=== PATIENT | male | born 1940 | race Asian ===

== ENCOUNTER → 2017-03-23 | Outpatient (CLI) | payer MEDICARE, OTHER ==
[~2017-03-23] MED LIST: FLUT100I; PANC3600; ZOLP10TA6
== END | disposition home or self-care (01) ==
LOC: LAB 08:54
DX: R63.4 Abnormal weight loss (principal)
CPT/HCPCS: 36415; 82565; 84520

== ENCOUNTER 2017-10-28 18:22 | Emergency (ER) | payer MEDICARE, BC ==
[~2017-10-28] VITALS: Ht 162.6 cm; Wt 45.4 kg
[~2017-10-28 18:22] MED LIST changes: -FLUT100I; +LEVO750T2 PO; -PANC3600; +SACC250C PO; +TEMA30CA5 PO; -ZOLP10TA6
[2017-10-28] MEDS ORDERED: PHENAZOPYRIDINE HCL 100 MG TAB PO ONE (21:00)
[2017-10-28 21:46] LABS: Urine Bacteria NONE SEEN /hpf (None Seen); Urine Blood 3+ /uL (Negative); Urine WBC 21 /hpf (0 - 3)
[2017-10-28 21:52] LABS: Urine Specific Gravity 1.023 (1.001-1.035)
[2017-10-28 22:05] LABS: Basophils # (auto) 0 uL; Basophils % (auto) 0.2 % (0.0-2.0); Eosinophils # (auto) 0.3 uL; Eosinophils % (auto) 4.2 % (0.0-7.0); Hematocrit 39.9 % (41.0-53.0); Hemoglobin 13.8 g/dL (13.5-17.5); Lymphocytes # (auto) 1.3 uL; Lymphocytes % (auto) 19.5 % (10.0-50.0); Mean Corpuscular Hemoglobin 33.5 pg (28.0-32.0); Mean Corpuscular Hgb Conc. 34.5 g/dL (32.0-36.0); Monocytes # (auto) 0.6 uL; Monocytes % (auto) 8.8 % (0.0-12.0); Neutrophils # (auto) 4.4 uL; Neutrophils % (auto) 67.3 % (37.0-80.0); Nucleated Red Blood Cells % 0.1 %; Platelet Count (auto) 292 10^3/uL (140-450); Red Blood Cells 4.11 10^6/uL (4.5-5.90); Red Cell Distribution Width 12.4 % (11.8-14.3); White Blood Cell 6.5 10^3/uL (4.4-10.8)
[2017-10-28 22:28] LABS: Albumin 3.3 g/dL (3.4-5.0); BUN/Creatinine Ratio 19.7; Bilirubin, Total 0.4 mg/dL (0.2-1.0); Calcium 8.5 mg/dL (8.5-10.1); Potassium 4.3 mmol/L (3.5-5.1); Total Protein 6.8 g/dL (6.4-8.2)
[2017-10-28 22:56] LABS: INR 0.99 (0.9-1.15); Partial Thromboplastin Time 26.4 sec (22.64-33.71); Prothrombin Time 10.8 sec (9.37-12.3)
[2017-10-29 00:02] VITALS: BP 144/76
== END 2017-10-29 00:27 | disposition home or self-care (01) ==
LOC: ER 18:22
DX: N30.10 Interstitial cystitis (chronic) without hematuria (principal); J44.9 Chronic obstructive pulmonary disease, unspecified; F17.210 Nicotine dependence, cigarettes, uncomplicated; Z86.73 Personal history of transient ischemic attack (TIA), and cerebral infarction without residual deficits; Z90.49 Acquired absence of other specified parts of digestive tract; Z98.61 Coronary angioplasty status
CPT/HCPCS: 36415; 80053; 81001; 85025; 85610; 85730

== ENCOUNTER → 2017-11-10 | Day surgery (SDC) | payer MEDICARE, OTHER ==
[2017-11-09 15:52] LABS: Basophils # (auto) 0.1 uL; Basophils % (auto) 0.9 % (0.0-2.0); Eosinophils # (auto) 0.1 uL; Hematocrit 42.2 % (41.0-53.0); Hemoglobin 14.2 g/dL (13.5-17.5); Lymphocytes # (auto) 1.7 uL; Lymphocytes % (auto) 27.8 % (10.0-50.0); Mean Corpuscular Hemoglobin 33.6 pg (28.0-32.0); Mean Corpuscular Hgb Conc. 33.7 g/dL (32.0-36.0); Mean Corpuscular Volume 99.7 fL (80.0-100.0); Monocytes # (auto) 0.4 uL; Neutrophils # (auto) 3.8 uL; Neutrophils % (auto) 62.3 % (37.0-80.0); Nucleated Red Blood Cells % 0.1 %; Platelet Count (auto) 304 10^3/uL (140-450); Red Blood Cells 4.24 10^6/uL (4.5-5.90); Red Cell Distribution Width 13.6 % (11.8-14.3); White Blood Cell 6.2 10^3/uL (4.4-10.8)
[2017-11-09 15:58] LABS: Urine Bacteria FEW /hpf (None Seen); Urine Blood 2+ /uL (Negative); Urine Specific Gravity 1.016 (1.001-1.035); Urine WBC 18 /hpf (0 - 3)
[2017-11-09 16:05] LABS: INR 0.93 (0.9-1.15); Partial Thromboplastin Time 25.7 sec (22.64-33.71); Prothrombin Time 10.1 sec (9.37-12.3)
[2017-11-09 16:19] LABS: Albumin 3.3 g/dL (3.4-5.0); BUN/Creatinine Ratio 19.7; Calcium 8.7 mg/dL (8.5-10.1); Potassium 4.3 mmol/L (3.5-5.1)
[2017-11-09 16:22] LABS: Bilirubin, Total 0.3 mg/dL (0.2-1.0); Total Protein 6.8 g/dL (6.4-8.2)
[~2017-11-10] VITALS: Ht 162.6 cm; Wt 45.4 kg
[~2017-11-10] MED LIST changes: +BELLADONNA ALKAL/OPIUM (16.2/30MG) RECT SUPP PR ONE; +CIPROFLOXACIN 400MG/200ML 200 ML IV ONE; +GLYCOPYRROLATE 0.2 MG/ML 1ML VIAL ONE; -LEVO750T2 PO; +METOCLOPRAMIDE HCL 5MG/ml INJ 2ml VIAL IV ONE; +MIDAZOLAM HCL 1MG/1ML-2 ML VIAL ONE; +MORPHINE SULFATE 8mg/ml INJ SDV IV PRN; +NEOSTIGMINE 1 MG/ML INJ (10mg/10ML VIAL) ONE; +ONDANSETRON HCL 4 MG/2 ML VIAL IV ONE; +PROPOFOL 10 MG/ML 20 ML IV ONE; +ROCURONIUM 10MG/ML 10ML VIAL IV ONE; -SACC250C PO; +SUCCINYLCHOLINE CHLORIDE 20 MG/ML 10ML VIAL IV ONE; -TEMA30CA5 PO; +fentaNYL CITRATE 100 MCG/2 ML VL ONE
[2017-11-10 17:30] VITALS: BP 115/74
== END | disposition home or self-care (01) ==
LOC: SUR 14:00
PROVIDERS: ATTEND Urology
DX: N40.1 Benign prostatic hyperplasia with lower urinary tract symptoms (principal); I10 Essential (primary) hypertension; J44.9 Chronic obstructive pulmonary disease, unspecified; E11.9 Type 2 diabetes mellitus without complications; F41.9 Anxiety disorder, unspecified; Z90.49 Acquired absence of other specified parts of digestive tract
CPT/HCPCS: 36415; 52601; 80053; 81001; 85025; 85610; 85730; 87086; 88305; J0330; J0744; J2250; J2270; J2405; J2704; J3010

== ENCOUNTER → 2018-07-27 | Outpatient (CLI) | payer MEDICARE, OTHER ==
[2018-07-27 10:49] LABS: Cholesterol 163 mg/dL (< 200); Triglycerides 133 mg/dL (< 150)
[2018-07-27 10:50] LABS: HDL Cholesterol 45 mg/dL (40-59); LDL Cholesterol 115 mg/dL (< 100)
== END | disposition home or self-care (01) ==
LOC: LAB 09:10
PROVIDERS: ATTEND Internal Medicine
DX: E11.9 Type 2 diabetes mellitus without complications (principal)
CPT/HCPCS: 36415; 80061; 83036

== ENCOUNTER → 2018-10-24 | Outpatient (CLI) | payer MEDICARE, OTHER, BC ==
[2018-10-24 08:41] LABS: Basophils # (auto) 0 uL; Basophils % (auto) 0.3 % (0.0-2.0); Eosinophils # (auto) 0 uL; Hematocrit 50.6 % (41.0-53.0); Hemoglobin 17.1 g/dL (13.5-17.5); Lymphocytes # (auto) 1.4 uL; Lymphocytes % (auto) 19.8 % (10.0-50.0); Mean Corpuscular Hemoglobin 33.7 pg (28.0-32.0); Mean Corpuscular Hgb Conc. 33.8 g/dL (32.0-36.0); Mean Corpuscular Volume 99.8 fL (80.0-100.0); Monocytes # (auto) 0.5 uL; Monocytes % (auto) 7.1 % (0.0-12.0); Neutrophils % (auto) 72.8 % (37.0-80.0); Platelet Count (auto) 243 10^3/uL (140-450); Red Blood Cells 5.07 10^6/uL (4.5-5.90); Red Cell Distribution Width 13.2 % (11.8-14.3); White Blood Cell 6.9 10^3/uL (4.4-10.8)
[2018-10-24 09:31] LABS: Albumin 4.1 g/dL (3.4-5.0); BUN/Creatinine Ratio 19.2; Calcium 9.2 mg/dL (8.5-10.1); Potassium 5.2 mmol/L (3.5-5.1)
[2018-10-24 09:34] LABS: Bilirubin, Total 0.5 mg/dL (0.2-1.0); Total Protein 7.7 g/dL (6.4-8.2)
== END | disposition home or self-care (01) ==
LOC: LAB 08:23
PROVIDERS: ATTEND Internal Medicine
DX: E11.9 Type 2 diabetes mellitus without complications (principal); J44.9 Chronic obstructive pulmonary disease, unspecified; K57.90 Diverticulosis of intestine, part unspecified, without perforation or abscess without bleeding
CPT/HCPCS: 36415; 80053; 85025; 85379

== ENCOUNTER → 2018-11-22 | Outpatient (CLI) | payer MEDICARE, OTHER, BC ==
[2018-11-22 10:16] LABS: Potassium 4.6 mmol/L (3.5-5.1)
[2018-11-22 10:26] LABS: BUN/Creatinine Ratio 13.9; Calcium 8.9 mg/dL (8.5-10.1)
== END | disposition home or self-care (01) ==
LOC: LAB 08:27
PROVIDERS: ATTEND Internal Medicine
DX: E11.9 Type 2 diabetes mellitus without complications (principal); E78.5 Hyperlipidemia, unspecified; E04.1 Nontoxic single thyroid nodule
CPT/HCPCS: 36415; 80048; 82043; 83036; 84443

== ENCOUNTER → 2019-01-03 | Outpatient (CLI) | payer MEDICARE, OTHER, BC | END | disposition home or self-care (01) | LOC: XY 08:05 | PROVIDERS: ATTEND Surgery | DX: E04.1 Nontoxic single thyroid nodule (principal); Z68.1 Body mass index [BMI] 19.9 or less, adult | CPT/HCPCS: 78014; A9516 ==

== ENCOUNTER → 2019-04-06 | Outpatient (CLI) | payer MEDICARE, OTHER | END | disposition home or self-care (01) | LOC: LAB 15:23 | PROVIDERS: ATTEND Urology | DX: N40.0 Benign prostatic hyperplasia without lower urinary tract symptoms (principal) | CPT/HCPCS: 87086 ==

== ENCOUNTER 2019-08-31 07:33 | Emergency (ER) | payer MEDICARE, OTHER ==
[~2019-08-31] VITALS: Ht 157.5 cm; Wt 48.1 kg
[2019-08-31] MEDS ORDERED: KETOROLAC TROMETH 15 mg/ml 1ML VL IV ONE (09:00)
[2019-08-31 09:06] LABS: Basophils # (auto) 0 uL; Eosinophils # (auto) 0 uL; Monocytes # (auto) 0.7 uL; Monocytes % (auto) 5.3 % (0.0-12.0)
[2019-08-31 09:11] LABS: Basophils % (auto) 0.1 % (0.0-2.0); Hematocrit 46.9 % (41.0-53.0); Hemoglobin 16.4 g/dL (13.5-17.5); Lymphocytes # (auto) 0.8 uL; Lymphocytes % (auto) 6.2 % (10.0-50.0); Mean Corpuscular Hemoglobin 35.1 pg (28.0-32.0); Mean Corpuscular Volume 100.3 fL (80.0-100.0); Neutrophils # (auto) 10.9 uL; Neutrophils % (auto) 88.4 % (37.0-80.0); Nucleated Red Blood Cells % 0.1 %; Platelet Count (auto) 202 10^3/uL (140-450); Red Blood Cells 4.68 10^6/uL (4.5-5.90); White Blood Cell 12.3 10^3/uL (4.4-10.8)
[2019-08-31 09:14] LABS: Urine Bacteria NONE SEEN /hpf (None Seen); Urine Blood Negative /uL (Negative); Urine WBC 1 /hpf (0 - 3)
[2019-08-31 09:19] LABS: Alanine Aminotransferase 28 U/L (16-61); Albumin 3.6 g/dL (3.4-5.0); Anion Gap 7 (5-15); Blood Urea Nitrogen 11 mg/dL (7-18); Calcium 8.9 mg/dL (8.5-10.1); Carbon Dioxide 27 mmol/L (21-32); Chloride 96 mmol/L (98-107); Glucose 132 mg/dL (74-106); Potassium 4.3 mmol/L (3.5-5.1); Sodium 130 mmol/L (136-145)
[2019-08-31 09:24] LABS: Alkaline Phosphatase 87 U/L (45-117); Aspartate Aminotransferase 25 U/L (15-37); BUN/Creatinine Ratio 12.8; GFR African American 110 mL/min; GFR Non-African American 91 mL/min; Total Protein 7.9 g/dL (6.4-8.2)
[2019-08-31] MEDS ORDERED: HYDROcodone-ACET 5/325MG TAB PO ONE (09:45)
[2019-08-31 12:49] VITALS: BP 124/68
== END 2019-08-31 13:34 | disposition home or self-care (01) ==
LOC: ER 07:33
DX: R33.9 Retention of urine, unspecified (principal); J06.9 Acute upper respiratory infection, unspecified; D72.829 Elevated white blood cell count, unspecified; R51 Headache; F17.210 Nicotine dependence, cigarettes, uncomplicated; J44.9 Chronic obstructive pulmonary disease, unspecified; Z90.49 Acquired absence of other specified parts of digestive tract; Z98.61 Coronary angioplasty status
CPT/HCPCS: 36415; 51702; 71045; 80053; 81001; 84484; 85025; 87804; 96374

== ENCOUNTER 2020-01-21 07:01 | Emergency (ER) | payer MEDICARE, OTHER ==
[2020-01-21 08:21] VITALS: BP 154/85
== END 2020-01-21 09:34 | disposition home or self-care (01) ==
LOC: ER 07:01
DX: J32.9 Chronic sinusitis, unspecified (principal); Z20.828 Contact with and (suspected) exposure to other viral communicable diseases; I25.10 Atherosclerotic heart disease of native coronary artery without angina pectoris; J44.9 Chronic obstructive pulmonary disease, unspecified; F17.210 Nicotine dependence, cigarettes, uncomplicated
CPT/HCPCS: 70450; 87635

== ENCOUNTER → 2020-02-01 | Outpatient (CLI) | payer MEDICARE, BC | END | disposition home or self-care (01) | LOC: XYW 07:30 | PROVIDERS: ATTEND Internal Medicine | DX: I08.3 Combined rheumatic disorders of mitral, aortic and tricuspid valves (principal); I10 Essential (primary) hypertension | CPT/HCPCS: 93306 ==

== ENCOUNTER → 2020-03-21 | Outpatient (CLI) | payer MEDICARE, BC ==
[~2020-03-21] VITALS: Ht 152.4 cm; Wt 44.9 kg
[~2020-03-21] MED LIST changes: +ADENOSINE 38 MG in GIVE UN-DILUTED 0 ML IV ONE; -BELLADONNA ALKAL/OPIUM (16.2/30MG) RECT SUPP PR ONE; -CIPROFLOXACIN 400MG/200ML 200 ML IV ONE; -GLYCOPYRROLATE 0.2 MG/ML 1ML VIAL ONE; -METOCLOPRAMIDE HCL 5MG/ml INJ 2ml VIAL IV ONE; -MIDAZOLAM HCL 1MG/1ML-2 ML VIAL ONE; -MORPHINE SULFATE 8mg/ml INJ SDV IV PRN; -NEOSTIGMINE 1 MG/ML INJ (10mg/10ML VIAL) ONE; -ONDANSETRON HCL 4 MG/2 ML VIAL IV ONE; -PROPOFOL 10 MG/ML 20 ML IV ONE; -ROCURONIUM 10MG/ML 10ML VIAL IV ONE; -SUCCINYLCHOLINE CHLORIDE 20 MG/ML 10ML VIAL IV ONE; -fentaNYL CITRATE 100 MCG/2 ML VL ONE
== END | disposition home or self-care (01) ==
LOC: XY 06:49
PROVIDERS: ATTEND Internal Medicine
DX: Z01.810 Encounter for preprocedural cardiovascular examination (principal)
CPT/HCPCS: 78452; 93017; A9500; J0153

== ENCOUNTER → 2020-04-25 | Day surgery (SDC) | payer MEDICARE, BC ==
[2020-04-22 12:41] LABS: Basophils # (auto) 0 10 ^3/uL (0-0.2); Basophils % (auto) 0.3 % (0.0-2.0); Eosinophils # (auto) 0.1 10 ^3/uL (0-0.8); Eosinophils % (auto) 0.8 % (0.0-7.0); Hematocrit 47.1 % (41.0-53.0); Hemoglobin 15.5 g/dL (13.5-17.5); Lymphocytes # (auto) 1.2 10 ^3/uL (0.4-5.4); Lymphocytes % (auto) 14.9 % (10.0-50.0); Mean Corpuscular Hemoglobin 32.7 pg (28.0-32.0); Mean Corpuscular Hgb Conc. 32.9 g/dL (32.0-36.0); Mean Corpuscular Volume 99.4 fL (80.0-100.0); Monocytes # (auto) 0.3 10 ^3/uL (0-1.3); Neutrophils # (auto) 6.7 10 ^3/uL (1.6-8.6); Nucleated Red Blood Cells % 0.3 %; Platelet Count (auto) 268 10^3/uL (140-450); Red Blood Cells 4.73 10^6/uL (4.5-5.90); Red Cell Distribution Width 13.5 % (11.8-14.3); White Blood Cell 8.3 10^3/uL (4.4-10.8)
[2020-04-22 12:42] LABS: Urine Bacteria NONE SEEN /hpf (None Seen); Urine Blood Negative /uL (Negative); Urine Specific Gravity 1.008 (1.001-1.035); Urine WBC <1 /hpf (0 - 3)
[2020-04-22 12:58] LABS: INR 0.97 (0.9-1.15); Partial Thromboplastin Time 25.4 sec (23.0-31.2)
[2020-04-22 13:34] LABS: Albumin 3.9 g/dL (3.4-5.0); Calcium 9.5 mg/dL (8.5-10.1); Potassium 4.7 mmol/L (3.5-5.1)
[2020-04-22 13:39] LABS: BUN/Creatinine Ratio 23.1; Bilirubin, Total 0.7 mg/dL (0.2-1.0); Total Protein 7.7 g/dL (6.4-8.2)
[~2020-04-25] VITALS: Ht 149.9 cm; Wt 49.9 kg
[~2020-04-25] MED LIST changes: +ACCU-CHEK COMFORT CURVE STRIP VI ONE; -ADENOSINE 38 MG in GIVE UN-DILUTED 0 ML IV ONE; +ALBUTEROL SULF 2.5 MG/0.5ML(0.5%) NEB SOLN NEB ONE; +CIPROFLOXACIN 400MG/200ML 200 ML IV ONE; +DexAMETHasone SOD PHOS 10MG/1ML VIAL INJ ONE; +ETOMIDATE (2MG/ML) 20ML VIAL IV ONE; +GLYCOPYRROLATE 0.2 MG/ML 1ML VIAL IV ONE; +LIDOCAINE 2% (LOCAL ANESTH.) PF 5ml SDV ONE; +MEPERIDINE HCL (25 MG/ML) 1ML VIAL ONE; +MIDAZOLAM HCL 1MG/1ML-2 ML VIAL ONE; +MORPHINE SULFATE 4 MG/ML SYR/VIAL IV PRN; +NALOXONE HCL 0.4 MG/ML VIAL ONE; +ONDANSETRON HCL 4 MG/2 ML VIAL IV PRN; +ONDANSETRON HCL 4 MG/2 ML VIAL ONE; +PHENYLEPHRINE HCL 10 MG/ML VL IV ONE; +PROPOFOL 10 MG/ML 20 ML IV ONE; +ePHEDrine SULFATE 50 MG/ML AMP ONE; +fentaNYL CITRATE 100 MCG/2 ML VL ONE
[2020-04-25 09:45] VITALS: BP 159/91
== END | disposition home or self-care (01) ==
LOC: SUR 05:56
PROVIDERS: ATTEND Urology
DX: N40.1 Benign prostatic hyperplasia with lower urinary tract symptoms (principal); J44.9 Chronic obstructive pulmonary disease, unspecified; I25.10 Atherosclerotic heart disease of native coronary artery without angina pectoris; F41.9 Anxiety disorder, unspecified; Z85.46 Personal history of malignant neoplasm of prostate; Z95.5 Presence of coronary angioplasty implant and graft; Z86.19 Personal history of other infectious and parasitic diseases; Z20.828 Contact with and (suspected) exposure to other viral communicable diseases; Z98.890 Other specified postprocedural states; Z79.899 Other long term (current) drug therapy
CPT/HCPCS: 36415; 52649; 80053; 81001; 82962; 85025; 85610; 85730; J0744; J1100; J2001; J2175; J2250; J2310; J2370; J2405; J2704; J3010; U0003

== ENCOUNTER → 2020-06-26 | Outpatient (CLI) | payer MEDICARE, OTHER ==
[2020-06-26 09:51] LABS: Cholesterol 151 mg/dL (< 200); HDL Cholesterol 52 mg/dL (40-59); LDL Cholesterol 89 mg/dL (< 100); Triglycerides 122 mg/dL (< 150)
== END | disposition home or self-care (01) ==
LOC: LAB 08:51
PROVIDERS: ATTEND Internal Medicine
DX: E78.5 Hyperlipidemia, unspecified (principal); R73.03 Prediabetes
CPT/HCPCS: 36415; 80061; 83036; 84443

== ENCOUNTER → 2021-02-25 | Outpatient (CLI) | payer MEDICARE ==
[2021-02-25 09:45] LABS: Urine Bacteria NONE SEEN /hpf (None Seen); Urine Blood Negative /uL (Negative); Urine Specific Gravity 1.024 (1.001-1.035); Urine WBC 4 /hpf (0 - 3)
[2021-02-25 09:57] LABS: Potassium 4.2 mmol/L (3.5-5.1)
[2021-02-25 10:05] LABS: Albumin 3.3 g/dL (3.4-5.0); BUN/Creatinine Ratio 26.5; Bilirubin, Total 0.6 mg/dL (0.2-1.0); Total Protein 7.4 g/dL (6.4-8.2)
== END | disposition home or self-care (01) ==
LOC: LAB 09:13
PROVIDERS: ATTEND Internal Medicine
DX: I10 Essential (primary) hypertension (principal); R73.03 Prediabetes
CPT/HCPCS: 36415; 80053; 81001; 82043; 83036

== ENCOUNTER → 2021-08-28 | Day surgery (SDC) | payer MEDICARE ==
[2021-08-25 10:53] LABS: Basophils # (auto) 0 10 ^3/uL (0-0.2); Basophils % (auto) 0.3 % (0.0-2.0); Eosinophils # (auto) 0 10 ^3/uL (0-0.8); Eosinophils % (auto) 0.6 % (0.0-7.0); Hematocrit 43.6 % (41.0-53.0); Hemoglobin 14.7 g/dL (13.5-17.5); Lymphocytes # (auto) 0.9 10 ^3/uL (0.4-5.4); Mean Corpuscular Hemoglobin 33.4 pg (28.0-32.0); Mean Corpuscular Hgb Conc. 33.6 g/dL (32.0-36.0); Mean Corpuscular Volume 99.3 fL (80.0-100.0); Monocytes # (auto) 0.3 10 ^3/uL (0-1.3); Neutrophils # (auto) 3.8 10 ^3/uL (1.6-8.6); Neutrophils % (auto) 75.1 % (37.0-80.0); Nucleated Red Blood Cells % 0.1 %; Red Blood Cells 4.39 10^6/uL (4.5-5.90); Red Cell Distribution Width 13.5 % (11.8-14.3)
[2021-08-25 11:25] LABS: Albumin 3.6 g/dL (3.4-5.0); Calcium 9.4 mg/dL (8.5-10.1); Potassium 4.8 mmol/L (3.5-5.1)
[2021-08-25 11:28] LABS: BUN/Creatinine Ratio 23.5; Bilirubin, Total 0.4 mg/dL (0.2-1.0); Total Protein 6.9 g/dL (6.4-8.2)
[~2021-08-28] VITALS: Ht 144.8 cm; Wt 47.6 kg
[~2021-08-28] MED LIST changes: -ACCU-CHEK COMFORT CURVE STRIP VI ONE; -ALBUTEROL SULF 2.5 MG/0.5ML(0.5%) NEB SOLN NEB ONE; -CIPROFLOXACIN 400MG/200ML 200 ML IV ONE; -DexAMETHasone SOD PHOS 10MG/1ML VIAL INJ ONE; -ETOMIDATE (2MG/ML) 20ML VIAL IV ONE; -GLYCOPYRROLATE 0.2 MG/ML 1ML VIAL IV ONE; -LIDOCAINE 2% (LOCAL ANESTH.) PF 5ml SDV ONE; +LIDOCAINE VISCOUS 2% 15ML UD ONE; -MEPERIDINE HCL (25 MG/ML) 1ML VIAL ONE; -MIDAZOLAM HCL 1MG/1ML-2 ML VIAL ONE; -MORPHINE SULFATE 4 MG/ML SYR/VIAL IV PRN; -NALOXONE HCL 0.4 MG/ML VIAL ONE; -ONDANSETRON HCL 4 MG/2 ML VIAL IV PRN; -ONDANSETRON HCL 4 MG/2 ML VIAL ONE; -PHENYLEPHRINE HCL 10 MG/ML VL IV ONE; -PROPOFOL 10 MG/ML 20 ML IV ONE; +diphenhdrAMINE HCL 50 MG/1 ML VL ONE; -ePHEDrine SULFATE 50 MG/ML AMP ONE; -fentaNYL CITRATE 100 MCG/2 ML VL ONE
[2021-08-28] MEDS: MIDAZOLAM HCL 5 MG/ML-1ML VIAL ONE ×2 (09:13→09:22)
[2021-08-28] MEDS: fentaNYL CITRATE 100 MCG/2 ML VL ONE ×2 (09:13→09:22)
[2021-08-28 10:15] VITALS: BP 140/86
== END | disposition home or self-care (01) ==
LOC: GI 08:35
PROVIDERS: ATTEND Internal Medicine Gastroenterology
DX: R12 Heartburn (principal); K63.5 Polyp of colon; K57.30 Diverticulosis of large intestine without perforation or abscess without bleeding; K29.50 Unspecified chronic gastritis without bleeding; K21.9 Gastro-esophageal reflux disease without esophagitis; K29.80 Duodenitis without bleeding; J44.9 Chronic obstructive pulmonary disease, unspecified; F41.9 Anxiety disorder, unspecified; Z87.891 Personal history of nicotine dependence; Z83.3 Family history of diabetes mellitus
CPT/HCPCS: 36415; 43239; 45380; 80053; 85025; 88305; 88342; J1200; J2250; J3010; J7030; U0003; G0500

== ENCOUNTER → 2021-09-13 | Outpatient (CLI) | payer MEDICARE | END | disposition home or self-care (01) | LOC: LAB 11:58 | PROVIDERS: ATTEND Internal Medicine | DX: I10 Essential (primary) hypertension (principal); R73.03 Prediabetes; Z12.11 Encounter for screening for malignant neoplasm of colon | CPT/HCPCS: 82270 ==

== ENCOUNTER → 2021-12-25 | Outpatient (CLI) | payer MEDICARE ==
[2021-12-25 08:41] LABS: Calcium 8.6 mg/dL (8.5-10.1); Potassium 4.6 mmol/L (3.5-5.1)
== END | disposition home or self-care (01) ==
LOC: LAB 07:09
PROVIDERS: ATTEND Internal Medicine
DX: M54.2 Cervicalgia (principal); R73.03 Prediabetes; J44.9 Chronic obstructive pulmonary disease, unspecified; E78.5 Hyperlipidemia, unspecified; I10 Essential (primary) hypertension
CPT/HCPCS: 36415; 80048; 80061; 85652

== ENCOUNTER 2022-04-18 13:02 | Inpatient (IN) | payer MEDICARE ==
[~2022-04-18] VITALS: Ht 149.9 cm; Wt 49.4 kg
[2022-04-18 13:59] LABS: Urine Bacteria NONE SEEN /hpf (None Seen); Urine Blood 1+ /uL (Negative); Urine Specific Gravity 1.014 (1.001-1.035); Urine WBC 13 /hpf (0 - 3)
[2022-04-18 14:17] LABS: Basophils # (auto) 0 10 ^3/uL (0-0.2); Basophils % (auto) 0.5 % (0.0-2.0); Eosinophils # (auto) 0.2 10 ^3/uL (0-0.8); Eosinophils % (auto) 2.9 % (0.0-7.0); Hematocrit 41.8 % (41.0-53.0); Hemoglobin 14.2 g/dL (13.5-17.5); Lymphocytes # (auto) 1.2 10 ^3/uL (0.4-5.4); Lymphocytes % (auto) 21.5 % (10.0-50.0); Mean Corpuscular Hemoglobin 33.8 pg (28.0-32.0); Mean Corpuscular Hgb Conc. 34.1 g/dL (32.0-36.0); Mean Corpuscular Volume 99.3 fL (80.0-100.0); Monocytes # (auto) 0.4 10 ^3/uL (0-1.3); Monocytes % (auto) 6.7 % (0.0-12.0); Neutrophils # (auto) 3.8 10 ^3/uL (1.6-8.6); Neutrophils % (auto) 68.4 % (37.0-80.0); Red Blood Cells 4.21 10^6/uL (4.5-5.90); Red Cell Distribution Width 12.8 % (11.8-14.3); White Blood Cell 5.6 10^3/uL (4.4-10.8)
[2022-04-18 14:33] LABS: Albumin 3.3 g/dL (3.4-5.0); BUN/Creatinine Ratio 25.8; Calcium 8.2 mg/dL (8.5-10.1); Potassium 4.3 mmol/L (3.5-5.1)
[2022-04-18 14:36] LABS: Bilirubin, Total 0.7 mg/dL (0.2-1.0); Total Protein 6.2 g/dL (6.4-8.2)
[2022-04-18] MEDS ORDERED: ACETAMINOPHEN 500 MG TAB PO ONE (16:45)
[2022-04-18] MEDS ORDERED: diazePAM 2 MG TAB PO ONE (16:45)
[2022-04-18] MEDS ORDERED: cefTRIAXone 1GM/50ML D5W 50 ML IV ONE (17:30)
[2022-04-18] MEDS ORDERED: fentaNYL CITRATE 100 MCG/2 ML VL IV ONE (21:15)
[2022-04-18] MEDS ORDERED: HYDROcodone-ACET 5/325MG TAB PO PRN (21:45)
[2022-04-18] MEDS ORDERED: DOCUSATE SOD 100 MG CAP PO PRN (21:45)
[2022-04-18] MEDS ORDERED: ONDANSETRON HCL 4 MG/2 ML VIAL IV PRN (21:45)
[2022-04-18] MEDS ORDERED: hydrALAZINE HCL 20 MG/ML VL IV PRN (21:45)
[2022-04-18] MEDS ORDERED: MORPHINE SULFATE INJ 2 MG/ml SYRG IV PRN (23:00)
[2022-04-18] MEDS ORDERED: NITROGLYCERIN 0.4 MG SL TAB SL PRN (23:00)
[2022-04-18] MEDS ORDERED: SODIUM CHLORIDE 0.9% 500 ML IV ONE (23:15)
[2022-04-19 00:27] VITALS: BP 177/94
[2022-04-19 00:30] VITALS: BP 177/94
[2022-04-19 02:11] LABS: Basophils # (auto) 0 10 ^3/uL (0-0.2); Basophils % (auto) 0.5 % (0.0-2.0); Hematocrit 40.7 % (41.0-53.0); Lymphocytes # (auto) 1.1 10 ^3/uL (0.4-5.4); Monocytes # (auto) 0.4 10 ^3/uL (0-1.3); Monocytes % (auto) 6.6 % (0.0-12.0); Neutrophils # (auto) 4.1 10 ^3/uL (1.6-8.6)
[2022-04-19 02:13] LABS: Eosinophils # (auto) 0.1 10 ^3/uL (0-0.8); Eosinophils % (auto) 2.5 % (0.0-7.0); Hemoglobin 14.3 g/dL (13.5-17.5); Lymphocytes % (auto) 18.6 % (10.0-50.0); Mean Corpuscular Hemoglobin 34.6 pg (28.0-32.0); Mean Corpuscular Hgb Conc. 35.1 g/dL (32.0-36.0); Mean Corpuscular Volume 98.5 fL (80.0-100.0); Neutrophils % (auto) 71.8 % (37.0-80.0); Nucleated Red Blood Cells % 0.1 %; Red Blood Cells 4.13 10^6/uL (4.5-5.90); Red Cell Distribution Width 12.9 % (11.8-14.3); White Blood Cell 5.7 10^3/uL (4.4-10.8)
[2022-04-19 02:29] LABS: Albumin 3.6 g/dL (3.4-5.0); BUN/Creatinine Ratio 24.6; Calcium 8.4 mg/dL (8.5-10.1); Potassium 4.4 mmol/L (3.5-5.1)
[2022-04-19 02:33] LABS: Bilirubin, Total 0.8 mg/dL (0.2-1.0); Total Protein 6.5 g/dL (6.4-8.2)
[2022-04-19] MEDS: ACETAMINOPHEN 325 MG TAB PO PRN ×2 (03:30→09:19)
[2022-04-19] MEDS ORDERED: FLUT1AER3 IN (03:33)
[2022-04-19] MEDS ORDERED: TAMS0.4C36 PO (03:33)
[2022-04-19] MEDS ORDERED: SENN1TAB14 PO (03:33)
[2022-04-19] MEDS ORDERED: VALS40TA2 PO (03:33)
[2022-04-19] MEDS ORDERED: FINA5TAB4 PO (03:33)
[2022-04-19 05:00] VITALS: BP 153/87
[2022-04-19 08:00] VITALS: BP 132/87
[2022-04-19 08:27] LABS: Basophils # (auto) 0 10 ^3/uL (0-0.2); Basophils % (auto) 0.5 % (0.0-2.0); Eosinophils # (auto) 0.1 10 ^3/uL (0-0.8); Lymphocytes # (auto) 1.5 10 ^3/uL (0.4-5.4); Monocytes # (auto) 0.4 10 ^3/uL (0-1.3)
[2022-04-19 08:28] LABS: Hematocrit 40.9 % (41.0-53.0); Hemoglobin 14.1 g/dL (13.5-17.5); Lymphocytes % (auto) 24.3 % (10.0-50.0); Mean Corpuscular Hgb Conc. 34.4 g/dL (32.0-36.0); Mean Corpuscular Volume 98.8 fL (80.0-100.0); Monocytes % (auto) 7.1 % (0.0-12.0); Neutrophils % (auto) 66.1 % (37.0-80.0); Red Blood Cells 4.14 10^6/uL (4.5-5.90); Red Cell Distribution Width 12.6 % (11.8-14.3); White Blood Cell 6.1 10^3/uL (4.4-10.8)
[2022-04-19] MEDS: cefTRIAXone 1GM/50ML D5W 50 ML IV SCH (09:19)
[2022-04-19] MEDS: FINASTERIDE 5 MG TAB PO SCH (09:19)
[2022-04-19] MEDS: FAMOTIDINE (10MG/ML) 2ML VL IV SCH (09:19)
[2022-04-19] MEDS: SODIUM CHLORIDE 0.9% 1,000 ML IV SCH ×2 (09:20→13:22)
[2022-04-19] MEDS ORDERED: MORPHINE SULFATE INJ 2 MG/ml SYRG IV PRN (11:30)
[2022-04-19 12:00] VITALS: BP 161/83
[2022-04-19 16:00] VITALS: BP 170/82
[2022-04-19] MEDS: TAMSULOSIN HYDROCHLORIDE 0.4 MG CAP PO SCH (17:56)
[2022-04-19] MEDS ORDERED: TEMAZEPAM 15 MG CAP PO ONE (20:45)
[2022-04-20 01:32] VITALS: BP 131/77
[2022-04-20 06:53] LABS: Basophils # (auto) 0 10 ^3/uL (0-0.2); Eosinophils # (auto) 0.1 10 ^3/uL (0-0.8); Hemoglobin 13.5 g/dL (13.5-17.5); Lymphocytes # (auto) 1.3 10 ^3/uL (0.4-5.4); Mean Corpuscular Hemoglobin 34.2 pg (28.0-32.0); Mean Corpuscular Hgb Conc. 34.6 g/dL (32.0-36.0); Monocytes # (auto) 0.4 10 ^3/uL (0-1.3); Neutrophils # (auto) 3.1 10 ^3/uL (1.6-8.6); Nucleated Red Blood Cells % 0.1 %
[2022-04-20 06:56] LABS: Basophils % (auto) 0.4 % (0.0-2.0); Eosinophils % (auto) 2.7 % (0.0-7.0); Hematocrit 39.2 % (41.0-53.0); Lymphocytes % (auto) 26.3 % (10.0-50.0); Mean Corpuscular Volume 98.9 fL (80.0-100.0); Monocytes % (auto) 7.6 % (0.0-12.0); Red Blood Cells 3.96 10^6/uL (4.5-5.90); Red Cell Distribution Width 12.7 % (11.8-14.3); White Blood Cell 4.9 10^3/uL (4.4-10.8)
[2022-04-20] MEDS: SODIUM CHLORIDE 0.9% 1,000 ML IV SCH ×2 (07:05→23:18)
[2022-04-20 07:09] LABS: Calcium 8.6 mg/dL (8.5-10.1); Potassium 4.5 mmol/L (3.5-5.1)
[2022-04-20 07:21] LABS: BUN/Creatinine Ratio 12.9
[2022-04-20 09:00] VITALS: BP 148/81
[2022-04-20] MEDS: cefTRIAXone 1GM/50ML D5W 50 ML IV SCH (09:00)
[2022-04-20] MEDS: FAMOTIDINE (10MG/ML) 2ML VL IV SCH (10:00)
[2022-04-20] MEDS: FINASTERIDE 5 MG TAB PO SCH (10:00)
[2022-04-20] MEDS ORDERED: fentaNYL CITRATE 100 MCG/2 ML VL ONE (10:27)
[2022-04-20] MEDS ORDERED: PROPOFOL 10 MG/ML 20 ML IV ONE (10:27)
[2022-04-20] MEDS ORDERED: MIDAZOLAM HCL 2MG/2ML 2ml VIAL (1mg/ml) ONE (10:27)
[2022-04-20] MEDS ORDERED: ONDANSETRON HCL 4 MG/2 ML VIAL ONE (10:27)
[2022-04-20] MEDS ORDERED: SODIUM CHLORIDE LOCK 10 ML ONE (10:27)
[2022-04-20] MEDS ORDERED: DexAMETHasone SOD PHOS 10MG/1ML VIAL INJ ONE (10:27)
[2022-04-20] MEDS ORDERED: CIPROFLOXACIN 400MG/200ML 200 ML IV ONE (11:03)
[2022-04-20 16:30] VITALS: BP 151/79
[2022-04-20] MEDS: TAMSULOSIN HYDROCHLORIDE 0.4 MG CAP PO SCH (18:27)
[2022-04-20 22:00] VITALS: BP 133/95
[2022-04-21 05:00] VITALS: BP 129/72
[2022-04-21 05:29] LABS: Basophils # (auto) 0 10 ^3/uL (0-0.2); Eosinophils # (auto) 0.1 10 ^3/uL (0-0.8)
[2022-04-21 05:32] LABS: Basophils % (auto) 0.4 % (0.0-2.0); Eosinophils % (auto) 2.6 % (0.0-7.0); Hematocrit 38.6 % (41.0-53.0); Hemoglobin 13.3 g/dL (13.5-17.5); Lymphocytes # (auto) 1.2 10 ^3/uL (0.4-5.4); Lymphocytes % (auto) 21.9 % (10.0-50.0); Mean Corpuscular Hemoglobin 34.5 pg (28.0-32.0); Mean Corpuscular Hgb Conc. 34.6 g/dL (32.0-36.0); Mean Corpuscular Volume 99.9 fL (80.0-100.0); Monocytes # (auto) 0.5 10 ^3/uL (0-1.3); Monocytes % (auto) 8.4 % (0.0-12.0); Neutrophils # (auto) 3.7 10 ^3/uL (1.6-8.6); Neutrophils % (auto) 66.7 % (37.0-80.0); Red Blood Cells 3.86 10^6/uL (4.5-5.90); White Blood Cell 5.5 10^3/uL (4.4-10.8)
[2022-04-21 05:46] LABS: Potassium 4.1 mmol/L (3.5-5.1)
[2022-04-21 05:49] LABS: BUN/Creatinine Ratio 12.7; Calcium 8.4 mg/dL (8.5-10.1)
[2022-04-21 08:00] VITALS: BP 122/67
[2022-04-21 09:00] VITALS: BP 122/67
[2022-04-21] MEDS: cefTRIAXone 1GM/50ML D5W 50 ML IV SCH (09:53)
[2022-04-21] MEDS: FINASTERIDE 5 MG TAB PO SCH (09:54)
[2022-04-21] MEDS ORDERED: LEVO750T64 PO (10:48)
[2022-04-21 13:00] VITALS: BP 133/88
[2022-04-21 13:36] VITALS: BP 133/88
== END 2022-04-21 15:19 | disposition home or self-care (01) | DRG 694 ==
LOC: ER 13:05 → OVERFLOW 22:47 → WEST WING 23:36
PROVIDERS: ADMIT Nurse Practitioner Family; ATTEND Internal Medicine Pulmonary Disease
PROC: 0TCB8ZZ Extirpation of Matter from Bladder, Via Natural or Artificial Opening Endoscopic (ICD-10-PCS; principal; 2022-04-20 11:18)
DX: N21.0 Calculus in bladder (principal); N39.0 Urinary tract infection, site not specified; I10 Essential (primary) hypertension; N40.1 Benign prostatic hyperplasia with lower urinary tract symptoms; N32.0 Bladder-neck obstruction; Z20.822 Contact with and (suspected) exposure to COVID-19; R33.8 Other retention of urine; F17.210 Nicotine dependence, cigarettes, uncomplicated; I25.10 Atherosclerotic heart disease of native coronary artery without angina pectoris; J45.909 Unspecified asthma, uncomplicated; Z83.3 Family history of diabetes mellitus; Z90.49 Acquired absence of other specified parts of digestive tract; Z90.79 Acquired absence of other genital organ(s)
CPT/HCPCS: 36415; 74176; 80048; 80053; 81001; 85025; 86850; 86900; 86901; 87086; 93306; 96365; 96375; G0378; J0696; J1100; J2250; J2405; J2704

== ENCOUNTER 2022-05-01 14:25 | Emergency (ER) | payer MEDICARE ==
[~2022-05-01] VITALS: Ht 147.3 cm; Wt 46.5 kg
[~2022-05-01 14:25] MED LIST changes: +FINA5TAB4 PO; +FLUT1AER3 IN; +LEVO750T64 PO; -LIDOCAINE VISCOUS 2% 15ML UD ONE; +SENN1TAB14 PO; +TAMS0.4C36 PO; +VALS40TA2 PO; -diphenhdrAMINE HCL 50 MG/1 ML VL ONE
[2022-05-01] MEDS ORDERED: SODIUM CHLORIDE 0.9% 1,000 ML IV ONE (14:30)
[2022-05-01 15:00] LABS: Basophils # (auto) 0 10 ^3/uL (0-0.2); Eosinophils # (auto) 0.1 10 ^3/uL (0-0.8); Eosinophils % (auto) 1.2 % (0.0-7.0); Lymphocytes # (auto) 0.6 10 ^3/uL (0.4-5.4); Mean Corpuscular Volume 100.1 fL (80.0-100.0); Monocytes # (auto) 0.6 10 ^3/uL (0-1.3); Neutrophils # (auto) 8.2 10 ^3/uL (1.6-8.6); White Blood Cell 9.5 10^3/uL (4.4-10.8)
[2022-05-01 15:02] LABS: Basophils % (auto) 0.3 % (0.0-2.0); Hematocrit 40.3 % (41.0-53.0); Hemoglobin 13.8 g/dL (13.5-17.5); Lymphocytes % (auto) 6.1 % (10.0-50.0); Mean Corpuscular Hemoglobin 34.2 pg (28.0-32.0); Mean Corpuscular Hgb Conc. 34.2 g/dL (32.0-36.0); Monocytes % (auto) 6.2 % (0.0-12.0); Neutrophils % (auto) 86.2 % (37.0-80.0); Red Blood Cells 4.03 10^6/uL (4.5-5.90); Red Cell Distribution Width 12.7 % (11.8-14.3)
[2022-05-01 15:16] LABS: INR 0.98 (0.9-1.15); Partial Thromboplastin Time 25.1 sec (24.6-33.4)
[2022-05-01 15:19] LABS: Albumin 3.5 g/dL (3.4-5.0); BUN/Creatinine Ratio 22.4; Calcium 8.2 mg/dL (8.5-10.1); Potassium 4.4 mmol/L (3.5-5.1)
[2022-05-01 15:22] LABS: Bilirubin, Total 0.8 mg/dL (0.2-1.0); Total Protein 6.4 g/dL (6.4-8.2)
[2022-05-01 15:23] LABS: Urine Bacteria NONE SEEN /hpf (None Seen); Urine Blood Negative /uL (Negative); Urine Specific Gravity 1.021 (1.001-1.035); Urine WBC 3 /hpf (0 - 3)
[2022-05-01] MEDS ORDERED: ACET-1156 PO (18:44)
[2022-05-01] MEDS ORDERED: OSEL75CA5 PO (18:44)
[2022-05-01 18:52] VITALS: BP 132/69
== END 2022-05-01 18:54 | disposition home or self-care (01) ==
LOC: ER 14:27
DX: J10.1 Influenza due to other identified influenza virus with other respiratory manifestations (principal); I10 Essential (primary) hypertension; I25.10 Atherosclerotic heart disease of native coronary artery without angina pectoris; J44.9 Chronic obstructive pulmonary disease, unspecified; F17.210 Nicotine dependence, cigarettes, uncomplicated; Z79.2 Long term (current) use of antibiotics; Z79.899 Other long term (current) drug therapy; Z20.822 Contact with and (suspected) exposure to COVID-19
CPT/HCPCS: 36415; 71045; 80053; 81001; 83605; 83880; 84484; 85025; 85610; 85730; 87040; 87426; 87804; 93005; 96360; 96361; 99285; J7030

== ENCOUNTER 2022-06-02 07:03 | Inpatient (IN) | payer MEDICARE ==
[~2022-06-02] VITALS: Ht 152.4 cm; Wt 58.1 kg
[~2022-06-02 07:03] MED LIST changes: +ACET-1156 PO; +OSEL75CA5 PO
[2022-06-02] MEDS ORDERED: IPRATROPIUM BROM 0.5 MG/2.5ML INH SOL NEB ONE (07:30)
[2022-06-02] MEDS ORDERED: methylPREDNISolone SOD SUCC 125 MG/2 ML VL IV ONE (07:30)
[2022-06-02] MEDS ORDERED: ALBUTEROL SULF 2.5 MG/0.5ML(0.5%) NEB SOLN NEB ONE (07:30)
[2022-06-02] MEDS ORDERED: LABETALOL HCL 5 MG/ML 4ML SYRINGE IV ONE (08:00)
[2022-06-02 08:10] LABS: Basophils # (auto) 0 10 ^3/uL (0-0.2); Eosinophils # (auto) 0.2 10 ^3/uL (0-0.8); Monocytes # (auto) 0.4 10 ^3/uL (0-1.3)
[2022-06-02 08:12] LABS: Basophils % (auto) 0.3 % (0.0-2.0); Eosinophils % (auto) 2.8 % (0.0-7.0); Hematocrit 47.9 % (41.0-53.0); Hemoglobin 16.3 g/dL (13.5-17.5); Lymphocytes % (auto) 11.9 % (10.0-50.0); Mean Corpuscular Hemoglobin 34.5 pg (28.0-32.0); Mean Corpuscular Volume 101.4 fL (80.0-100.0); Neutrophils # (auto) 6.5 10 ^3/uL (1.6-8.6); Red Blood Cells 4.72 10^6/uL (4.5-5.90); Red Cell Distribution Width 12.4 % (11.8-14.3); White Blood Cell 8.2 10^3/uL (4.4-10.8)
[2022-06-02 08:41] LABS: Albumin 3.5 g/dL (3.4-5.0); BUN/Creatinine Ratio 18.6; Bilirubin, Total 0.8 mg/dL (0.2-1.0); Calcium 9.3 mg/dL (8.5-10.1); Potassium 4.5 mmol/L (3.5-5.1); Total Protein 6.6 g/dL (6.4-8.2)
[2022-06-02] MEDS ORDERED: HYDROcodone-ACET 5/325MG TAB PO PRN (11:30)
[2022-06-02] MEDS ORDERED: ACETAMINOPHEN 325 MG TAB PO PRN (11:30)
[2022-06-02] MEDS ORDERED: NITROGLYCERIN 0.4 MG SL TAB SL PRN (11:30)
[2022-06-02] MEDS ORDERED: MORPHINE SULFATE INJ 2 MG/ml SYRG IV PRN ×2 (11:30)
[2022-06-02] MEDS ORDERED: ALBUTEROL SULF 2.5 MG/0.5ML(0.5%) NEB SOLN NEB PRN (11:45)
[2022-06-02] MEDS ORDERED: hydrALAZINE HCL 20 MG/ML VL IV PRN (11:45)
[2022-06-02] MEDS ORDERED: AZITHROMYCIN 500MG/ 250ML 250 ML IV ONE (11:45)
[2022-06-02] MEDS ORDERED: IPRATROPIUM BROM 0.5 MG/2.5ML INH SOL NEB PRN (11:45)
[2022-06-02 12:24] LABS: Cholesterol 155 mg/dL (< 200); HDL Cholesterol 40 mg/dL (40-59); LDL Cholesterol 113 mg/dL (< 100); Triglycerides 120 mg/dL (< 150)
[2022-06-02] MEDS: ALBUTEROL SULF 2.5 MG/0.5ML(0.5%) NEB SOLN NEB SCH ×2 (12:43→18:38)
[2022-06-02] MEDS: IPRATROPIUM BROM 0.5 MG/2.5ML INH SOL NEB SCH ×2 (12:43→18:38)
[2022-06-02 14:13] VITALS: BP 111/76
[2022-06-02] MEDS: TAMSULOSIN HYDROCHLORIDE 0.4 MG CAP PO SCH (17:28)
[2022-06-02] MEDS: ATORVASTATIN 20 MG TAB PO SCH (22:48)
[2022-06-02 22:49] VITALS: BP 166/77
[2022-06-03 05:35] LABS: Basophils # (auto) 0 10 ^3/uL (0-0.2); Basophils % (auto) 0.1 % (0.0-2.0); Eosinophils # (auto) 0 10 ^3/uL (0-0.8); Mean Corpuscular Volume 100.7 fL (80.0-100.0); Monocytes # (auto) 0.6 10 ^3/uL (0-1.3); Nucleated Red Blood Cells % 0.1 %
[2022-06-03 05:37] LABS: Hematocrit 43.5 % (41.0-53.0); Hemoglobin 15.2 g/dL (13.5-17.5); Lymphocytes # (auto) 1.4 10 ^3/uL (0.4-5.4); Lymphocytes % (auto) 12.3 % (10.0-50.0); Mean Corpuscular Hemoglobin 35.1 pg (28.0-32.0); Mean Corpuscular Hgb Conc. 34.8 g/dL (32.0-36.0); Monocytes % (auto) 5.8 % (0.0-12.0); Neutrophils % (auto) 81.8 % (37.0-80.0); Red Blood Cells 4.32 10^6/uL (4.5-5.90); Red Cell Distribution Width 12.6 % (11.8-14.3); White Blood Cell 11.1 10^3/uL (4.4-10.8)
[2022-06-03 05:43] LABS: Albumin 3.5 g/dL (3.4-5.0); BUN/Creatinine Ratio 28.3; Calcium 9.8 mg/dL (8.5-10.1); Potassium 4.5 mmol/L (3.5-5.1)
[2022-06-03 05:57] LABS: Bilirubin, Total 0.7 mg/dL (0.2-1.0); Total Protein 6.6 g/dL (6.4-8.2)
[2022-06-03 08:00] VITALS: BP 140/78
[2022-06-03 09:00] VITALS: BP 140/78
[2022-06-03] MEDS: ASPirin 81 mg TAB PO SCH (09:55)
[2022-06-03] MEDS: AZITHROMYCIN 500MG/ 250ML 250 ML IV SCH (09:55)
[2022-06-03] MEDS: VALSARTAN 80 MG TAB PO SCH (09:56)
[2022-06-03] MEDS: FINASTERIDE 5 MG TAB PO SCH (09:56)
[2022-06-03] MEDS ORDERED: ENOXAPARIN SOD 30 MG/0.3 ML SYRINGE SC SCH ×2 (10:00)
[2022-06-03] MEDS ORDERED: PATIENTS OWN MEDICATION (Valsartan (Diovan) 80 MG) PO SCH (10:00)
[2022-06-03 13:00] VITALS: BP 155/82
[2022-06-03] MEDS ORDERED: predniSONE 20 MG TAB PO ONE (14:15)
[2022-06-03] MEDS: ALBUTEROL SULF 2.5 MG/0.5ML(0.5%) NEB SOLN NEB SCH ×3 (15:35→18:26)
[2022-06-03] MEDS: IPRATROPIUM BROM 0.5 MG/2.5ML INH SOL NEB SCH ×3 (15:35→18:27)
[2022-06-03 15:56] LABS: Urine Bacteria NONE SEEN /hpf (None Seen); Urine Blood Negative /uL (Negative); Urine Specific Gravity 1.019 (1.001-1.035); Urine WBC 2 /hpf (0 - 3)
[2022-06-03] MEDS ORDERED: TEMAZEPAM 15 MG CAP PO PRN (16:00)
[2022-06-03 16:53] VITALS: BP 151/83
[2022-06-03] MEDS: TAMSULOSIN HYDROCHLORIDE 0.4 MG CAP PO SCH (18:20)
[2022-06-03 20:00] VITALS: BP 140/78
[2022-06-03 22:00] VITALS: BP 118/69
[2022-06-03] MEDS: ATORVASTATIN 20 MG TAB PO SCH (22:54)
[2022-06-04 05:00] VITALS: BP 117/78
[2022-06-04] MEDS: IPRATROPIUM BROM 0.5 MG/2.5ML INH SOL NEB SCH ×2 (07:02→12:00)
[2022-06-04] MEDS: ALBUTEROL SULF 2.5 MG/0.5ML(0.5%) NEB SOLN NEB SCH ×2 (07:02→12:00)
[2022-06-04 08:00] VITALS: BP 93/61
[2022-06-04] MEDS: AZITHROMYCIN 500MG/ 250ML 250 ML IV SCH (09:03)
[2022-06-04] MEDS: ASPirin 81 mg TAB PO SCH (09:04)
[2022-06-04] MEDS: FINASTERIDE 5 MG TAB PO SCH (09:04)
[2022-06-04] MEDS: VALSARTAN 80 MG TAB PO SCH (09:04)
[2022-06-04] MEDS ORDERED: predniSONE 20 MG TAB PO SCH (10:00)
[2022-06-04] MEDS ORDERED: PRED20TA2 PO (11:46)
[2022-06-04] MEDS ORDERED: AZIT500T PO (11:46)
[2022-06-04 12:00] VITALS: BP_SYST 143; BP_SYST 152; BP_DIAS 73; BP_DIAS 77
[2022-06-04 16:00] VITALS: BP 122/68
[2022-06-04 17:20] VITALS: BP 122/68
[2022-06-04] MEDS: TAMSULOSIN HYDROCHLORIDE 0.4 MG CAP PO SCH (18:00)
== END 2022-06-04 18:10 | disposition home health service (06) | DRG 189 ==
LOC: ER 07:03 → TELE 11:27 → TELE-WESTW 22:04 → WEST WING 06-03 17:38
PROVIDERS: ADMIT Registered Nurse; ATTEND Internal Medicine
DX: J96.00 Acute respiratory failure, unspecified whether with hypoxia or hypercapnia (principal); J44.1 Chronic obstructive pulmonary disease with (acute) exacerbation; I16.0 Hypertensive urgency; F17.210 Nicotine dependence, cigarettes, uncomplicated; I10 Essential (primary) hypertension; I25.10 Atherosclerotic heart disease of native coronary artery without angina pectoris; R91.1 Solitary pulmonary nodule; N40.0 Benign prostatic hyperplasia without lower urinary tract symptoms; Z83.3 Family history of diabetes mellitus; Z87.442 Personal history of urinary calculi; Z20.822 Contact with and (suspected) exposure to COVID-19
CPT/HCPCS: 36415; 36600; 71045; 71275; 80053; 80061; 81001; 82805; 83036; 83735; 84443; 84484; 85025; 87040; 87426; 87804; 93005; 94640; 96374; G0378; J3490

== ENCOUNTER → 2023-03-08 | Outpatient (CLI) | payer MEDICARE ==
[~2023-03-08] MED LIST changes: -ACET-1156 PO; +ACET-1881 PO; +AZIT500T PO; +LEVO750T40 PO; -LEVO750T64 PO; +PRED20TA2 PO
[2023-03-08 07:44] LABS: Albumin 3.4 g/dL (3.4-5.0)
[2023-03-08 07:49] LABS: Bilirubin, Direct 0.2 mg/dL (0-0.2); Bilirubin, Total 0.8 mg/dL (0.2-1.0); Total Protein 7.6 g/dL (6.4-8.2)
== END | disposition home or self-care (01) ==
LOC: LAB 06:07
PROVIDERS: ATTEND Internal Medicine
DX: E78.5 Hyperlipidemia, unspecified (principal)
CPT/HCPCS: 36415; 80076

== ENCOUNTER 2023-03-29 05:11 | Inpatient (IN) | payer MEDICARE ==
[~2023-03-29] VITALS: Ht 160 cm; Wt 51.5 kg
[2023-03-29 06:40] LABS: Basophils # (auto) 0 10 ^3/uL (0-0.2); Basophils % (auto) 0.1 % (0.0-2.0); Eosinophils # (auto) 0 10 ^3/uL (0-0.8); Hematocrit 46.4 % (41.0-53.0); Lymphocytes # (auto) 0.8 10 ^3/uL (0.4-5.4); Lymphocytes % (auto) 3.3 % (10.0-50.0); Mean Corpuscular Hgb Conc. 32.3 g/dL (32.0-36.0); Mean Corpuscular Volume 99.2 fL (80.0-100.0); Monocytes # (auto) 1.5 10 ^3/uL (0-1.3); Monocytes % (auto) 6.2 % (0.0-12.0); Neutrophils # (auto) 22.2 10 ^3/uL (1.6-8.6); Neutrophils % (auto) 90.4 % (37.0-80.0); Red Blood Cells 4.67 10^6/uL (4.5-5.90); Red Cell Distribution Width 14.1 % (11.8-14.3); White Blood Cell 24.6 10^3/uL (4.4-10.8)
[2023-03-29 06:42] LABS: Alanine Aminotransferase 44 U/L (7-40); Alkaline Phosphatase 66 U/L (46-116); Calcium 9.2 mg/dL (8.7-10.4); Chloride 102 mmol/L (98-107); Glucose 106 mg/dL (74-106); INR 1.01 (0.9-1.15); Lipase 39 U/L (12-53); Partial Thromboplastin Time 23.7 SEC (24.5-34.5); Potassium 3.7 mmol/L (3.5-5.1); Prothrombin Time 10.6 sec (9.3-11.8); Sodium 137 mmol/L (136-145)
[2023-03-29 06:43] LABS: Albumin 3.6 g/dL (3.2-4.8); Aspartate Aminotransferase 40 U/L (13-40); BUN/Creatinine Ratio 18.5 (10.0-20.0); Blood Urea Nitrogen 15 mg/dL (9-23); Total Protein 5.9 g/dL (5.7-8.2)
[2023-03-29 06:55] LABS: Magnesium 1.7 mg/dL (1.6-2.6)
[2023-03-29 07:27] LABS: Bilirubin, Total 1.4 mg/dL (0.2-1.0)
[2023-03-29] MEDS ORDERED: SODIUM CHLORIDE 0.9% 1,000 ML IV ONE ×2 (08:30)
[2023-03-29] MEDS ORDERED: metroNIDAZOLE 500MG/100ML 100 ML IV ONE ×2 (08:30→17:15)
[2023-03-29] MEDS ORDERED: cefTRIAXone 1GM/50ML D5W 50 ML IV ONE (08:30)
[2023-03-29 10:34] VITALS: PULSE 71; O2SAT 96
[2023-03-29 10:43] LABS: Lactic Acid w/Reflex 3.3 mmol/L (0.4-2.0)
[2023-03-29] MEDS ORDERED: NITROGLYCERIN 0.4 MG SL TAB SL PRN (12:15)
[2023-03-29] MEDS ORDERED: MORPHINE SULFATE INJ 2 MG/ml SYRG IV PRN (12:15)
[2023-03-29] MEDS ORDERED: POLYETHYLENE GLYCOL 17 GM PWDR PO ONE (12:15)
[2023-03-29] MEDS ORDERED: POLYETHYLENE GLYCOL 17 GM PWDR PO PRN (14:00)
[2023-03-29] MEDS: SODIUM CHLOR 0.9% PF (SALINE LOCK) 10ML VIAL/SYR IV SCH ×2 (14:28→21:20)
[2023-03-29 17:00] VITALS: BP 127/67; PULSE 84; RESP 16; TEMP 98.4; O2SAT 93
[2023-03-29] MEDS: D5W/SOD CHL 0.45% 1,000 ML IV SCH (18:06)
[2023-03-29 20:00] VITALS: PULSE 85
[2023-03-29 22:00] VITALS: BP 118/73; PULSE 78; RESP 17; TEMP 98.9; O2SAT 94
[2023-03-30] VITALS (8 sets, daily range): BP systolic 112–153; BP diastolic 62–78; PULSE 80–94; RESP 16–20; TEMP 97.6–98.9; O2SAT 92–95
[2023-03-30 00:06] LABS: Urine Bacteria NONE SEEN /hpf (None Seen); Urine Blood Negative /uL (Negative); Urine Clarity Clear (Clear); Urine Color Yellow (Yellow); Urine Protein, UAD TRACE (Negative); Urine Specific Gravity 1.019 (1.001-1.035); Urine Urobilinogen Normal (Negative); Urine WBC 2 /hpf (0 - 3); Urine pH 8.5 (5.0-8.0)
[2023-03-30] MEDS: metroNIDAZOLE 500MG/100ML 100 ML IV SCH ×3 (00:24→17:17)
[2023-03-30] MEDS: SODIUM CHLOR 0.9% PF (SALINE LOCK) 10ML VIAL/SYR IV SCH ×3 (05:35→21:15)
[2023-03-30 07:36] LABS: Basophils # (auto) 0 10 ^3/uL (0-0.2); Eosinophils # (auto) 0 10 ^3/uL (0-0.8); Mean Corpuscular Volume 99.1 fL (80.0-100.0); Monocytes # (auto) 0.7 10 ^3/uL (0-1.3); Monocytes % (auto) 5.2 % (0.0-12.0); Neutrophils # (auto) 10.7 10 ^3/uL (1.6-8.6); Red Cell Distribution Width 13.8 % (11.8-14.3)
[2023-03-30 07:42] LABS: Alanine Aminotransferase 43 U/L (7-40); Albumin 3.1 g/dL (3.2-4.8); Alkaline Phosphatase 53 U/L (46-116); Anion Gap 6.1 (5-15); Aspartate Aminotransferase 37 U/L (13-40); BUN/Creatinine Ratio 12.9 (10.0-20.0); Basophils % (auto) 0.2 % (0.0-2.0); Bilirubin, Total 1.7 mg/dL (0.2-1.0); Blood Urea Nitrogen 8 mg/dL (9-23); Calcium 8.3 mg/dL (8.5-10.1); Carbon Dioxide 21.9 mmol/L (20-30); Chloride 104 mmol/L (98-107); Eosinophils % (auto) 0.1 % (0.0-7.0); Glucose 101 mg/dL (74-106); Hematocrit 37.9 % (41.0-53.0); Hemoglobin 12.9 g/dL (13.5-17.5); Lymphocytes # (auto) 1.3 10 ^3/uL (0.4-5.4); Lymphocytes % (auto) 10.3 % (10.0-50.0); Mean Corpuscular Hemoglobin 33.8 pg (28.0-32.0); Mean Corpuscular Hgb Conc. 34.1 g/dL (32.0-36.0); Neutrophils % (auto) 84.2 % (37.0-80.0); Red Blood Cells 3.82 10^6/uL (4.5-5.90); Total Protein 5.3 g/dL (5.7-8.2); White Blood Cell 12.7 10^3/uL (4.4-10.8)
[2023-03-30 07:43] LABS: Sodium 132 mmol/L (136-145)
[2023-03-30] MEDS: D5W/SOD CHL 0.45% 1,000 ML IV SCH (17:17)
[2023-03-31] MEDS: metroNIDAZOLE 500MG/100ML 100 ML IV SCH ×2 (00:13→08:38)
[2023-03-31] MEDS ORDERED: ALBU108A5 INH (02:44)
[2023-03-31] MEDS: D5W/SOD CHL 0.45% 1,000 ML IV SCH (03:57)
[2023-03-31 05:00] VITALS: BP 130/57; PULSE 75; RESP 16; TEMP 98.1; O2SAT 96
[2023-03-31] MEDS: SODIUM CHLOR 0.9% PF (SALINE LOCK) 10ML VIAL/SYR IV SCH (05:48)
[2023-03-31 05:50] LABS: Basophils # (auto) 0 10 ^3/uL (0-0.2); Eosinophils # (auto) 0 10 ^3/uL (0-0.8); Lymphocytes # (auto) 1.3 10 ^3/uL (0.4-5.4); Neutrophils # (auto) 5.4 10 ^3/uL (1.6-8.6); Nucleated Red Blood Cells % 0.1 %; Red Cell Distribution Width 13.8 % (11.8-14.3)
[2023-03-31 05:53] LABS: Basophils % (auto) 0.2 % (0.0-2.0); Eosinophils % (auto) 0.2 % (0.0-7.0); Hematocrit 40.1 % (41.0-53.0); Hemoglobin 13.8 g/dL (13.5-17.5); Lymphocytes % (auto) 18.8 % (10.0-50.0); Mean Corpuscular Hemoglobin 33.9 pg (28.0-32.0); Mean Corpuscular Hgb Conc. 34.4 g/dL (32.0-36.0); Mean Corpuscular Volume 98.5 fL (80.0-100.0); Monocytes # (auto) 0.4 10 ^3/uL (0-1.3); Monocytes % (auto) 5.8 % (0.0-12.0); Red Blood Cells 4.08 10^6/uL (4.5-5.90); White Blood Cell 7.1 10^3/uL (4.4-10.8)
[2023-03-31 06:05] LABS: Anion Gap 4.6 (5-15); Carbon Dioxide 26.4 mmol/L (20-30); Chloride 101 mmol/L (98-107); Potassium 3.8 mmol/L (3.5-5.1); Sodium 132 mmol/L (136-145)
[2023-03-31 06:06] LABS: Calcium 8.9 mg/dL (8.7-10.4)
[2023-03-31 06:11] LABS: BUN/Creatinine Ratio 9.9 (10.0-20.0); Blood Urea Nitrogen 7 mg/dL (9-23); Glucose 98 mg/dL (74-106)
[2023-03-31 09:00] VITALS: BP 140/76; PULSE 88; RESP 18; TEMP 98.4; O2SAT 90
[2023-03-31] MEDS ORDERED: DOCU-94 PO (09:30)
== END 2023-03-31 11:35 | disposition home or self-care (01) | DRG 872 ==
LOC: ER 05:11 → TELE 12:08 → TELE-CENTR 14:56
PROVIDERS: ADMIT Internal Medicine Pulmonary Disease; ATTEND Internal Medicine Pulmonary Disease
DX: A41.9 Sepsis, unspecified organism (principal); I50.22 Chronic systolic (congestive) heart failure; I31.39 Other pericardial effusion (noninflammatory); F17.210 Nicotine dependence, cigarettes, uncomplicated; I25.10 Atherosclerotic heart disease of native coronary artery without angina pectoris; J44.9 Chronic obstructive pulmonary disease, unspecified; N40.0 Benign prostatic hyperplasia without lower urinary tract symptoms; K59.00 Constipation, unspecified; I11.0 Hypertensive heart disease with heart failure; K57.10 Diverticulosis of small intestine without perforation or abscess without bleeding; I70.0 Atherosclerosis of aorta; K52.9 Noninfective gastroenteritis and colitis, unspecified; Z87.442 Personal history of urinary calculi; Z90.49 Acquired absence of other specified parts of digestive tract
CPT/HCPCS: 36415; 74022; 74176; 76705; 80048; 80053; 81001; 83605; 83690; 83735; 84484; 85025; 85610; 85730; 87040; 87086; 93005; 96365; 96367; G0378; J0696; J3490

== ENCOUNTER → 2023-04-21 | Outpatient (CLI) | payer MEDICARE ==
[~2023-04-21] MED LIST changes: +ALBU108A5 INH; +DOCU-94 PO
[2023-04-21 07:11] LABS: Alanine Aminotransferase 24 U/L (7-40); Alkaline Phosphatase 75 U/L (46-116); Anion Gap 3 (5-15); Aspartate Aminotransferase 31 U/L (13-40); BUN/Creatinine Ratio 13.5 (10.0-20.0); Blood Urea Nitrogen 10 mg/dL (9-23); Calcium 9.4 mg/dL (8.5-10.1); Carbon Dioxide 29 mmol/L (20-30); Chloride 103 mmol/L (98-107); Glucose 112 mg/dL (74-106); LDL Cholesterol 77 mg/dL (< 100); Potassium 4.6 mmol/L (3.5-5.1); Sodium 135 mmol/L (136-145); Triglycerides 96 mg/dL (< 150)
[2023-04-21 07:12] LABS: Bilirubin, Direct 0.3 mg/dL (<0.3); Bilirubin, Total 1.1 mg/dL (0.2-1.0); Cholesterol 129 mg/dL (< 200); HDL Cholesterol 36 mg/dL (40-59); Total Protein 6.8 g/dL (5.7-8.2)
[2023-04-21 07:16] LABS: Creatinine, Urine 160.06 mg/dL (30.0-125.0)
== END | disposition home or self-care (01) ==
LOC: LAB 06:19
PROVIDERS: ATTEND Internal Medicine
DX: E78.5 Hyperlipidemia, unspecified (principal); R73.03 Prediabetes
CPT/HCPCS: 36415; 80048; 80061; 80076; 82043; 82570; 83036

== ENCOUNTER 2023-05-28 00:32 | Inpatient (IN) | payer MEDICARE ==
[2023-05-28] VITALS (7 sets, daily range): BP systolic 95–102; BP diastolic 56–57; PULSE 72–120; RESP 17–28; TEMP 97.5–98.8; O2SAT 95–96
[~2023-05-28] VITALS: Ht 160 cm; Wt 54.0 kg
[2023-05-28 01:11] LABS: Basophils # (auto) 0 10 ^3/uL (0-0.2); Basophils % (auto) 0.3 % (0.0-2.0); Eosinophils # (auto) 0.1 10 ^3/uL (0-0.8); Eosinophils % (auto) 1.5 % (0.0-7.0); Hematocrit 45.6 % (41.0-53.0); Hemoglobin 15.7 g/dL (13.5-17.5); Lymphocytes # (auto) 0.9 10 ^3/uL (0.4-5.4); Lymphocytes % (auto) 10.5 % (10.0-50.0); Mean Corpuscular Hemoglobin 34.3 pg (28.0-32.0); Mean Corpuscular Hgb Conc. 34.4 g/dL (32.0-36.0); Mean Corpuscular Volume 99.7 fL (80.0-100.0); Monocytes # (auto) 0.1 10 ^3/uL (0-1.3); Neutrophils # (auto) 7.3 10 ^3/uL (1.6-8.6); Neutrophils % (auto) 86.7 % (37.0-80.0); Red Blood Cells 4.57 10^6/uL (4.5-5.90); Red Cell Distribution Width 13.6 % (11.8-14.3); White Blood Cell 8.4 10^3/uL (4.4-10.8)
[2023-05-28] MEDS ORDERED: DexAMETHasone SOD PHOS 10MG/1ML VIAL INJ IV ONE (01:15)
[2023-05-28] MEDS ORDERED: ALBUTEROL MEDNEB 2.5 mg/3ml NEB NEB ONE ×2 (01:15→01:45)
[2023-05-28] MEDS ORDERED: IPRATROPIUM BROM 0.5 MG/2.5ML INH SOL NEB ONE ×2 (01:15→01:45)
[2023-05-28 01:35] LABS: Alanine Aminotransferase 28 U/L (7-40); Albumin 4.1 g/dL (3.2-4.8); Alkaline Phosphatase 91 U/L (46-116); Anion Gap 6 (5-15); Aspartate Aminotransferase 40 U/L (13-40); BUN/Creatinine Ratio 14.5 (10.0-20.0); Bilirubin, Total 0.9 mg/dL (0.2-1.0); Blood Urea Nitrogen 11 mg/dL (9-23); Calcium 9.4 mg/dL (8.7-10.4); Carbon Dioxide 27 mmol/L (20-30); Chloride 103 mmol/L (98-107); Glucose 125 mg/dL (74-106); Magnesium 1.8 mg/dL (1.6-2.6); Potassium 4.3 mmol/L (3.5-5.1); Sodium 136 mmol/L (136-145)
[2023-05-28 01:36] LABS: Total Protein 7.5 g/dL (5.7-8.2)
[2023-05-28] MEDS ORDERED: ENOXAPARIN SOD 60 MG/0.6 ML SYRINGE SC ONE (06:30)
[2023-05-28] MEDS ORDERED: HYDROcodone-ACET 5/325MG TAB PO PRN (06:45)
[2023-05-28] MEDS ORDERED: ACETAMINOPHEN 325 MG TAB PO PRN (06:45)
[2023-05-28] MEDS ORDERED: ONDANSETRON HCL 4 MG/2 ML VIAL IV PRN (06:45)
[2023-05-28] MEDS ORDERED: ALBUTEROL MEDNEB 2.5 mg/3ml NEB NEB PRN (06:45)
[2023-05-28] MEDS ORDERED: IPRATROPIUM BROM 0.5 MG/2.5ML INH SOL NEB PRN (06:45)
[2023-05-28] MEDS ORDERED: IOHEXOL 350 MG/ML 100ML IJ ONE (06:55)
[2023-05-28 07:21] LABS: Basophils # (auto) 0 10 ^3/uL (0-0.2); Basophils % (auto) 0.1 % (0.0-2.0); Eosinophils # (auto) 0 10 ^3/uL (0-0.8); Hematocrit 39.6 % (41.0-53.0); Hemoglobin 13.6 g/dL (13.5-17.5); Lymphocytes # (auto) 0.7 10 ^3/uL (0.4-5.4); Lymphocytes % (auto) 3.8 % (10.0-50.0); Mean Corpuscular Hemoglobin 33.5 pg (28.0-32.0); Mean Corpuscular Hgb Conc. 34.4 g/dL (32.0-36.0); Mean Corpuscular Volume 97.3 fL (80.0-100.0); Monocytes # (auto) 0.3 10 ^3/uL (0-1.3); Neutrophils # (auto) 16.3 10 ^3/uL (1.6-8.6); Neutrophils % (auto) 94.1 % (37.0-80.0); Red Blood Cells 4.07 10^6/uL (4.5-5.90); Red Cell Distribution Width 13.7 % (11.8-14.3); White Blood Cell 17.3 10^3/uL (4.4-10.8)
[2023-05-28] MEDS ORDERED: NITROGLYCERIN 0.4 MG SL TAB SL PRN (07:30)
[2023-05-28] MEDS ORDERED: MORPHINE SULFATE INJ 2 MG/ml SYRG IV PRN (07:30)
[2023-05-28 07:37] LABS: Alanine Aminotransferase 28 U/L (7-40); Albumin 3.4 g/dL (3.2-4.8); Alkaline Phosphatase 66 U/L (46-116); Anion Gap 7 (5-15); Aspartate Aminotransferase 39 U/L (13-40); BUN/Creatinine Ratio 17.1 (10.0-20.0); Blood Urea Nitrogen 14 mg/dL (9-23); Carbon Dioxide 23 mmol/L (20-30); Chloride 105 mmol/L (98-107); Glucose 163 mg/dL (74-106); Potassium 3.8 mmol/L (3.5-5.1); Sodium 135 mmol/L (136-145); Total Protein 6.3 g/dL (5.7-8.2)
[2023-05-28] MEDS ORDERED: DexAMETHasone SOD PHOS 10MG/1ML VIAL INJ IV SCH (10:00)
[2023-05-28] MEDS: FAMOTIDINE 20 MG TAB PO SCH (11:43)
[2023-05-28 12:40] LABS: Rapid Influenza A Negative (Negative); Rapid Influenza B Negative (Negative)
[2023-05-28 12:41] LABS: COVID19 ANTIGEN SOFIA FIA NEGATIVE (NEGATIVE)
[2023-05-28] MEDS ORDERED: AZITHROMYCIN 500MG/ 250ML 250 ML IV ONE (13:15)
[2023-05-28] MEDS ORDERED: cefTRIAXone 1GM/50ML D5W 50 ML IV ONE (13:15)
[2023-05-28] MEDS: SODIUM CHLOR 0.9% PF (SALINE LOCK) 10ML VIAL/SYR IV SCH ×2 (16:45→21:22)
[2023-05-28] MEDS: TAMSULOSIN HYDROCHLORIDE 0.4 MG CAP PO SCH (18:07)
[2023-05-28] MEDS: methylPREDNISolone SOD SUCC 40 MG/ML VL IV SCH (21:22)
[2023-05-28] MEDS: ATORVASTATIN 20 MG TAB PO SCH (21:23)
[2023-05-28] MEDS ORDERED: ENOXAPARIN SOD 60 MG/0.6 ML SYRINGE SC SCH (22:00)
[2023-05-28 23:06] LABS: Urine Bacteria NONE SEEN /hpf (None Seen); Urine Blood Negative /uL (Negative); Urine Clarity Clear (Clear); Urine Color Yellow (Yellow); Urine Mucus FEW (None Seen); Urine Protein, UAD TRACE (Negative); Urine Specific Gravity 1.035 (1.001-1.035); Urine Urobilinogen Normal (Negative); Urine WBC 1 /hpf (0 - 3); Urine pH 5.5 (5.0-8.0)
[2023-05-29] VITALS (10 sets, daily range): BP systolic 96–109; BP diastolic 46–63; PULSE 66–83; RESP 14–19; TEMP 97.7–98.5; O2SAT 93–98
[2023-05-29] MEDS: SODIUM CHLOR 0.9% PF (SALINE LOCK) 10ML VIAL/SYR IV SCH ×3 (06:05→22:23)
[2023-05-29 06:57] LABS: Basophils # (auto) 0 10 ^3/uL (0-0.2); Eosinophils # (auto) 0 10 ^3/uL (0-0.8); Hematocrit 41.2 % (41.0-53.0); Hemoglobin 13.8 g/dL (13.5-17.5); Lymphocytes # (auto) 1.1 10 ^3/uL (0.4-5.4); Lymphocytes % (auto) 6.8 % (10.0-50.0); Mean Corpuscular Hemoglobin 33.3 pg (28.0-32.0); Mean Corpuscular Hgb Conc. 33.6 g/dL (32.0-36.0); Mean Corpuscular Volume 99.4 fL (80.0-100.0); Monocytes # (auto) 0.3 10 ^3/uL (0-1.3); Monocytes % (auto) 2.1 % (0.0-12.0); Neutrophils # (auto) 14.5 10 ^3/uL (1.6-8.6); Neutrophils % (auto) 91.1 % (37.0-80.0); Nucleated Red Blood Cells % 0.1 %; Red Blood Cells 4.14 10^6/uL (4.5-5.90); Red Cell Distribution Width 14.1 % (11.8-14.3); White Blood Cell 15.9 10^3/uL (4.4-10.8)
[2023-05-29 07:21] LABS: Alanine Aminotransferase 25 U/L (7-40); Alkaline Phosphatase 67 U/L (46-116); Anion Gap 5 (5-15); Blood Urea Nitrogen 16 mg/dL (9-23); Calcium 9.2 mg/dL (8.7-10.4); Carbon Dioxide 25 mmol/L (20-30); Chloride 103 mmol/L (98-107); Glucose 150 mg/dL (74-106); Potassium 4.6 mmol/L (3.5-5.1); Sodium 133 mmol/L (136-145)
[2023-05-29 07:22] LABS: Albumin 3.7 g/dL (3.2-4.8); Aspartate Aminotransferase 33 U/L (13-40); Bilirubin, Total 0.6 mg/dL (0.2-1.0); Total Protein 6.6 g/dL (5.7-8.2)
[2023-05-29] MEDS: AZITHROMYCIN 500MG/ 250ML 250 ML IV SCH (09:57)
[2023-05-29] MEDS: PIPERACILLIN-TAZOB 3.375GM 100 ML IV SCH ×3 (09:57→23:36)
[2023-05-29] MEDS: methylPREDNISolone SOD SUCC 40 MG/ML VL IV SCH ×2 (09:58→22:23)
[2023-05-29] MEDS: FAMOTIDINE 20 MG TAB PO SCH (09:58)
[2023-05-29] MEDS: FINASTERIDE 5 MG TAB PO SCH (09:58)
[2023-05-29] MEDS: ENOXAPARIN SOD 60 MG/0.6 ML SYRINGE SC SCH (09:59)
[2023-05-29] MEDS: TAMSULOSIN HYDROCHLORIDE 0.4 MG CAP PO SCH (17:26)
[2023-05-29] MEDS: DOCUSATE SOD 100 MG CAP PO PRN (22:23)
[2023-05-29] MEDS: ATORVASTATIN 20 MG TAB PO SCH (22:23)
[2023-05-30] VITALS (10 sets, daily range): BP systolic 103–117; BP diastolic 56–67; PULSE 54–76; RESP 17–20; TEMP 97.3–97.7; O2SAT 90–98
[2023-05-30] MEDS: SODIUM CHLOR 0.9% PF (SALINE LOCK) 10ML VIAL/SYR IV SCH ×3 (03:49→21:48)
[2023-05-30] MEDS: PIPERACILLIN-TAZOB 3.375GM 100 ML IV SCH ×3 (08:05→23:19)
[2023-05-30] MEDS: AZITHROMYCIN 500MG/ 250ML 250 ML IV SCH (08:35)
[2023-05-30] MEDS: methylPREDNISolone SOD SUCC 40 MG/ML VL IV SCH ×2 (08:35→21:42)
[2023-05-30] MEDS: ENOXAPARIN SOD 60 MG/0.6 ML SYRINGE SC SCH (08:36)
[2023-05-30] MEDS: FAMOTIDINE 20 MG TAB PO SCH (08:36)
[2023-05-30] MEDS: FINASTERIDE 5 MG TAB PO SCH (08:36)
[2023-05-30] MEDS: TAMSULOSIN HYDROCHLORIDE 0.4 MG CAP PO SCH (17:25)
[2023-05-30] MEDS: ATORVASTATIN 20 MG TAB PO SCH (21:41)
[2023-05-31] VITALS (9 sets, daily range): BP systolic 116–153; BP diastolic 51–71; PULSE 50–89; RESP 17–20; TEMP 97.7–98.4; O2SAT 95–98
[2023-05-31] MEDS: SODIUM CHLOR 0.9% PF (SALINE LOCK) 10ML VIAL/SYR IV SCH ×3 (06:10→21:26)
[2023-05-31] MEDS: PIPERACILLIN-TAZOB 3.375GM 100 ML IV SCH ×3 (09:24→23:36)
[2023-05-31] MEDS: FINASTERIDE 5 MG TAB PO SCH (09:37)
[2023-05-31] MEDS: DOCUSATE SOD 100 MG CAP PO PRN (09:37)
[2023-05-31] MEDS: ENOXAPARIN SOD 40 MG/0.4 ML SYRINGE SC SCH (09:38)
[2023-05-31] MEDS: methylPREDNISolone SOD SUCC 40 MG/ML VL IV SCH ×2 (09:38→21:26)
[2023-05-31] MEDS: AZITHROMYCIN 500MG/ 250ML 250 ML IV SCH (10:00)
[2023-05-31] MEDS: TAMSULOSIN HYDROCHLORIDE 0.4 MG CAP PO SCH (18:21)
[2023-05-31] MEDS: ATORVASTATIN 20 MG TAB PO SCH (21:26)
[2023-06-01 05:00] VITALS: BP 137/81; PULSE 64; RESP 18; TEMP 98.4; O2SAT 97
[2023-06-01] MEDS: SODIUM CHLOR 0.9% PF (SALINE LOCK) 10ML VIAL/SYR IV SCH (06:05)
[2023-06-01 08:00] VITALS: O2SAT 95
[2023-06-01] MEDS ORDERED: cefTRIAXone 1GM/50ML D5W 50 ML IV SCH (09:00)
[2023-06-01] MEDS ORDERED: DOCU-94 PO (09:01)
[2023-06-01] MEDS ORDERED: PRED20TA2 PO (09:01)
[2023-06-01] MEDS ORDERED: AZIT500T66 PO ×2 (09:01)
[2023-06-01] MEDS: FINASTERIDE 5 MG TAB PO SCH (09:33)
[2023-06-01] MEDS: AZITHROMYCIN 500MG/ 250ML 250 ML IV SCH (09:33)
[2023-06-01] MEDS: ENOXAPARIN SOD 40 MG/0.4 ML SYRINGE SC SCH (09:33)
[2023-06-01] MEDS: methylPREDNISolone SOD SUCC 40 MG/ML VL IV SCH (09:33)
[2023-06-01 10:01] VITALS: O2SAT 94
[2023-06-01] MEDS ORDERED: LEVO500T91 PO ×3 (13:15→13:50)
== END 2023-06-01 16:30 | disposition home health service (06) | DRG 177 ==
LOC: ER 00:32 → EDBD 00:32 → TELE 07:25 → TELE-CENTR 17:59
PROVIDERS: ADMIT Nurse Practitioner Family; ATTEND Family Medicine
PROC: 05HB33Z Insertion of Infusion Device into Right Basilic Vein, Percutaneous Approach (ICD-10-PCS; principal; 2023-06-01)
PROC: B54MZZA Ultrasonography of Right Upper Extremity Veins, Guidance (ICD-10-PCS; 2023-06-01)
DX: J15.69 Pneumonia due to other Gram-negative bacteria (principal); J96.01 Acute respiratory failure with hypoxia; J44.1 Chronic obstructive pulmonary disease with (acute) exacerbation; J43.9 Emphysema, unspecified; K80.20 Calculus of gallbladder without cholecystitis without obstruction; J15.9 Unspecified bacterial pneumonia; I11.9 Hypertensive heart disease without heart failure; I25.10 Atherosclerotic heart disease of native coronary artery without angina pectoris; B96.20 Unspecified Escherichia coli [E. coli] as the cause of diseases classified elsewhere; N40.0 Benign prostatic hyperplasia without lower urinary tract symptoms; F17.210 Nicotine dependence, cigarettes, uncomplicated; Z20.822 Contact with and (suspected) exposure to COVID-19; Z99.81 Dependence on supplemental oxygen; Z87.442 Personal history of urinary calculi; Z83.3 Family history of diabetes mellitus; Z79.899 Other long term (current) drug therapy
CPT/HCPCS: 36415; 71045; 71275; 80053; 81001; 83735; 83880; 84484; 85025; 85379; 87040; 87077; 87086; 87186; 87426; 87804; 93005; 93970; 94640; G0378; J0696; J1100; J2543

== ENCOUNTER → 2023-06-30 | Outpatient (CLI) | payer MEDICARE ==
[~2023-06-30] MED LIST changes: -AZIT500T PO; +LEVO500T91 PO
[2023-06-30 09:23] LABS: Triglycerides 105 mg/dL (< 150)
[2023-06-30 09:24] LABS: LDL Cholesterol 69 mg/dL (< 100)
[2023-06-30 09:25] LABS: Cholesterol 121 mg/dL (< 200); HDL Cholesterol 39 mg/dL (40-59)
== END | disposition home or self-care (01) ==
LOC: LAB 08:33
PROVIDERS: ATTEND Internal Medicine
DX: R73.03 Prediabetes (principal); E78.5 Hyperlipidemia, unspecified
CPT/HCPCS: 36415; 80061

== ENCOUNTER → 2023-07-05 | Outpatient (CLI) | payer MEDICARE | END | disposition home or self-care (01) | LOC: LAB 09:14 | PROVIDERS: ATTEND Urology | DX: R97.20 Elevated prostate specific antigen [PSA] (principal) | CPT/HCPCS: 84153 ==

== ENCOUNTER → 2023-07-09 | Outpatient (CLI) | payer MEDICARE ==
[~2023-07-09] MED LIST changes: +HYDR25TA87 PO; +ROSU1TAB12 PO
[2023-07-09 15:21] LABS: Urine Bacteria NONE SEEN /hpf (None Seen); Urine Blood Negative /uL (Negative); Urine Clarity Clear (Clear); Urine Color Yellow (Yellow); Urine Mucus FEW (None Seen); Urine Protein, UAD Negative (Negative); Urine Specific Gravity 1.023 (1.001-1.035); Urine Urobilinogen Normal (Negative); Urine WBC 1 /hpf (0 - 3)
== END | disposition home or self-care (01) ==
LOC: LAB 08:48
PROVIDERS: ATTEND Urology
DX: R30.0 Dysuria (principal)
CPT/HCPCS: 81001; 87086

== ENCOUNTER 2023-07-10 07:21 | Inpatient (IN) | payer MEDICARE ==
[~2023-07-10] VITALS: Ht 157.5 cm; Wt 47.1 kg
[~2023-07-10 07:21] MED LIST changes: -HYDR25TA87 PO; -ROSU1TAB12 PO
[2023-07-10 08:27] VITALS: RESP 18; O2SAT 95
[2023-07-10 08:49] LABS: Basophils # (auto) 0 10 ^3/uL (0-0.2); Basophils % (auto) 0.4 % (0.0-2.0); Eosinophils # (auto) 0.1 10 ^3/uL (0-0.8); Eosinophils % (auto) 1.6 % (0.0-7.0); Hematocrit 39.5 % (41.0-53.0); Hemoglobin 13.5 g/dL (13.5-17.5); Lymphocytes # (auto) 0.9 10 ^3/uL (0.4-5.4); Lymphocytes % (auto) 12.7 % (10.0-50.0); Mean Corpuscular Hemoglobin 33.5 pg (28.0-32.0); Mean Corpuscular Hgb Conc. 34.2 g/dL (32.0-36.0); Mean Corpuscular Volume 97.8 fL (80.0-100.0); Monocytes # (auto) 0.7 10 ^3/uL (0-1.3); Monocytes % (auto) 9.8 % (0.0-12.0); Neutrophils # (auto) 5.2 10 ^3/uL (1.6-8.6); Neutrophils % (auto) 75.5 % (37.0-80.0); Red Blood Cells 4.04 10^6/uL (4.5-5.90); White Blood Cell 6.9 10^3/uL (4.4-10.8)
[2023-07-10 09:05] LABS: Alanine Aminotransferase 22 U/L (7-40); Albumin 3.7 g/dL (3.2-4.8); Alkaline Phosphatase 69 U/L (46-116); Anion Gap 8 (5-15); Aspartate Aminotransferase 26 U/L (13-40); BUN/Creatinine Ratio 15.8 (10.0-20.0); Blood Urea Nitrogen 9 mg/dL (9-23); Calcium 9.4 mg/dL (8.5-10.1); Carbon Dioxide 25 mmol/L (20-30); Chloride 100 mmol/L (98-107); Glucose 136 mg/dL (74-106); Potassium 3.9 mmol/L (3.5-5.1); Sodium 133 mmol/L (136-145)
[2023-07-10 09:06] LABS: Bilirubin, Total 0.8 mg/dL (0.2-1.0); Total Protein 6.3 g/dL (5.7-8.2)
[2023-07-10] MEDS ORDERED: SODIUM CHLORIDE 0.9% 1,000 ML IVB ONE (09:30)
[2023-07-10 11:21] LABS: Urine Bacteria FEW /hpf (None Seen); Urine Blood Negative /uL (Negative); Urine Clarity Clear (Clear); Urine Color Yellow (Yellow); Urine Mucus FEW (None Seen); Urine Protein, UAD TRACE (Negative); Urine Specific Gravity 1.025 (1.001-1.035); Urine Urobilinogen Normal (Negative); Urine WBC 1 /hpf (0 - 3); Urine pH 6.5 (5.0-8.0)
[2023-07-10] MEDS ORDERED: GASTROGRAFIN 120 ML SOL ONE (14:55)
[2023-07-10 20:39] VITALS: RESP 25; O2SAT 96
[2023-07-10] MEDS ORDERED: ONDANSETRON HCL 4 MG/2 ML VIAL IV PRN (22:00)
[2023-07-10] MEDS ORDERED: D5W/SOD CHL 0.45% 1,000 ML IV ONE (22:00)
[2023-07-10] MEDS ORDERED: MORPHINE SULFATE INJ 2 MG/ml SYRG IV PRN (22:00)
[2023-07-11 01:56] VITALS: PULSE 85; RESP 17; O2SAT 93
[2023-07-11] MEDS ORDERED: ROSU1TAB12 PO (02:03)
[2023-07-11] MEDS ORDERED: HYDR25TA87 PO (02:03)
[2023-07-11 05:41] VITALS: BP 141/70; PULSE 94; RESP 18; TEMP 97.6; O2SAT 93
[2023-07-11 06:42] LABS: Basophils # (auto) 0 10 ^3/uL (0-0.2); Basophils % (auto) 0.4 % (0.0-2.0); Eosinophils # (auto) 0.1 10 ^3/uL (0-0.8); Eosinophils % (auto) 1.4 % (0.0-7.0); Hematocrit 39.5 % (41.0-53.0); Hemoglobin 13.3 g/dL (13.5-17.5); Lymphocytes # (auto) 1.2 10 ^3/uL (0.4-5.4); Lymphocytes % (auto) 19.8 % (10.0-50.0); Mean Corpuscular Hemoglobin 33.6 pg (28.0-32.0); Mean Corpuscular Hgb Conc. 33.6 g/dL (32.0-36.0); Mean Corpuscular Volume 99.8 fL (80.0-100.0); Monocytes # (auto) 0.6 10 ^3/uL (0-1.3); Monocytes % (auto) 10.6 % (0.0-12.0); Neutrophils % (auto) 67.8 % (37.0-80.0); Red Blood Cells 3.96 10^6/uL (4.5-5.90); Red Cell Distribution Width 13.4 % (11.8-14.3); White Blood Cell 5.9 10^3/uL (4.4-10.8)
[2023-07-11 08:51] LABS: Alanine Aminotransferase 18 U/L (7-40); Alkaline Phosphatase 69 U/L (46-116); Anion Gap 8 (5-15); BUN/Creatinine Ratio 13.6 (10.0-20.0); Blood Urea Nitrogen 8 mg/dL (9-23); Calcium 8.7 mg/dL (8.7-10.4); Carbon Dioxide 23 mmol/L (20-30); Chloride 106 mmol/L (98-107); Glucose 88 mg/dL (74-106); Potassium 3.9 mmol/L (3.5-5.1); Sodium 137 mmol/L (136-145)
[2023-07-11 08:53] LABS: Albumin 3.5 g/dL (3.2-4.8); Aspartate Aminotransferase 25 U/L (13-40); Bilirubin, Total 1.4 mg/dL (0.2-1.0); Total Protein 6.1 g/dL (5.7-8.2)
[2023-07-11 09:22] VITALS: BP 128/74; PULSE 86; RESP 18; TEMP 98.1; O2SAT 97
[2023-07-11] MEDS ORDERED: ENOXAPARIN SOD 40 MG/0.4 ML SYRINGE SC SCH (10:00)
[2023-07-11 13:00] VITALS: BP 129/72; PULSE 77; RESP 18; TEMP 98.1; O2SAT 92
[2023-07-11 14:28] VITALS: TEMP 36.7
== END 2023-07-11 15:30 | disposition home or self-care (01) | DRG 390 ==
LOC: ER 07:21 → OVERFLOW 21:59 → WEST WING 23:51
PROVIDERS: ADMIT Internal Medicine; ATTEND Family Medicine
DX: K56.609 Unspecified intestinal obstruction, unspecified as to partial versus complete obstruction (principal); I10 Essential (primary) hypertension; I25.10 Atherosclerotic heart disease of native coronary artery without angina pectoris; F17.210 Nicotine dependence, cigarettes, uncomplicated; R91.1 Solitary pulmonary nodule; Z83.3 Family history of diabetes mellitus; Z87.442 Personal history of urinary calculi
CPT/HCPCS: 36415; 74176; 80053; 81001; 83605; 85025; 87040; 87086; G0378

== ENCOUNTER 2023-08-01 11:33 | Inpatient (IN) | payer MEDICARE ==
[~2023-08-01] VITALS: Ht 152.4 cm; Wt 54.0 kg
[2023-08-01] VITALS (7 sets, daily range): BP systolic 165–180; BP diastolic 101–106; PULSE 80–117; RESP 12–18; TEMP 98; O2SAT 99–100
[~2023-08-01 11:33] MED LIST changes: -FLUT1AER3 IN; +FLUT1AER3 INH; +HYDR25TA87 PO; +ROSU1TAB12 PO
[2023-08-01] MEDS ORDERED: PANTOPRAZOLE 40 MG/10 ML VIAL INJ IV ONE (12:00)
[2023-08-01] MEDS ORDERED: MAGNESIUM SULFATE 1GM/100ML 100 ML IV ONE (12:00)
[2023-08-01] MEDS ORDERED: TERBUTALINE SULFATE 1 MG/ML 1ML VIAL SC ONE (12:00)
[2023-08-01] MEDS ORDERED: ACETAMINOPHEN 325 MG TAB PO ONE (12:00)
[2023-08-01] MEDS ORDERED: cefTRIAXone 1GM/50ML D5W 50 ML IV ONE (12:00)
[2023-08-01 12:47] LABS: Base Excess -1.3 mmol/L (-2.0-2.0)
[2023-08-01 12:56] LABS: Basophils # (auto) 0 10 ^3/uL (0-0.2); Basophils % (auto) 0.6 % (0.0-2.0); Eosinophils # (auto) 0.3 10 ^3/uL (0-0.8); Eosinophils % (auto) 4.1 % (0.0-7.0); Hematocrit 42.6 % (41.0-53.0); Hemoglobin 14.3 g/dL (13.5-17.5); Lymphocytes # (auto) 1.2 10 ^3/uL (0.4-5.4); Lymphocytes % (auto) 18.4 % (10.0-50.0); Mean Corpuscular Hemoglobin 33.3 pg (28.0-32.0); Mean Corpuscular Hgb Conc. 33.6 g/dL (32.0-36.0); Mean Corpuscular Volume 99.1 fL (80.0-100.0); Monocytes # (auto) 0.5 10 ^3/uL (0-1.3); Monocytes % (auto) 7.3 % (0.0-12.0); Neutrophils # (auto) 4.5 10 ^3/uL (1.6-8.6); Neutrophils % (auto) 69.6 % (37.0-80.0); Nucleated Red Blood Cells % 0.1 %; Red Cell Distribution Width 12.8 % (11.8-14.3); White Blood Cell 6.5 10^3/uL (4.4-10.8)
[2023-08-01 13:21] LABS: INR 1.04 (0.9-1.15); Partial Thromboplastin Time 25.1 SEC (24.5-34.5); Prothrombin Time 10.9 sec (9.3-11.8)
[2023-08-01 13:23] LABS: Alanine Aminotransferase 16 U/L (7-40); Alkaline Phosphatase 79 U/L (46-116); Anion Gap 5 (5-15); BUN/Creatinine Ratio 18.6 (10.0-20.0); Blood Urea Nitrogen 11 mg/dL (9-23); Calcium 9.6 mg/dL (8.7-10.4); Carbon Dioxide 27 mmol/L (20-30); Chloride 99 mmol/L (98-107); Glucose 103 mg/dL (74-106); Sodium 131 mmol/L (136-145)
[2023-08-01 13:24] LABS: Aspartate Aminotransferase 26 U/L (13-40); Bilirubin, Total 0.6 mg/dL (0.2-1.0); Total Protein 7.2 g/dL (5.7-8.2)
[2023-08-01 14:01] LABS: Urine Bacteria NONE SEEN /hpf (None Seen); Urine Blood Negative /uL (Negative); Urine Clarity Clear (Clear); Urine Color Yellow (Yellow); Urine Protein, UAD 1+ (Negative); Urine Specific Gravity 1.017 (1.001-1.035); Urine Urobilinogen Normal (Negative); Urine WBC 1 /hpf (0 - 3); Urine pH 5.5 (5.0-8.0)
[2023-08-01] MEDS ORDERED: HEPARIN DRIP/D5W 100UNITS/ML 250 ML IV STA (14:25)
[2023-08-01] MEDS ORDERED: ATORVASTATIN 20 MG TAB PO ONE (14:30)
[2023-08-01] MEDS ORDERED: ACETAMINOPHEN 325 MG TAB PO PRN ×2 (14:30→15:00)
[2023-08-01] MEDS ORDERED: HEPARIN SODIUM (PORCINE) 5000 UNITS/ML 1ML VIAL IV ONE (14:30)
[2023-08-01] MEDS ORDERED: NITROGLYCERIN 0.4 MG SL TAB SL PRN ×2 (14:30→15:00)
[2023-08-01 14:38] LABS: COVID19 ANTIGEN SOFIA FIA NEGATIVE (NEGATIVE)
[2023-08-01] MEDS ORDERED: SENNA 8.6 MG TAB PO PRN (15:00)
[2023-08-01] MEDS ORDERED: MORPHINE SULFATE INJ 2 MG/ml SYRG IV PRN (15:00)
[2023-08-01] MEDS ORDERED: ALBUTEROL SULF 2.5 MG/0.5ML(0.5%) NEB SOLN NEB PRN ×3 (15:00→17:00)
[2023-08-01] MEDS ORDERED: ENOXAPARIN SOD 60 MG/0.6 ML SYRINGE SC ONE (15:15)
[2023-08-01] MEDS: SODIUM CHLORIDE 0.9% 1,000 ML IV SCH (16:13)
[2023-08-01] MEDS: ALBUTEROL SULF 2.5 MG/0.5ML(0.5%) NEB SOLN NEB SCH ×2 (16:57→22:40)
[2023-08-01] MEDS: IPRATROPIUM BROM 0.5 MG/2.5ML INH SOL NEB SCH ×2 (16:57→22:40)
[2023-08-01] MEDS ORDERED: ALBUTEROL SULF 2.5 MG/0.5ML(0.5%) NEB SOLN NEB ONE (17:15)
[2023-08-01] MEDS ORDERED: IOHEXOL 350 MG/ML 100ML IJ ONE (17:39)
[2023-08-01] MEDS: TAMSULOSIN HYDROCHLORIDE 0.4 MG CAP PO SCH (18:11)
[2023-08-01 19:14] LABS: Base Excess -1.8 mmol/L (-2.0-2.0)
[2023-08-01] MEDS ORDERED: SODIUM CHLORIDE 0.9% 500 ML IV ONE (19:15)
[2023-08-01] MEDS: hydrALAZINE HCL 25 MG TAB PO SCH (22:00)
[2023-08-01] MEDS: METOPROLOL TARTRATE 25 MG TAB PO SCH (22:00)
[2023-08-01] MEDS: methylPREDNISolone SOD SUCC 40 MG/ML VL IV SCH (22:28)
[2023-08-01] MEDS: ENOXAPARIN SOD 60 MG/0.6 ML SYRINGE SC SCH (22:28)
[2023-08-01] MEDS: ATORVASTATIN 20 MG TAB PO SCH (22:28)
[2023-08-01] MEDS: DOCUSATE SOD 100 MG CAP PO SCH (22:28)
[2023-08-01] MEDS: SODIUM CHLOR 0.9% PF (SALINE LOCK) 10ML VIAL/SYR IV SCH (22:29)
[2023-08-02] VITALS (15 sets, daily range): PULSE 68–87; RESP 14–27; O2SAT 95–100
[2023-08-02] MEDS: IPRATROPIUM BROM 0.5 MG/2.5ML INH SOL NEB SCH ×6 (02:12→22:21)
[2023-08-02] MEDS: ALBUTEROL SULF 2.5 MG/0.5ML(0.5%) NEB SOLN NEB SCH ×6 (02:12→22:21)
[2023-08-02 05:40] LABS: Basophils # (auto) 0 10 ^3/uL (0-0.2); Basophils % (auto) 0.4 % (0.0-2.0); Eosinophils # (auto) 0 10 ^3/uL (0-0.8); Eosinophils % (auto) 0.1 % (0.0-7.0); Hematocrit 41.3 % (41.0-53.0); Hemoglobin 13.8 g/dL (13.5-17.5); Lymphocytes # (auto) 0.8 10 ^3/uL (0.4-5.4); Lymphocytes % (auto) 13.2 % (10.0-50.0); Mean Corpuscular Hemoglobin 32.9 pg (28.0-32.0); Mean Corpuscular Hgb Conc. 33.3 g/dL (32.0-36.0); Mean Corpuscular Volume 98.6 fL (80.0-100.0); Monocytes # (auto) 0 10 ^3/uL (0-1.3); Monocytes % (auto) 0.7 % (0.0-12.0); Neutrophils # (auto) 5.3 10 ^3/uL (1.6-8.6); Neutrophils % (auto) 85.6 % (37.0-80.0); Red Blood Cells 4.19 10^6/uL (4.5-5.90); White Blood Cell 6.2 10^3/uL (4.4-10.8)
[2023-08-02 05:52] LABS: Alanine Aminotransferase 15 U/L (7-40); Albumin 3.2 g/dL (3.2-4.8); Alkaline Phosphatase 68 U/L (46-116); Anion Gap 9 (5-15); Aspartate Aminotransferase 26 U/L (13-40); BUN/Creatinine Ratio 19.7 (10.0-20.0); Bilirubin, Total 0.6 mg/dL (0.2-1.0); Blood Urea Nitrogen 12 mg/dL (9-23); Calcium 8.6 mg/dL (8.5-10.1); Carbon Dioxide 23 mmol/L (20-30); Chloride 103 mmol/L (98-107); Glucose 116 mg/dL (74-106); Potassium 4.6 mmol/L (3.5-5.1); Sodium 135 mmol/L (136-145); Total Protein 5.6 g/dL (5.7-8.2)
[2023-08-02] MEDS: SODIUM CHLOR 0.9% PF (SALINE LOCK) 10ML VIAL/SYR IV SCH ×3 (06:02→22:02)
[2023-08-02] MEDS: SODIUM CHLORIDE 0.9% 1,000 ML IV SCH (08:11)
[2023-08-02] MEDS: DOCUSATE SOD 100 MG CAP PO SCH ×2 (08:11→22:40)
[2023-08-02] MEDS: FINASTERIDE 5 MG TAB PO SCH (08:11)
[2023-08-02] MEDS: methylPREDNISolone SOD SUCC 40 MG/ML VL IV SCH ×2 (08:11→22:40)
[2023-08-02] MEDS: ASPirin 81 mg TAB PO SCH (08:11)
[2023-08-02] MEDS: LOSARTAN POTASSIUM 50 MG TAB PO SCH (08:12)
[2023-08-02] MEDS: hydrALAZINE HCL 25 MG TAB PO SCH ×2 (08:12→22:00)
[2023-08-02] MEDS: METOPROLOL TARTRATE 25 MG TAB PO SCH ×2 (08:12→22:00)
[2023-08-02] MEDS: ENOXAPARIN SOD 60 MG/0.6 ML SYRINGE SC SCH ×2 (08:13→22:00)
[2023-08-02] MEDS: TAMSULOSIN HYDROCHLORIDE 0.4 MG CAP PO SCH (17:16)
[2023-08-02] MEDS: ATORVASTATIN 20 MG TAB PO SCH (22:41)
[2023-08-03] VITALS (22 sets, daily range): BP systolic 115–127; BP diastolic 62–70; PULSE 69–82; RESP 16–20; TEMP 97.4–97.9; O2SAT 95–100
[2023-08-03] MEDS: SODIUM CHLORIDE 0.9% 1,000 ML IV SCH ×2 (00:31→17:11)
[2023-08-03] MEDS: IPRATROPIUM BROM 0.5 MG/2.5ML INH SOL NEB SCH ×6 (01:56→22:41)
[2023-08-03] MEDS: ALBUTEROL SULF 2.5 MG/0.5ML(0.5%) NEB SOLN NEB SCH ×6 (01:56→22:41)
[2023-08-03] MEDS: SODIUM CHLOR 0.9% PF (SALINE LOCK) 10ML VIAL/SYR IV SCH ×3 (05:53→21:45)
[2023-08-03] MEDS: ASPirin 81 mg TAB PO SCH (09:36)
[2023-08-03] MEDS: DOCUSATE SOD 100 MG CAP PO SCH ×2 (09:37→21:45)
[2023-08-03] MEDS: hydrALAZINE HCL 25 MG TAB PO SCH ×2 (09:37→21:45)
[2023-08-03] MEDS: LOSARTAN POTASSIUM 50 MG TAB PO SCH (09:37)
[2023-08-03] MEDS: FINASTERIDE 5 MG TAB PO SCH (09:38)
[2023-08-03] MEDS: methylPREDNISolone SOD SUCC 40 MG/ML VL IV SCH ×2 (09:38→21:46)
[2023-08-03] MEDS: ENOXAPARIN SOD 60 MG/0.6 ML SYRINGE SC SCH ×2 (09:38→21:46)
[2023-08-03] MEDS: METOPROLOL TARTRATE 25 MG TAB PO SCH ×2 (09:38→21:46)
[2023-08-03 11:21] LABS: Basophils # (auto) 0 10 ^3/uL (0-0.2); Eosinophils # (auto) 0 10 ^3/uL (0-0.8); Hematocrit 37.3 % (41.0-53.0); Hemoglobin 12.7 g/dL (13.5-17.5); Lymphocytes # (auto) 0.7 10 ^3/uL (0.4-5.4); Lymphocytes % (auto) 6.9 % (10.0-50.0); Mean Corpuscular Hemoglobin 33.8 pg (28.0-32.0); Mean Corpuscular Volume 99.5 fL (80.0-100.0); Monocytes # (auto) 0.5 10 ^3/uL (0-1.3); Monocytes % (auto) 4.8 % (0.0-12.0); Neutrophils # (auto) 9.3 10 ^3/uL (1.6-8.6); Neutrophils % (auto) 88.3 % (37.0-80.0); Red Blood Cells 3.75 10^6/uL (4.5-5.90); Red Cell Distribution Width 12.8 % (11.8-14.3); White Blood Cell 10.5 10^3/uL (4.4-10.8)
[2023-08-03 11:39] LABS: Chloride 103 mmol/L (98-107); Potassium 4.6 mmol/L (3.5-5.1); Sodium 134 mmol/L (136-145)
[2023-08-03 11:40] LABS: Anion Gap 6 (5-15); Calcium 8.8 mg/dL (8.5-10.1); Carbon Dioxide 25 mmol/L (20-30)
[2023-08-03 11:45] LABS: Blood Urea Nitrogen 9 mg/dL (9-23); Glucose 155 mg/dL (74-106)
[2023-08-03] MEDS ORDERED: VALS1TAB58 PO (14:22)
[2023-08-03] MEDS ORDERED: ZOLP10TA6 PO (14:23)
[2023-08-03] MEDS ORDERED: TIOTCAP INH (14:27)
[2023-08-03] MEDS: TAMSULOSIN HYDROCHLORIDE 0.4 MG CAP PO SCH (17:12)
[2023-08-03] MEDS: ATORVASTATIN 20 MG TAB PO SCH (21:45)
[2023-08-04] VITALS (15 sets, daily range): BP systolic 133–144; BP diastolic 69–79; PULSE 65–78; RESP 16–18; TEMP 97.5–98; O2SAT 94–100
[2023-08-04] MEDS: ALBUTEROL SULF 2.5 MG/0.5ML(0.5%) NEB SOLN NEB SCH ×6 (02:30→23:13)
[2023-08-04] MEDS: IPRATROPIUM BROM 0.5 MG/2.5ML INH SOL NEB SCH ×6 (02:30→23:13)
[2023-08-04] MEDS: SODIUM CHLOR 0.9% PF (SALINE LOCK) 10ML VIAL/SYR IV SCH ×3 (05:53→21:55)
[2023-08-04] MEDS: methylPREDNISolone SOD SUCC 40 MG/ML VL IV SCH (09:41)
[2023-08-04] MEDS: ENOXAPARIN SOD 60 MG/0.6 ML SYRINGE SC SCH ×2 (09:41→21:59)
[2023-08-04] MEDS: SODIUM CHLORIDE 0.9% 1,000 ML IV SCH (09:41)
[2023-08-04] MEDS: hydrALAZINE HCL 25 MG TAB PO SCH ×2 (09:42→21:57)
[2023-08-04] MEDS: DOCUSATE SOD 100 MG CAP PO SCH ×2 (09:42→21:57)
[2023-08-04] MEDS: FINASTERIDE 5 MG TAB PO SCH (09:42)
[2023-08-04] MEDS: METOPROLOL TARTRATE 25 MG TAB PO SCH ×2 (09:42→21:57)
[2023-08-04] MEDS: LOSARTAN POTASSIUM 50 MG TAB PO SCH (09:42)
[2023-08-04] MEDS: ASPirin 81 mg TAB PO SCH (09:42)
[2023-08-04] MEDS: TAMSULOSIN HYDROCHLORIDE 0.4 MG CAP PO SCH (17:27)
[2023-08-04] MEDS: ATORVASTATIN 20 MG TAB PO SCH (21:57)
[2023-08-05] VITALS (9 sets, daily range): BP systolic 119–138; BP diastolic 71–80; PULSE 59–76; RESP 16–19; TEMP 97.7–97.8; O2SAT 95–99
[2023-08-05] MEDS: IPRATROPIUM BROM 0.5 MG/2.5ML INH SOL NEB SCH ×3 (02:00→10:23)
[2023-08-05] MEDS: ALBUTEROL SULF 2.5 MG/0.5ML(0.5%) NEB SOLN NEB SCH ×3 (02:00→10:23)
[2023-08-05 05:59] LABS: Basophils # (auto) 0 10 ^3/uL (0-0.2); Basophils % (auto) 0.1 % (0.0-2.0); Eosinophils # (auto) 0 10 ^3/uL (0-0.8); Hematocrit 39.7 % (41.0-53.0); Hemoglobin 13.3 g/dL (13.5-17.5); Lymphocytes # (auto) 1.3 10 ^3/uL (0.4-5.4); Lymphocytes % (auto) 25.6 % (10.0-50.0); Mean Corpuscular Hemoglobin 33.1 pg (28.0-32.0); Mean Corpuscular Hgb Conc. 33.4 g/dL (32.0-36.0); Monocytes # (auto) 0.6 10 ^3/uL (0-1.3); Monocytes % (auto) 10.9 % (0.0-12.0); Neutrophils # (auto) 3.3 10 ^3/uL (1.6-8.6); Neutrophils % (auto) 63.4 % (37.0-80.0); Red Blood Cells 4.01 10^6/uL (4.5-5.90); Red Cell Distribution Width 13.1 % (11.8-14.3); White Blood Cell 5.2 10^3/uL (4.4-10.8)
[2023-08-05 06:07] LABS: Anion Gap 3 (5-15); Carbon Dioxide 30 mmol/L (20-30); Chloride 101 mmol/L (98-107); Potassium 3.8 mmol/L (3.5-5.1); Sodium 134 mmol/L (136-145)
[2023-08-05 06:08] LABS: Calcium 8.9 mg/dL (8.5-10.1)
[2023-08-05 06:13] LABS: BUN/Creatinine Ratio 17.2 (10.0-20.0); Blood Urea Nitrogen 10 mg/dL (9-23); Glucose 75 mg/dL (74-106)
[2023-08-05] MEDS ORDERED: predniSONE 20 MG TAB PO SCH (10:00)
[2023-08-05] MEDS ORDERED: AZITHROMYCIN 250 MG TAB PO SCH (10:00)
[2023-08-05] MEDS: ENOXAPARIN SOD 60 MG/0.6 ML SYRINGE SC SCH (10:10)
[2023-08-05] MEDS: DOCUSATE SOD 100 MG CAP PO SCH (10:11)
[2023-08-05] MEDS: hydrALAZINE HCL 25 MG TAB PO SCH (10:11)
[2023-08-05] MEDS ORDERED: AZIT-81 PO (10:11)
[2023-08-05] MEDS ORDERED: METH4PAK PO (10:11)
[2023-08-05] MEDS: ASPirin 81 mg TAB PO SCH (10:11)
[2023-08-05] MEDS: METOPROLOL TARTRATE 25 MG TAB PO SCH (10:12)
[2023-08-05] MEDS: LOSARTAN POTASSIUM 50 MG TAB PO SCH (10:12)
[2023-08-05] MEDS: FINASTERIDE 5 MG TAB PO SCH (10:12)
[2023-08-05] MEDS: SODIUM CHLOR 0.9% PF (SALINE LOCK) 10ML VIAL/SYR IV SCH (13:49)
== END 2023-08-05 14:09 | disposition home or self-care (01) | DRG 189 ==
LOC: EDSEX 11:33 → EDBD 11:33 → ER 11:33 → TELE 14:50 → TELE-EAST 08-02 22:40 → EAST 08-04 15:46
PROVIDERS: ADMIT Nurse Practitioner Family; ATTEND Internal Medicine
PROC: 5A09357 Assistance with Respiratory Ventilation, Less than 24 Consecutive Hours, Continuous Positive Airway Pressure (ICD-10-PCS; principal; 2023-08-01)
DX: J96.21 Acute and chronic respiratory failure with hypoxia (principal); I21.A1 Myocardial infarction type 2; J44.1 Chronic obstructive pulmonary disease with (acute) exacerbation; E87.1 Hypo-osmolality and hyponatremia; J90 Pleural effusion, not elsewhere classified; J98.11 Atelectasis; I10 Essential (primary) hypertension; I25.10 Atherosclerotic heart disease of native coronary artery without angina pectoris; E78.5 Hyperlipidemia, unspecified; N40.1 Benign prostatic hyperplasia with lower urinary tract symptoms; Z20.822 Contact with and (suspected) exposure to COVID-19; R33.8 Other retention of urine; Z60.3 Acculturation difficulty; Z83.3 Family history of diabetes mellitus; Z87.442 Personal history of urinary calculi; Z87.891 Personal history of nicotine dependence
CPT/HCPCS: 36415; 36600; 71045; 71275; 80048; 80053; 80061; 81001; 82805; 83605; 83735; 83880; 84443; 84484; 85025; 85379; 85610; 85652; 85730; 86141; 87040; 87081; 87086; 87426; 93005; 93306; 93970; 94640; 94644; 94660; 96365; 96375; 97163; 99291; C9113; G0378

== ENCOUNTER → 2023-08-12 | Outpatient (CLI) | payer MEDICARE ==
[~2023-08-12] MED LIST changes: -ACET-1881 PO; +AZIT-81 PO; -LEVO500T91 PO; -LEVO750T40 PO; +METH4PAK PO; -OSEL75CA5 PO; -PRED20TA2 PO; +TIOTCAP INH; +VALS1TAB58 PO; -VALS40TA2 PO; +ZOLP10TA6 PO
[2023-08-12 11:50] LABS: Erythrocyte Sedimentation Rate 14 mm/hr (0-20)
[2023-08-12 14:45] LABS: Folate (Folic Acid) > 24.00 ng/mL (>5.38)
[2023-08-13 07:06] LABS: RPR Non Reactive (Non Reactive)
== END | disposition home or self-care (01) ==
LOC: LAB 10:34
PROVIDERS: ATTEND Internal Medicine
DX: I10 Essential (primary) hypertension (principal); J44.9 Chronic obstructive pulmonary disease, unspecified; R41.3 Other amnesia
CPT/HCPCS: 36415; 82607; 82746; 84443; 85652; 86592

== ENCOUNTER 2023-08-24 15:19 | Inpatient (IN) | payer MEDICARE ==
[~2023-08-24] VITALS: Ht 154.9 cm; Wt 47.0 kg
[2023-08-24 16:09] LABS: Basophils # (auto) 0 10 ^3/uL (0-0.2); Basophils % (auto) 0.1 % (0.0-2.0); Eosinophils # (auto) 0 10 ^3/uL (0-0.8); Eosinophils % (auto) 0.4 % (0.0-7.0); Hematocrit 38.7 % (41.0-53.0); Hemoglobin 12.8 g/dL (13.5-17.5); Mean Corpuscular Hemoglobin 32.1 pg (28.0-32.0); Mean Corpuscular Hgb Conc. 33.2 g/dL (32.0-36.0); Mean Corpuscular Volume 96.6 fL (80.0-100.0); Monocytes # (auto) 0.6 10 ^3/uL (0-1.3); Monocytes % (auto) 8.1 % (0.0-12.0); Neutrophils # (auto) 5.5 10 ^3/uL (1.6-8.6); Neutrophils % (auto) 77.4 % (37.0-80.0); Nucleated Red Blood Cells % 0.1 %; Red Cell Distribution Width 13.8 % (11.8-14.3); White Blood Cell 7.2 10^3/uL (4.4-10.8)
[2023-08-24 16:23] LABS: Chloride 97 mmol/L (98-107); Potassium 4.3 mmol/L (3.5-5.1); Sodium 128 mmol/L (136-145)
[2023-08-24 16:24] LABS: Anion Gap 5 (5-15); Calcium 8.7 mg/dL (8.7-10.4); Carbon Dioxide 26 mmol/L (20-30)
[2023-08-24 16:29] LABS: BUN/Creatinine Ratio 17.2 (10.0-20.0); Blood Urea Nitrogen 11 mg/dL (9-23); Glucose 89 mg/dL (74-106)
[2023-08-24] MEDS: ALBUTEROL SULF 2.5 MG/0.5ML(0.5%) NEB SOLN NEB ONE (17:14)
[2023-08-24] MEDS: methylPREDNISolone SOD SUCC 125 MG/2 ML VL IV ONE (19:18)
[2023-08-24 19:25] VITALS: PULSE 82; RESP 20; O2SAT 97
[2023-08-24] MEDS ORDERED: NITROGLYCERIN 0.4 MG SL TAB SL PRN (21:30)
[2023-08-24] MEDS ORDERED: ONDANSETRON HCL 4 MG/2 ML VIAL IV PRN (21:30)
[2023-08-24] MEDS ORDERED: MORPHINE SULFATE INJ 2 MG/ml SYRG IV PRN (21:30)
[2023-08-24] MEDS ORDERED: ALBUTEROL SULF 2.5 MG/0.5ML(0.5%) NEB SOLN NEB PRN (21:30)
[2023-08-24] MEDS ORDERED: IPRATROPIUM BROM 0.5 MG/2.5ML INH SOL NEB PRN (21:30)
[2023-08-24] MEDS ORDERED: ACETAMINOPHEN 325 MG TAB PO PRN (21:30)
[2023-08-24] MEDS: hydrALAZINE HCL 25 MG TAB PO SCH (22:55)
[2023-08-24] MEDS: MONTELUKAST SODIUM 10 MG TAB PO SCH (22:55)
[2023-08-24] MEDS: RANOLAZINE ER 500 MG TAB PO SCH (22:55)
[2023-08-24 23:45] VITALS: BP 120/67; PULSE 82; RESP 20; TEMP 97.9; O2SAT 97
[2023-08-24 23:45] LABS: Urine Bacteria FEW /hpf (None Seen); Urine Blood Negative /uL (Negative); Urine Clarity Clear (Clear); Urine Color Yellow (Yellow); Urine Mucus FEW (None Seen); Urine Protein, UAD TRACE (Negative); Urine Specific Gravity 1.019 (1.001-1.035); Urine WBC 3 /hpf (0 - 3)
[2023-08-25] VITALS (12 sets, daily range): BP systolic 98–109; BP diastolic 51–64; PULSE 71–86; RESP 14–19; TEMP 97.5–98; O2SAT 95–100
[2023-08-25 05:05] LABS: Anion Gap 7 (5-15); Carbon Dioxide 23 mmol/L (20-30); Chloride 98 mmol/L (98-107); Potassium 4.2 mmol/L (3.5-5.1); Sodium 128 mmol/L (136-145)
[2023-08-25 05:06] LABS: Calcium 8.5 mg/dL (8.7-10.4)
[2023-08-25 05:11] LABS: BUN/Creatinine Ratio 22.6 (10.0-20.0); Blood Urea Nitrogen 14 mg/dL (9-23); Glucose 158 mg/dL (74-106)
[2023-08-25] MEDS: ENOXAPARIN SOD 40 MG/0.4 ML SYRINGE SC SCH (09:40)
[2023-08-25] MEDS: VALSARTAN 80 MG TAB PO SCH (09:47)
[2023-08-25] MEDS: TAMSULOSIN HYDROCHLORIDE 0.4 MG CAP PO SCH (18:00)
[2023-08-26] VITALS (7 sets, daily range): BP systolic 103–125; BP diastolic 62–65; PULSE 71–77; RESP 18–20; TEMP 97.7–98.8; O2SAT 95–100
[2023-08-26] MEDS ORDERED: LACT10SO3 PO (10:12)
[2023-08-26] MEDS ORDERED: METH4PAK PO (10:12)
[2023-08-26] MEDS ORDERED: POLY335015 PO (10:12)
[2023-08-26] MEDS ORDERED: AZIT-81 PO (10:12)
== END 2023-08-26 14:50 | disposition home or self-care (01) | DRG 189 ==
LOC: ER 15:19 → TELE 21:27 → TELE-CENTR 08-25 11:17
PROVIDERS: ADMIT Nurse Practitioner; ATTEND Internal Medicine
DX: J96.21 Acute and chronic respiratory failure with hypoxia (principal); J44.1 Chronic obstructive pulmonary disease with (acute) exacerbation; I10 Essential (primary) hypertension; I25.10 Atherosclerotic heart disease of native coronary artery without angina pectoris; F17.210 Nicotine dependence, cigarettes, uncomplicated; Z87.442 Personal history of urinary calculi; Z98.61 Coronary angioplasty status
CPT/HCPCS: 36415; 71045; 80048; 81001; 82962; 84484; 85025; 87081; 93005; 94640; 99291; G0378

== ENCOUNTER 2023-09-11 10:50 | Emergency (ER) | payer MEDICARE ==
[~2023-09-11] VITALS: Ht 144.8 cm; Wt 45.5 kg
[~2023-09-11 10:50] MED LIST changes: +LACT10SO3 PO; +POLY335015 PO; -SENN1TAB14 PO
[2023-09-11 11:02] VITALS: BP 149/78
[2023-09-11 11:08] VITALS: PULSE 86
[2023-09-11 11:09] VITALS: RESP 18; O2SAT 95
[2023-09-11 11:41] LABS: Base Excess -0.6 mmol/L (-2.0-2.0)
[2023-09-11 12:28] LABS: Basophils # (auto) 0 10 ^3/uL (0-0.2); Basophils % (auto) 0.1 % (0.0-2.0); Eosinophils # (auto) 0.2 10 ^3/uL (0-0.8); Eosinophils % (auto) 1.6 % (0.0-7.0); Hematocrit 40.7 % (41.0-53.0); Hemoglobin 13.6 g/dL (13.5-17.5); Lymphocytes % (auto) 10.2 % (10.0-50.0); Mean Corpuscular Hemoglobin 32.6 pg (28.0-32.0); Mean Corpuscular Hgb Conc. 33.4 g/dL (32.0-36.0); Mean Corpuscular Volume 97.5 fL (80.0-100.0); Monocytes # (auto) 0.6 10 ^3/uL (0-1.3); Neutrophils # (auto) 8.4 10 ^3/uL (1.6-8.6); Neutrophils % (auto) 82.1 % (37.0-80.0); Nucleated Red Blood Cells % 0.1 %; Red Blood Cells 4.18 10^6/uL (4.5-5.90); White Blood Cell 10.2 10^3/uL (4.4-10.8)
[2023-09-11 12:46] LABS: Alanine Aminotransferase 18 U/L (7-40); Albumin 3.7 g/dL (3.2-4.8); Alkaline Phosphatase 76 U/L (46-116); Anion Gap 4 (5-15); Aspartate Aminotransferase 26 U/L (13-40); BUN/Creatinine Ratio 11.3 (10.0-20.0); Blood Urea Nitrogen 7 mg/dL (9-23); Calcium 8.5 mg/dL (8.7-10.4); Carbon Dioxide 23 mmol/L (20-30); Chloride 100 mmol/L (98-107); Glucose 101 mg/dL (74-106); Potassium 4.5 mmol/L (3.5-5.1); Sodium 127 mmol/L (136-145)
[2023-09-11 12:47] LABS: Bilirubin, Total 0.6 mg/dL (0.2-1.0); Total Protein 6.3 g/dL (5.7-8.2)
[2023-09-11 16:23] LABS: Rapid Influenza A Negative (Negative); Rapid Influenza B Negative (Negative)
[2023-09-11 16:24] LABS: COVID19 ANTIGEN SOFIA FIA NEGATIVE (NEGATIVE)
[2023-09-11] MEDS ORDERED: PRED20TA2 PO (17:48)
== END 2023-09-11 18:50 | disposition home or self-care (01) ==
LOC: ER 10:50
DX: J44.1 Chronic obstructive pulmonary disease with (acute) exacerbation (principal); R07.89 Other chest pain; I25.10 Atherosclerotic heart disease of native coronary artery without angina pectoris; I10 Essential (primary) hypertension; F17.210 Nicotine dependence, cigarettes, uncomplicated; Z79.2 Long term (current) use of antibiotics; Z79.899 Other long term (current) drug therapy; Z20.822 Contact with and (suspected) exposure to COVID-19
CPT/HCPCS: 36415; 36600; 71045; 80053; 82805; 83605; 83735; 83880; 84484; 85025; 87040; 87426; 87804; 93005

== ENCOUNTER → 2023-09-28 | Outpatient (CLI) | payer MEDICARE ==
[~2023-09-28] MED LIST changes: +PRED20TA2 PO
[2023-09-28 08:16] LABS: Alanine Aminotransferase 19 U/L (7-40); Albumin 3.7 g/dL (3.2-4.8); Alkaline Phosphatase 65 U/L (46-116); Anion Gap 3 (5-15); Aspartate Aminotransferase 30 U/L (13-40); BUN/Creatinine Ratio 11.3 (10.0-20.0); Blood Urea Nitrogen 7 mg/dL (9-23); Calcium 8.9 mg/dL (8.5-10.1); Carbon Dioxide 30 mmol/L (20-30); Chloride 102 mmol/L (98-107); Glucose 100 mg/dL (74-106); Potassium 4.8 mmol/L (3.5-5.1); Sodium 135 mmol/L (136-145)
[2023-09-28 08:17] LABS: Bilirubin, Total 0.8 mg/dL (0.2-1.0); Total Protein 5.8 g/dL (5.7-8.2)
== END | disposition home or self-care (01) ==
LOC: LAB 07:03
PROVIDERS: ATTEND Internal Medicine
DX: I10 Essential (primary) hypertension (principal); J44.9 Chronic obstructive pulmonary disease, unspecified
CPT/HCPCS: 36415; 80053

== ENCOUNTER 2023-10-02 16:30 | Inpatient (IN) | payer MEDICARE ==
[~2023-10-02] VITALS: Ht 154.9 cm; Wt 44.5 kg
[2023-10-02] MEDS: ALBUTEROL SULF 2.5 MG/0.5ML(0.5%) NEB SOLN HHN ONE (17:50)
[2023-10-02] MEDS: IPRATROPIUM BROM 0.5 MG/2.5ML INH SOL HHN ONE (17:50)
[2023-10-02 17:56] LABS: Basophils # (auto) 0 10 ^3/uL (0-0.2); Basophils % (auto) 0.4 % (0.0-2.0); Eosinophils # (auto) 0 10 ^3/uL (0-0.8); Eosinophils % (auto) 0.4 % (0.0-7.0); Hematocrit 43.6 % (41.0-53.0); Hemoglobin 14.6 g/dL (13.5-17.5); Lymphocytes # (auto) 1.2 10 ^3/uL (0.4-5.4); Mean Corpuscular Hemoglobin 33.1 pg (28.0-32.0); Mean Corpuscular Hgb Conc. 33.4 g/dL (32.0-36.0); Monocytes # (auto) 0.6 10 ^3/uL (0-1.3); Monocytes % (auto) 6.8 % (0.0-12.0); Neutrophils # (auto) 7.2 10 ^3/uL (1.6-8.6); Neutrophils % (auto) 79.4 % (37.0-80.0); Nucleated Red Blood Cells % 0.1 %; Red Cell Distribution Width 15.7 % (11.8-14.3); White Blood Cell 9.1 10^3/uL (4.4-10.8)
[2023-10-02] MEDS: AZITHROMYCIN 500MG/ 250ML 250 ML IV ONE (18:07)
[2023-10-02] MEDS: cefTRIAXone 1GM/50ML D5W 50 ML IV ONE (18:07)
[2023-10-02] MEDS: MAGNESIUM SULFATE 1GM/100ML 100 ML IV ONE (18:07)
[2023-10-02] MEDS: methylPREDNISolone SOD SUCC 125 MG/2 ML VL IV ONE (18:08)
[2023-10-02] MEDS: SODIUM CHLORIDE 0.9% 1,000 ML IV ONE (18:08)
[2023-10-02] MEDS: ACETAMINOPHEN 325 MG TAB PO ONE (18:08)
[2023-10-02] MEDS: ONDANSETRON HCL 4 MG/2 ML VIAL IV ONE (18:08)
[2023-10-02] MEDS: TERBUTALINE SULFATE 1 MG/ML 1ML VIAL SC ONE (18:08)
[2023-10-02 19:21] LABS: COVID19 ANTIGEN SOFIA FIA NEGATIVE (NEGATIVE); Rapid Influenza A Negative (Negative); Rapid Influenza B Negative (Negative)
[2023-10-02 19:27] VITALS: PULSE 87; RESP 16; O2SAT 96
[2023-10-02 20:40] LABS: Alanine Aminotransferase 13 U/L (7-40); Alkaline Phosphatase 56 U/L (46-116); Anion Gap 4 (5-15); BUN/Creatinine Ratio 19.3 (10.0-20.0); Blood Urea Nitrogen 11 mg/dL (9-23); Calcium 8.5 mg/dL (8.7-10.4); Carbon Dioxide 26 mmol/L (20-30); Chloride 100 mmol/L (98-107); Magnesium 2.5 mg/dL (1.6-2.6); Potassium 4.3 mmol/L (3.5-5.1)
[2023-10-02 20:41] LABS: Albumin 3.3 g/dL (3.2-4.8); Aspartate Aminotransferase 27 U/L (13-40); Bilirubin, Total 0.5 mg/dL (0.2-1.0); Total Protein 5.5 g/dL (5.7-8.2)
[2023-10-02 20:47] LABS: Glucose 203 mg/dL (74-106); Sodium 130 mmol/L (136-145)
[2023-10-02] MEDS ORDERED: NITROGLYCERIN 0.4 MG SL TAB SL PRN (23:30)
[2023-10-02] MEDS ORDERED: MORPHINE SULFATE INJ 2 MG/ml SYRG IV PRN (23:30)
[2023-10-02] MEDS ORDERED: ACETAMINOPHEN 325 MG TAB PO PRN (23:30)
[2023-10-02] MEDS ORDERED: DOCUSATE SOD 100 MG CAP PO PRN (23:30)
[2023-10-02] MEDS ORDERED: ONDANSETRON HCL 4 MG/2 ML VIAL IV PRN (23:30)
[2023-10-02] MEDS ORDERED: HYDROcodone-ACET 5/325MG TAB PO PRN (23:30)
[2023-10-03] VITALS (14 sets, daily range): BP systolic 95–130; BP diastolic 57–73; PULSE 64–88; RESP 16–20; TEMP 97.3–98.3; O2SAT 97–100
[2023-10-03] MEDS: IPRATROPIUM BROM 0.5 MG/2.5ML INH SOL NEB PRN (00:17)
[2023-10-03] MEDS: ALBUTEROL SULF 2.5 MG/0.5ML(0.5%) NEB SOLN NEB PRN (00:17)
[2023-10-03 00:25] LABS: Urine Bacteria NONE SEEN /hpf (None Seen); Urine Blood Negative /uL (Negative); Urine Clarity Clear (Clear); Urine Color Colorless (Yellow); Urine Protein, UAD Negative (Negative); Urine Specific Gravity 1.008 (1.001-1.035); Urine Urobilinogen Normal (Negative); Urine WBC <1 /hpf (0 - 3)
[2023-10-03] MEDS: SODIUM CHLORIDE 0.9% 1,000 ML IV SCH (00:35)
[2023-10-03 07:09] LABS: Basophils # (auto) 0 10 ^3/uL (0-0.2); Basophils % (auto) 0.1 % (0.0-2.0); Eosinophils # (auto) 0 10 ^3/uL (0-0.8); Hematocrit 38.4 % (41.0-53.0); Lymphocytes # (auto) 0.8 10 ^3/uL (0.4-5.4); Lymphocytes % (auto) 15.3 % (10.0-50.0); Mean Corpuscular Hemoglobin 33.4 pg (28.0-32.0); Mean Corpuscular Hgb Conc. 33.9 g/dL (32.0-36.0); Mean Corpuscular Volume 98.6 fL (80.0-100.0); Monocytes # (auto) 0.1 10 ^3/uL (0-1.3); Monocytes % (auto) 1.5 % (0.0-12.0); Neutrophils # (auto) 4.2 10 ^3/uL (1.6-8.6); Neutrophils % (auto) 83.1 % (37.0-80.0); Nucleated Red Blood Cells % 0.1 %; Red Cell Distribution Width 15.7 % (11.8-14.3)
[2023-10-03 07:37] LABS: Alanine Aminotransferase 15 U/L (7-40); Albumin 3.4 g/dL (3.2-4.8); Alkaline Phosphatase 60 U/L (46-116); Anion Gap 5 (5-15); Aspartate Aminotransferase 24 U/L (13-40); BUN/Creatinine Ratio 14.5 (10.0-20.0); Blood Urea Nitrogen 8 mg/dL (9-23); Calcium 8.7 mg/dL (8.5-10.1); Carbon Dioxide 25 mmol/L (20-30); Chloride 105 mmol/L (98-107); Glucose 126 mg/dL (74-106); Potassium 4.4 mmol/L (3.5-5.1)
[2023-10-03 07:38] LABS: Bilirubin, Total 0.7 mg/dL (0.2-1.0); Total Protein 5.3 g/dL (5.7-8.2)
[2023-10-03 07:40] LABS: Sodium 135 mmol/L (136-145)
[2023-10-03] MEDS: FAMOTIDINE (10MG/ML) 2ML VL IV SCH (11:06)
[2023-10-03] MEDS: methylPREDNISolone SOD SUCC 40 MG/ML VL IV SCH ×2 (11:06→16:04)
[2023-10-03] MEDS: cefTRIAXone 1GM/50ML D5W 50 ML IV SCH (11:06)
[2023-10-03] MEDS ORDERED: ALBUTEROL SULF 2.5 MG/0.5ML(0.5%) NEB SOLN NEB PRN (14:15)
[2023-10-03] MEDS: ALBUTEROL SULF 2.5 MG/0.5ML(0.5%) NEB SOLN NEB SCH (18:57)
[2023-10-03] MEDS: IPRATROPIUM BROM 0.5 MG/2.5ML INH SOL NEB SCH (18:57)
[2023-10-04] VITALS (16 sets, daily range): BP systolic 105–120; BP diastolic 58–66; PULSE 52–86; RESP 15–19; TEMP 97.6–98.7; O2SAT 95–100
[2023-10-05] VITALS (15 sets, daily range): BP systolic 123–133; BP diastolic 67–76; PULSE 67–77; RESP 14–20; TEMP 97.7–98.9; O2SAT 94–100
[2023-10-05] MEDS ORDERED: DOXY1CAP57 PO (12:18)
[2023-10-05] MEDS ORDERED: PRED10TA PO (12:18)
== END 2023-10-05 14:50 | disposition home or self-care (01) | DRG 189 ==
LOC: ER 16:30 → TELE 23:35 → TELE-CENTR 10-03 02:34
PROVIDERS: ADMIT Nurse Practitioner Family; ATTEND Internal Medicine
DX: J96.21 Acute and chronic respiratory failure with hypoxia (principal); J44.1 Chronic obstructive pulmonary disease with (acute) exacerbation; E87.29 Other acidosis; R64 Cachexia; Z68.1 Body mass index [BMI] 19.9 or less, adult; J96.22 Acute and chronic respiratory failure with hypercapnia; I10 Essential (primary) hypertension; I16.0 Hypertensive urgency; J43.9 Emphysema, unspecified; J98.4 Other disorders of lung; F17.200 Nicotine dependence, unspecified, uncomplicated; R26.81 Unsteadiness on feet; R73.9 Hyperglycemia, unspecified; Z83.3 Family history of diabetes mellitus; Z99.81 Dependence on supplemental oxygen
CPT/HCPCS: 36415; 36600; 71045; 80053; 81001; 82805; 83605; 83735; 83880; 84484; 85025; 87040; 87081; 87426; 87804; 93005; 94640; 96365; 96375; G0378; J2405; J3490

== ENCOUNTER → 2023-11-29 | Outpatient (CLI) | payer MEDICARE ==
[~2023-11-29] MED LIST changes: +AZIT-185 PO; -AZIT-81 PO; +DOXY1CAP57 PO; +PRED10TA PO; -ROSU1TAB12 PO; +ROSU5TAB24 PO
== END | disposition home or self-care (01) ==
LOC: LAB 10:11
PROVIDERS: ATTEND Internal Medicine
DX: I11.0 Hypertensive heart disease with heart failure (principal); I50.23 Acute on chronic systolic (congestive) heart failure; E78.5 Hyperlipidemia, unspecified; J44.9 Chronic obstructive pulmonary disease, unspecified; R41.3 Other amnesia; Z79.899 Other long term (current) drug therapy
CPT/HCPCS: 82306; 82607

== ENCOUNTER 2024-01-17 16:37 | Emergency (ER) | payer MEDICARE ==
[~2024-01-17] VITALS: Ht 154.9 cm; Wt 44.1 kg
[2024-01-17 17:57] LABS: Basophils # (auto) 0 10 ^3/uL (0-0.2); Basophils % (auto) 0.7 % (0.0-2.0); Eosinophils # (auto) 0.3 10 ^3/uL (0-0.8); Eosinophils % (auto) 6.3 % (0.0-7.0); Hematocrit 43.7 % (41.0-53.0); Hemoglobin 14.6 g/dL (13.5-17.5); Lymphocytes # (auto) 1.5 10 ^3/uL (0.4-5.4); Lymphocytes % (auto) 29.7 % (10.0-50.0); Mean Corpuscular Hemoglobin 33.2 pg (28.0-32.0); Mean Corpuscular Hgb Conc. 33.3 g/dL (32.0-36.0); Mean Corpuscular Volume 99.7 fL (80.0-100.0); Monocytes # (auto) 0.4 10 ^3/uL (0-1.3); Monocytes % (auto) 7.9 % (0.0-12.0); Neutrophils # (auto) 2.8 10 ^3/uL (1.6-8.6); Neutrophils % (auto) 55.4 % (37.0-80.0); Nucleated Red Blood Cells % 0.1 %; Red Blood Cells 4.39 10^6/uL (4.5-5.90); Red Cell Distribution Width 13.2 % (11.8-14.3)
[2024-01-17 18:13] LABS: Alanine Aminotransferase 21 U/L (7-40); Albumin 3.8 g/dL (3.2-4.8); Alkaline Phosphatase 84 U/L (46-116); Anion Gap 2 (5-15); Aspartate Aminotransferase 23 U/L (13-40); BUN/Creatinine Ratio 22.6 (10.0-20.0); Blood Urea Nitrogen 14 mg/dL (9-23); Calcium 9.3 mg/dL (8.5-10.1); Carbon Dioxide 28 mmol/L (20-30); Chloride 103 mmol/L (98-107); Glucose 106 mg/dL (74-106); Potassium 4.4 mmol/L (3.5-5.1); Sodium 133 mmol/L (136-145)
[2024-01-17 18:14] LABS: Bilirubin, Total 0.8 mg/dL (0.2-1.0)
[2024-01-17 18:45] LABS: Base Excess 0.1 mmol/L (-2.0-2.0)
[2024-01-17] MEDS ORDERED: methylPREDNISolone SOD SUCC 125 MG/2 ML VL IV ONE (18:45)
[2024-01-17] MEDS: IPRATROPIUM BROM 0.5 MG/2.5ML INH SOL NEB ONE (19:11)
[2024-01-17] MEDS: ALBUTEROL SULF 2.5 MG/0.5ML(0.5%) NEB SOLN NEB ONE (19:11)
[2024-01-17] MEDS: IPRATROPIUM BROM 0.5 MG/2.5ML INH SOL ONE (19:33)
[2024-01-17] MEDS: ALBUTEROL SULF 2.5 MG/0.5ML(0.5%) NEB SOLN ONE (19:33)
[2024-01-17 21:54] VITALS: BP 124/63; PULSE 79; RESP 18; TEMP 97.3; O2SAT 97
== END 2024-01-17 23:06 | disposition left against medical advice (07) ==
LOC: ER 16:37
DX: I10 Essential (primary) hypertension (principal); R06.00 Dyspnea, unspecified; J44.9 Chronic obstructive pulmonary disease, unspecified; I25.10 Atherosclerotic heart disease of native coronary artery without angina pectoris; F17.210 Nicotine dependence, cigarettes, uncomplicated; Z87.442 Personal history of urinary calculi; Z98.890 Other specified postprocedural states
CPT/HCPCS: 36415; 36600; 71045; 80053; 82805; 83605; 83735; 83880; 84484; 85025; 85379; 93005; 94640; 99285; J7644

== ENCOUNTER → 2024-01-17 | Outpatient (CLI) | payer MEDICARE ==
[2024-01-17 07:22] LABS: Basophils # (auto) 0 10 ^3/uL (0-0.2); Basophils % (auto) 0.6 % (0.0-2.0); Eosinophils # (auto) 0.3 10 ^3/uL (0-0.8); Eosinophils % (auto) 6.1 % (0.0-7.0); Hematocrit 45.1 % (41.0-53.0); Hemoglobin 15.3 g/dL (13.5-17.5); Lymphocytes # (auto) 1.2 10 ^3/uL (0.4-5.4); Lymphocytes % (auto) 23.6 % (10.0-50.0); Mean Corpuscular Hemoglobin 33.9 pg (28.0-32.0); Mean Corpuscular Volume 99.7 fL (80.0-100.0); Monocytes # (auto) 0.4 10 ^3/uL (0-1.3); Monocytes % (auto) 7.1 % (0.0-12.0); Neutrophils # (auto) 3.2 10 ^3/uL (1.6-8.6); Neutrophils % (auto) 62.6 % (37.0-80.0); Nucleated Red Blood Cells % 0.1 %; Red Blood Cells 4.52 10^6/uL (4.5-5.90); Red Cell Distribution Width 13.3 % (11.8-14.3); White Blood Cell 5.1 10^3/uL (4.4-10.8)
[2024-01-17 08:27] LABS: Cholesterol 135 mg/dL (< 200); Triglycerides 138 mg/dL (< 150)
[2024-01-17 08:28] LABS: LDL Cholesterol 80 mg/dL (< 100)
[2024-01-17 08:29] LABS: HDL Cholesterol 43 mg/dL (40-59)
== END | disposition home or self-care (01) ==
LOC: LAB 06:49
PROVIDERS: ATTEND Internal Medicine
DX: J44.9 Chronic obstructive pulmonary disease, unspecified (principal); E78.5 Hyperlipidemia, unspecified
CPT/HCPCS: 36415; 80061; 84443; 85025

== ENCOUNTER 2024-03-27 08:31 | Inpatient (IN) | payer MEDICARE ==
[~2024-03-27] VITALS: Ht 165.1 cm; Wt 43.7 kg
[2024-03-27] VITALS (7 sets, daily range): BP systolic 140; BP diastolic 74; PULSE 71–78; RESP 18–20; TEMP 97.7; O2SAT 95–99
[~2024-03-27 08:31] MED LIST changes: -TAMS0.4C36 PO; +TAMS0.4C39 PO
[2024-03-27] MEDS ORDERED: methylPREDNISolone SOD SUCC 125 MG/2 ML VL IM ONE (09:00)
[2024-03-27] MEDS: ALBUTEROL SULF 2.5 MG/0.5ML(0.5%) NEB SOLN NEB ONE (09:06)
[2024-03-27 09:18] LABS: Basophils # (auto) 0 10 ^3/uL (0-0.2); Basophils % (auto) 0.5 % (0.0-2.0); Eosinophils # (auto) 0.1 10 ^3/uL (0-0.8); Eosinophils % (auto) 2.1 % (0.0-7.0); Hematocrit 44.7 % (41.0-53.0); Hemoglobin 15.5 g/dL (13.5-17.5); Lymphocytes # (auto) 1.2 10 ^3/uL (0.4-5.4); Lymphocytes % (auto) 18.4 % (10.0-50.0); Mean Corpuscular Hgb Conc. 34.6 g/dL (32.0-36.0); Mean Corpuscular Volume 98.4 fL (80.0-100.0); Monocytes # (auto) 0.4 10 ^3/uL (0-1.3); Monocytes % (auto) 6.6 % (0.0-12.0); Neutrophils # (auto) 4.7 10 ^3/uL (1.6-8.6); Neutrophils % (auto) 72.4 % (37.0-80.0); Platelet Count (auto) 227 10^3/uL (140-450); Red Blood Cells 4.54 10^6/uL (4.5-5.90); Red Cell Distribution Width 14.3 % (11.8-14.3); White Blood Cell 6.5 10^3/uL (4.4-10.8)
[2024-03-27 09:34] LABS: Alanine Aminotransferase 28 U/L (7-40); Albumin 4.1 g/dL (3.2-4.8); Alkaline Phosphatase 102 U/L (46-116); Anion Gap 2 (5-15); Aspartate Aminotransferase 28 U/L (13-40); BUN/Creatinine Ratio 22.1 (10.0-20.0); Bilirubin, Total 1.1 mg/dL (0.2-1.0); Blood Urea Nitrogen 15 mg/dL (9-23); Calcium 9.6 mg/dL (8.7-10.4); Carbon Dioxide 29 mmol/L (20-30); Chloride 101 mmol/L (98-107); Glucose 108 mg/dL (74-106); Potassium 4.7 mmol/L (3.5-5.1); Sodium 132 mmol/L (136-145)
[2024-03-27] MEDS: methylPREDNISolone SOD SUCC 125 MG/2 ML VL IV ONE (09:43)
[2024-03-27] MEDS ORDERED: ALBUTEROL SULF 2.5 MG/0.5ML(0.5%) NEB SOLN NEB SCH (10:30)
[2024-03-27] MEDS ORDERED: ONDANSETRON HCL 4 MG/2 ML VIAL IV PRN (10:30)
[2024-03-27] MEDS ORDERED: POLYETHYLENE GLYCOL 17 GM PWDR PO PRN (10:30)
[2024-03-27] MEDS ORDERED: HYDROcodone-ACET 5/325MG TAB PO PRN (10:30)
[2024-03-27] MEDS ORDERED: HYDROmorphone HCL 2 MG/ML VL/or syr IV PRN (10:30)
[2024-03-27] MEDS ORDERED: DOCUSATE SOD 100 MG CAP PO PRN (10:30)
[2024-03-27] MEDS ORDERED: IPRATROPIUM BROM 0.5 MG/2.5ML INH SOL NEB SCH (10:30)
[2024-03-27] MEDS ORDERED: hydrALAZINE HCL 20 MG/ML VL IV PRN (10:45)
[2024-03-27] MEDS: IPRATROPIUM BROM 0.5 MG/2.5ML INH SOL NEB SCH (12:00)
[2024-03-27] MEDS: ALBUTEROL SULF 2.5 MG/0.5ML(0.5%) NEB SOLN NEB SCH (12:00)
[2024-03-27] MEDS: ALBUTEROL SULF 2.5 MG/0.5ML(0.5%) NEB SOLN ONE (12:38)
[2024-03-27] MEDS: IPRATROPIUM BROM 0.5 MG/2.5ML INH SOL ONE (12:38)
[2024-03-27] MEDS: PANTOPRAZOLE 40 MG/10 ML VIAL INJ IV SCH (12:57)
[2024-03-27] MEDS: SODIUM CHLOR 0.9% PF (SALINE LOCK) 10ML VIAL/SYR IV SCH (13:31)
[2024-03-27] MEDS: TAMSULOSIN HYDROCHLORIDE 0.4 MG CAP PO SCH (18:23)
[2024-03-27] MEDS ORDERED: LACTULOSE 20Gm/30ML SOLN PO PRN (19:15)
[2024-03-27] MEDS: hydrALAZINE HCL 25 MG TAB PO SCH (22:00)
[2024-03-27] MEDS ORDERED: DOCUSATE SOD 100 MG CAP PO SCH (22:00)
[2024-03-28] VITALS (12 sets, daily range): BP systolic 95–117; BP diastolic 52–65; PULSE 61–99; RESP 14–18; TEMP 97.7–98; O2SAT 71–100
[2024-03-28 03:49] LABS: Basophils # (auto) 0 10 ^3/uL (0-0.2); Basophils % (auto) 0.3 % (0.0-2.0); Eosinophils # (auto) 0 10 ^3/uL (0-0.8); Hematocrit 39.8 % (41.0-53.0); Hemoglobin 13.8 g/dL (13.5-17.5); Lymphocytes # (auto) 1.1 10 ^3/uL (0.4-5.4); Lymphocytes % (auto) 14.8 % (10.0-50.0); Mean Corpuscular Hemoglobin 33.7 pg (28.0-32.0); Mean Corpuscular Hgb Conc. 34.8 g/dL (32.0-36.0); Mean Corpuscular Volume 96.8 fL (80.0-100.0); Monocytes # (auto) 0.3 10 ^3/uL (0-1.3); Monocytes % (auto) 4.8 % (0.0-12.0); Neutrophils # (auto) 5.7 10 ^3/uL (1.6-8.6); Neutrophils % (auto) 80.1 % (37.0-80.0); Platelet Count (auto) 201 10^3/uL (140-450); Red Blood Cells 4.11 10^6/uL (4.5-5.90); Red Cell Distribution Width 14.3 % (11.8-14.3); White Blood Cell 7.2 10^3/uL (4.4-10.8)
[2024-03-28 04:10] LABS: Alanine Aminotransferase 21 U/L (7-40); Albumin 3.6 g/dL (3.2-4.8); Alkaline Phosphatase 79 U/L (46-116); Anion Gap 7 (5-15); Aspartate Aminotransferase 19 U/L (13-40); BUN/Creatinine Ratio 27.1 (10.0-20.0); Blood Urea Nitrogen 19 mg/dL (9-23); Calcium 9.5 mg/dL (8.7-10.4); Carbon Dioxide 25 mmol/L (20-30); Chloride 101 mmol/L (98-107); Glucose 112 mg/dL (74-106); Potassium 4.5 mmol/L (3.5-5.1); Sodium 133 mmol/L (136-145)
[2024-03-28 04:11] LABS: Bilirubin, Total 0.8 mg/dL (0.2-1.0); Total Protein 5.9 g/dL (5.7-8.2)
[2024-03-28 08:18] LABS: Magnesium 1.9 mg/dL (1.6-2.6)
[2024-03-28 08:20] LABS: Phosphorus 3.8 mg/dL (2.4-5.1)
[2024-03-28 09:55] LABS: INR 1.1 (0.9-1.15); Partial Thromboplastin Time 24.8 SEC (24.5-34.5); Prothrombin Time 11.6 sec (9.3-11.8)
[2024-03-28] MEDS ORDERED: PATIENTS OWN MEDICATION (Tiotropium Bromide Monohydrate (Spiriva Handihaler) 1 PUFF) IN SCH (10:00)
[2024-03-28] MEDS: VALSARTAN 80 MG TAB PO SCH (10:00)
[2024-03-28] MEDS: FLUTICASONE UMECLIDINIUM VILAN IN SCH (10:00)
[2024-03-28 10:02] LABS: Lactic Acid w/Reflex 2.2 mmol/L (0.4-2.0)
[2024-03-28] MEDS: ATORVASTATIN 20 MG TAB PO SCH (10:20)
[2024-03-28] MEDS: FINASTERIDE 5 MG TAB PO SCH (10:20)
[2024-03-28] MEDS: ENOXAPARIN SOD 40 MG/0.4 ML SYRINGE SC SCH (10:21)
[2024-03-28] MEDS: methylPREDNISolone SOD SUCC 40 MG/ML VL IV SCH (10:22)
[2024-03-28] MEDS: AZITHROMYCIN 500MG/ 250ML 250 ML IV SCH (10:23)
[2024-03-28] MEDS: LACTATED RINGER'S 1,000 ML IV SCH (10:30)
[2024-03-28] MEDS: ASPirin 81 mg TAB PO ONE (18:02)
[2024-03-28] MEDS: LACTATED RINGER'S 500 ML IV ONE (18:30)
[2024-03-28 18:36] LABS: Magnesium 1.9 mg/dL (1.6-2.6)
[2024-03-28] MEDS: MONTELUKAST SODIUM 10 MG TAB PO SCH (21:28)
[2024-03-29] VITALS (12 sets, daily range): BP systolic 125–140; BP diastolic 66–69; PULSE 60–98; RESP 14–20; TEMP 97.6–98.5; O2SAT 94–100
[2024-03-29 04:47] LABS: Urine Bacteria None Seen /hpf (None Seen)
[2024-03-29 04:55] LABS: Urine Blood Negative /uL (Negative); Urine Clarity Clear (Clear); Urine Color Light-Yellow (Yellow); Urine Protein, UAD Negative (Negative); Urine Specific Gravity 1.012 (1.001-1.035); Urine Urobilinogen 2 mg/dL (Negative); Urine WBC <1 /hpf (0 - 3); Urine pH 6.5 (5.0-9.0)
[2024-03-29 05:06] LABS: Amphetamine Screen, Urine Neg (NEGATIVE); Barbiturate Scree,Urine Neg (NEGATIVE); Benzodiazephine Screen, Urine Neg (NEGATIVE); Cocaine Screen, Urine Neg (NEGATIVE); Opiate Scree,Urine Neg (NEGATIVE)
[2024-03-29 05:07] LABS: Cannabinoid Screen, Urine Neg (NEGATIVE); Phencyclidine Screen, Urine Neg (NEGATIVE)
[2024-03-29 05:42] LABS: COVID19 ANTIGEN SOFIA FIA NEGATIVE (NEGATIVE)
[2024-03-29 06:54] LABS: Basophils # (auto) 0 10 ^3/uL (0-0.2); Basophils % (auto) 0.5 % (0.0-2.0); Eosinophils # (auto) 0 10 ^3/uL (0-0.8); Eosinophils % (auto) 0.2 % (0.0-7.0); Hematocrit 39.1 % (41.0-53.0); Hemoglobin 13.6 g/dL (13.5-17.5); Lymphocytes # (auto) 1.5 10 ^3/uL (0.4-5.4); Lymphocytes % (auto) 25.2 % (10.0-50.0); Mean Corpuscular Hemoglobin 33.9 pg (28.0-32.0); Mean Corpuscular Hgb Conc. 34.8 g/dL (32.0-36.0); Mean Corpuscular Volume 97.4 fL (80.0-100.0); Monocytes # (auto) 0.4 10 ^3/uL (0-1.3); Monocytes % (auto) 7.4 % (0.0-12.0); Neutrophils # (auto) 3.8 10 ^3/uL (1.6-8.6); Neutrophils % (auto) 66.7 % (37.0-80.0); Nucleated Red Blood Cells % 0.1 %; Platelet Count (auto) 186 10^3/uL (140-450); Red Blood Cells 4.02 10^6/uL (4.5-5.90); Red Cell Distribution Width 13.9 % (11.8-14.3); White Blood Cell 5.7 10^3/uL (4.4-10.8)
[2024-03-29 07:11] LABS: Alanine Aminotransferase 23 U/L (7-40); Albumin 3.3 g/dL (3.2-4.8); Alkaline Phosphatase 74 U/L (46-116); Anion Gap 3 (5-15); Aspartate Aminotransferase 21 U/L (13-40); Blood Urea Nitrogen 12 mg/dL (9-23); Calcium 9.1 mg/dL (8.7-10.4); Carbon Dioxide 29 mmol/L (20-30); Chloride 102 mmol/L (98-107); Glucose 79 mg/dL (74-106); Sodium 134 mmol/L (136-145)
[2024-03-29 07:12] LABS: Bilirubin, Total 0.8 mg/dL (0.2-1.0); Total Protein 5.5 g/dL (5.7-8.2)
[2024-03-29] MEDS: ASPirin 81 mg TAB PO SCH (09:07)
[2024-03-29] MEDS ORDERED: TAMS-35 PO (09:19)
[2024-03-29] MEDS ORDERED: ASPI-325 PO (09:19)
[2024-03-29] MEDS ORDERED: PRED20TA2 PO (09:19)
[2024-03-29] MEDS ORDERED: AZIT-43 PO (09:19)
[2024-03-29] MEDS ORDERED: MONT10TA23 PO (09:19)
[2024-03-29] MEDS: ACETAMINOPHEN 325 MG TAB PO PRN (10:11)
[2024-03-29] MEDS ORDERED: TAMSULOSIN HYDROCHLORIDE 0.4 MG CAP PO SCH (18:00)
== END 2024-03-29 15:38 | disposition home or self-care (01) | DRG 189 ==
LOC: ER 08:31 → OVERFLOW 10:17 → WEST WING 03-28 08:29
PROVIDERS: ADMIT Internal Medicine; ATTEND Internal Medicine Pulmonary Disease
DX: J96.21 Acute and chronic respiratory failure with hypoxia (principal); J44.1 Chronic obstructive pulmonary disease with (acute) exacerbation; J45.901 Unspecified asthma with (acute) exacerbation; E87.1 Hypo-osmolality and hyponatremia; I31.39 Other pericardial effusion (noninflammatory); Z20.822 Contact with and (suspected) exposure to COVID-19; I10 Essential (primary) hypertension; I25.10 Atherosclerotic heart disease of native coronary artery without angina pectoris; F17.210 Nicotine dependence, cigarettes, uncomplicated; E78.5 Hyperlipidemia, unspecified; K80.20 Calculus of gallbladder without cholecystitis without obstruction; N40.0 Benign prostatic hyperplasia without lower urinary tract symptoms; Z87.442 Personal history of urinary calculi; Z83.3 Family history of diabetes mellitus; Z90.49 Acquired absence of other specified parts of digestive tract
CPT/HCPCS: 36415; 36600; 71045; 71250; 80053; 80307; 81001; 82306; 82607; 82805; 83036; 83605; 83735; 83880; 84100; 84443; 85025; 85610; 85730; 87426; 93005; 94640; G0378; J2470; J7042

== ENCOUNTER 2024-04-26 13:12 | Inpatient (IN) | payer MEDICARE ==
[~2024-04-26] VITALS: Ht 154.9 cm; Wt 41.3 kg
[~2024-04-26 13:12] MED LIST changes: +ASPI-325 PO; -AZIT-185 PO; +AZIT-43 PO; +BUDE1AER6 INH; -DOXY1CAP57 PO; +IPRA0.00 NEB; -METH4PAK PO; +MONT10TA23 PO; -POLY335015 PO; -PRED10TA PO; +TAMS-35 PO
[2024-04-26 14:49] LABS: Basophils # (auto) 0 10 ^3/uL (0-0.2); Basophils % (auto) 0.5 % (0.0-2.0); Eosinophils # (auto) 0.2 10 ^3/uL (0-0.8); Eosinophils % (auto) 5.5 % (0.0-7.0); Hematocrit 40.8 % (41.0-53.0); Hemoglobin 13.9 g/dL (13.5-17.5); Lymphocytes # (auto) 0.8 10 ^3/uL (0.4-5.4); Lymphocytes % (auto) 19.1 % (10.0-50.0); Mean Corpuscular Hemoglobin 33.7 pg (28.0-32.0); Mean Corpuscular Volume 98.8 fL (80.0-100.0); Monocytes # (auto) 0.3 10 ^3/uL (0-1.3); Monocytes % (auto) 7.7 % (0.0-12.0); Neutrophils % (auto) 67.2 % (37.0-80.0); Nucleated Red Blood Cells % 0.1 %; Platelet Count (auto) 220 10^3/uL (140-450); Red Blood Cells 4.13 10^6/uL (4.5-5.90); Red Cell Distribution Width 13.9 % (11.8-14.3); White Blood Cell 4.4 10^3/uL (4.4-10.8)
[2024-04-26 14:54] LABS: Urine Bacteria None Seen /hpf (None Seen)
[2024-04-26 15:04] LABS: Alanine Aminotransferase 27 U/L (7-40); Alkaline Phosphatase 89 U/L (46-116); Anion Gap 4 (5-15); Aspartate Aminotransferase 30 U/L (13-40); BUN/Creatinine Ratio 21.9 (10.0-20.0); Bilirubin, Total 0.8 mg/dL (0.2-1.0); Blood Urea Nitrogen 14 mg/dL (9-23); Calcium 9.8 mg/dL (8.7-10.4); Carbon Dioxide 29 mmol/L (20-31); Chloride 99 mmol/L (98-107); Glucose 111 mg/dL (74-106); Potassium 4.8 mmol/L (3.5-5.1); Sodium 132 mmol/L (136-145)
[2024-04-26 15:05] LABS: Total Protein 6.4 g/dL (5.7-8.2)
[2024-04-26 15:10] LABS: Lactic Acid w/Reflex 2.5 mmol/L (0.4-2.0)
[2024-04-26 15:22] LABS: Urine Blood Negative /uL (Negative); Urine Clarity Clear (Clear); Urine Color Yellow (Yellow); Urine Mucus FEW (None Seen); Urine Protein, UAD Negative (Negative); Urine Specific Gravity 1.023 (1.001-1.035); Urine Urobilinogen 2 mg/dL (Negative); Urine WBC 1 /hpf (0 - 3); Urine pH 5.5 (5.0-9.0)
[2024-04-26 17:00] VITALS: PULSE 91; RESP 15; O2SAT 99
[2024-04-26 19:20] VITALS: PULSE 87; RESP 16; O2SAT 98
[2024-04-26 23:25] VITALS: PULSE 93; RESP 20; O2SAT 98
[2024-04-26] MEDS: IPRATROPIUM BROM 0.5 MG/2.5ML INH SOL NEB PRN (23:25)
[2024-04-26] MEDS: ALBUTEROL SULF 2.5 MG/0.5ML(0.5%) NEB SOLN NEB PRN (23:25)
[2024-04-26 23:33] VITALS: PULSE 92; RESP 20; O2SAT 98
[2024-04-27] VITALS (13 sets, daily range): BP systolic 92–167; BP diastolic 42–86; PULSE 85–104; RESP 16–22; TEMP 97.8–98.4; O2SAT 93–100
[2024-04-27] MEDS ORDERED: hydrALAZINE HCL 20 MG/ML VL IV PRN (01:00)
[2024-04-27 04:13] LABS: COVID19 ANTIGEN SOFIA FIA NEGATIVE (NEGATIVE)
[2024-04-27 05:35] LABS: Rapid Influenza A Negative (Negative); Rapid Influenza B Negative (Negative)
[2024-04-27 09:27] LABS: INR 1.05 (0.9-1.15); Partial Thromboplastin Time 26.2 SEC (24.5-34.5); Prothrombin Time 11.1 sec (9.3-11.8)
[2024-04-27 09:32] LABS: Chloride 102 mmol/L (98-107); Potassium 4.1 mmol/L (3.5-5.1); Sodium 133 mmol/L (136-145)
[2024-04-27 09:33] LABS: Anion Gap 4 (5-15); Calcium 9.6 mg/dL (8.7-10.4); Carbon Dioxide 27 mmol/L (20-31)
[2024-04-27 09:38] LABS: BUN/Creatinine Ratio 20.4 (10.0-20.0); Blood Urea Nitrogen 11 mg/dL (9-23); Glucose 89 mg/dL (74-106)
[2024-04-27] MEDS: FINASTERIDE 5 MG TAB PO SCH (10:37)
[2024-04-27] MEDS: ASPirin 81 mg TAB PO SCH (10:37)
[2024-04-27] MEDS: VALSARTAN 80 MG TAB PO SCH (10:38)
[2024-04-27] MEDS: ENOXAPARIN SOD 40 MG/0.4 ML SYRINGE SC SCH (10:39)
[2024-04-27] MEDS ORDERED: ACETAMINOPHEN 325 MG TAB PO PRN (13:00)
[2024-04-27] MEDS: ACETAMINOPHEN 325 MG TAB PO PRN (13:43)
[2024-04-27] MEDS: TAMSULOSIN HYDROCHLORIDE 0.4 MG CAP PO SCH (18:08)
[2024-04-27] MEDS: AZITHROMYCIN 250 MG TAB PO ONE (18:26)
[2024-04-27] MEDS: ATORVASTATIN 20 MG TAB PO SCH (21:31)
[2024-04-28] VITALS (11 sets, daily range): BP systolic 101–118; BP diastolic 57–78; PULSE 69–98; RESP 15–23; TEMP 97.6–97.9; O2SAT 95–100
[2024-04-28 06:02] LABS: Calcium 8.7 mg/dL (8.7-10.4); Chloride 98 mmol/L (98-107); Potassium 4.4 mmol/L (3.5-5.1); Sodium 129 mmol/L (136-145)
[2024-04-28 06:03] LABS: Anion Gap 3 (5-15); Carbon Dioxide 28 mmol/L (20-31)
[2024-04-28 06:08] LABS: BUN/Creatinine Ratio 20.4 (10.0-20.0); Blood Urea Nitrogen 11 mg/dL (9-23); Glucose 88 mg/dL (74-106)
[2024-04-28] MEDS ORDERED: IPRATROPIUM BROM 0.5 MG/2.5ML INH SOL NEB SCH (08:00)
[2024-04-28] MEDS ORDERED: ALBUTEROL SULF 2.5 MG/0.5ML(0.5%) NEB SOLN NEB SCH (08:00)
[2024-04-28 08:06] LABS: PSA Free 0.06 ng/mL; Prostate Specific Antigen 0.1 ng/mL (0.0-4.0)
[2024-04-28] MEDS: AZITHROMYCIN 250 MG TAB PO SCH (11:01)
[2024-04-28] MEDS ORDERED: ATOR20TA50 PO ×2 (12:59→17:53)
[2024-04-28] MEDS ORDERED: DOCU-94 PO ×2 (12:59→17:53)
[2024-04-28] MEDS ORDERED: LACT10SO3 PO ×2 (12:59→17:53)
[2024-04-30] MEDS ORDERED: NITR0.4S29 SL (05:39)
[2024-05-02] MEDS ORDERED: PRED20TA2 PO (12:46)
== END 2024-04-28 18:10 | disposition home or self-care (01) | DRG 725 ==
LOC: ER 13:12 → OVERFLOW 23:07 → EAST 04-27 08:03
PROVIDERS: ADMIT Internal Medicine; ATTEND Internal Medicine
DX: N40.1 Benign prostatic hyperplasia with lower urinary tract symptoms (principal); J96.21 Acute and chronic respiratory failure with hypoxia; E87.20 Acidosis, unspecified; E87.1 Hypo-osmolality and hyponatremia; J44.1 Chronic obstructive pulmonary disease with (acute) exacerbation; R64 Cachexia; Z68.1 Body mass index [BMI] 19.9 or less, adult; N13.8 Other obstructive and reflux uropathy; I25.10 Atherosclerotic heart disease of native coronary artery without angina pectoris; I10 Essential (primary) hypertension; Z20.822 Contact with and (suspected) exposure to COVID-19; F17.211 Nicotine dependence, cigarettes, in remission; C61 Malignant neoplasm of prostate; R33.8 Other retention of urine; Z87.442 Personal history of urinary calculi; Z98.61 Coronary angioplasty status; Z83.3 Family history of diabetes mellitus; Z90.79 Acquired absence of other genital organ(s)
CPT/HCPCS: 36415; 71045; 74176; 76775; 80048; 80053; 81001; 82306; 82607; 83605; 83880; 84154; 84443; 84484; 85025; 85610; 85730; 87081; 87426; 87804; 93306; 94640; G0378

== ENCOUNTER 2024-05-07 22:32 | Emergency (ER) | payer MEDICARE ==
[~2024-05-07] VITALS: Ht 149.9 cm; Wt 45.1 kg
[~2024-05-07 22:32] MED LIST changes: +ATOR20TA50 PO; -AZIT-43 PO; +NITR0.4S29 SL
[2024-05-07 23:57] LABS: Basophils # (auto) 0 10 ^3/uL (0-0.2); Basophils % (auto) 0.2 % (0.0-2.0); Eosinophils # (auto) 0 10 ^3/uL (0-0.8); Hematocrit 37.5 % (41.0-53.0); Hemoglobin 12.9 g/dL (13.5-17.5); Lymphocytes # (auto) 1.2 10 ^3/uL (0.4-5.4); Lymphocytes % (auto) 17.5 % (10.0-50.0); Mean Corpuscular Hemoglobin 33.8 pg (28.0-32.0); Mean Corpuscular Hgb Conc. 34.4 g/dL (32.0-36.0); Mean Corpuscular Volume 98.3 fL (80.0-100.0); Monocytes # (auto) 0.7 10 ^3/uL (0-1.3); Neutrophils # (auto) 4.7 10 ^3/uL (1.6-8.6); Neutrophils % (auto) 71.3 % (37.0-80.0); Nucleated Red Blood Cells % 0.1 %; Platelet Count (auto) 225 10^3/uL (140-450); Red Blood Cells 3.81 10^6/uL (4.5-5.90); Red Cell Distribution Width 14.1 % (11.8-14.3); White Blood Cell 6.6 10^3/uL (4.4-10.8)
[2024-05-08 00:01] LABS: Chloride 102 mmol/L (98-107); Sodium 133 mmol/L (136-145)
[2024-05-08 00:02] LABS: Anion Gap 2 (5-15); Carbon Dioxide 29 mmol/L (20-31)
[2024-05-08 00:03] LABS: Calcium 9.4 mg/dL (8.7-10.4)
[2024-05-08 00:07] LABS: BUN/Creatinine Ratio 15.1 (10.0-20.0); Blood Urea Nitrogen 11 mg/dL (9-23); Glucose 86 mg/dL (74-106)
[2024-05-08 02:33] VITALS: PULSE 94; RESP 14; O2SAT 96
[2024-05-08 02:35] VITALS: BP 108/58; PULSE 94; RESP 14; TEMP 97.8; O2SAT 96
== END 2024-05-08 03:18 | disposition home or self-care (01) ==
LOC: ER 22:32
DX: N32.0 Bladder-neck obstruction (principal); R31.9 Hematuria, unspecified; I10 Essential (primary) hypertension; I25.10 Atherosclerotic heart disease of native coronary artery without angina pectoris; J44.9 Chronic obstructive pulmonary disease, unspecified; F17.210 Nicotine dependence, cigarettes, uncomplicated; Z98.890 Other specified postprocedural states; Z79.82 Long term (current) use of aspirin; Z79.899 Other long term (current) drug therapy; Z79.52 Long term (current) use of systemic steroids
CPT/HCPCS: 36415; 51702; 80048; 83880; 85025

== ENCOUNTER → 2024-05-08 | Outpatient (CLI) | payer MEDICARE ==
[2024-05-08 12:36] LABS: Hepatitis B Surface Antigen Negative (Negative)
[2024-05-08 12:57] LABS: Hepatitis A Ab IgM Negative; Hepatitis B Core IgM Negative
[2024-05-08 12:58] LABS: Hepatitis C Antibody Negative (Negative)
== END | disposition home or self-care (01) ==
LOC: LAB 10:31
PROVIDERS: ATTEND Internal Medicine
DX: R79.89 Other specified abnormal findings of blood chemistry (principal); E78.5 Hyperlipidemia, unspecified; I31.39 Other pericardial effusion (noninflammatory); I51.89 Other ill-defined heart diseases; R63.4 Abnormal weight loss
CPT/HCPCS: 36415; 80074

== ENCOUNTER → 2024-05-16 | Outpatient (CLI) | payer MEDICARE | END | disposition home or self-care (01) | LOC: XYW 12:08 | PROVIDERS: ATTEND Internal Medicine | DX: I35.8 Other nonrheumatic aortic valve disorders (principal); I51.89 Other ill-defined heart diseases; I31.39 Other pericardial effusion (noninflammatory) | CPT/HCPCS: 93306 ==

== ENCOUNTER 2024-07-13 16:54 | Inpatient (IN) | payer MEDICARE ==
[~2024-07-13] VITALS: Ht 165.1 cm; Wt 44.2 kg
--- NOTE | 2024-07-13 17:29 | ED.PDOC ---
SOB-HPI HPI Comments 84 y.o male with PMH of COPD, HTN, asthma, kidney stones and cardiac arrest, presents to the ED via EMS for a chief complaint of ongoing chronic SOB that has worsened over the past couple of days associated with new onset chest pressure, cough and wheezing. Patient is on 2 liters of oxygen via NC at home, was found to be saturating at 68% by EMS who then placed him on 5 liters with SPO2 at 91%. Patient reports quitting tobacco use 2 years ago. 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 Chief Complaint: Shortness of Breath Time Seen by MD: 17:22 Primary Care Provider: RAMÓN Reviewed notes: Nurses Notes, Supply Person Notes, Medications, Allergies Information Source: Patient, Emergency Med Personnel Mode of Arrival: EMS Severity: Moderate Timing: Days Duration: Since onset PE Risk Factors: None History of: Asthma, COPD Modifying Factors: Nothing Associated Signs and Symptoms: Chest Pain Past Medical History PAST MEDICAL HISTORY: Asthma, CAD, COPD, Gallstones, HTN, Kidney Stones Surgical History: Hernia Repair, PTCA Family History Family History: Reviewed,noncontributory to illness Social History Smoker: Cigarettes, Less Than 1 Pack/Day Alcohol: Rarely Drugs: Denies Drug Use Lives In: Home Constitutional: denies: chills, diaphoresis, fatigue, fever, malaise, sweats, weakness, others EENTM: denies: blurred vision, double vision, ear bleeding, ear discharge, ear drainage, ear pain, ear ringing, eye pain, eye redness, hearing loss, mouth pain, mouth swelling, nasal discharge, nose bleeding, nose congestion, nose pain, photophobia, tearing, throat pain, throat swelling, voice changes, others Respiratory: reports: SOB at rest, shortness of breath; denies: cough, hemoptysis, orthopnea, SOB with excertion, stridor, wheezing, others Cardiovascular: reports: chest pain; denies: dizzy spells, diaphoresis, Dyspnea on exertion, edema, irregular heart beat, left arm pain, lightheadedness, palpitations, PND, syncope, others Gastrointestinal: denies: abdomen distended, abdominal pain, blood streaked bowels, constipated, diarrhea, dysphagia, difficulty swallowing, hematemesis, melena, nausea, poor appetite, poor fluid intake, rectal bleeding, rectal pain, vomiting, others Genitourinary: denies: burning, dysuria, flank pain, frequency, hematuria, incontinence, penile discharge, penile sore, pain, testicle pain, testicle swelling, urgency, others Neurological: denies: dizziness, fainting, headache, left sided numbness, left sided weakness, numbness, paresthesia, pre-existing deficit, right sided numbness, right sided weakness, seizure, speech problems, tingling, tremors, weakness, others Musculoskeletal: denies: back pain, gout, joint pain, joint swelling, muscle pain, muscle stiffness, neck pain, others Integumetry: denies: bruises, change in color, change in hair/nails, dryness, laceration, lesions, lumps, rash, wounds, others Allergic/Immunocompromised: denies: Difficulty Healing, Frequent Infections, Hives, Itching, others Hematologic/Lymphatic: denies: anemia, blood clots, easy bleeding, easy bruising, swollen glands, others Endocrine: denies: excessive hunger, excessive sweating, excessive thirst, excessive urination, flushing, intolerance to cold, intolerance to heat, unexplained weight gain, unexplained weight loss, others Psychiatric: denies: anxiety, bipolar disorder, depression, hopeless, panic disorder, schizophrenia, sleepless, suicidal, others All Other Systems: Reviewed and Negative Physical Exam General Appearance: Moderate Distress (Patient appears to be in moderate distress due to shortness a breath concerns. Patient was satting at 98%.), Normal HEENT: Normal ENT Inspection, Pharynx Normal, TMs Normal Neck: Full Range of Motion, Non-Tender, Normal, Normal Inspection Respiratory: Crackles, Wheezing, Other (Mild crackles and mild wheezing appreciated at multiple points in bilateral lung santos. Patient is not working to breathe but is taking deep inhalations.) Cardiovascular: No Edema, No JVD, No Murmur, No Gallop, Normal Peripheral Pulses, Regular Rate/Rhythm Breast Exam: Deferred Gastrointestinal: No Organomegaly, Non Tender, No Pulsatile Mass, Normal Bowel Sounds, Soft Genitalia: Deferred Pelvic: Deferred Rectal: Deferred Extremities: No calf tenderness, Normal capillary refill, Normal inspection, Normal range of motion, Non-tender, No pedal edema Musculoskeletal : Apperance: Normal Neurologic: Alert, No Motor Deficits, Normal Affect, Normal Mood, No Sensory Deficits Cerebellar Function: Normal Reflexes: Normal Skin: Dry, Normal Color, Warm Lymphatic: No Adenopathy Was a procedure done? Was a procedure done?: No Differential Dx Differential Diagnosis: Asthma, Bronchitis, CHF, COPD, Pneumonia, Pulmonary Embolism, Respiratory Distress, URI X-Ray, Labs, Meds, VS Vital Signs Date Time Temp Pulse Resp B/P (MAP) Pulse Ox O2 Delivery O2 Flow Rate FiO2 07/13/24 20:00 98.0 80 15 100/73 (82) 95 98.0 07/13/24 19:30 Nasal Cannula* 4 36 07/13/24 19:00 109/77 07/13/24 18:58 85 16 109/77 (88) 94 07/13/24 18:20 180/85 07/13/24 17:50 19 97 Nasal Cannula* 4 36 07/13/24 17:46 94 07/13/24 17:45 95 24 99 Nasal Cannula* 4 36 07/13/24 17:45 97.7 95 24 180/85 (116) 99 97.7 07/13/24 17:31 87 07/13/24 17:00 97.5 93 26 197/112 (140) 98 Lab Test 07/13/24 22:05 07/13/24 21:10 07/13/24 19:10 07/13/24 18:13 Range/Units Troponin I High Sensitivity Pending 57 *H 40 27 </=54 ng/L White Blood Count 10.5 4.4-10.8 10^3/uL Red Blood Count 4.26 L 4.5-5.90 10^6/uL Hemoglobin 14.1 13.5-17.5 g/dL Hematocrit 41.9 41.0-53.0 % Mean Corpuscular Volume 98.5 80.0-100.0 fL Mean Corpuscular Hemoglobin 33.2 H 28.0-32.0 pg Mean Corpuscular Hemoglobin Concent 33.7 32.0-36.0 g/dL Red Cell Distribution Width 13.4 11.8-14.3 % Platelet Count 192 140-450 10^3/uL Mean Platelet Volume 7.7 6.9-10.8 fL Neutrophils (%) (Auto) 87.7 H 37.0-80.0 % Lymphocytes (%) (Auto) 6.1 L 10.0-50.0 % Monocytes (%) (Auto) 5.2 0.0-12.0 % Eosinophils (%) (Auto) 0.6 0.0-7.0 % Basophils (%) (Auto) 0.4 0.0-2.0 % Neutrophils # (Auto) 9.2 H 1.6-8.6 10 ^3/uL Lymphocytes # (Auto) 0.6 0.4-5.4 10 ^3/uL Monocytes # (Auto) 0.6 0-1.3 10 ^3/uL Eosinophils # (Auto) 0.1 0-0.8 10 ^3/uL Basophils # (Auto) 0 0-0.2 10 ^3/uL Nucleated Red Blood Cells 0.0 % D-Dimer, Quantitative 1.42 H 0.0-0.49 mg/L FEU Sodium Level 135 L 136-145 mmol/L Potassium Level 4.9 3.5-5.1 mmol/L Chloride Level 103 98-107 mmol/L Carbon Dioxide Level 28 20-31 mmol/L Anion Gap 4 L 5-15 Blood Urea Nitrogen 13 9-23 mg/dL Creatinine 0.57 L 0.700-1.30 mg/dL Glomerular Filtration Rate Calc 96 >90 mL/min BUN/Creatinine Ratio 22.8 H 10.0-20.0 Serum Glucose 108 H 74-106 mg/dL Lactic Acid Level 0.9 0.4-2.0 mmol/L Calcium Level 9.4 8.7-10.4 mg/dL Total Bilirubin 0.5 0.2-1.0 mg/dL Aspartate Amino Transferase (AST) 33 13-40 U/L Alanine Aminotransferase (ALT) 35 7-40 U/L Alkaline Phosphatase 93 46-116 U/L B-Type Natriuretic Peptide 164.74 0-100 pg/mL Total Protein 6.3 5.7-8.2 g/dL Albumin 4.0 3.2-4.8 g/dL Test 07/13/24 18:04 Range/Units Urine Color Light-yellow Yellow Urine Clarity Clear Clear Urine pH 6.5 5.0-9.0 Urine Specific [place] 1.011 1.001-1.035 Urine Protein Trace H Negative Urine Ketones Negative Negative Urine Blood Negative Negative /uL Urine Nitrite Negative Negative Urine Bilirubin Negative Negative Urine Urobilinogen Normal Negative mg/dL Urine Leukocyte Esterase Negative Negative /uL Urine RBC 1 0 - 3 /hpf Urine WBC <1 0 - 3 /hpf Urine Squamous Epithelial Cells None seen <5 /hpf Urine Bacteria None seen None Seen /hpf Urine Glucose Normal Normal mg/dL Current Medications Medications (Trade) Dose Ordered Sig/Yeimy Route Start Time Stop Time Status Last Admin Albuterol (Ventolin Medneb) 5 mg ONCE ONCE NEB 07/13/24 17:30 07/13/24 17:31 DC 07/13/24 18:15 Ipratropium [place] (Atrovent Medneb) 0.5 mg ONCE ONCE NEB 07/13/24 17:30 07/13/24 17:31 DC 07/13/24 18:16 Dexamethasone Sodium Phosphate (Decadron Injection) 10 mg ONCE ONCE IM 07/13/24 17:30 07/13/24 17:31 DC 07/13/24 18:19 Clonidine HCl (Catapres Tablet) 0.2 mg ONCE ONCE PO 07/13/24 17:30 07/13/24 17:31 DC 07/13/24 18:20 Enoxaparin Sodium (Lovenox) 40 mg ONCE ONCE SC 07/13/24 21:45 07/13/24 21:46 DC 07/13/24 22:09 X-Ray, Labs, Meds, VS Comment CT angio was pending at time of this note. Patient's laboratories revealed an elevated D-dimer. Patient has been started empirically on Lovenox while awaiting CT angio was chest. Additional laboratories revealed a trending elevated troponin. Patient's EKG revealed a sinus rhythm with a rate of 87. Possible anterior septal infarct with artifact in multiple leads. CT interval of 173 and QT interval 346. Patient will be admitted for continued assistance with respiratory concerns as well as a cardiology consult. 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 Electronically submitted by Xochitl Saha ([facility]). KALYN XAVIER PAC Jul 13, 2024 17:29
[2024-07-13 17:45] VITALS: PULSE 95; RESP 24; O2SAT 99
[2024-07-13] MEDS: ALBUTEROL SULF 2.5 MG/0.5ML(0.5%) NEB SOLN NEB ONE (18:15)
[2024-07-13] MEDS: IPRATROPIUM BROM 0.5 MG/2.5ML INH SOL NEB ONE (18:16)
[2024-07-13] MEDS: DexAMETHasone SOD PHOS 10MG/1ML VIAL INJ IM ONE (18:19)
[2024-07-13] MEDS: cloNIDine HCL 0.1 MG TAB PO ONE (18:20)
[2024-07-13 18:29] LABS: Urine Bacteria None Seen /hpf (None Seen)
[2024-07-13 18:42] LABS: Basophils # (auto) 0 10 ^3/uL (0-0.2); Basophils % (auto) 0.4 % (0.0-2.0); Eosinophils # (auto) 0.1 10 ^3/uL (0-0.8); Eosinophils % (auto) 0.6 % (0.0-7.0); Hematocrit 41.9 % (41.0-53.0); Hemoglobin 14.1 g/dL (13.5-17.5); Lymphocytes # (auto) 0.6 10 ^3/uL (0.4-5.4); Lymphocytes % (auto) 6.1 % (10.0-50.0); Mean Corpuscular Hemoglobin 33.2 pg (28.0-32.0); Mean Corpuscular Hgb Conc. 33.7 g/dL (32.0-36.0); Mean Corpuscular Volume 98.5 fL (80.0-100.0); Monocytes # (auto) 0.6 10 ^3/uL (0-1.3); Monocytes % (auto) 5.2 % (0.0-12.0); Neutrophils # (auto) 9.2 10 ^3/uL (1.6-8.6); Neutrophils % (auto) 87.7 % (37.0-80.0); Platelet Count (auto) 192 10^3/uL (140-450); Red Blood Cells 4.26 10^6/uL (4.5-5.90); Red Cell Distribution Width 13.4 % (11.8-14.3); White Blood Cell 10.5 10^3/uL (4.4-10.8)
[2024-07-13 18:57] LABS: Urine Blood Negative /uL (Negative); Urine Clarity Clear (Clear); Urine Color Light-Yellow (Yellow); Urine Protein, UAD TRACE (Negative); Urine Specific Gravity 1.011 (1.001-1.035); Urine Urobilinogen Normal (Negative); Urine WBC <1 /hpf (0 - 3); Urine pH 6.5 (5.0-9.0)
[2024-07-13 19:01] LABS: Alanine Aminotransferase 35 U/L (7-40); Alkaline Phosphatase 93 U/L (46-116); Anion Gap 4 (5-15); Aspartate Aminotransferase 33 U/L (13-40); BUN/Creatinine Ratio 22.8 (10.0-20.0); Blood Urea Nitrogen 13 mg/dL (9-23); Calcium 9.4 mg/dL (8.7-10.4); Carbon Dioxide 28 mmol/L (20-31); Chloride 103 mmol/L (98-107); Potassium 4.9 mmol/L (3.5-5.1)
--- NOTE | 2024-07-13 19:01 | ECG ---
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
[2024-07-13 19:02] LABS: Bilirubin, Total 0.5 mg/dL (0.2-1.0); Total Protein 6.3 g/dL (5.7-8.2)
[2024-07-13 19:20] LABS: Glucose 108 mg/dL (74-106); Sodium 135 mmol/L (136-145)
--- NOTE | 2024-07-13 20:04 | DVH ---
CHEST RADIOGRAPH Indication: Shortness of breath Technique: Single frontal view of the chest was obtained Comparison: XY CHEST PORTABLE on DOS: 04/29/24, XY CHEST XRAY 1 VIEW on DOS: 04/27/24, XY CHEST XRAY 1 VIEW on DOS: 03/29/24 FINDINGS: Lines and Tubes: None Lungs: No focal consolidation. Hyperinflation of the lungs. Pleura: No effusion. No pneumothorax. Cardiomediastinal contours: Mild cardiomegaly. Bones: No acute osseous abnormality. IMPRESSION: No acute cardiopulmonary disease. Hyperinflation of the lungs.
[2024-07-13] MEDS: IOHEXOL 350 MG/ML 100ML IJ ONE (21:57)
[2024-07-13] MEDS: ENOXAPARIN SOD 40 MG/0.4 ML SYRINGE SC ONE (22:09)
--- NOTE | 2024-07-13 23:35 | DVH ---
INDICATION: Elevated D-dimer COMPARISON: 08/01/2023 TECHNIQUE: Multidetector CTA of the chest was performed of the chest with 100 cc of intravenous contr ast. PULMONARY ANGIOGRAPHY PROTOCOL was utilized using a bolus-tracking technique centered on the elvia n pulmonary artery. Axial, coronal and sagittal multiplanar and MIP reformats were performed. Radiation Dose Information: CT Dose: CTDI volume is 20.53 mGy. Dose-length product is 194.62 mGy*cm Omnipaque 350: 100 mL The dose indicators for CT are the volume Computed Tomography (CT) Dose Index (CTDIvol) and the Dose Length Product (DLP), and are measured in units of mGy and mGy-cm, respectively. These indicators are not patient dose, but values generated from the CT scanner acquisition factors. The report includes radiation exposure data for exposures received during this examination. Findings: Pulmonary artery: Normal caliber of the pulmonary artery. No large central or large segmental pulmo nary embolism. No enlargement of the pulmonary artery to suggest pulmonary artery hypertension. Lower neck: Normal thyroid. Lungs: No focal consolidation, pulmonary mass, or suspicious pulmonary nodule. Heart/Vascular Structures: Normal heart size. Normal caliber and enhancement of the aorta. Lymph Nodes: No adenopathy Pleura: No pleural effusion or significant pneumothorax. Musculoskeletal: No acute osseous abnormality. Upper abdomen: Limited portions of the upper abdomen are unremarkable. IMPRESSION: 1. No pulmonary embolism. 2. No findings to suggest pulmonary artery hypertension. 3. No acute intrathoracic abnormality. HS:Y
[2024-07-13 23:46] VITALS: O2SAT 99
[2024-07-14] VITALS (15 sets, daily range): BP systolic 102–128; BP diastolic 53–61; PULSE 5–76; RESP 14–26; TEMP 97.6–98; O2SAT 95–100
[2024-07-14] MEDS ORDERED: cloNIDine HCL 0.1 MG TAB PO PRN (00:45)
[2024-07-14] MEDS: ALBUTEROL SULF 2.5 MG/0.5ML(0.5%) NEB SOLN NEB ONE (01:00)
[2024-07-14] MEDS: IPRATROPIUM BROM 0.5 MG/2.5ML INH SOL NEB ONE (01:00)
--- NOTE | 2024-07-14 01:02 | DVHHPRES ---
History of Present Illness Resident Creating Document: JHKristynJRADHA RojasZENA RESIDENT History of Present Illness Patient is a 84-year-old male with a past medical history of COPD, BPH, hypertension, kidney disease came to the ED with a chief complaint of worsening shortness of breath since 3-4 days prior to admission. Patient reported that at home he is on 2 L oxygen and since the last 4 days he had worsening shortness of breath. Patient denied recent flu-like illness and symptoms of cough, congestion, fever, chills chest pain, dizziness, palpitations. Chest x-ray showed hyperinflation of the lungs without any opacifications. Patient has had multiple admissions in the hospital for COPD exacerbation. As per the ER records the patient had SpO2 of 68% on 2 L nasal cannula that this has home oxygen following which he was placed on 5 L which improved his SpO2 to 91%. Patient is a Icelandic speaker and all the information on his current illness was obtained using [employer] hospital admitting clerk. Past medical history: COPD, BPH, hypertension, kidney disease Past surgical history: cystoscopy with thulium laser lithopexy Social history: Patient has a history of 50 pack year smoking history, claims to be off smoking since 2 years, no alcohol, no drug use. Home medications: Valsartan 80 mg, aspirin 81 mg, montelukast 10 mg, tamsulosin 0.4 mg, Rosuvstatin [address] Meyers Review of Systems Review of Systems Patient seen and examined at bedside Is currently on 8 L oxygen via facial mask and reports that his shortness of breath has improved. Denies chest pain, palpitations, dizziness, abdominal pain, cough, congestion, chills, fever. Reports urinary frequency, denies dysuria. Allergies: Coded Allergies: NO KNOWN ALLERGIES (Unverified , 11/09/17) Medications Current Medications Medications Dose Ordered Sig/Eyimy Route Start Time Stop Time Status Last Admin Dose Admin Methylprednisolone Sodium Succinate 40 mg BID IV 07/14/24 10:00 UNV Ceftriaxone Sodium 50 ml @ 100 mls/hr DAILY@09 IV 07/15/24 09:00 UNV Valsartan 80 mg DAILY PO 07/14/24 10:00 UNV Tamsulosin HCl 0.4 mg QPM PO 07/14/24 18:00 UNV Aspirin 81 mg DAILY PO 07/14/24 10:00 UNV Clonidine HCl 0.1 mg Q4HP PRN PO 07/14/24 00:45 UNV Albuterol 2.5 mg Q6HR NEB 07/14/24 04:00 UNV Ipratropium [place] 0.5 mg Q6HR NEB 07/14/24 04:00 UNV Enoxaparin Sodium 40 mg DAILY SC 07/14/24 10:00 UNV Exam Vital Signs Vital Signs Date Time Temp Pulse Resp B/P (MAP) Pulse Ox O2 Delivery O2 Flow Rate FiO2 07/13/24 22:00 87 26 149/95 (113) 98 07/13/24 20:00 98.0 98.0 07/13/24 19:30 Nasal Cannula* 4 36 Exam Physical Examination Constitutional: Patient was alert and oriented to time, place and person and appears to be in mild respiratory distress. Patient is weak and frail. Gen - no pallor, no icterus, no cyanosis, no clubbing, no LAD, no edema . Skin - Patients skin is warm and dry. HEENT - normocephalic, atraumatic, dry mucous membranes. Neck - full ROM, no LAD, no JVD Pulmonary - B/L decreased breath sounds with no crackles or wheezing cardiovascular - normal S1,S2 heard. no murmurs heard. peripheral pulses radial 2+, pedal 2+. GI - soft abdomen tenderness to palpation . no hepatospleenomegaly. Bowel sounds normoactive Neurological - Bilateral upper extremity strength 4/5, bilateral lower extremity strength 4/5, no facial droop, normal speech, no tremor, no sensory deficiets. Labs/Xrays Labs Test 07/14/24 00:09 07/13/24 18:13 07/13/24 18:04 Range/Units Troponin I High Sensitivity 52 </=54 ng/L White Blood Count 10.5 4.4-10.8 10^3/uL Red Blood Count 4.26 L 4.5-5.90 10^6/uL Hemoglobin 14.1 13.5-17.5 g/dL Hematocrit 41.9 41.0-53.0 % Mean Corpuscular Volume 98.5 80.0-100.0 fL Mean Corpuscular Hemoglobin 33.2 H 28.0-32.0 pg Mean Corpuscular Hemoglobin Concent 33.7 32.0-36.0 g/dL Red Cell Distribution Width 13.4 11.8-14.3 % Platelet Count 192 140-450 10^3/uL Mean Platelet Volume 7.7 6.9-10.8 fL Neutrophils (%) (Auto) 87.7 H 37.0-80.0 % Lymphocytes (%) (Auto) 6.1 L 10.0-50.0 % Monocytes (%) (Auto) 5.2 0.0-12.0 % Eosinophils (%) (Auto) 0.6 0.0-7.0 % Basophils (%) (Auto) 0.4 0.0-2.0 % Neutrophils # (Auto) 9.2 H 1.6-8.6 10 ^3/uL Lymphocytes # (Auto) 0.6 0.4-5.4 10 ^3/uL Monocytes # (Auto) 0.6 0-1.3 10 ^3/uL Eosinophils # (Auto) 0.1 0-0.8 10 ^3/uL Basophils # (Auto) 0 0-0.2 10 ^3/uL Nucleated Red Blood Cells 0.0 % D-Dimer, Quantitative 1.42 H 0.0-0.49 mg/L FEU Sodium Level 135 L 136-145 mmol/L Potassium Level 4.9 3.5-5.1 mmol/L Chloride Level 103 98-107 mmol/L Carbon Dioxide Level 28 20-31 mmol/L Anion Gap 4 L 5-15 Blood Urea Nitrogen 13 9-23 mg/dL Creatinine 0.57 L 0.700-1.30 mg/dL Glomerular Filtration Rate Calc 96 >90 mL/min BUN/Creatinine Ratio 22.8 H 10.0-20.0 Serum Glucose 108 H 74-106 mg/dL Lactic Acid Level 0.9 0.4-2.0 mmol/L Calcium Level 9.4 8.7-10.4 mg/dL Total Bilirubin 0.5 0.2-1.0 mg/dL Aspartate Amino Transferase (AST) 33 13-40 U/L Alanine Aminotransferase (ALT) 35 7-40 U/L Alkaline Phosphatase 93 46-116 U/L B-Type Natriuretic Peptide 164.74 0-100 pg/mL Total Protein 6.3 5.7-8.2 g/dL Albumin 4.0 3.2-4.8 g/dL Urine Color Light-yellow Yellow Urine Clarity Clear Clear Urine pH 6.5 5.0-9.0 Urine Specific [place] 1.011 1.001-1.035 Urine Protein Trace H Negative Urine Ketones Negative Negative Urine Blood Negative Negative /uL Urine Nitrite Negative Negative Urine Bilirubin Negative Negative Urine Urobilinogen Normal Negative mg/dL Urine Leukocyte Esterase Negative Negative /uL Urine RBC 1 0 - 3 /hpf Urine WBC <1 0 - 3 /hpf Urine Squamous Epithelial Cells None seen <5 /hpf Urine Bacteria None seen None Seen /hpf Urine Glucose Normal Normal mg/dL Assessment/Plan Assessment/Plan Assessment # Acute hypoxic respiratory failure # SIRS positive # COPD exacerbation # Pneumonia unlikely # PE ruled out # BPH # ?acute on chronic Heart failure with preserved EF # Hypertensive urgency - Chest x-ray shows hyperinflated lungs - CT chest angiogram shows no pulmonary embolism, no findings to suggest pulmonary artery hypertension, no acute intrathoracic abnormality - troponins trended 40-57-50-41 - 12 lead ECG shows sinus rhythm with a no acute ST segment/T-wave abnormalities - echo from April 2024 shows LVEF 55%, grade 1 diastolic dysfunction, mildly increased RVSP 38 mmHg Plan - in the ER patient given, Decadron 10 mg, nebulizer with albuterol and ipratropium, ceftriaxone 1 g, clonidine 0.2 mg once - on albuterol 2.5 and ipratropium 0.5 q.6 hours - methylprednisolone 40 mg b.i.d. IV - ceftriaxone 1 g IV daily - tamsulosin 0.4 mg daily - if postvoid residual urine on bladder scan> 300 mL, Ng's can be inserted. - valsartan 80 mg daily - clonidine 0.1 mg q.4 p.r.n. with a SBP > 170 - aspirin 81 mg q.d. - atorvastatin 40 mg q.h.s. DVT prophylaxis: Enoxaparin 40 mg sc qd Goals of care discussed with the patient for over 25 minutes. Full code Plan discussed with Dr. Galvan Plan discussed with: Patient My Orders Orders - PERICO LEONE RESIDENT Procedure Category Date Status Time Admit ADMIT 07/14/24 Transmitted 00:35 Oxygen By Nasal RT 07/14/24 Transmitted Cannula 00:35 Notify Of Changes NUPUR 07/14/24 In Process From Base 00:35 Motel Maid For [facility] 12/27/24 In Process 24 Hours 00:35 Emergency Dysrhythmia NUPUR 07/14/24 In Process Protocol 00:35 Complete Blood Count LAB 07/14/24 Logged 04:00 Comprehensive LAB 07/14/24 Logged Metabolic Panel 04:00 Methylprednisolone PHA 07/14/24 Logged Sod Succ (Solu Medrol 10:00 Ceftriaxone 1gm/50ml PHA 07/14/24 Logged D5w (Rocephin) 00:45 Ceftriaxone 1gm/50ml PHA 07/15/24 Logged D5w (Rocephin) 09:00 Valsartan (Diovan) PHA 07/14/24 Logged 10:00 Tamsulosin PHA 07/14/24 Logged Hydrochloride (Flomax) 00:45 Tamsulosin PHA 07/14/24 Logged Hydrochloride (Flomax) 18:00 Aspirin Tablet PHA 07/14/24 Logged 10:00 Clonidine Hcl Tablet PHA 07/14/24 Logged (Catapres Tablet) 00:45 Albuterol Medneb PHA 07/14/24 Logged (Ventolin Medneb) 04:00 Ipratropium Medneb PHA 07/14/24 Logged (Atrovent Medneb) 04:00 Enoxaparin Sodium PHA 07/14/24 Logged (Lovenox) 10:00 Regular Diet DIET 07/14/24 Transmitted Breakfast Urinalysis LAB 07/14/24 Logged 00:35 Drug Screen LAB 07/14/24 Logged 00:35 Covid19 Antigen Kathryn LAB 07/14/24 Logged Rapid Influenza A&B LAB 07/14/24 Logged 00:35 Bladder Scan ED NURSING 07/14/24 Transmitted Code Status CODE 07/14/24 Transmitted 00:59 Date of Service: Jul 14, 2024 Billing Provider: NORMAN GALVAN MD Common Visit Codes: 20320-[id number] INP/OBS CARE (HIGH) Secondary Visit Codes: [id number] CARE PLAN 30 MINUTES PERICO LEONE RESIDENT Jul 14, 2024 01:02 NORMAN GALVAN MD Jul 14, 2024 09:02
[2024-07-14] MEDS: TAMSULOSIN HYDROCHLORIDE 0.4 MG CAP PO ONE (01:15)
[2024-07-14] MEDS: cefTRIAXone 1GM/50ML D5W 50 ML IV ONE (01:15)
[2024-07-14] MEDS: ALBUTEROL SULF 2.5 MG/0.5ML(0.5%) NEB SOLN NEB SCH (05:40)
[2024-07-14] MEDS: IPRATROPIUM BROM 0.5 MG/2.5ML INH SOL NEB SCH (05:40)
[2024-07-14 06:29] LABS: Basophils # (auto) 0 10 ^3/uL (0-0.2); Basophils % (auto) 0.2 % (0.0-2.0); Eosinophils # (auto) 0 10 ^3/uL (0-0.8); Hematocrit 39.8 % (41.0-53.0); Hemoglobin 13.5 g/dL (13.5-17.5); Lymphocytes # (auto) 0.7 10 ^3/uL (0.4-5.4); Lymphocytes % (auto) 14.1 % (10.0-50.0); Mean Corpuscular Hemoglobin 33.1 pg (28.0-32.0); Mean Corpuscular Hgb Conc. 33.9 g/dL (32.0-36.0); Mean Corpuscular Volume 97.7 fL (80.0-100.0); Monocytes # (auto) 0.2 10 ^3/uL (0-1.3); Monocytes % (auto) 3.9 % (0.0-12.0); Neutrophils # (auto) 3.8 10 ^3/uL (1.6-8.6); Neutrophils % (auto) 81.8 % (37.0-80.0); Nucleated Red Blood Cells % 0.1 %; Platelet Count (auto) 166 10^3/uL (140-450); Red Blood Cells 4.08 10^6/uL (4.5-5.90); Red Cell Distribution Width 13.5 % (11.8-14.3); White Blood Cell 4.6 10^3/uL (4.4-10.8)
[2024-07-14 06:42] LABS: Alanine Aminotransferase 30 U/L (7-40); Albumin 3.5 g/dL (3.2-4.8); Alkaline Phosphatase 82 U/L (46-116); Anion Gap 6 (5-15); Aspartate Aminotransferase 31 U/L (13-40); BUN/Creatinine Ratio 21.4 (10.0-20.0); Blood Urea Nitrogen 12 mg/dL (9-23); Calcium 9.6 mg/dL (8.7-10.4); Carbon Dioxide 27 mmol/L (20-31); Chloride 100 mmol/L (98-107); Potassium 4.8 mmol/L (3.5-5.1)
[2024-07-14 06:43] LABS: Bilirubin, Total 0.8 mg/dL (0.2-1.0); Glucose 137 mg/dL (74-106); Sodium 133 mmol/L (136-145)
[2024-07-14 08:41] LABS: COVID19 ANTIGEN SOFIA FIA NEGATIVE (NEGATIVE)
[2024-07-14 08:51] LABS: Rapid Influenza A Negative (Negative); Rapid Influenza B Negative (Negative)
[2024-07-14] MEDS: ENOXAPARIN SOD 40 MG/0.4 ML SYRINGE SC SCH (10:54)
[2024-07-14] MEDS: VALSARTAN 80 MG TAB PO SCH (10:55)
[2024-07-14] MEDS: methylPREDNISolone SOD SUCC 40 MG/ML VL IV SCH (10:56)
[2024-07-14] MEDS: ASPirin 81 mg TAB PO SCH (10:56)
[2024-07-14] MEDS ORDERED: VALS1TAB57 PO (14:18)
[2024-07-14] MEDS ORDERED: CLON0.1T PO (14:18)
[2024-07-14] MEDS ORDERED: POTA8TAB38 PO (14:18)
[2024-07-14] MEDS ORDERED: FURO20TA3 PO (14:18)
--- NOTE | 2024-07-14 16:05 | DVHPNRES ---
Progress Note Date Seen: Jul 14, 2024 Resident Creating Document: GORGE THOMPSON SUHAS Has the PT tested + for MRSA If YES, has PT been informed?: No Medical Necessity Reason Pt with a Central, PICC or Fol: No Subjective Review of Systems Patient is a 84-year-old male with a past medical history of COPD, BPH, hypertension, kidney disease came to the ED with a chief complaint of worsening shortness of breath since 3-4 days prior to admission. Patient reported that at home he is on 2 L oxygen and since the last 4 days he had worsening shortness of breath. Patient denied recent flu-like illness and symptoms of cough, congestion, fever, chills chest pain, dizziness, palpitations. Chest x-ray showed hyperinflation of the lungs without any opacifications. Patient has had multiple admissions in the hospital for COPD exacerbation. As per the ER records the patient had SpO2 of 68% on 2 L nasal cannula that this has home oxygen following which he was placed on 5 L which improved his SpO2 to 91%. 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 Past medical history: COPD, BPH, hypertension, kidney disease Past surgical history: cystoscopy with thulium laser lithopexy Social history: Patient has a history of 50 pack year smoking history, claims to be off smoking since 2 years, no alcohol, no drug use. Home medications: Valsartan 80 mg, aspirin 81 mg, montelukast 10 mg, tamsulosin 0.4 mg, Rosuvstatin [address] Meyers Today, patient seen and examined at the bedside. Patient is feeling better since admission but still coughs has shortness breath. Patient reports: No new complaints, Feels better Changes from previous H/P or p: Changes Objective vital signs Vital Sign Date Time Temp Pulse Resp B/P (MAP) Pulse Ox O2 Delivery O2 Flow Rate FiO2 07/14/24 14:22 69 18 100 07/14/24 14:16 Nasal Cannula* 3 32 07/14/24 12:47 97.6 128/61 (83) 97.6 Total Intake and Output 07/13/24 07/13/24 07/14/24 15:00 23:00 07:00 Output Total 200 ml Balance -200 ml medications Current Medications Medications Dose Ordered Sig/Yeimy Route Start Time Stop Time Status Last Admin Dose Admin Methylprednisolone Sodium Succinate 40 mg BID IV 07/14/24 10:00 07/14/24 10:56 40 MG Ceftriaxone Sodium 50 ml @ 100 mls/hr DAILY@0100 IV 07/15/24 01:00 Valsartan 80 mg DAILY PO 07/14/24 10:00 07/14/24 10:55 80 MG Tamsulosin HCl 0.4 mg QPM PO 07/14/24 18:00 Aspirin 81 mg DAILY PO 07/14/24 10:00 07/14/24 10:56 81 MG Clonidine HCl 0.1 mg Q4HP PRN PO 07/14/24 00:45 Albuterol 2.5 mg Q6HR NEB 07/14/24 04:00 07/14/24 14:16 2.5 MG Ipratropium [place] 0.5 mg Q6HR NEB 07/14/24 04:00 07/14/24 14:16 0.5 MG Enoxaparin Sodium 40 mg DAILY SC 07/14/24 10:00 07/14/24 10:54 40 MG Atorvastatin Calcium 40 mg HS PO 07/14/24 22:00 Examination General Appearance: Alert, Oriented X3, Cooperative, No acute distress HEENT: Atraumatic, PERRLA, EOMI, Mucous membrane moist/pink Respiratory: Bilateral crackles Cardiovascular: Regular rate, Normal S1, Normal S2, No murmurs, no chest wall tenderness Abdominal: Normal bowel sounds, Soft, No tenderness, No hepatospenomegaly, No masses Extremities: No clubbing, No cyanosis, No edema, Normal pulses, No tenderness/swelling Skin: No rashes, No breakdown, No significant lesion Neuro: Normal gait, Normal speech, Strength at 5/5 X4 ext, Normal tone, Sensation intact, Cranial nerves 3-12 NL, Reflexes 2+ Psych/Mental Status: Mental status NL, Mood NL laboratory and microbiology Laboratory Tests 07/14/24 04:57 Test 07/14/24 04:57 Range/Units Serum Glucose 137 H 74-106 mg/dL Labs and/or images reviewed: Labs reviewed by me, Image(s) reviewed by me Problem List/Assessment/Plan Problem List/Assessment/Plan 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 Breathing treatment q.6 hours Oxygen through nasal cannula Incentive spirometry Mild Hyponatremia, monitoring Ruled out pulmonary emboli D-dimer is raised Chest CT angiography is normal Hypertensive urgency Continue home medicine including valsartan Tablet clonidine 0.1 mg p.o. Q 4 hours as needed BPH Continue tamsulosin DIET: Cardiac diet DVT PROPHYLAXIS: Lovenox GI PROPHYLAXIS:: No indication of Protonix at the moment BOWEL REGIMEN: Colace 100 mg, daily as needed CODE STATUS: Goal of care discussed for more than 27 minutes, full code DISPOSITION: Med surge Patient's status discussed with the patient, the spouse on the bedside and the daughter to the phone. Case discussed with Dr. Camilo Plan discussed with: Patient, Spouse, Daughter, Other (RN) GORGE THOMPSON Jul 14, 2024 16:05
[2024-07-14] MEDS: TAMSULOSIN HYDROCHLORIDE 0.4 MG CAP PO SCH (17:52)
[2024-07-14 17:59] LABS: Urine Bacteria None Seen /hpf (None Seen)
[2024-07-14 18:25] LABS: Urine Blood Negative /uL (Negative); Urine Clarity Clear (Clear); Urine Color Light-Yellow (Yellow); Urine Protein, UAD Negative (Negative); Urine Specific Gravity 1.018 (1.001-1.035); Urine Urobilinogen Normal (Negative); Urine WBC <1 /hpf (0 - 3); Urine pH 6.5 (5.0-9.0)
[2024-07-14 18:31] LABS: Amphetamine Screen, Urine Neg (NEGATIVE); Barbiturate Scree,Urine Neg (NEGATIVE); Benzodiazephine Screen, Urine Neg (NEGATIVE); Cannabinoid Screen, Urine Neg (NEGATIVE); Cocaine Screen, Urine Neg (NEGATIVE); Opiate Scree,Urine Neg (NEGATIVE); Phencyclidine Screen, Urine Neg (NEGATIVE)
[2024-07-14] MEDS: ATORVASTATIN 20 MG TAB PO SCH (22:03)
[2024-07-14] MEDS: DOCUSATE SOD 100 MG CAP PO PRN (22:03)
[2024-07-15] VITALS (16 sets, daily range): BP systolic 95–128; BP diastolic 52–73; PULSE 57–73; RESP 16–18; TEMP 97.3–98.5; O2SAT 91–100
[2024-07-15] MEDS: cefTRIAXone 1GM/50ML D5W 50 ML IV SCH (01:03)
[2024-07-15 07:01] LABS: Alanine Aminotransferase 25 U/L (7-40); Alkaline Phosphatase 74 U/L (46-116); Anion Gap 3 (5-15); BUN/Creatinine Ratio 23.5 (10.0-20.0); Blood Urea Nitrogen 16 mg/dL (9-23); Calcium 9.3 mg/dL (8.7-10.4); Carbon Dioxide 31 mmol/L (20-31); Chloride 99 mmol/L (98-107); Potassium 4.8 mmol/L (3.5-5.1)
[2024-07-15 07:02] LABS: Albumin 3.3 g/dL (3.2-4.8); Aspartate Aminotransferase 26 U/L (13-40); Bilirubin, Total 0.6 mg/dL (0.2-1.0)
[2024-07-15 07:50] LABS: Basophils # (auto) 0 10 ^3/uL (0-0.2); Basophils % (auto) 0.1 % (0.0-2.0); Eosinophils # (auto) 0 10 ^3/uL (0-0.8); Hematocrit 38.6 % (41.0-53.0); Hemoglobin 13.2 g/dL (13.5-17.5); Lymphocytes # (auto) 0.7 10 ^3/uL (0.4-5.4); Lymphocytes % (auto) 18.1 % (10.0-50.0); Mean Corpuscular Hemoglobin 33.5 pg (28.0-32.0); Mean Corpuscular Hgb Conc. 34.2 g/dL (32.0-36.0); Mean Corpuscular Volume 97.8 fL (80.0-100.0); Monocytes # (auto) 0.1 10 ^3/uL (0-1.3); Monocytes % (auto) 1.6 % (0.0-12.0); Neutrophils % (auto) 80.2 % (37.0-80.0); Nucleated Red Blood Cells % 0.2 %; Platelet Count (auto) 158 10^3/uL (140-450); Red Blood Cells 3.95 10^6/uL (4.5-5.90); Red Cell Distribution Width 13.4 % (11.8-14.3); White Blood Cell 3.8 10^3/uL (4.4-10.8)
[2024-07-15 09:07] LABS: Glucose 136 mg/dL (74-106); Sodium 133 mmol/L (136-145); Total Protein 5.5 g/dL (5.7-8.2)
--- NOTE | 2024-07-15 13:53 | DVHDSRES ---
Discharge Summary Date of Admission Resident Creating Document: GORGE THOMPSON Jul 14, 2024 at 00:35 Labs/Diagnostic Data: Laboratory Results Test 07/15/24 06:08 07/14/24 17:40 07/14/24 07:30 07/14/24 02:11 White Blood Count 3.8 10^3/uL (4.4-10.8) Red Blood Count 3.95 10^6/uL (4.5-5.90) Hemoglobin 13.2 g/dL (13.5-17.5) Hematocrit 38.6 % (41.0-53.0) Mean Corpuscular Volume 97.8 fL (80.0-100.0) Mean Corpuscular Hemoglobin 33.5 pg (28.0-32.0) Mean Corpuscular Hemoglobin Concent 34.2 g/dL (32.0-36.0) Red Cell Distribution Width 13.4 % (11.8-14.3) Platelet Count 158 10^3/uL (140-450) Mean Platelet Volume 8.2 fL (6.9-10.8) Neutrophils (%) (Auto) 80.2 % (37.0-80.0) Lymphocytes (%) (Auto) 18.1 % (10.0-50.0) Monocytes (%) (Auto) 1.6 % (0.0-12.0) Eosinophils (%) (Auto) 0.0 % (0.0-7.0) Basophils (%) (Auto) 0.1 % (0.0-2.0) Neutrophils # (Auto) 3.0 10 ^3/uL (1.6-8.6) Lymphocytes # (Auto) 0.7 10 ^3/uL (0.4-5.4) Monocytes # (Auto) 0.1 10 ^3/uL (0-1.3) Eosinophils # (Auto) 0 10 ^3/uL (0-0.8) Basophils # (Auto) 0 10 ^3/uL (0-0.2) Nucleated Red Blood Cells 0.2 % Sodium Level 133 mmol/L (136-145) Potassium Level 4.8 mmol/L (3.5-5.1) Chloride Level 99 mmol/L (98-107) Carbon Dioxide Level 31 mmol/L (20-31) Anion Gap 3 (5-15) Blood Urea Nitrogen 16 mg/dL (9-23) Creatinine 0.68 mg/dL (0.700-1.30) Glomerular Filtration Rate Calc 91 mL/min (>90) BUN/Creatinine Ratio 23.5 (10.0-20.0) Serum Glucose 136 mg/dL (74-106) Calcium Level 9.3 mg/dL (8.7-10.4) Total Bilirubin 0.6 mg/dL (0.2-1.0) Aspartate Amino Transferase (AST) 26 U/L (13-40) Alanine Aminotransferase (ALT) 25 U/L (7-40) Alkaline Phosphatase 74 U/L (46-116) Total Protein 5.5 g/dL (5.7-8.2) Albumin 3.3 g/dL (3.2-4.8) Urine Color Light-yellow (Yellow) Urine Clarity Clear (Clear) Urine pH 6.5 (5.0-9.0) Urine Specific [place] 1.018 (1.001-1.035) Urine Protein Negative (Negative) Urine Ketones Negative (Negative) Urine Blood Negative /uL (Negative) Urine Nitrite Negative (Negative) Urine Bilirubin Negative (Negative) Urine Urobilinogen Normal mg/dL (Negative) Urine Leukocyte Esterase Negative /uL (Negative) Urine RBC <1 /hpf (0 - 3) Urine WBC <1 /hpf (0 - 3) Urine Squamous Epithelial Cells None seen /hpf (<5) Urine Bacteria None seen /hpf (None Seen) Urine Glucose Normal mg/dL (Normal) Urine Opiates Screen Neg (NEGATIVE) Urine Fentanyl Screen Neg (NEGATIVE) Urine Barbiturates Screen Neg (NEGATIVE) Urine Phencyclidine Screen Neg (NEGATIVE) Urine Amphetamines Screen Neg (NEGATIVE) Urine Benzodiazepines Screen Neg (NEGATIVE) Urine Cocaine Screen Neg (NEGATIVE) Urine Cannabinoids Screen Neg (NEGATIVE) Influenza Type A Antigen Negative (Negative) Influenza Type B Antigen Negative (Negative) SARS-CoV-2 Antigen (Rapid) Negative (NEGATIVE) Troponin I High Sensitivity 41 ng/L (</=54) Test 07/13/24 18:13 D-Dimer, Quantitative 1.42 mg/L FEU (0.0-0.49) Lactic Acid Level 0.9 mmol/L (0.4-2.0) B-Type Natriuretic Peptide 164.74 pg/mL (0-100) Other Laboratory Tests 07/15/24 06:08 Discharge Statement: "Patient was advised to return to the ER or call 911 if any headaches, dizziness, shortness of breath, chest pain, abdominal pain, bleeding, fevers, or worsening of medical condition. Patient was counseled about treatment plan, medications, possible side effects, patientverbalized understanding. All questions were answered to the best of my ability. This discharge took greater then 30 minutes in planning, reviewing documentation, counseling the patient, and discussing with other team members." ASSESSMENT ASSESSMENT Assessment LYDIA GARCIA RESIDENT Jul 15, 2024 13:53
[2024-07-15] MEDS ORDERED: AZITHROMYCIN 500MG/ 250ML 250 ML IV ONE (14:00)
[2024-07-15] MEDS: AZITHROMYCIN 250 MG TAB PO ONE (17:05)
--- NOTE | 2024-07-15 20:17 | DVHPNRES ---
Progress Note Date Seen: Jul 15, 2024 Resident Creating Document: LYDIA GARCIA RESIDENT Has the PT tested + for MRSA If YES, has PT been informed?: No Medical Necessity Reason Pt with a Central, PICC or Fol: No Subjective Patient reports: No new complaints, Feels better Changes from previous H/P or p: No Changes Review of Systems: HEENT:Normal, CVS:Normal, RESPIRATORY:Abnormal (Mild shortness of breath, recovering lung), GI:Normal, :Normal, MSK:Normal, NEURO:Normal Objective vital signs Vital Sign Date Time Temp Pulse Resp B/P (MAP) Pulse Ox O2 Delivery O2 Flow Rate FiO2 07/15/24 20:01 96 Nasal Cannula* 2 07/15/24 18:29 72 16 07/15/24 17:00 98.1 128/73 (91) 98.1 Total Intake and Output 07/14/24 07/14/24 07/15/24 15:00 23:00 07:00 Intake Total 600 ml 390 ml Balance 600 ml 390 ml medications Current Medications Medications Dose Ordered Sig/Yeimy Route Start Time Stop Time Status Last Admin Dose Admin Methylprednisolone Sodium Succinate 40 mg BID IV 07/14/24 10:00 07/15/24 09:09 40 MG Ceftriaxone Sodium 50 ml @ 100 mls/hr DAILY@0100 IV 07/15/24 01:00 07/15/24 01:03 100 MLS/HR Valsartan 80 mg DAILY PO 07/14/24 10:00 07/14/24 10:55 80 MG Tamsulosin HCl 0.4 mg QPM PO 07/14/24 18:00 07/15/24 17:06 0.4 MG Aspirin 81 mg DAILY PO 07/14/24 10:00 07/15/24 09:10 81 MG Clonidine HCl 0.1 mg Q4HP PRN PO 07/14/24 00:45 Albuterol 2.5 mg Q6HR NEB 07/14/24 04:00 07/15/24 18:23 2.5 MG Ipratropium [place] 0.5 mg Q6HR NEB 07/14/24 04:00 07/15/24 18:23 0.5 MG Enoxaparin Sodium 40 mg DAILY SC 07/14/24 10:00 07/15/24 09:09 40 MG Atorvastatin Calcium 40 mg HS PO 07/14/24 22:00 07/14/24 22:03 40 MG Docusate Sodium 100 mg BIDPRN PRN PO 07/14/24 21:30 07/14/24 22:03 100 MG Examination General Appearance: Alert, Oriented X3, Cooperative, No acute distress HEENT: Atraumatic, PERRLA, EOMI, Mucous membrane moist/pink Respiratory: Clear to auscultation, Normal air movement improved on 2 L of nasal cannula oxygen Cardiovascular: Regular rate, Normal S1, Normal S2, No murmurs, no chest wall tenderness Abdominal: Normal bowel sounds, Soft, No tenderness, No hepatospenomegaly, No masses Extremities: No clubbing, No cyanosis, No edema, Normal pulses, No tenderness/swelling Skin: No rashes, No breakdown, No significant lesion Neuro: Grossly normal Psych/Mental Status: Mental status NL, Mood NL laboratory and microbiology Laboratory Tests 07/15/24 06:08 Test 07/15/24 06:08 Range/Units Serum Glucose 136 H 74-106 mg/dL Microbiology Date/Time Source Procedure Growth Status 07/14/24 17:34 Nose MRSA Screen - Final Complete Labs and/or images reviewed: Labs reviewed by me, Image(s) reviewed by me Problem List/Assessment/Plan Problem List/Assessment/Plan Hospitalization summary/ Assessment: This is an 84-year-old male with a history of COPD, BPH, hypertension, and kidney disease, who presented with worsening shortness of breath for 3-4 days. He uses 2 L home oxygen, which was increased to 5 L in the ED, improving his SpO2 from 68% to 91%. He denies recent flu-like symptoms, cough, fever, chest pain, dizziness, or palpitations. Chest X-ray showed lung hyperinflation without opacifications. He has a 50 pack-year smoking history, quit 2 years ago, and denies alcohol or drug use. He takes Valsartan, aspirin, montelukast, tamsulosin, and rosuvastatin. Information was obtained using a check clerk as he is a Occitan speaker. He is feeling better but still has a cough and shortness of breath. Plan: # former heavy cigarette smoker 50 pack year smoking history, quit 2 years ago # history of COPD with home oxygen of 2 L at baseline # COPD exacerbation: Continue IV steroid, nasal cannula oxygen, as needed nebs, IV ceftriaxone azithromycin. # Ruled out pulmonary emboli: Mildly elevated DVT but CT angiography negative, no other concerning features # Hypertensive urgency , well-controlled , on valsartan clonidine # history of primary hypertension: Target blood pressure 140/90 or below as per AHA/ACC guidelines. # basal atelectasis: Q 1 incentive spirometry # NSTEMI type 2 due to above # acute exacerbation of heart failure ruled out # Acute on chronic hypoxic/hypercarbic respiratory failure due to COPD exacerbation # Mild Hyponatremia, monitoring, improved # benign prostatic hypertrophy: Tamsulosin to continue Diet: Cardiac diet, 2 g salt restriction GI prophylaxis: not needed DVT prophylaxis: Lovenox 40mg /brisk movement Bowel regimen: Colace 100 mg daily as needed Barriers to discharge: Medical diagnosis and management in progress. patient is still has mild conditioned and shortness of breath needing IV antibiotics and IV steroid. Caregiver is daughter. PCP: Dr. Meyers. Specialist Relevant To Admission: none Patient care and plan discussed with Dr. Camilo Disposition: Patient transferred from telemetry to [facility] . At discharge patient needs 5 more days of 40 mg oral prednisone and 5 days of azithromycin 250mg. Plan discussed with: Patient, Other My Orders My Orders Orders - LYDIA GARCIA Procedure Category Date Status Time Complete Blood Count LAB 07/16/24 Verified 04:00 Comprehensive LAB 07/16/24 Verified Metabolic Panel 04:00 Discontinue Tele NUPUR 07/15/24 In Process 20:00 Transfer Orders XFER 07/15/24 Transmitted 20:00 LYDIA GARCIA Jul 15, 2024 20:17
[2024-07-16] VITALS (11 sets, daily range): BP systolic 108–128; BP diastolic 62–76; PULSE 69–87; RESP 16–20; TEMP 97.9–98.5; O2SAT 92–100
[2024-07-16 07:29] LABS: Alanine Aminotransferase 29 U/L (7-40); Alkaline Phosphatase 74 U/L (46-116); Anion Gap 5 (5-15); Aspartate Aminotransferase 28 U/L (13-40); BUN/Creatinine Ratio 20.6 (10.0-20.0); Basophils # (auto) 0 10 ^3/uL (0-0.2); Blood Urea Nitrogen 13 mg/dL (9-23); Calcium 9.6 mg/dL (8.7-10.4); Carbon Dioxide 30 mmol/L (20-31); Chloride 100 mmol/L (98-107); Eosinophils # (auto) 0 10 ^3/uL (0-0.8); Hematocrit 40.8 % (41.0-53.0); Hemoglobin 13.8 g/dL (13.5-17.5); Lymphocytes # (auto) 0.7 10 ^3/uL (0.4-5.4); Lymphocytes % (auto) 11.7 % (10.0-50.0); Mean Corpuscular Hemoglobin 33.2 pg (28.0-32.0); Mean Corpuscular Hgb Conc. 33.9 g/dL (32.0-36.0); Mean Corpuscular Volume 98.1 fL (80.0-100.0); Monocytes # (auto) 0.3 10 ^3/uL (0-1.3); Monocytes % (auto) 4.7 % (0.0-12.0); Neutrophils % (auto) 83.6 % (37.0-80.0); Nucleated Red Blood Cells % 0.1 %; Platelet Count (auto) 174 10^3/uL (140-450); Potassium 4.3 mmol/L (3.5-5.1); Red Blood Cells 4.16 10^6/uL (4.5-5.90); Red Cell Distribution Width 13.4 % (11.8-14.3); White Blood Cell 5.9 10^3/uL (4.4-10.8)
[2024-07-16 07:30] LABS: Albumin 3.4 g/dL (3.2-4.8); Bilirubin, Total 0.5 mg/dL (0.2-1.0); Total Protein 5.9 g/dL (5.7-8.2)
[2024-07-16 07:36] LABS: Glucose 129 mg/dL (74-106); Sodium 135 mmol/L (136-145)
[2024-07-16] MEDS ORDERED: AZIT500T66 PO (12:27)
[2024-07-16] MEDS ORDERED: PRED20TA2 PO (12:27)
--- NOTE | 2024-07-16 17:01 | DVHDSRES ---
Discharge Summary Date of Admission Resident Creating Document: LYDIA GARCIA RESIDENT Jul 14, 2024 at 00:35 Date of Discharge: Jul 16, 2024 Admitting Diagnosis COPD exacerbation Wounds: Labs/Diagnostic Data: Laboratory Results Test 07/16/24 06:43 07/14/24 17:40 07/14/24 07:30 07/14/24 02:11 White Blood Count 5.9 10^3/uL (4.4-10.8) Red Blood Count 4.16 10^6/uL (4.5-5.90) Hemoglobin 13.8 g/dL (13.5-17.5) Hematocrit 40.8 % (41.0-53.0) Mean Corpuscular Volume 98.1 fL (80.0-100.0) Mean Corpuscular Hemoglobin 33.2 pg (28.0-32.0) Mean Corpuscular Hemoglobin Concent 33.9 g/dL (32.0-36.0) Red Cell Distribution Width 13.4 % (11.8-14.3) Platelet Count 174 10^3/uL (140-450) Mean Platelet Volume 8.1 fL (6.9-10.8) Neutrophils (%) (Auto) 83.6 % (37.0-80.0) Lymphocytes (%) (Auto) 11.7 % (10.0-50.0) Monocytes (%) (Auto) 4.7 % (0.0-12.0) Eosinophils (%) (Auto) 0.0 % (0.0-7.0) Basophils (%) (Auto) 0.0 % (0.0-2.0) Neutrophils # (Auto) 5.0 10 ^3/uL (1.6-8.6) Lymphocytes # (Auto) 0.7 10 ^3/uL (0.4-5.4) Monocytes # (Auto) 0.3 10 ^3/uL (0-1.3) Eosinophils # (Auto) 0 10 ^3/uL (0-0.8) Basophils # (Auto) 0 10 ^3/uL (0-0.2) Nucleated Red Blood Cells 0.1 % Sodium Level 135 mmol/L (136-145) Potassium Level 4.3 mmol/L (3.5-5.1) Chloride Level 100 mmol/L (98-107) Carbon Dioxide Level 30 mmol/L (20-31) Anion Gap 5 (5-15) Blood Urea Nitrogen 13 mg/dL (9-23) Creatinine 0.63 mg/dL (0.700-1.30) Glomerular Filtration Rate Calc 93 mL/min (>90) BUN/Creatinine Ratio 20.6 (10.0-20.0) Serum Glucose 129 mg/dL (74-106) Calcium Level 9.6 mg/dL (8.7-10.4) Total Bilirubin 0.5 mg/dL (0.2-1.0) Aspartate Amino Transferase (AST) 28 U/L (13-40) Alanine Aminotransferase (ALT) 29 U/L (7-40) Alkaline Phosphatase 74 U/L (46-116) Total Protein 5.9 g/dL (5.7-8.2) Albumin 3.4 g/dL (3.2-4.8) Urine Color Light-yellow (Yellow) Urine Clarity Clear (Clear) Urine pH 6.5 (5.0-9.0) Urine Specific [place] 1.018 (1.001-1.035) Urine Protein Negative (Negative) Urine Ketones Negative (Negative) Urine Blood Negative /uL (Negative) Urine Nitrite Negative (Negative) Urine Bilirubin Negative (Negative) Urine Urobilinogen Normal mg/dL (Negative) Urine Leukocyte Esterase Negative /uL (Negative) Urine RBC <1 /hpf (0 - 3) Urine WBC <1 /hpf (0 - 3) Urine Squamous Epithelial Cells None seen /hpf (<5) Urine Bacteria None seen /hpf (None Seen) Urine Glucose Normal mg/dL (Normal) Urine Opiates Screen Neg (NEGATIVE) Urine Fentanyl Screen Neg (NEGATIVE) Urine Barbiturates Screen Neg (NEGATIVE) Urine Phencyclidine Screen Neg (NEGATIVE) Urine Amphetamines Screen Neg (NEGATIVE) Urine Benzodiazepines Screen Neg (NEGATIVE) Urine Cocaine Screen Neg (NEGATIVE) Urine Cannabinoids Screen Neg (NEGATIVE) Influenza Type A Antigen Negative (Negative) Influenza Type B Antigen Negative (Negative) SARS-CoV-2 Antigen (Rapid) Negative (NEGATIVE) Troponin I High Sensitivity 41 ng/L (</=54) Test 07/13/24 18:13 D-Dimer, Quantitative 1.42 mg/L FEU (0.0-0.49) Lactic Acid Level 0.9 mmol/L (0.4-2.0) B-Type Natriuretic Peptide 164.74 pg/mL (0-100) Other Laboratory Tests 07/16/24 06:43 Brief Hx & Hospital Course: An 84-year-old male with a history of COPD, BPH, hypertension, and kidney disease presented to the ED with worsening shortness of breath over the past 3-4 days. At home, he uses 2 L of oxygen, but his symptoms have worsened recently. He denied having flu-like symptoms, cough, congestion, fever, chills, chest pain, dizziness, or palpitations. A chest x-ray revealed hyperinflation of the lungs without opacifications. He has had multiple hospital admissions for COPD exacerbations. In the ER, his SpO2 was 68% on 2 L nasal cannula, which improved to 91% on 5 L. 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 His past surgical history includes cystoscopy with thulium laser lithopexy. He has a 50 pack-year smoking history but has been smoke-free for two years, and he does not use alcohol or drugs. His home medications include Valsartan, aspirin, montelukast, tamsulosin, and rosuvastatin. His PCP is Dr. Meyers. Chest x-ray showed bilateral hyperinflated lung, with no consolidation. The patient was put on treatment regime of acute hypoxic/hypercarbic respiratory failure. The patient was given injection ceftriaxone, azithromycin, injection methylprednisolone 40 mg daily, oxygen through nasal cannula, and nebulized with ipratropium and albuterol. Patient also had NSTEMI type 2, likely due to COPD exacerbation. Patient had raised D-dimer, and pulmonary emboli was ruled out with CT angiography. Hypertensive urgency was treated with clonidine 0.1 mg and hyponatremia was treated conservatively during the hospital admission. On 07/16, the patient was feeling better since admission. Patient was clinically and hemodynamically was stable. Patient was able to maintain oxygen saturation at 93% with 2 L of oxygen nasal cannula. Discharge plan discussed with the patient and the patient was discharged. Discharge plan: Follow up with the PCP within 1 week after discharge. Tablet prednisone 40 mg daily for 5 days. Tablet azithromycin 500 mg daily for rhinitis. Operations or Procedures [address] [address] Ph: [phone] DIAGNOSTIC IMAGING Diagnostic Imaging Report : [id number] Signed PATIENT: CARMEN MORALES ACCT: [id number] UNIT: [id number] : 1940 LOC: ER ROOM / BED: / AGE / SEX: 84 / M ADM STATUS: REG ER SERVICE 45 ORDERING PHYSICIAN: KALYN XAVIER PAC PROCEDURE(s): CTACH - CT ANGIO CHEST CONTRAST REASON: Elevated D-dimer ORDER NUMBER(s): [id number], ACCESSION NUMBER(s): [id number] INDICATION: Elevated D-dimer COMPARISON: 08/01/2023 TECHNIQUE: Multidetector CTA of the chest was performed of the chest with 100 cc of intravenous contrast. PULMONARY ANGIOGRAPHY PROTOCOL was utilized using a bolus-tracking technique centered on the main pulmonary artery. Axial, coronal and sagittal multiplanar and MIP reformats were performed. Radiation Dose Information: CT Dose: CTDI volume is 20.53 mGy. Dose-length product is 194.62 mGy*cm Omnipaque 350: 100 mL The dose indicators for CT are the volume Computed Tomography (CT) Dose Index (CTDIvol) and the Dose Length Product (DLP), and are measured in units of mGy and mGy-cm, respectively. These indicators are not patient dose, but values generated from the CT scanner acquisition factors. The report includes radiation exposure data for exposures received during this examination. Findings: Pulmonary artery: Normal caliber of the pulmonary artery. No large central or large segmental pulmonary embolism. No enlargement of the pulmonary artery to suggest pulmonary artery hypertension. Lower neck: Normal thyroid. Lungs: No focal consolidation, pulmonary mass, or suspicious pulmonary nodule. Heart/Vascular Structures: Normal heart size. Normal caliber and enhancement of the aorta. Lymph Nodes: No adenopathy Pleura: No pleural effusion or significant pneumothorax. Musculoskeletal: No acute osseous abnormality. Upper abdomen: Limited portions of the upper abdomen are unremarkable. IMPRESSION: 1. No pulmonary embolism. 2. No findings to suggest pulmonary artery hypertension. 3. No acute intrathoracic abnormality. HS:Y ATED BY: LUCA LOVE Jr., DO DICTATED DATE/TIME: 07/13/24 4080 SIGNED BY: LUCA LOVE Jr., DO SIGNED DATE/TIME: 07/13/24 233 CC: [address] [address] Ph: [phone] DIAGNOSTIC IMAGING Diagnostic Imaging Report : [id number] Signed PATIENT: CARMEN MORALES ACCT: [id number] UNIT: [id number] : 1940 LOC: ER ROOM / BED: / AGE / SEX: 84 / M ADM STATUS: REG ER SERVICE 22 ORDERING PHYSICIAN: KALYN XAVIER PAC PROCEDURE(s): CXRP - CHEST PORTABLE REASON: Shortness of breath ORDER NUMBER(s): [id number], ACCESSION NUMBER(s): [id number] CHEST RADIOGRAPH Indication: Shortness of breath Technique: Single frontal view of the chest was obtained Comparison: XY CHEST PORTABLE on DOS: 04/29/24, XY CHEST XRAY 1 VIEW on DOS: 04/27/24, XY CHEST XRAY 1 VIEW on DOS: 03/29/24 FINDINGS: Lines and Tubes: None Lungs: No focal consolidation. Hyperinflation of the lungs. Pleura: No effusion. No pneumothorax. Cardiomediastinal contours: Mild cardiomegaly. Bones: No acute osseous abnormality. IMPRESSION: No acute cardiopulmonary disease. Hyperinflation of the lungs. ATED BY: VALE TINOCO DO DICTATED DATE/TIME: 07/13/242001 SIGNED BY: VALE TINOCO DO SIGNED DATE/TIME: 07/13/242001 CC: Condition at Discharge: Good Final Diagnosis/Problems List Acute on chronic hypoxic/hypercarbic respiratory failure, likely due to COPD exacerbation COPD exacerbation NSTEMI type 2, likely due to COPD exacerbation, Ruled out pneumonia Ruled out acute on chronic heart failure Mild hyponatremia, Ruled out pulmonary emboli Hypertensive urgency Ruled out hypertensive emergency BPH Ex-smoker Hypertension Basilar atelectasis Discharge Disposition: Home Discharge Instruct/Medications Diet: Cardiac 2g Na,low cholest Activity: No Restrictions, As Tolerated Follow Up/Referral: Follow up with the PCP within 1 week of the discharge. Medications: Tablet prednisone 40 mg daily for 5 days Tablet azithromycin 500 mg day for 5 days Continue home meds Discharge Statement: "Patient was advised to return to the ER or call 911 if any headaches, dizziness, shortness of breath, chest pain, abdominal pain, bleeding, fevers, or worsening of medical condition. Patient was counseled about treatment plan, medications, possible side effects, patientverbalized understanding. All questions were answered to the best of my ability. This discharge took greater then 30 minutes in planning, reviewing documentation, counseling the patient, and discussing with other team members." ASSESSMENT ASSESSMENT Assessment Acute on chronic hypoxic/hypercarbic respiratory failure COPD exacerbation [facility] Jul 16, 2024 17:01
== END 2024-07-16 15:04 | disposition home or self-care (01) | DRG 189 ==
LOC: EDBD 16:54 → ER 16:58 → TELE 07-14 00:35 → TELE-EAST 07-14 09:43 → EAST 07-16 04:19
PROVIDERS: ADMIT Student in an Organized Health Care Education/Training Program; ATTEND Student in an Organized Health Care Education/Training Program
DX: J96.21 Acute and chronic respiratory failure with hypoxia (principal); I21.A1 Myocardial infarction type 2; J44.1 Chronic obstructive pulmonary disease with (acute) exacerbation; R65.10 Systemic inflammatory response syndrome (SIRS) of non-infectious origin without acute organ dysfunction; E87.1 Hypo-osmolality and hyponatremia; J98.11 Atelectasis; J96.22 Acute and chronic respiratory failure with hypercapnia; I16.0 Hypertensive urgency; Z20.822 Contact with and (suspected) exposure to COVID-19; N40.0 Benign prostatic hyperplasia without lower urinary tract symptoms; I10 Essential (primary) hypertension; I25.10 Atherosclerotic heart disease of native coronary artery without angina pectoris; Z87.442 Personal history of urinary calculi; Z87.891 Personal history of nicotine dependence; Z79.899 Other long term (current) drug therapy
CPT/HCPCS: 36415; 71045; 71275; 80053; 80307; 81001; 83605; 83880; 84484; 85025; 85379; 87070; 87077; 87081; 87186; 87205; 87426; 87804; 93005; 94640; G0378; J1100

== ENCOUNTER → 2024-07-21 | Outpatient (CLI) | payer MEDICARE ==
[~2024-07-21] MED LIST changes: +AZIT-185 PO; +AZIT500T66 PO; +CLON0.1T PO; -FINA5TAB4 PO; -FLUT1AER3 INH; +FURO20TA3 PO; +METH4PAK PO; +POTA8TAB38 PO; -ROSU5TAB24 PO; -TAMS0.4C39 PO; -TIOTCAP INH; +VALS1TAB57 PO; -VALS1TAB58 PO; -ZOLP10TA6 PO
[2024-07-21 07:27] LABS: Albumin 3.9 g/dL (3.2-4.8); Alkaline Phosphatase 77 U/L (46-116); Anion Gap 5 (5-15); Aspartate Aminotransferase 29 U/L (13-40); BUN/Creatinine Ratio 15.7 (10.0-20.0); Bilirubin, Total 0.8 mg/dL (0.2-1.0); Blood Urea Nitrogen 11 mg/dL (9-23); Calcium 10.1 mg/dL (8.7-10.4); Chloride 100 mmol/L (98-107); Potassium 4.7 mmol/L (3.5-5.1); Total Protein 6.3 g/dL (5.7-8.2)
[2024-07-21 07:31] LABS: Alanine Aminotransferase 51 U/L (7-40); Carbon Dioxide 31 mmol/L (20-31); Glucose 107 mg/dL (74-106); Sodium 136 mmol/L (136-145)
[2024-07-24 09:24] LABS: Hepatitis B Core Total AB React (Negative)
[2024-07-24 12:42] LABS: Hepatitis A Total Antibody Positive (Negative); Hepatitis B Surface Antibody Negative (Negative); Hepatitis B Surface Antigen Negative (Negative); Hepatitis C Antibody Negative (Negative)
== END | disposition home or self-care (01) ==
LOC: LAB 06:51
PROVIDERS: ATTEND Internal Medicine
DX: J44.9 Chronic obstructive pulmonary disease, unspecified (principal); E78.5 Hyperlipidemia, unspecified; R63.4 Abnormal weight loss; K86.89 Other specified diseases of pancreas
CPT/HCPCS: 36415; 80053; 82977; 86704; 86706; 86708; 86803; 87340

== ENCOUNTER 2024-08-10 06:36 | Inpatient (IN) | payer MEDICARE ==
[2024-08-10] VITALS (18 sets, daily range): BP systolic 101–144; BP diastolic 58–81; PULSE 71–93; RESP 11–24; TEMP 97.6–98.3; O2SAT 92–98
[~2024-08-10] VITALS: Ht 165.1 cm; Wt 46.3 kg
[~2024-08-10 06:36] MED LIST changes: -AZIT-185 PO; -METH4PAK PO
--- NOTE | 2024-08-10 06:59 | ED.PDOC ---
SOB-HPI HPI Comments 84 year old male DEBBIE presents to the ED with chief complaint of SOB. EMS reports patient is a Turkish speaking male coming from home where he woke up with SOB and associated chest pain at around 5am this morning. EMS relays patient had audible wheezing at the scene so patient was given a DuoNeb treatment on route. EMS states patient was also given 324mg of Aspirin and 0.4mg of Nitroglycerin on route. Patient's BP upon arrival to the ED was noted to be 155/83. Patient denies any cough, congestion, dizziness, headache, fever, chills, or N/V. Chief Complaint: Shortness of Breath Time Seen by MD: 06:55 Primary Care Provider: RAMÓN Reviewed notes: Nurses Notes, Hat Liner Notes, Medications, Allergies Information Source: Patient, Emergency Med Personnel Mode of Arrival: EMS Severity: Moderate Timing: Hours Duration: Since onset Context: At Rest, While Asleep PE Risk Factors: None History of: COPD Prehospital treatment: ASA, Breathing Tx, NTG Modifying Factors: Nothing Associated Signs and Symptoms: Chest Pain Quality: Sharp Radiation: No Radiation Location: Substernal Past Medical History PAST MEDICAL HISTORY: Asthma, CAD, COPD, Gallstones, HTN, Kidney Stones Surgical History: Hernia Repair, PTCA Family History Family History: Reviewed,noncontributory to illness Social History Smoker: Cigarettes, Less Than 1 Pack/Day Alcohol: Rarely Drugs: Denies Drug Use Lives In: Home Constitutional: denies: chills, diaphoresis, fatigue, fever, malaise, sweats, weakness, others EENTM: denies: blurred vision, double vision, ear bleeding, ear discharge, ear drainage, ear pain, ear ringing, eye pain, eye redness, hearing loss, mouth pa in, mouth swelling, nasal discharge, nose bleeding, nose congestion, nose pain, photophobia, tearing, throat pain, throat swelling, voice changes, others Respiratory: reports: shortness of breath; denies: cough, hemoptysis, orthopnea, SOB at rest, SOB with excertion, stridor, wheezing, others Cardiovascular: reports: chest pain; denies: dizzy spells, diaphoresis, Dyspnea on exertion, edema, irregular heart beat, left arm pain, lightheadedness, palpitations, PND, syncope, others Gastrointestinal: denies: abdomen distended, abdominal pain, blood streaked bowels, constipated, diarrhea, dysphagia, difficulty swallowing, hematemesis, melena, nausea, poor appetite, poor fluid intake, rectal bleeding, rectal pain, vomiting, others Genitourinary: denies: burning, dysuria, flank pain, frequency, hematuria, incontinence, penile discharge, penile sore, pain, testicle pain, testicle swelling, urgency, others Neurological: denies: dizziness, fainting, headache, left sided numbness, left sided weakness, numbness, paresthesia, pre-existing deficit, right sided numbness, right sided weakness, seizure, speech problems, tingling, tremors, weakness, others Musculoskeletal: denies: back pain, gout, joint pain, joint swelling, muscle p ain, muscle stiffness, neck pain, others Integumetry: denies: bruises, change in color, change in hair/nails, dryness, laceration, lesions, lumps, rash, wounds, others Allergic/Immunocompromised: denies: Difficulty Healing, Frequent Infections, Hives, Itching, others Hematologic/Lymphatic: denies: anemia, blood clots, easy bleeding, easy bruising, swollen glands, others Endocrine: denies: excessive hunger, excessive sweating, excessive thirst, excessive urination, flushing, intolerance to cold, intolerance to heat, unexplained weight gain, unexplained weight loss, others Psychiatric: denies: anxiety, bipolar disorder, depression, hopeless, panic disorder, schizophrenia, sleepless, suicidal, others All Other Systems: Reviewed and Negative Physical Exam General Appearance: Moderate Distress, Normal HEENT: Normal ENT Inspection, PERRL/EOMI Neck: Full Range of Motion, Non-Tender, Normal, Normal Inspection Respiratory: Accessory Muscle Use, Chest Non-Tender, Respiratory Distress, Wheezing Cardiovascular: No Edema, No JVD, No Murmur, No Gallop, Normal Peripheral Pulses, Regular Rate/Rhythm Breast Exam: Deferred Gastrointestinal: No Organomegaly, Non Tender, No Pulsatile Mass, Normal Bowel Sounds, Soft Genitalia: Deferred Pelvic: Deferred Rectal: Deferred Extremities: No calf tenderness, Normal capillary refill, Normal inspection, Normal range of motion, Non-tender, No pedal edema Musculoskeletal : Apperance: Normal Neurologic: Alert, No Motor Deficits, Normal Mood, No Sensory Deficits Cerebellar Function: NOT DONE Reflexes: NOT DONE Skin: Dry, Normal Color, Warm Peripheral Pulses: 3+ Radial (R), 3+ Radial (L) Lymphatic: No Adenopathy Was a procedure done? Was a procedure done?: No Differential Dx Differential Diagnosis: Anxiety, Asthma, Bronchitis, CHF, COPD X-Ray, Labs, Meds, VS Vital Signs Date Time Temp Pulse Resp B/P (MAP) Pulse Ox O2 Delivery O2 Flow Rate FiO2 08/10/24 06:50 97.3 90 24 152/83 (106) 99 08/10/24 06:40 95 Lab Test 08/10/24 09:18 08/10/24 07:09 Range/Units Troponin I High Sensitivity Pending 164 *H </=54 ng/L White Blood Count 6.1 4.4-10.8 10^3/uL Red Blood Count 4.18 L 4.5-5.90 10^6/uL Hemoglobin 14.0 13.5-17.5 g/dL Hematocrit 40.4 L 41.0-53.0 % Mean Corpuscular Volume 96.6 80.0-100.0 fL Mean Corpuscular Hemoglobin 33.4 H 28.0-32.0 pg Mean Corpuscular Hemoglobin Concent 34.6 32.0-36.0 g/dL Red Cell Distribution Width 13.4 11.8-14.3 % Platelet Count 212 140-450 10^3/uL Mean Platelet Volume 7.3 6.9-10.8 fL Neutrophils (%) (Auto) 76.9 37.0-80.0 % Lymphocytes (%) (Auto) 10.4 10.0-50.0 % Monocytes (%) (Auto) 8.5 0.0-12.0 % Eosinophils (%) (Auto) 3.0 0.0-7.0 % Basophils (%) (Auto) 1.2 0.0-2.0 % Neutrophils # (Auto) 4.7 1.6-8.6 10 ^3/uL Lymphocytes # (Auto) 0.6 0.4-5.4 10 ^3/uL Monocytes # (Auto) 0.5 0-1.3 10 ^3/uL Eosinophils # (Auto) 0.2 0-0.8 10 ^3/uL Basophils # (Auto) 0.1 0-0.2 10 ^3/uL Nucleated Red Blood Cells 0.0 % Sodium Level 131 L 136-145 mmol/L Potassium Level 5.3 H 3.5-5.1 mmol/L Chloride Level 102 98-107 mmol/L Carbon Dioxide Level 25 20-31 mmol/L Anion Gap 4 L 5-15 Blood Urea Nitrogen 9 9-23 mg/dL Creatinine 0.57 L 0.700-1.30 mg/dL Glomerular Filtration Rate Calc 96 >90 mL/min BUN/Creatinine Ratio 15.8 10.0-20.0 Serum Glucose 122 H 74-106 mg/dL Calcium Level 8.9 8.7-10.4 mg/dL B-Type Natriuretic Peptide 50.50 0-100 pg/mL Current Medications Medications (Trade) Dose Ordered Sig/Yeimy Route Start Time Stop Time Status Last Admin Methylprednisolone Sodium Succinate (Solu Medrol) 125 mg ONCE ONCE IV 08/10/24 07:00 08/10/24 07:01 DC 08/10/24 09:00 Albuterol (Ventolin Medneb) 5 mg ONCE ONCE NEB 08/10/24 07:00 08/10/24 07:01 DC 08/10/24 08:39 Ipratropium [place] (Atrovent Medneb) 0.5 mg ONCE ONCE NEB 08/10/24 07:00 08/10/24 07:01 DC 08/10/24 08:39 Calcium Gluconate/ Sodium Chloride 50 ml @ 120 mls/hr ONCE ONCE IV 08/10/24 07:45 08/10/24 08:09 DC 08/10/24 09:00 Zirconium Oxide (Lokelma) 10 gm ONCE ONCE PO 08/10/24 07:45 08/10/24 07:46 DC 08/10/24 09:04 Albuterol (Ventolin Medneb) 20 mg ONCE ONCE NEB 08/10/24 07:45 08/10/24 07:46 DC 08/10/24 08:41 Enoxaparin Sodium (Lovenox) 70 mg ONCE ONCE SC 08/10/24 07:45 08/10/24 07:46 DC 08/10/24 09:01 Patient alert. Complaining of shortness a breath. Was given breathing treatment. Feeling better after breathing treatment. Continue use accessory muscles. Potassium elevated. Was given calcium gluconate. Was given steroid. Was given breathing treatment. Was given magnesium. EKG reviewed does not show any acute changes. Explained to the patient. Difficult to understand. Continue cardiac monitoring. Time of 1ST Reevaluation: 07:55 Reevaluation 1ST: Unchanged Patient Education/Counseling: Diagnosis, Treatment Family Education/Counseling: No Family Present Departure 1 Departure Time of Disposition: 07:36 Impression: Primary Impression: Acute respiratory failure with hypoxia Additional Impressions: Acute exacerbation of chronic obstructive pulmonary disease (COPD) Hyperkalemia Disposition: ADMITTED INPATIENT Admit to: Med Surg Condition: Guarded Critical Care Note Critical Care Time?: Yes (90 min-critical care time only) Stability Stability form required: No Heart Score Heart Score: Heart Score Response (Comments) Value History Moderate Suspicious 1 EKG Normal 0 Age >65 2 Risk Factors >3 or Hx ASHD 2 Troponin >3 x's Normal limit 2 Total 7 I personally scribed for FANNY BONILLA MD ([email or web address]) on 08/10/24 at 06:59. Electronically submitted by Young Rojas [email or web address]). FANNY BONILLA MD Aug 10, 2024 06:59
[2024-08-10 07:24] LABS: Basophils # (auto) 0.1 10 ^3/uL (0-0.2); Basophils % (auto) 1.2 % (0.0-2.0); Eosinophils # (auto) 0.2 10 ^3/uL (0-0.8); Hematocrit 40.4 % (41.0-53.0); Lymphocytes # (auto) 0.6 10 ^3/uL (0.4-5.4); Lymphocytes % (auto) 10.4 % (10.0-50.0); Mean Corpuscular Hemoglobin 33.4 pg (28.0-32.0); Mean Corpuscular Hgb Conc. 34.6 g/dL (32.0-36.0); Mean Corpuscular Volume 96.6 fL (80.0-100.0); Monocytes # (auto) 0.5 10 ^3/uL (0-1.3); Monocytes % (auto) 8.5 % (0.0-12.0); Neutrophils # (auto) 4.7 10 ^3/uL (1.6-8.6); Neutrophils % (auto) 76.9 % (37.0-80.0); Platelet Count (auto) 212 10^3/uL (140-450); Red Blood Cells 4.18 10^6/uL (4.5-5.90); Red Cell Distribution Width 13.4 % (11.8-14.3); White Blood Cell 6.1 10^3/uL (4.4-10.8)
[2024-08-10 07:27] LABS: Chloride 102 mmol/L (98-107)
[2024-08-10 07:28] LABS: Anion Gap 4 (5-15); Carbon Dioxide 25 mmol/L (20-31)
[2024-08-10 07:29] LABS: Calcium 8.9 mg/dL (8.7-10.4)
[2024-08-10 07:33] LABS: Potassium 5.3 mmol/L (3.5-5.1); Sodium 131 mmol/L (136-145)
[2024-08-10 07:34] LABS: BUN/Creatinine Ratio 15.8 (10.0-20.0); Blood Urea Nitrogen 9 mg/dL (9-23); Glucose 122 mg/dL (74-106)
--- NOTE | 2024-08-10 07:46 | DVH ---
Procedure: XY CHEST PORTABLE 08/10/2024 07:15 AM Indication: sob Comparison: XY CHEST PORTABLE on DOS: 07/13/24, XY CHEST PORTABLE on DOS: 04/29/24, XY CHEST XRAY 1 V IEW on DOS: 04/27/24 TECHNIQUE: XY CHEST PORTABLE FINDINGS: Medical devices: None. Cardiomediastinal: The heart is borderline enlarged. Pulmonary vasculature is within normal limits. A therosclerotic calcification of the aortic arch noted. Lungs: No focal pulmonary opacity is seen. The costophrenic angles are clear. No pneumothorax. Bones/soft tissues: No acute abnormality is noted. IMPRESSION: 1. No acute cardiopulmonary disease.
[2024-08-10] MEDS: ALBUTEROL SULF 2.5 MG/0.5ML(0.5%) NEB SOLN NEB ONE ×2 (08:39→08:41)
[2024-08-10] MEDS: IPRATROPIUM BROM 0.5 MG/2.5ML INH SOL NEB ONE (08:39)
[2024-08-10] MEDS: methylPREDNISolone SOD SUCC 125 MG/2 ML VL IV ONE (09:00)
[2024-08-10] MEDS: CALCIUM GLUC 1,000mg/50ml-NS 50 ML IV ONE (09:00)
[2024-08-10] MEDS: ENOXAPARIN SOD 80 MG/0.8ML SYRINGE SC ONE (09:01)
[2024-08-10] MEDS: SODIUM ZIRCONIUM CYCL 10 GM PAK PO ONE (09:04)
[2024-08-10] MEDS: MAGNESIUM SULFATE 1GM/100ML 100 ML IV ONE (09:41)
--- NOTE | 2024-08-10 10:42 | ECG ---
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
[2024-08-10] MEDS ORDERED: DOCUSATE SOD 100 MG CAP PO PRN (11:15)
[2024-08-10] MEDS ORDERED: MORPHINE SULFATE INJ 2 MG/ml SYRG IV PRN (11:15)
[2024-08-10] MEDS ORDERED: ONDANSETRON HCL 4 MG/2 ML VIAL IV PRN (11:15)
[2024-08-10] MEDS ORDERED: NITROGLYCERIN 0.4 MG SL TAB SL SCH (11:15)
[2024-08-10] MEDS ORDERED: NITROGLYCERIN 0.4 MG SL TAB SL PRN (11:15)
[2024-08-10] MEDS ORDERED: cloNIDine HCL 0.1 MG TAB PO PRN (11:15)
--- NOTE | 2024-08-10 11:43 | DVHINCON2 ---
Date Seen: Aug 10, 2024 Referring Physician NANDA Perez Reason for Consultation Elevated troponin History of Present Illness This is an 84-year-old male patient who presents emergency room with chief complaint of shortness of breath since 6:00 a.m. this morning. The patient is primarily Danish speaking, a credit reporter was used time of assessment. The patient reports that he began feeling short of breath this morning when he woke up. He reports checking his blood pressure and noticed that his blood pressure was elevated with his systolic pressure reaching as high as 180s. He takes hydralazine as needed, as prescribed by his senior engineering specialist. He took one dose of his hydralazine 25 mg and waited for symptoms to resolve. The patient reports that within half an hour, he still felt short of breath and his blood pressure was still elevated so he decided to come to the emergency room for further evaluation. Initial twelve lead electrocardiogram revealed normal sinus rhythm with anterior Q-waves and minimal ST segment changes to lateral leads (similar to previous EKG's from other visit). Initial troponin level of 164ng/L with notable significant up trend thereafter and peak level at 894ng/L. Significant past medical history includes hypertension, dyslipidemia, pericardial effusion, COPD with home O2 use, asthma, benign prostatic hyperplasia, and history of heavy tobacco use. The patient sees senior engineering specialist, , in the outpatient setting. Per records, the patient underwent a nuclear stress test on 04/17/2020. He denies any previous coronary angiogram in the past. Past Medical History Past medical history reviewed. No other significant than mentioned above. Past Surgical History Cystoscopy with thulium laser litholapaxy Family History: Family history: Diabetes mellitus Family History Family history reviewed. Social History Patient has a 70 pack-year history, quit smoking approximately five years ago Patient denies any alcohol use Patient denies any illicit drug use Allergies: Coded Allergies: NO KNOWN ALLERGIES (Unverified , 11/09/17) Home Meds Active Scripts Azithromycin (Azithromycin) 500 Mg Tab, 1 TAB PO DAILY, #5 TAB Prov:ASHLIE NEWMAN MD 07/16/24 Prednisone (Prednisone) 20 Mg Tab, 40 MG PO DAILY for 5 Days, #10 MG 0 Refills Prov:ASHLIE NEWMAN MD 07/16/24 Atorvastatin Calcium (ATORVASTATIN CALCIUM) 20 Mg Tab, 1 TAB PO DAILY for 30 Days, #30 TAB 5 Refills Prov:JAN RAMACHANDRAN RESIDENT 04/28/24 Tamsulosin Hcl (Flomax) 0.4 Mg Cap, 0.4 MG PO QPM for 30 Days, #30 CAP Prov:MASHA JAMIL RESIDENT 03/29/24 Montelukast Sodium (Singulair) 10 Mg Tab, 10 MG PO HS for 30 Days, #30 TAB Prov:MASHA JAMIL RESIDENT 03/29/24 Aspirin (Aspirin Low Dose) 81 Mg Tab, 81 MG PO DAILY for 30 Days, #30 TAB Prov:MASHA JAMIL RESIDENT 03/29/24 Lactulose (Lactulose) 10 Gm/15 Ml Devora, 10 GM PO DAILY PRN for 30 Days, #240 ML 5 Refills Prov:PURVI JAIN MD 08/26/23 Docusate Sodium (Colace) 100 Mg Cap, 1 CAP PO BID, #30 CAP Prov:PAU OLEARY MD 03/31/23 Reported Medications Potassium Chloride (Klor-Con 8) 8 Meq Tab, 8 MEQ PO DAILY WITH FOOD, TAB 07/14/24 Furosemide (Furosemide) 20 Mg Tab, 20 MG PO DAILY, MG 07/14/24 Clonidine Hydrochloride (Clonidine Hcl) 0.1 Mg Tab, 0.1 MG PO Q4HR PRN for SB P>150, MG 07/14/24 Valsartan (Valsartan) 80 Mg Tab, 80 MG PO DAILY, TAB 07/14/24 Pwetbjmblu-Ulzqcnprbkvrty-Sgea (Breztri Aerosphere 160-9-4.8 Mcg/Act) 1 Aer Aer, 2 PUFF INH BID for 30 Days, #10.7 05/01/24 Ipratropium-Albuterol (Ipratropium [place]/Albut) 1 Devora Devora, 1 VIAL NEB TID for 30 Days, #270 05/01/24 Nitroglycerin (NTROSTAT SUBLINGUAL) 0.4 Mg Sl, 0.4 MG SL PRN, TAB *MAY REPEAT EVERY 5 MINUTES X 3 TOTAL IF NO RELIEF, INITIATE ANALGESIC THERAPY. NOTIFY PHYSICIAN *Do not crush. 04/30/24 Hydralazine HCl (Hydralazine HCl) 25 Mg Tab, 1 TAB PO BID 07/11/23 Albuterol Sulfate (Albuterol Sulfate Hfa) 108 Mcg/Act Aer, 2 PUFF INH Q2HR PRN for SHORTNESS OF BREATH 03/31/23 Home Meds Home medications reviewed. Current Medications Current Medications Medications (Trade) Dose Ordered Sig/Yeimy Route PRN Reason Start Time Stop Time Status Last Admin Aspirin (Ecotrin Enteric Coated Tablet) 81 mg DAILY PO 08/11/24 10:00 Atorvastatin Calcium (Lipitor) 20 mg DAILY PO 08/11/24 10:00 Clonidine HCl (Catapres Tablet) 0.1 mg Q4HR PRN PO SBP>150 08/10/24 11:15 Docusate Sodium (Colace Capsule) 100 mg BID PO 08/10/24 22:00 08/10/24 11:28 DC Hydralazine HCl (Apresoline Tablet) 25 mg BID PO 08/10/24 22:00 Montelukast Sodium (Singulair Tablet) 10 mg HS PO 08/10/24 22:00 Nitroglycerin (Ntrostat Sublingual) 0.4 mg PRN SL 08/10/24 11:15 08/10/24 11:28 DC Tamsulosin HCl (Flomax) 0.4 mg QPM PO 08/10/24 18:00 Valsartan (Diovan) 80 mg DAILY PO 08/11/24 10:00 Patient Own Medication 2 puff BID INH 08/10/24 22:00 UNV Albuterol (Ventolin Medneb) 2.5 mg Q4HR NEB 08/10/24 14:00 Ipratropium [place] (Atrovent Medneb) 0.5 mg Q4HR NEB 08/10/24 14:00 Methylprednisolone Sodium Succinate (Solu Medrol) 40 mg Q8HR IV 08/10/24 14:00 Ondansetron HCl (Zofran) 4 mg Q4HP PRN IV NAUSEA / VOMITING 08/10/24 11:15 Docusate Sodium (Colace Capsule) 100 mg BIDPRN PRN PO FOR CONSTIPATION 08/10/24 11:15 Enoxaparin Sodium (Lovenox) 40 mg DAILY SC 08/11/24 10:00 Morphine Sulfate 2 mg Q4HPRN PRN IV SEVERE PAIN (7-10 PAIN SCALE) 08/10/24 11:15 Nitroglycerin (Ntrostat Sublingual) 0.4 mg Q5MINP PRN SL FOR CHEST PAIN 08/10/24 11:15 Review of Systems Constitutional: No symptom reported Ears, Nose, & Throat: No symptom reported Eyes: No symptom reported Neurological: No symptoms reported Pulmonary/Respiratory: Shortness of breath Cardiovascular: No symptom reported Gastrointestinal: No symptom reported Genitourinary: No symptom reported Musculoskeletal: No symptom reported Skin: No symptom reported Psychiatric: No symptom reported Endocrine: No symptom reported Hematologic/Lymphatic: No symptom reported Vital Signs Vital Signs Date Time Temp Pulse Resp B/P (MAP) Pulse Ox O2 Delivery O2 Flow Rate FiO2 08/10/24 08:07 97.5 90 24 92/58 (69) 97 97.5 Physical Exam General Appearance: Cooperative. Well-developed. Well-nourished. No acute dist ress. Pulmonary/Respiratory: Clear, bilateral breaths sounds. Cardiovascular/Chest: Regular rate and rhythm. Peripheral Pulses: 2+ Radial (R). 2+ Radial (L). 2+ Pedal (R). 2+ Pedal (L) Abdominal Exam: Normal bowel sounds. Ankle Exam: Negative ankle edema Lower extremities: Negative lower extremity edema Neuro/Mental Status: A/OX4, coherent. Thoughts/Psych: Normal thought pattern. Appropriate mood and affect. Good judgment and insight. Appearance: No acute distress. Skin Exam: Normal inspection. Normal color. Warm and dry. Labs/Diagnostic Data Labs Test 08/10/24 10:16 08/10/24 07:09 Range/Units Troponin I High Sensitivity 894 *H </=54 ng/L White Blood Count 6.1 4.4-10.8 10^3/uL Red Blood Count 4.18 L 4.5-5.90 10^6/uL Hemoglobin 14.0 13.5-17.5 g/dL Hematocrit 40.4 L 41.0-53.0 % Mean Corpuscular Volume 96.6 80.0-100.0 fL Mean Corpuscular Hemoglobin 33.4 H 28.0-32.0 pg Mean Corpuscular Hemoglobin Concent 34.6 32.0-36.0 g/dL Red Cell Distribution Width 13.4 11.8-14.3 % Platelet Count 212 140-450 10^3/uL Mean Platelet Volume 7.3 6.9-10.8 fL Neutrophils (%) (Auto) 76.9 37.0-80.0 % Lymphocytes (%) (Auto) 10.4 10.0-50.0 % Monocytes (%) (Auto) 8.5 0.0-12.0 % Eosinophils (%) (Auto) 3.0 0.0-7.0 % Basophils (%) (Auto) 1.2 0.0-2.0 % Neutrophils # (Auto) 4.7 1.6-8.6 10 ^3/uL Lymphocytes # (Auto) 0.6 0.4-5.4 10 ^3/uL Monocytes # (Auto) 0.5 0-1.3 10 ^3/uL Eosinophils # (Auto) 0.2 0-0.8 10 ^3/uL Basophils # (Auto) 0.1 0-0.2 10 ^3/uL Nucleated Red Blood Cells 0.0 % Sodium Level 131 L 136-145 mmol/L Potassium Level 5.3 H 3.5-5.1 mmol/L Chloride Level 102 98-107 mmol/L Carbon Dioxide Level 25 20-31 mmol/L Anion Gap 4 L 5-15 Blood Urea Nitrogen 9 9-23 mg/dL Creatinine 0.57 L 0.700-1.30 mg/dL Glomerular Filtration Rate Calc 96 >90 mL/min BUN/Creatinine Ratio 15.8 10.0-20.0 Serum Glucose 122 H 74-106 mg/dL Calcium Level 8.9 8.7-10.4 mg/dL B-Type Natriuretic Peptide 50.50 0-100 pg/mL Assessment NSTEMI, rule out coronary artery disease Hypertension Dyslipidemia COPD with home O2 Asthma Hyperkalemia Plan/Recommendation We will continue with following plan/recommendations (Dr. Garcia): * Echocardiogram reveals EF approximately 50% with severe hypokinesis of the mid and distal anteroseptal wall * Stable moderate circumferential pericardial effusion (as seen on previous echocardiogram) * BP control * Lipid lowering agent * Therapeutic Lovenox (already given) * Cardiac surveillance: Notify of any ECG changes Patient seen and examined at bedside with . Given elevated troponin level and echocardiogram findings, the patient may benefit from a coronary angiogram with left heart catheterization. A Danish credit reporter was used via [employer] system (ID: [id number]). The procedure was discussed with the patient full detail including risks and benefits. Risks include but are not limited to bleeding, contrast induced nephropathy, stroke, and even . The patient understands and is agreeable to undergo the procedure. We will schedule the patient at first availability on 08/10/2024. Thank you for allowing us to care for this patient. Please call with any questions or concerns. Critical care time spent: 44 minutes This medical document was created using an electronic medical record system with voice recognition software and computerized dictation system. Although this document has been carefully reviewed, there might still be some phonetic and typographical errors. Occasional wrong-word or ``sound-alike substitutions may have occurred due to the inherent limitations of voice recognition software. These areas are purely typographical due to imperfections of the software programs and do not reflect any compromise in the patient's medical care. Please read the chart carefully and recognize, using context, where these substitutions have occurred. Plan discussed with: Patient NYHA Physical activity limitations: NA Date of Service: Aug 10, 2024 Billing Provider: JOELLEN GARCIA MD Cardiology Common Codes: 16960-[id number] INP/OBS CARE (High) Cardiology Consultation Codes: 74269-[id number] CONSULT <45MIN CHANDNI GARCIA Aug 10, 2024 11:43
[2024-08-10 11:49] LABS: Magnesium 1.9 mg/dL (1.6-2.6)
[2024-08-10 11:51] LABS: Phosphorus 4.1 mg/dL (2.4-5.1)
--- NOTE | 2024-08-10 13:43 | DVHSR ---
APPROVED REPORT EXAM: Two-dimensional and M-mode echocardiogram with Doppler and color Doppler. Blood Pressure: 92/58 mmHg INDICATION Pericardial Effusion RISK FACTORS Height: 5'5", Weight: 150 DIMENSIONS LVDd3.9 (3.8-5.7cm)LA (2D) (1.9-4.0cm)Aortic Root (2.0-3.7cm) LVDs2.9 (2.5-4.0cm)LA (MM) (1.9-4.0cm)Aortic Cusp Exc (1.5-2.0cm) EF (%) 50.0 (55-70%)Rt. Atrium (1.9-4.0cm)Asc. Aorta cm IVSd1.2 (0.7-1.1cm)RV (D) (1.8-2.4cm) Mitral Valve MitralMitral Stenosis E/A ratio0.02D MVAcm2 Tricuspid Valve TR Velocity2.75m/s [id number] LEFT VENTRICLE The left ventricle is of normal size. There is mild left ventricular hypertrophy most prominent in t he septum. Ejection fraction is low normal and is estimated at 50%. There is severe hypokinesis of the mid and distal anteroseptal wall. RIGHT VENTRICLE Right ventricle is of normal size and systolic function. ATRIA The left atrium is mildly dilated in size. Right atrium is of normal size. MITRAL VALVE Normal structure and function. PULMONIC VALVE Not visualized. TRICUSPID VALVE Normal structure and function. There is mild tricuspid regurgitation. AORTIC VALVE The aortic valve leaflets appear to be mildly calcified. No evidence of significant stenosis or regu rgitation. GREAT VESSELS Not well visualized. PERICARDIAL EFFUSION There is moderate circumferential pericardial effusion. IVC is of normal size and collapses normally with inspiration. Other Information Quality : Technically LimitedRhythm : Technically limited study due to body habitus and patient position. Conclusion This is a limited study. Normal left ventricular size with low-normal systolic function. Ejection fraction is estimated at 50%. There is severe hypokinesis of the mid and distal anterior septal wall. This appears to be new sindy red to prior echo. Normal right ventricular size and systolic function. There is stable moderate circumferential pericardial effusion.
[2024-08-10] MEDS: ASPirin 81 mg TAB PO ONE (13:45)
[2024-08-10] MEDS: HEPARIN IN NS 1000Units/500mL 1,500 ML ONE (13:52)
[2024-08-10] MEDS: IOHEXOL 350 MG/ML 100ML IJ ONE (13:52)
[2024-08-10] MEDS: IPRATROPIUM BROM 0.5 MG/2.5ML INH SOL NEB SCH (14:00)
[2024-08-10] MEDS: ALBUTEROL SULF 2.5 MG/0.5ML(0.5%) NEB SOLN NEB SCH (14:00)
[2024-08-10] MEDS: fentaNYL CITRATE 100 MCG/2 ML VL ONE (14:21)
[2024-08-10] MEDS: HEPARIN SODIUM (PORCINE) 5000 UNITS/ML 1ML VIAL ONE (14:21)
[2024-08-10] MEDS: VERAPAMIL 2.5MG/ML INJ 2ML VIAL IV ONE (14:21)
[2024-08-10] MEDS: MIDAZOLAM HCL 2MG/2ML 2ml VIAL (1mg/ml) ONE (14:22)
[2024-08-10] MEDS: LIDOCAINE 2%HCL (LOCAL ANESTH.) INJ 20ML MDV ONE (14:22)
--- NOTE | 2024-08-10 15:21 | DVHOP2 ---
Operative Report - 2 Report Details Date: 08/10/24 Preop Diagnosis: Patient presented with sudden onset shortness of breath. His troponin trended upwards concerning for non ST-elevation myocardial infarction. His echo showed hypokinesis of the mid to distal anteroseptal wall. Postop Diagnosis: 1. Mild nonobstructive coronary artery disease. 2. Normal left ventricular end-diastolic pressure. Surgeon: Joellen Garcia MD Anesthesiologist: Patient was deemed an adequate candidate for conscious sedation. Versed and fentanyl were given during the procedure. He received1 mg of Versed and 25 mcg of fentanyl. I was available throughout the procedure with [id number] monitoring. Anesthesia: Local Consent: The patient was informed of the risks and benefits of the procedure. These include but are not limited to complications of anesthesia, postoperative infection, incomplete relief of symptoms, recurrence of symptoms, damage to blood vessels, nerves and tendons, deep venous thrombosis, pulmonary embolism and possible need for repeat surgery in the future. Estimated Blood Loss: 10 cc Name of Procedure Performed 1. Selective coronary angiography. 2. Left heart catheterization. 3. Ultrasound-guided vascular access. 4. Moderated sedation. Procedure Details Procedure Details: The patient was brought to the mobile lab technician in a stable condition. Patient was found to have normal pulses in the right radial artery. The right wrist area was sterilized and draped in a sterile fashion. The skin was anesthetized using 1% lidocaine. Access in the right radial artery was unsuccessful. We switched to access in the left common femoral artery using ultrasound guidance. Six Australian sheath was placed in the left common femoral artery. At the completion of the procedure hemostasis in the common femoral artery was obtained using an Angio-Seal device, 6 Australian. Findings: Hemodynamics: Aortic pressure was 100/70 mm Hg, LVEDP was 13 mm Hg. There is no significant gradient on LV to aorta pullback. Coronary angiography: The left main coronary artery is a normal caliber bifurcating vessel. It is free of any significant disease. The left anterior descending artery is normal caliber vessel that extends to the apex. It has mild proximal disease. The diagonal branches are with no significant disease. The left circumflex artery is a normal-caliber nondominant vessel. No significant disease. The obtuse marginal branch and left posterolateral branch are with no significant disease. The right coronary artery is a normal caliber and dominant vessel. No significant disease. RPDA and right posterolateral branches are with no significant disease. Impressions: 1. Mild nonobstructive coronary artery disease. 2. Normal LVEDP. 3. Consider takotsubo cardiomyopathy. Plan: 1. Medical therapy for coronary artery disease. Condition Stable Disposition Still a Patient JOELLEN GARCIA MD Aug 10, 2024 15:21
[2024-08-10 17:02] LABS: Urine Bacteria None Seen /hpf (None Seen)
[2024-08-10 17:58] LABS: Urine Blood Negative /uL (Negative); Urine Clarity Clear (Clear); Urine Color Yellow (Yellow); Urine Protein, UAD Negative (Negative); Urine Specific Gravity 1.013 (1.001-1.035); Urine Squamous Epithelial Cell None Seen /hpf (<5); Urine Urobilinogen Normal (Negative); Urine WBC 1 /HPF (0-3); Urine pH 6.5 (5.0-9.0)
[2024-08-10] MEDS: TAMSULOSIN HYDROCHLORIDE 0.4 MG CAP PO SCH (18:06)
[2024-08-10] MEDS: methylPREDNISolone SOD SUCC 40 MG/ML VL IV SCH (18:06)
--- NOTE | 2024-08-10 18:39 | DVHHP2 ---
History of Present Illness Reason for Visit: Shortness of the breath and chest pain History of Present Illness 84-year-old male past medical history asthma COPD CAD gallstones hypertension kidney stones BPH surgical history hernia repair chief complaint patient comes in with shortness of the breath he has been dealing with a since 5:00 a.m. this morning along with some chest pain. When EMS arrived they heard some wheezes so they gave him a treatment aspirin and nitro which improves his symptoms. Patient states he did have a high blood pressure also 180/1 0 seven and he also has a cough no fever. When evaluating patient's labs and imaging looks like Lovenox given and also treatment for hyperkalemia was provided CBC was remarkable sodium was 131 potassium was 5.3 troponin first one was positive chest x-ray was unremarkable BNP was negative. With these findings we will admit we will also ask for Cardiology evaluation since trending troponin Past Medical History See HPI above Past Surgical History See HPI above Family History Reviewed, non-contributory to the management of this case. Past Social History Patient denies drinking smoking or drug use Review of Systems Constitutional: No: Fever, Chills, Sweats, Weakness, Malaise, Other ENT: No: Ear pain, Ear discharge, Nose pain, Nose discharge, Nose congestion, Mouth pain, Mouth swelling, Throat pain, Throat swelling, Other Respiratory: Shortness of breath; No: Cough, Dry, SOB with excertion, Wheezing, Hemoptysis, Pleuritic Pain, Sputum, Wheezing, Other Cardiovascular: Chest Pain; No: Palpitations, Orthopnea, Paroxysmal Noc. Dyspnea, Edema, Lt Headedness, Other Gastrointestinal: No: Nausea, Vomiting, Abdominal Pain, Diarrhea, Constipation, Melena, Hematochezia, Other Genitourinary: No Dysuria, No Frequency, No Incontinence, No Hematuria, No Retention, No Other Musculoskeletal: No: other, neck pain, shoulder pain, arm pain, back pain, hand pain, leg pain, foot pain Skin: No: Rash, Lesions, Jaundice, Bruising, Other Neurological: No: Weakness, Numbness, Incoordination, Change in speech, Confusion, Seizures, Other Allergies: Coded Allergies: NO KNOWN ALLERGIES (Unverified , 11/09/17) Medications Current Medications Medications Dose Ordered Sig/Yeimy Route Start Time Stop Time Status Last Admin Dose Admin Aspirin 81 mg DAILY PO 08/11/24 10:00 Atorvastatin Calcium 20 mg DAILY PO 08/11/24 10:00 Clonidine HCl 0.1 mg Q4HR PRN PO 08/10/24 11:15 Hydralazine HCl 25 mg BID PO 08/10/24 22:00 Montelukast Sodium 10 mg HS PO 08/10/24 22:00 Tamsulosin HCl 0.4 mg QPM PO 08/10/24 18:00 08/10/24 18:06 0.4 MG Valsartan 80 mg DAILY PO 08/11/24 10:00 Patient Own Medication 2 puff BID IN 08/10/24 22:00 Albuterol 2.5 mg Q4HR NEB 08/10/24 14:00 Ipratropium [place] 0.5 mg Q4HR NEB 08/10/24 14:00 Methylprednisolone Sodium Succinate 40 mg Q8HR IV 08/10/24 14:00 Ondansetron HCl 4 mg Q4HP PRN IV 08/10/24 11:15 Docusate Sodium 100 mg BIDPRN PRN PO 08/10/24 11:15 Enoxaparin Sodium 40 mg DAILY SC 08/11/24 10:00 Morphine Sulfate 2 mg Q4HPRN PRN IV 08/10/24 11:15 Nitroglycerin 0.4 mg Q5MINP PRN SL 08/10/24 11:15 Exam Vital Signs Vital Signs Date Time Temp Pulse Resp B/P (MAP) Pulse Ox O2 Delivery O2 Flow Rate FiO2 08/10/24 17:44 98.3 93 18 144/81 (102) 92 98.3 08/10/24 17:31 Room Air* 0 21 General Appearance: Alert, Oriented X3, Cooperative, No acute distress HEENT: Atraumatic, PERRLA, EOMI, Mucous membr. moist/pink Respiratory: Other (Coarse wheezes heard throughout) Cardiovascular: Regular rate, Normal S1, Normal S2, No murmurs Abdominal: Normal bowel sounds, Soft, No tenderness, No hepatospenomegaly, No masses Extremities: No clubbing, No cyanosis, No edema, Normal pulses, No tenderness/swelling Skin: No rashes, No breakdown, No significant lesion Neuro: Normal speech, Strength at 5/5 X4 ext, Normal tone, Sensation intact, Cranial nerves 3-12 NL Psych/Mental Status: Mental status NL, Mood NL Labs/Xrays Chest x-ray unremarkable I reviewed labs, imaging CT scan abdomen pelvis, EKG and all diagnostic studies on this patient from ED records and the medical chart Labs Test 08/10/24 11:09 08/10/24 10:16 08/10/24 07:09 Range/Units Urine Color Yellow Yellow Urine Clarity Clear Clear Urine pH 6.5 5.0-9.0 Urine Specific [place] 1.013 1.001-1.035 Urine Protein Negative Negative Urine Ketones Negative Negative Urine Blood Negative Negative /uL Urine Nitrite Negative Negative Urine Bilirubin Negative Negative Urine Urobilinogen Normal Negative mg/dL Urine Leukocyte Esterase Negative Negative /uL Urine RBC 1 0 - 3 /hpf Urine Microscopic WBC 1 0-3 /HPF Urine Squamous Epithelial Cells None seen <5 /hpf Urine Bacteria None seen None Seen /hpf Urine Glucose Normal Normal mg/dL Troponin I High Sensitivity 894 *H </=54 ng/L White Blood Count 6.1 4.4-10.8 10^3/uL Red Blood Count 4.18 L 4.5-5.90 10^6/uL Hemoglobin 14.0 13.5-17.5 g/dL Hematocrit 40.4 L 41.0-53.0 % Mean Corpuscular Volume 96.6 80.0-100.0 fL Mean Corpuscular Hemoglobin 33.4 H 28.0-32.0 pg Mean Corpuscular Hemoglobin Concent 34.6 32.0-36.0 g/dL Red Cell Distribution Width 13.4 11.8-14.3 % Platelet Count 212 140-450 10^3/uL Mean Platelet Volume 7.3 6.9-10.8 fL Neutrophils (%) (Auto) 76.9 37.0-80.0 % Lymphocytes (%) (Auto) 10.4 10.0-50.0 % Monocytes (%) (Auto) 8.5 0.0-12.0 % Eosinophils (%) (Auto) 3.0 0.0-7.0 % Basophils (%) (Auto) 1.2 0.0-2.0 % Neutrophils # (Auto) 4.7 1.6-8.6 10 ^3/uL Lymphocytes # (Auto) 0.6 0.4-5.4 10 ^3/uL Monocytes # (Auto) 0.5 0-1.3 10 ^3/uL Eosinophils # (Auto) 0.2 0-0.8 10 ^3/uL Basophils # (Auto) 0.1 0-0.2 10 ^3/uL Nucleated Red Blood Cells 0.0 % Sodium Level 131 L 136-145 mmol/L Potassium Level 5.3 H 3.5-5.1 mmol/L Chloride Level 102 98-107 mmol/L Carbon Dioxide Level 25 20-31 mmol/L Anion Gap 4 L 5-15 Blood Urea Nitrogen 9 9-23 mg/dL Creatinine 0.57 L 0.700-1.30 mg/dL Glomerular Filtration Rate Calc 96 >90 mL/min BUN/Creatinine Ratio 15.8 10.0-20.0 Serum Glucose 122 H 74-106 mg/dL Calcium Level 8.9 8.7-10.4 mg/dL Phosphorus Level 4.1 2.4-5.1 mg/dL Magnesium Level 1.9 1.6-2.6 mg/dL B-Type Natriuretic Peptide 50.50 0-100 pg/mL Assessment/Plan Assessment/Plan acute copd/asthma exacerbation cxr normal albuterol/atrovent Oxygen as needed keep sats greater than 92% Ordered solumedrol COVID-negative follow-up influenza fu abg consider abg if worsening sob ordered ddimer fu results Acute elevation in trop eval for nstemi with history of CAD ekg no stemi trop x3 elevated ordered cards consult fu recs ordered inr ordered ddimer fu results ordered lovenox for now until pe ruled out ordered asa ordered talita ordered o2 to keep sats >92% Echo completed July 21, 2024 EF was 60% acute hyperkalemia pt recieved hyperkalemia treatment in er ordered mag and phos fu results fu repeat k chronic problems Asthma CAD Gallstones Hypertension BPH monitor for urinary retention fen/ppx PUD prophylaxis Protonix while receiving steroids lovenox cardiac diet hl plan admit to tele cards consults Plan discussed with: Patient My Orders Orders - DARIN GILLESPIE DNP Procedure Category Date Status Time * Cardiology Consult CONS 08/10/24 Transmitted 10:20 Aspirin Enteric PHA 08/11/24 In Process Coated Tablet 10:00 Atorvastatin (Lipitor) PHA 08/11/24 In Process 10:00 Clonidine Hcl Tablet PHA 08/10/24 In Process (Catapres Tablet) 11:15 Hydralazine Hcl PHA 08/10/24 In Process Tablet (Apresoline 22:00 Montelukast Tablet PHA 08/10/24 In Process (Singulair Tablet) 22:00 Tamsulosin PHA 08/10/24 In Process Hydrochloride (Flomax) 18:00 Valsartan (Diovan) PHA 08/11/24 In Process 10:00 (NF) PHA 08/10/24 In Process Eamhklshte-Xyljcxpsoethnw-Mkoz 22:00 Albuterol Medneb PHA 08/10/24 In Process (Ventolin Medneb) 14:00 Ipratropium Medneb PHA 08/10/24 In Process (Atrovent Medneb) 14:00 Methylprednisolone PHA 08/10/24 In Process Sod Succ (Solu Medrol 14:00 Admit ADMIT 08/10/24 Transmitted 11:09 Allergies NUPUR 08/10/24 In Process 11:09 Code Status CODE 08/10/24 Transmitted 11:09 Oxygen Per Hour RT 08/10/24 Transmitted 11:09 Ondansetron Hcl PHA 08/10/24 In Process (Zofran) 11:15 Docusate Sodium PHA 08/10/24 In Process Capsule (Colace 11:15 Enoxaparin Sodium PHA 08/11/24 In Process (Lovenox) 10:00 Complete Blood Count LAB 08/11/24 Verified 04:00 Comprehensive LAB 08/11/24 Verified Metabolic Panel 04:00 Cardiac DIET 08/10/24 Transmitted Diet-2gna,Lofat,Lochol Lunch Condition: Stable NUPUR 08/10/24 In Process 11:09 BRP NUPUR 08/10/24 In Process 11:09 Morphine Sulfate PHA 08/10/24 In Process Injection 11:15 Sequential NUPUR 08/10/24 In Process Compression Device Nitroglycerin PHA 08/10/24 In Process Sublingual (Ntrostat 11:15 Stat Ekg For Chest NUPUR 08/10/24 In Process Pain 11:09 Notify Of Changes NUPUR 08/10/24 In Process From Base 11:09 Anger Control Counselor For NUPUR 08/10/24 In Process 24 Hours 11:09 Emergency Dysrhythmia NUPUR 08/10/24 In Process Protocol 11:09 Rhythm Strips Once NUPUR 08/10/24 In Process Every Shift 11:09 Oxygen By Nasal RT 08/10/24 Transmitted Cannula 11:09 Date of Service: Aug 10, 2024 Billing Provider: DARIN GILLESPIE DNP Common Visit Codes: [id number] INP/OBS CARE (HIGH) DARIN GILLESPIE DNP Aug 10, 2024 18:39
[2024-08-10 19:20] LABS: Potassium 4.6 mmol/L (3.5-5.1)
[2024-08-10 19:25] LABS: INR 1.03 (0.9-1.15); Prothrombin Time 10.9 sec (9.3-11.8)
[2024-08-10 19:26] LABS: Magnesium 1.9 mg/dL (1.6-2.6)
[2024-08-10 19:28] LABS: Phosphorus 3.9 mg/dL (2.4-5.1)
[2024-08-10] MEDS: MONTELUKAST SODIUM 10 MG TAB PO SCH (21:33)
[2024-08-10] MEDS: hydrALAZINE HCL 25 MG TAB PO SCH (21:34)
[2024-08-10] MEDS: [UNRECOGNIZED DRUG - OTHER] IN SCH (22:00)
[2024-08-10] MEDS ORDERED: DOCUSATE SOD 100 MG CAP PO SCH (22:00)
[2024-08-10] MEDS: BUDESONIDE GLYCOPYRROLATE FORM IN SCH (22:00)
[2024-08-11] VITALS (19 sets, daily range): BP systolic 89–111; BP diastolic 50–63; PULSE 74–98; RESP 16–18; TEMP 97.4–98.1; O2SAT 91–99
[2024-08-11] MEDS: PANTOPRAZOLE 40 MG/10 ML VIAL INJ IV SCH (05:30)
--- NOTE | 2024-08-11 07:01 | ECG ---
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
[2024-08-11 07:57] LABS: Alanine Aminotransferase 30 U/L (7-40); Albumin 3.6 g/dL (3.2-4.8); Alkaline Phosphatase 88 U/L (46-116); Anion Gap 5 (5-15); Aspartate Aminotransferase 34 U/L (13-40); BUN/Creatinine Ratio 23.9 (10.0-20.0); Bilirubin, Total 0.9 mg/dL (0.2-1.0); Blood Urea Nitrogen 17 mg/dL (9-23); Calcium 9.2 mg/dL (8.7-10.4); Carbon Dioxide 23 mmol/L (20-31); Chloride 102 mmol/L (98-107); Potassium 4.5 mmol/L (3.5-5.1); Total Protein 5.8 g/dL (5.7-8.2)
[2024-08-11 08:02] LABS: Glucose 116 mg/dL (74-106); Sodium 130 mmol/L (136-145)
[2024-08-11] MEDS: VALSARTAN 80 MG TAB PO SCH (10:00)
[2024-08-11] MEDS: ENOXAPARIN SOD 40 MG/0.4 ML SYRINGE SC SCH (10:18)
[2024-08-11] MEDS: ATORVASTATIN 20 MG TAB PO SCH ×2 (10:18→21:48)
[2024-08-11] MEDS: ASPirin-EC 81 mg tab PO SCH (10:18)
[2024-08-11 10:30] LABS: Basophils # (auto) 0 10 ^3/uL (0-0.2); Basophils % (auto) 0.1 % (0.0-2.0); Eosinophils # (auto) 0 10 ^3/uL (0-0.8); Hematocrit 42.9 % (41.0-53.0); Hemoglobin 14.4 g/dL (13.5-17.5); Lymphocytes # (auto) 0.9 10 ^3/uL (0.4-5.4); Lymphocytes % (auto) 9.4 % (10.0-50.0); Mean Corpuscular Hemoglobin 32.8 pg (28.0-32.0); Mean Corpuscular Hgb Conc. 33.5 g/dL (32.0-36.0); Monocytes # (auto) 0.2 10 ^3/uL (0-1.3); Monocytes % (auto) 2.1 % (0.0-12.0); Neutrophils # (auto) 8.7 10 ^3/uL (1.6-8.6); Neutrophils % (auto) 88.4 % (37.0-80.0); Platelet Count (auto) 216 10^3/uL (140-450); Red Blood Cells 4.37 10^6/uL (4.5-5.90); Red Cell Distribution Width 13.5 % (11.8-14.3); White Blood Cell 9.8 10^3/uL (4.4-10.8)
--- NOTE | 2024-08-11 11:18 | DVHPN2 ---
Consult Progress Note Subjective Patient reports: Feels better Other Systems: Denies any cardiac symptoms. Objective vital signs Vital Sign Date Time Temp Pulse Resp B/P (MAP) Pulse Ox O2 Delivery O2 Flow Rate FiO2 08/11/24 10:37 78 18 98 08/11/24 10:00 Nasal Cannula* 2 28 08/11/24 05:00 98.0 93/54 (67) 98.0 Total Intake and Output 08/10/24 08/10/24 08/11/24 15:00 23:00 07:00 Intake Total 220 ml 200 ml Balance 220 ml 200 ml medications Current Medications Medications Dose Ordered Sig/Yeimy Route Start Time Stop Time Status Last Admin Dose Admin Aspirin 81 mg DAILY PO 08/11/24 10:00 08/11/24 10:18 81 MG Atorvastatin Calcium 20 mg DAILY PO 08/11/24 10:00 08/11/24 10:18 20 MG Clonidine HCl 0.1 mg Q4HR PRN PO 08/10/24 11:15 Hydralazine HCl 25 mg BID PO 08/10/24 22:00 08/10/24 21:34 25 MG Montelukast Sodium 10 mg HS PO 08/10/24 22:00 08/10/24 21:33 10 MG Tamsulosin HCl 0.4 mg QPM PO 08/10/24 18:00 08/10/24 18:06 0.4 MG Valsartan 80 mg DAILY PO 08/11/24 10:00 Patient Own Medication 2 puff BID IN 08/10/24 22:00 Albuterol 2.5 mg Q4HR NEB 08/10/24 14:00 08/11/24 10:31 2.5 MG Ipratropium [place] 0.5 mg Q4HR NEB 08/10/24 14:00 08/11/24 10:31 0.5 MG Methylprednisolone Sodium Succinate 40 mg Q8HR IV 08/10/24 14:00 08/11/24 05:30 40 MG Ondansetron HCl 4 mg Q4HP PRN IV 08/10/24 11:15 Docusate Sodium 100 mg BIDPRN PRN PO 08/10/24 11:15 Enoxaparin Sodium 40 mg DAILY SC 08/11/24 10:00 08/11/24 10:18 40 MG Morphine Sulfate 2 mg Q4HPRN PRN IV 08/10/24 11:15 Nitroglycerin 0.4 mg Q5MINP PRN SL 08/10/24 11:15 Pantoprazole Sodium 40 mg DAILY@0630 IV 08/11/24 06:30 08/11/24 05:30 40 MG Examination: GENERAL:Normal, LUNGS:Normal, CVS:Normal, NEURO:Normal laboratory and microbiology Laboratory Tests 08/11/24 10:07 08/11/24 06:57 Test 08/11/24 06:57 Range/Units Serum Glucose 116 H 74-106 mg/dL Problem List/Assessment/Plan Problem List/Assessment/Plan NSTEMI with mild nonobstructive coronary artery disease ?Takotsubo cardiomyopathy Hypertension Dyslipidemia Moderate stable pericardial effusion COPD with home O2 dependence Asthma Hyperkalemia, resolved Plan/Recommendation We will continue with following plan/recommendations (Dr. Garcia): * Echocardiogram reveals EF approximately 50% with severe hypokinesis of the mid and distal anteroseptal wall * Stable moderate circumferential pericardial effusion (as seen on previous echocardiogram) * BP control * Lipid lowering agent * Cardiac surveillance: Notify of any ECG changes Patient seen and examined at bedside with . The patient underwent a coronary angiogram with left heart catheterization on 08/10/24 which revealed mild nonobstructive coronary artery disease. There is no further inpatient cardiac workup indicated at this time. The patient should follow up with his primary senior software developer in the outpatient setting within 1-2 weeks post discharge. Thank you for allowing us to care for this patient. Please call with any questions or concerns. This medical document was created using an electronic medical record system with voice recognition software and computerized dictation system. Although this document has been carefully reviewed, there might still be some phonetic and typographical errors. Occasional wrong-word or ``sound-alike substitutions may have occurred due to the inherent limitations of voice recognition software. These areas are purely typographical due to imperfections of the software programs and do not reflect any compromise in the patient's medical care. Please read the chart carefully and recognize, using context, where these substitutions have occurred. Plan discussed with: Patient Date of Service: Aug 11, 2024 Billing Provider: JOELLEN GARCIA MD Common Visit Codes: [id number] INP/OBS CARE(HIGH) CHANDNI GARCIA CUT AND COVER LINE WORKER Aug 11, 2024 11:18
[2024-08-11] MEDS ORDERED: SENNA 8.6 MG TAB PO PRN (11:30)
[2024-08-11] MEDS: cefTRIAXone 1GM/50ML D5W 50 ML IV ONE (11:45)
--- NOTE | 2024-08-11 14:13 | DVHPNRES ---
Progress Note Date Seen: Aug 11, 2024 Resident Creating Document: MADELINJRADHA RojasZENA RESIDENT Medical Necessity Reason Pt with a Central, PICC or Fol: No Subjective Review of Systems Patient is a 84-year-old male with a past medical history of COPD, BPH, hypertension, chronic kidney disease came to the ED with a chief complaint of worsening shortness of breath since 5:00 a.m. yesterday morning. Patient at home is on 2 L oxygen and experienced worsening shortness of breath since early in the morning on the day of admission. He reports his blood pressure was elevated in the morning reason has a has 180's SBP. Had associated chest pain medication which was a pressure-like sensation, nonradiating. Patient denied recent flu- like illness and symptoms of cough, congestion, fever, chills chest pain, dizziness, palpitations. Chest x-ray showed hyperinflation of the lungs without any opacifications. Patient has had multiple admissions in the hospital for COPD exacerbation. On admission patient had elevated blood pressure and troponins were elevated in the 600-900. ECG reviewed showed no acute ST segment or T-wave changes. Past medical history: COPD, BPH, hypertension, kidney disease Past surgical history: cystoscopy with thulium laser lithopexy, hernia repair Social history: Patient has a history of 50 pack year smoking history, claims to be off smoking since 2 years, no alcohol, no drug use. Home medications: Valsartan 80 mg, aspirin 81 mg, montelukast 10 mg, tamsulosin 0.4 mg, Rosuvstatin [address] Meyers Review of systems Patient was seen and examined at the bedside status post left heart catheterization. Denied current chest pain, shortness of breath on 2 L oxygen, no cough. Patient reports feeling better than when he came in. Objective vital signs Vital Sign Date Time Temp Pulse Resp B/P (MAP) Pulse Ox O2 Delivery O2 Flow Rate FiO2 08/11/24 10:37 78 18 98 08/11/24 10:00 Nasal Cannula* 2 28 08/11/24 05:00 98.0 93/54 (67) 98.0 Total Intake and Output 08/10/24 08/10/24 08/11/24 15:00 23:00 07:00 Intake Total 220 ml 200 ml Balance 220 ml 200 ml medications Current Medications Medications Dose Ordered Sig/Yeimy Route Start Time Stop Time Status Last Admin Dose Admin Aspirin 81 mg DAILY PO 08/11/24 10:00 08/11/24 10:18 81 MG Atorvastatin Calcium 20 mg DAILY PO 08/11/24 10:00 08/11/24 10:18 20 MG Hydralazine HCl 25 mg BID PO 08/10/24 22:00 08/10/24 21:34 25 MG Montelukast Sodium 10 mg HS PO 08/10/24 22:00 08/10/24 21:33 10 MG Tamsulosin HCl 0.4 mg QPM PO 08/10/24 18:00 08/10/24 18:06 0.4 MG Valsartan 80 mg DAILY PO 08/11/24 10:00 Patient Own Medication 2 puff BID IN 08/10/24 22:00 Albuterol 2.5 mg Q4HR NEB 08/10/24 14:00 08/11/24 10:31 2.5 MG Ipratropium [place] 0.5 mg Q4HR NEB 08/10/24 14:00 08/11/24 10:31 0.5 MG Ondansetron HCl 4 mg Q4HP PRN IV 08/10/24 11:15 Docusate Sodium 100 mg BIDPRN PRN PO 08/10/24 11:15 Enoxaparin Sodium 40 mg DAILY SC 08/11/24 10:00 08/11/24 10:18 40 MG Pantoprazole Sodium 40 mg DAILY@0630 IV 08/11/24 06:30 08/11/24 05:30 40 MG Methylprednisolone Sodium Succinate 40 mg BID IV 08/11/24 22:00 Sennosides 17.2 mg DAILYP PRN PO 08/11/24 11:30 Examination Physical Examination Constitutional: Patient is a Thai speaking gentleman and is alert and oriented to time, place and person does not appear to be in acute respiratory distress Gen - no pallor, no icterus, no cyanosis, no clubbing, no LAD, no edema . Skin - Patients skin is warm and dry. HEENT - normocephalic, atraumatic, moist mucous membranes. Neck - full ROM, no LAD, no JVD Pulmonary - B/L diminished breath sounds, no wheezing, no crackles cardiovascular - normal S1,S2 heard. no murmurs heard. GI - soft abdomen without tenderness to palpation . no hepatospleenomegaly. Bowel sounds normoactive Neurological - Bilateral upper extremity strength 4/5, bilateral lower extremity strength 4/5, no facial droop, normal speech, no tremor, no sensory deficiets. laboratory and microbiology Laboratory Tests 08/11/24 10:07 08/11/24 06:57 Test 08/11/24 06:57 Range/Units Serum Glucose 116 H 74-106 mg/dL Problem List/Assessment/Plan Problem List/Assessment/Plan Assessment # Acute on chronic hypoxic respiratory failure # COPD exacerbation # NSTEMI likely type 2 # nonobstructive coronary artery disease # chronic Heart failure with preserved EF # uncontrolled hypertension # PE unlikely # BPH - Chest x-ray shows hyperinflated lungs - troponins trended 675->894 - selective coronary angiography, left heart catheterization revealed Impressions: 1. Mild nonobstructive coronary artery disease. 2. Normal LVEDP. 3. Consider takotsubo cardiomyopathy. - Echo showed LVEF 50%, severe hypokinesis with a in the distal anterior septal wall, stable moderate circumferential pericardial effusion Plan - on oxygen 2 liters/minute - on albuterol 2.5 and ipratropium 0.5 q.6 hours - methylprednisolone 40 mg b.i.d. IV - ceftriaxone 1 g IV daily - tamsulosin 0.4 mg daily - valsartan 80 mg daily, hydralazine 25 mg b.i.d. for hypertension - aspirin 81 mg q.d. - atorvastatin 40 mg q.h.s. - Colace and senna for constipation. Pud prophylaxis: Protonix 40 mg q.d. DVT prophylaxis: Enoxaparin 40 mg sc q.d. Goals of care discussed with the patient and daughter for over 27 minutes. Full code Plan discussed with Dr. Jain Plan discussed with: Patient, Daughter My Orders My Orders Orders - PERICO LEONE RESIDENT Procedure Category Date Status Time Covid19 Antigen Kathryn LAB 08/11/24 Logged Rapid Influenza A&B LAB 08/11/24 Logged 08:56 Methylprednisolone PHA 08/11/24 In Process Sod Succ (Solu Medrol 22:00 Senna Pod Tablet PHA 08/11/24 In Process (Senokot Tablet) 11:30 Date of Service: Aug 11, 2024 Billing Provider: PURVI JAIN MD Common Visit Codes: [id number] INP/OBS CARE(HIGH) PERICO LEONE RESIDENT Aug 11, 2024 14:13 PURVI JAIN MD Aug 11, 2024 23:47
[2024-08-11 15:55] LABS: COVID19 ANTIGEN SOFIA FIA NEGATIVE (NEGATIVE); Rapid Influenza A Negative (Negative); Rapid Influenza B Negative (Negative)
[2024-08-11] MEDS: ALBUTEROL SULF 2.5 MG/0.5ML(0.5%) NEB SOLN NEB SCH (19:37)
[2024-08-11] MEDS: IPRATROPIUM BROM 0.5 MG/2.5ML INH SOL NEB SCH (19:37)
[2024-08-11] MEDS: methylPREDNISolone SOD SUCC 40 MG/ML VL IV SCH (21:47)
[2024-08-12] VITALS (13 sets, daily range): BP systolic 110–124; BP diastolic 46–69; PULSE 60–98; RESP 16–20; TEMP 97.3–97.9; O2SAT 91–98
[2024-08-12] MEDS: PANTOPRAZOLE 40 MG TAB PO SCH (06:20)
[2024-08-12 07:45] LABS: Basophils # (auto) 0 10 ^3/uL (0-0.2); Eosinophils # (auto) 0 10 ^3/uL (0-0.8); Hematocrit 38.1 % (41.0-53.0); Lymphocytes # (auto) 1.1 10 ^3/uL (0.4-5.4); Lymphocytes % (auto) 14.8 % (10.0-50.0); Mean Corpuscular Hgb Conc. 34.2 g/dL (32.0-36.0); Mean Corpuscular Volume 96.7 fL (80.0-100.0); Monocytes # (auto) 0.3 10 ^3/uL (0-1.3); Monocytes % (auto) 4.2 % (0.0-12.0); Neutrophils # (auto) 6.1 10 ^3/uL (1.6-8.6); Platelet Count (auto) 193 10^3/uL (140-450); Red Blood Cells 3.94 10^6/uL (4.5-5.90); Red Cell Distribution Width 13.8 % (11.8-14.3); White Blood Cell 7.6 10^3/uL (4.4-10.8)
[2024-08-12 07:52] LABS: Anion Gap 5 (5-15); Carbon Dioxide 27 mmol/L (20-31); Chloride 99 mmol/L (98-107); Potassium 4.5 mmol/L (3.5-5.1)
[2024-08-12 07:54] LABS: Calcium 8.9 mg/dL (8.7-10.4)
[2024-08-12 07:58] LABS: BUN/Creatinine Ratio 27.7 (10.0-20.0); Blood Urea Nitrogen 18 mg/dL (9-23)
[2024-08-12 08:08] LABS: Glucose 114 mg/dL (74-106); Sodium 131 mmol/L (136-145)
--- NOTE | 2024-08-12 16:18 | DVHDS2 ---
Discharge Summary Date of Admission Aug 10, 2024 at 11:09 Date of Discharge: Aug 12, 2024 Admitting Diagnosis # Acute on chronic hypoxic respiratory failure # COPD exacerbation # NSTEMI likely type 2 # nonobstructive coronary artery disease # chronic Heart failure with preserved EF # uncontrolled hypertension # PE unlikely # BPH Labs/Diagnostic Data: Laboratory Results Test 08/12/24 06:58 08/11/24 11:47 08/11/24 06:57 08/10/24 18:42 White Blood Count 7.6 10^3/uL (4.4-10.8) Red Blood Count 3.94 10^6/uL (4.5-5.90) Hemoglobin 13.0 g/dL (13.5-17.5) Hematocrit 38.1 % (41.0-53.0) Mean Corpuscular Volume 96.7 fL (80.0-100.0) Mean Corpuscular Hemoglobin 33.0 pg (28.0-32.0) Mean Corpuscular Hemoglobin Concent 34.2 g/dL (32.0-36.0) Red Cell Distribution Width 13.8 % (11.8-14.3) Platelet Count 193 10^3/uL (140-450) Mean Platelet Volume 7.8 fL (6.9-10.8) Neutrophils (%) (Auto) 81.0 % (37.0-80.0) Lymphocytes (%) (Auto) 14.8 % (10.0-50.0) Monocytes (%) (Auto) 4.2 % (0.0-12.0) Eosinophils (%) (Auto) 0.0 % (0.0-7.0) Basophils (%) (Auto) 0.0 % (0.0-2.0) Neutrophils # (Auto) 6.1 10 ^3/uL (1.6-8.6) Lymphocytes # (Auto) 1.1 10 ^3/uL (0.4-5.4) Monocytes # (Auto) 0.3 10 ^3/uL (0-1.3) Eosinophils # (Auto) 0 10 ^3/uL (0-0.8) Basophils # (Auto) 0 10 ^3/uL (0-0.2) Nucleated Red Blood Cells 0.0 % Sodium Level 131 mmol/L (136-145) Potassium Level 4.5 mmol/L (3.5-5.1) Chloride Level 99 mmol/L (98-107) Carbon Dioxide Level 27 mmol/L (20-31) Anion Gap 5 (5-15) Blood Urea Nitrogen 18 mg/dL (9-23) Creatinine 0.65 mg/dL (0.700-1.30) Glomerular Filtration Rate Calc 92 mL/min (>90) BUN/Creatinine Ratio 27.7 (10.0-20.0) Serum Glucose 114 mg/dL (74-106) Calcium Level 8.9 mg/dL (8.7-10.4) Influenza Type A Antigen Negative (Negative) Influenza Type B Antigen Negative (Negative) SARS-CoV-2 Antigen (Rapid) Negative (NEGATIVE) Total Bilirubin 0.9 mg/dL (0.2-1.0) Aspartate Amino Transferase (AST) 34 U/L (13-40) Alanine Aminotransferase (ALT) 30 U/L (7-40) Alkaline Phosphatase 88 U/L (46-116) Total Protein 5.8 g/dL (5.7-8.2) Albumin 3.6 g/dL (3.2-4.8) Prothrombin Time 10.9 sec (9.3-11.8) Prothrombin Time INR 1.03 (0.9-1.15) D-Dimer, Quantitative 0.86 mg/L FEU (0.0-0.49) Phosphorus Level 3.9 mg/dL (2.4-5.1) Magnesium Level 1.9 mg/dL (1.6-2.6) Test 08/10/24 11:09 08/10/24 10:16 08/10/24 07:09 Urine Color Yellow (Yellow) Urine Clarity Clear (Clear) Urine pH 6.5 (5.0-9.0) Urine Specific Rawson 1.013 (1.001-1.035) Urine Protein Negative (Negative) Urine Ketones Negative (Negative) Urine Blood Negative /uL (Negative) Urine Nitrite Negative (Negative) Urine Bilirubin Negative (Negative) Urine Urobilinogen Normal mg/dL (Negative) Urine Leukocyte Esterase Negative /uL (Negative) Urine RBC 1 /hpf (0 - 3) Urine Microscopic WBC 1 /HPF (0-3) Urine Squamous Epithelial Cells None seen /hpf (<5) Urine Bacteria None seen /hpf (None Seen) Urine Glucose Normal mg/dL (Normal) Troponin I High Sensitivity 894 ng/L (</=54) B-Type Natriuretic Peptide 50.50 pg/mL (0-100) Other Laboratory Tests 08/12/24 06:58 Brief Hx & Hospital Course: This is a 84 years old male with past medical history of asthma, COPD, coronary artery disease, hypertension, benign prostate hypertrophy, cholelithiasis, kidney stone, come to emergency department because of shortness a breath. When EMS came to his house he was wheezing and his blood pressure was 180/107. The patient was admitted. The patient was treated with IV antibiotic Rocephin 1 g IV q.day and Zithromax 500 mg IV q.day. the patient was given Solu-Medrol IV. The patient was given DuoNeb p.r.n. today the patient doing better. No shortness a breath. Saturation oxygen stable. Blood pressure back to his baseline. I am going to discharge him home. Advised the patient to follow up with primary care physician 1-2 weeks. Follow up with clinical biochemist per schedule. Activity as tolerated. Diet per home diet Physical exam: HEENT: Normocephalic atraumatic pupils equal react to light and accommodation. Extraocular muscles intact, conjunctiva pink, oropharynx moist, no thrush, no exudate. Lymphatic: No lymphadenopathy Cardiovascular exam: S1, S2 was heard. No murmurs, rubs, gallops Lung: Clear on auscultation bilaterally, no wheeze, rale, rhonchi. GI: Abdominal soft, nondistended, nontenderness, positive bowel sounds. Extremity: No crepitus, cyanosis, edema. Pedal pulses present bilateral. Full range of motion. Skin: Normal turgor, no rash. Psych: Alert, oriented x3. Neurology: No focal deficits, cranial nerve II to XII grossly intact. This medical document was created using an electronic medical record system with [employer] direct computerized dictation system. Although this document has been carefully reviewed, there may still be some phonetic and typographical errors. These areas are purely typographical due to imperfections of the software programs, and do not reflect any compromise in the patient's medical care. Condition at Discharge: Stable Final Diagnosis/Problems List # Acute on chronic hypoxic respiratory failure # COPD exacerbation # NSTEMI likely type 2 # nonobstructive coronary artery disease # chronic Heart failure with preserved EF # uncontrolled hypertension # PE unlikely # BPH Discharge Disposition: Still a Patient Discharge Statement: "Patient was advised to return to the ER or call 911 if any headaches, dizziness, shortness of breath, chest pain, abdominal pain, bleeding, fevers, or worsening of medical condition. Patient was counseled about treatment plan, medications, possible side effects, patientverbalized understanding. All questions were answered to the best of my ability. This discharge took greater then 30 minutes in planning, reviewing documentation, counseling the patient, and discussing with other team members." ASSESSMENT ASSESSMENT Assessment 1. Mild nonobstructive coronary artery disease. 2. Normal left ventricular end-diastolic pressure. Date of Service: Aug 12, 2024 Billing Provider: PURVI JAIN MD Common Visit Codes: 60311-VII/OBS DISCH DAY >30min PURVI JAIN MD Aug 12, 2024 16:18
[2024-08-12] MEDS ORDERED: METH4PAK PO (16:19)
[2024-08-12] MEDS ORDERED: AZIT-185 PO ×2 (16:19→16:22)
== END 2024-08-12 18:15 | disposition home or self-care (01) | DRG 280 ==
LOC: ER 06:36 → EDBD 06:36 → EDUNIT# 06:36 → TELE 11:09 → TELE-EAST 17:30
PROVIDERS: ADMIT Nurse Practitioner Family; ATTEND Nurse Practitioner Family
PROC: 4A023N7 Measurement of Cardiac Sampling and Pressure, Left Heart, Percutaneous Approach (ICD-10-PCS; principal; 2024-08-10)
PROC: B211YZZ Fluoroscopy of Multiple Coronary Arteries using Other Contrast (ICD-10-PCS; 2024-08-10)
DX: I25.10 Atherosclerotic heart disease of native coronary artery without angina pectoris (principal); J96.21 Acute and chronic respiratory failure with hypoxia; I21.A1 Myocardial infarction type 2; J44.1 Chronic obstructive pulmonary disease with (acute) exacerbation; J45.901 Unspecified asthma with (acute) exacerbation; I31.39 Other pericardial effusion (noninflammatory); I13.0 Hypertensive heart and chronic kidney disease with heart failure and stage 1 through stage 4 chronic kidney disease, or unspecified chronic kidney disease; I50.32 Chronic diastolic (congestive) heart failure; E87.5 Hyperkalemia; Z20.822 Contact with and (suspected) exposure to COVID-19; E78.5 Hyperlipidemia, unspecified; F17.210 Nicotine dependence, cigarettes, uncomplicated; N40.0 Benign prostatic hyperplasia without lower urinary tract symptoms; N18.9 Chronic kidney disease, unspecified; Z87.442 Personal history of urinary calculi; Z98.61 Coronary angioplasty status; Z83.3 Family history of diabetes mellitus; Z99.81 Dependence on supplemental oxygen
CPT/HCPCS: 36415; 71045; 80048; 80053; 81001; 83735; 83880; 84100; 84132; 84484; 85025; 85379; 85610; 87081; 87426; 87804; 93005; 93306; 93458; 94640; 96365; 96375; 99152; 99291; 99292; C1894; G0378; J2250; J2470

== ENCOUNTER → 2024-11-06 | Outpatient (CLI) | payer MEDICARE ==
[~2024-11-06] MED LIST changes: +AZIT-185 PO; +METH4PAK PO
[2024-11-06 06:34] LABS: Basophils # (auto) 0 10 ^3/uL (0-0.2); Basophils % (auto) 0.4 % (0.0-2.0); Eosinophils # (auto) 0 10 ^3/uL (0-0.8); Eosinophils % (auto) 0.3 % (0.0-7.0); Hematocrit 43.5 % (41.0-53.0); Lymphocytes # (auto) 1.5 10 ^3/uL (0.4-5.4); Lymphocytes % (auto) 28.6 % (10.0-50.0); Mean Corpuscular Hemoglobin 33.9 pg (28.0-32.0); Mean Corpuscular Hgb Conc. 34.5 g/dL (32.0-36.0); Mean Corpuscular Volume 98.2 fL (80.0-100.0); Monocytes # (auto) 0.4 10 ^3/uL (0-1.3); Monocytes % (auto) 7.1 % (0.0-12.0); Neutrophils # (auto) 3.2 10 ^3/uL (1.6-8.6); Neutrophils % (auto) 63.6 % (37.0-80.0); Nucleated Red Blood Cells % 0.1 %; Platelet Count (auto) 256 10^3/uL (140-450); Red Blood Cells 4.43 10^6/uL (4.5-5.90); White Blood Cell 5.1 10^3/uL (4.4-10.8)
[2024-11-06 06:56] LABS: Triglycerides 59 mg/dL (< 150)
[2024-11-06 06:57] LABS: LDL Cholesterol 48 mg/dL (< 100)
[2024-11-06 06:58] LABS: Cholesterol 104 mg/dL (< 200); HDL Cholesterol 43 mg/dL (40-59)
[2024-11-06 07:35] LABS: Creatinine, Urine 103.54 mg/dL (30.0-125.0)
[2024-11-06 07:38] LABS: Micro Albumin < 3.0 mg/L (<30.0); Microalb/Creat Ratio, Urine < 3.0
== END | disposition home or self-care (01) ==
LOC: LAB 06:20
PROVIDERS: ATTEND Internal Medicine
DX: R73.03 Prediabetes (principal); R42 Dizziness and giddiness; Z79.899 Other long term (current) drug therapy
CPT/HCPCS: 36415; 80061; 82043; 82570; 83036; 85025

== ENCOUNTER → 2025-02-02 | Outpatient (CLI) | payer MEDICARE ==
[2025-02-02 08:56] LABS: Urine Protein, UAD Negative (Negative)
== END | disposition home or self-care (01) ==
LOC: LAB 06:36
PROVIDERS: ATTEND Internal Medicine
DX: R73.03 Prediabetes (principal); I47.10 Supraventricular tachycardia, unspecified; J44.9 Chronic obstructive pulmonary disease, unspecified; R42 Dizziness and giddiness; R63.6 Underweight; Z79.899 Other long term (current) drug therapy
CPT/HCPCS: 36415; 81001; 82306; 82607; 84443

== ENCOUNTER 2025-02-21 08:11 | Inpatient (IN) | payer MEDICARE ==
[~2025-02-21] VITALS: Ht 160 cm; Wt 50.0 kg
--- NOTE | 2025-02-21 09:31 | ED.PDOC ---
General HPI Comments 84-year-old male with PMHx BPH presents with a chief complaint of abdominal pain with associated constipation. Patient was seen at [facility] and had an ultrasound done that showed a left inguinal hernia. Patient is now presenting with worsening pain to the inguinal region. Patients daughter states that [facility] placed a general surgeon referral, but have yet to hear back. Chief Complaint: Abdominal Pain Time Seen by MD: 09:04 Primary Care Provider: RAMÓN Reviewed notes: Medications, Allergies Allergies: Coded Allergies: NO KNOWN ALLERGIES (Unverified , 11/09/17) Home Meds Active Scripts Azithromycin (ZITHROMAX TABLET) 250 Mg Tb, 250 MG PO DAILY, #6 TAB TAKE 2 TABLETS THE FIRST DAY, THEN 1 TABLET UNTIL FINISH Prov:PURVI JAIN MD 08/12/24 Methylprednisolone (Medrol Dosepak) 4 Mg Kendell, 4 MG PO UD, #21 TAB UAD Prov:PURVI JAIN MD 08/12/24 Azithromycin (Azithromycin) 500 Mg Tab, 1 TAB PO DAILY, #5 TAB Prov:ASHLIE NEWMAN MD 07/16/24 Prednisone (Prednisone) 20 Mg Tab, 40 MG PO DAILY for 5 Days, #10 MG 0 Refills Prov:ASHLIE NEWMAN MD 07/16/24 Atorvastatin Calcium (ATORVASTATIN CALCIUM) 20 Mg Tab, 1 TAB PO DAILY for 30 Days, #30 TAB 5 Refills Prov:JAN RAMACHANDRAN RESIDENT 04/28/24 Tamsulosin Hcl (Flomax) 0.4 Mg Cap, 0.4 MG PO QPM for 30 Days, #30 CAP Prov:MASHA JAMIL 03/29/24 Montelukast Sodium (Singulair) 10 Mg Tab, 10 MG PO HS for 30 Days, #30 TAB Prov:MASHA JAMIL RESIDENT 03/29/24 Aspirin (Aspirin Low Dose) 81 Mg Tab, 81 MG PO DAILY for 30 Days, #30 TAB Prov:MASHA JAMIL 03/29/24 Lactulose (Lactulose) 10 Gm/15 Ml Devora, 10 GM PO DAILY PRN for 30 Days, #240 ML 5 Refills Prov:PURVI JAIN MD 08/26/23 Docusate Sodium (Colace) 100 Mg Cap, 1 CAP PO BID, #30 CAP Prov:PAU OLEARY MD 03/31/23 Reported Medications Potassium Chloride (Klor-Con 8) 8 Meq Tab, 8 MEQ PO DAILY WITH FOOD, TAB 07/14/24 Furosemide (Furosemide) 20 Mg Tab, 20 MG PO DAILY, MG 07/14/24 Clonidine Hydrochloride (Clonidine Hcl) 0.1 Mg Tab, 0.1 MG PO Q4HR PRN for SBP>150, MG 07/14/24 Valsartan (Valsartan) 80 Mg Tab, 80 MG PO DAILY, TAB 07/14/24 Jwmioqljow-Memlvpuhbldouy-Ktwy (Breztri Aerosphere 160-9-4.8 Mcg/Act) 1 Aer Aer, 2 PUFF INH BID for 30 Days, #10.7 05/01/24 Ipratropium-Albuterol (Ipratropium Pipestem/Albut) 1 Devroa Devora, 1 VIAL NEB TID for 30 Days, #270 05/01/24 Nitroglycerin (NTROSTAT SUBLINGUAL) 0.4 Mg Sl, 0.4 MG SL PRN, TAB *MAY REPEAT EVERY 5 MINUTES X 3 TOTAL IF NO RELIEF, INITIATE ANALGESIC THERAPY. NOTIFY PHYSICIAN *Do not crush. 04/30/24 Hydralazine HCl (Hydralazine HCl) 25 Mg Tab, 1 TAB PO BID 07/11/23 Albuterol Sulfate (Albuterol Sulfate Hfa) 108 Mcg/Act Aer, 2 PUFF INH Q2HR PRN for SHORTNESS OF BREATH 03/31/23 Information Source: Patient, Relative (Child) Mode of Arrival: Wheelchair Severity: Moderate Inability to void: None Timing: Days Duration: Since onset Has not urinated for: Hours Prehospital treatment: None Onset: Spontaneous Symptoms: None History of: BPH Location: Other (LEFT INGUINAL REGION) Penile discharge: None Modifying factors: None Past Medical History PAST MEDICAL HISTORY: Asthma, CAD, COPD, Gallstones, HTN, Kidney Stones Surgical History: Hernia Repair, PTCA Family History Family History: Reviewed,noncontributory to illness Social History Smoker: Cigarettes, Less Than 1 Pack/Day Alcohol: Rarely Drugs: Denies Drug Use Lives In: Home Constitutional: denies: chills, diaphoresis, fatigue, fever, malaise, sweats, weakness, others EENTM: denies: blurred vision, double vision, ear bleeding, ear discharge, ear drainage, ear pain, ear ringing, eye pain, eye redness, hearing loss, mouth pain, mouth swelling, nasal discharge, nose bleeding, nose congestion, nose pain, photophobia, tearing, throat pain, throat swelling, voice changes, others Respiratory: denies: cough, hemoptysis, orthopnea, SOB at rest, shortness of b reath, SOB with excertion, stridor, wheezing, others Cardiovascular: denies: chest pain, dizzy spells, diaphoresis, Dyspnea on exertion, edema, irregular heart beat, left arm pain, lightheadedness, palpitations, PND, syncope, others Gastrointestinal: denies: abdomen distended, abdominal pain, blood streaked bowels, constipated, diarrhea, dysphagia, difficulty swallowing, hematemesis, melena, nausea, poor appetite, poor fluid intake, rectal bleeding, rectal pain, vomiting, others Genitourinary: reports: pain (LEFT INGUINAL HERNIA); denies: burning, dysuria, flank pain, frequency, hematuria, incontinence, penile discharge, penile sore, testicle pain, testicle swelling, urgency, others Neurological: denies: dizziness, fainting, headache, left sided numbness, left sided weakness, numbness, paresthesia, pre-existing deficit, right sided numbness, right sided weakness, seizure, speech problems, tingling, tremors, weakness, others Musculoskeletal: denies: back pain, gout, joint pain, joint swelling, muscle pain, muscle stiffness, neck pain, others Integumetry: denies: bruises, change in color, change in hair/nails, dryness, laceration, lesions, lumps, rash, wounds, others Allergic/Immunocompromised: denies: Difficulty Healing, Frequent Infections, Hives, Itching, others Hematologic/Lymphatic: denies: anemia, blood clots, easy bleeding, easy bruising, swollen glands, others Endocrine: denies: excessive hunger, excessive sweating, excessive thirst, excessive urination, flushing, intolerance to cold, intolerance to heat, unexplained weight gain, unexplained weight loss, others Psychiatric: denies: anxiety, bipolar disorder, depression, hopeless, panic disorder, schizophrenia, sleepless, suicidal, others All Other Systems: Reviewed and Negative Physical Exam General Appearance: Moderate Distress, Normal HEENT: Normal ENT Inspection, PERRL/EOMI, Pharynx Normal, TMs Normal Neck: Full Range of Motion, Non-Tender, Normal, Normal Inspection Respiratory: Chest Non-Tender, Lungs Clear, No Accessory Muscle Use, No Respiratory Distress, Normal Breath Sounds Cardiovascular: No Edema, No JVD, No Murmur, No Gallop, Normal Peripheral Pulses, Regular Rate/Rhythm Breast Exam: Deferred Gastrointestinal: Hernia, No Organomegaly, Non Tender, No Pulsatile Mass, Normal Bowel Sounds, Soft, Suprapubic, Tenderness, Other (Possible incarcerated hernia) Genitalia: Deferred Pelvic: Deferred Rectal: Deferred Extremities: No calf tenderness, Normal capillary refill, Normal inspection, Normal range of motion, Non-tender, No pedal edema Musculoskeletal : Apperance: Normal Neurologic: Alert, rehabilitator II-XII nml as Tested, No Motor Deficits, Normal Affect, Normal Mood, No Sensory Deficits Cerebellar Function: Normal Reflexes: Normal Skin: Dry, Normal Color, Warm Peripheral Pulses: 1+ carotid (R), 1+ carotid (L) Lymphatic: No Adenopathy Was a procedure done? 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, DJD Penile/Scrotal: N/A Urinary Problem (Male): UTI Urinary Problem (Female): N/A X-Ray, Labs, Meds, VS Vital Signs Date Time Temp Pulse Resp B/P (MAP) Pulse Ox O2 Delivery O2 Flow Rate FiO2 02/21/25 09:47 98.8 80 17 170/91 98 98.8 Lab Test 02/21/25 10:29 Range/Units White Blood Count 8.4 4.4-10.8 10^3/uL Red Blood Count 4.37 L 4.5-5.90 10^6/uL Hemoglobin 15.0 13.5-17.5 g/dL Hematocrit 43.2 41.0-53.0 % Mean Corpuscular Volume 98.9 80.0-100.0 fL Mean Corpuscular Hemoglobin 34.3 H 28.0-32.0 pg Mean Corpuscular Hemoglobin Concent 34.7 32.0-36.0 g/dL Red Cell Distribution Width 13.9 11.8-14.3 % Platelet Count 210 140-450 10^3/uL Mean Platelet Volume 7.6 6.9-10.8 fL Neutrophils (%) (Auto) 79.1 37.0-80.0 % Lymphocytes (%) (Auto) 14.3 10.0-50.0 % Monocytes (%) (Auto) 5.8 0.0-12.0 % Eosinophils (%) (Auto) 0.4 0.0-7.0 % Basophils (%) (Auto) 0.4 0.0-2.0 % Neutrophils # (Auto) 6.6 1.6-8.6 10 ^3/uL Lymphocytes # (Auto) 1.2 0.4-5.4 10 ^3/uL Monocytes # (Auto) 0.5 0-1.3 10 ^3/uL Eosinophils # (Auto) 0 0-0.8 10 ^3/uL Basophils # (Auto) 0 0-0.2 10 ^3/uL Nucleated Red Blood Cells 0.0 % Prothrombin Time 10.5 9.3-11.8 sec Prothrombin Time INR 0.99 0.9-1.15 Activated Partial Thromboplast Time 26.8 24.5-34.5 SEC Sodium Level 129 L 136-145 mmol/L Potassium Level 4.3 3.5-5.1 mmol/L Chloride Level 97 L 98-107 mmol/L Carbon Dioxide Level 26 20-31 mmol/L Anion Gap 6 5-15 Blood Urea Nitrogen 10 9-23 mg/dL Creatinine 0.54 L 0.700-1.30 mg/dL Glomerular Filtration Rate Calc 98 >90 mL/min BUN/Creatinine Ratio 18.5 10.0-20.0 Serum Glucose 88 74-106 mg/dL Calcium Level 9.4 8.7-10.4 mg/dL Magnesium Level 2.0 1.6-2.6 mg/dL B-Type Natriuretic Peptide Pending Lipase 41 12-53 U/L Current Medications Medications (Trade) Dose Ordered Sig/Yeimy Route Start Time Stop Time Status Last Admin Ceftriaxone Sodium 50 ml @ 100 mls/hr ONCE ONCE IV 02/21/25 15:45 02/21/25 16:14 DC 02/21/25 16:26 X-Ray, Labs, Meds, VS Comment This patient came to the emergency department for left inguinal hernia which was very painful for the past two days CT scan see pending Surgery has been consulted hernia has been reduced by the s Keep ice pack on hernia Dr. Hunt want him to be admitted the hospital for reasons patient has left lateral infrarenal aortic saccular aneurysm bibasilar pneumonia 1.7 mass and 6 mm pulmonary nodules right lung large dependent pericardial effusion Time of 1ST Reevaluation: 09:34 Reevaluation 1ST: Unchanged Time of 2ND Reevaluation: 11:57 Reevaluation 2ND: Improved Patient Education/Counseling: Diagnosis, Treatment Family Education/Counseling: Diagnosis, Treatment, Other (Daughter at bedside) SEPSIS Sepsis Screen Physician Orders Urinalysis (02/21/25 09:58) Ct Ab Pel With Iv Con Only (02/21/25 09:58) Chest Two Views Routine (02/21/25 12:35) Vital Signs Date Time Temp Pulse Resp B/P (MAP) Pulse Ox O2 Delivery O2 Flow Rate FiO2 02/21/25 09:47 98.8 80 17 170/91 98 98.8 Laboratory Tests Test 02/21/25 10:29 White Blood Count 8.4 10^3/uL (4.4-10.8) Medications Medications Dose Ordered Sig/Yeimy Route Start Time Stop Time Status Last Admin Dose Admin Ceftriaxone Sodium 50 ml @ 100 mls/hr ONCE ONCE IV 02/21/25 15:45 02/21/25 16:14 DC 02/21/25 16:26 Departure 1 Departure Time of Disposition: 11:58 Impression: Primary Impression: Incarcerated inguinal hernia, unilateral Additional Impressions: Abdominal pain Qualified Codes: R10.32 - Left lower quadrant pain Pericardial effusion Bilateral pneumonia Lung nodules Infrarenal abdominal aortic aneurysm (AAA) without rupture Impacted stool in rectum Disposition: ADMITTED INPATIENT Admit to: Tele Condition: Serious Additional Instructions: Keep ice pack on the hernia and follow up with your doctor Discharged With: Self, Relative, Shipping And Receiving Clerk Critical Care Note Critical Care Time?: No Stability Stability form required: Yes Heart Score Heart Score: Heart Score Response (Comments) Value History N/A 0 EKG N/A 0 Age >65 2 Risk Factors >3 or Hx ASHD 2 Troponin N/A 0 Total 4 I personally scribed for LATISHA CISSE MD ([email or web address]) on 02/21/25 at 09:31. Electronically submitted by Hernán Catalan ([email or web address]). LATISHA CISSE MD Feb 21, 2025 09:31
[2025-02-21 11:22] LABS: Hematocrit 43.2 % (41.0-53.0); Hemoglobin 15.0 g/dL (13.5-17.5); Mean Corpuscular Hemoglobin 34.3 pg (28.0-32.0); Mean Corpuscular Volume 98.9 fL (80.0-100.0); Nucleated Red Blood Cells % 0.0 %
[2025-02-21 11:34] LABS: Potassium 4.3 mmol/L (3.5-5.1)
[2025-02-21 11:35] LABS: Anion Gap 6 (5-15); Calcium 9.4 mg/dL (8.7-10.4); Carbon Dioxide 26 mmol/L (20-31)
[2025-02-21 11:38] LABS: Chloride 97 mmol/L (98-107); Sodium 129 mmol/L (136-145)
[2025-02-21 11:39] LABS: INR 0.99 (0.9-1.15); Partial Thromboplastin Time 26.8 SEC (24.5-34.5); Prothrombin Time 10.5 sec (9.3-11.8)
--- NOTE | 2025-02-21 11:39 | DVHINCON2 ---
Date of service: Feb 21, 2025 Family History: Family history: Diabetes mellitus Allergies: Coded Allergies: NO KNOWN ALLERGIES (Unverified , 11/09/17) Home Meds Active Scripts Azithromycin (ZITHROMAX TABLET) 250 Mg Tb, 250 MG PO DAILY, #6 TAB TAKE 2 TABLETS THE FIRST DAY, THEN 1 TABLET UNTIL FINISH Prov:PURVI JAIN MD 08/12/24 Methylprednisolone (Medrol Dosepak) 4 Mg Kendell, 4 MG PO UD, #21 TAB UAD Prov:PURVI JAIN MD 08/12/24 Azithromycin (Azithromycin) 500 Mg Tab, 1 TAB PO DAILY, #5 TAB Prov:ASHLIE NEWMAN MD 07/16/24 Prednisone (Prednisone) 20 Mg Tab, 40 MG PO DAILY for 5 Days, #10 MG 0 Refills Prov:ASHLIE NEWMAN MD 07/16/24 Atorvastatin Calcium (ATORVASTATIN CALCIUM) 20 Mg Tab, 1 TAB PO DAILY for 30 Days, #30 TAB 5 Refills Prov:JAN RAMACHANDRAN 04/28/24 Tamsulosin Hcl (Flomax) 0.4 Mg Cap, 0.4 MG PO QPM for 30 Days, #30 CAP Prov:MASHA JAMIL 03/29/24 Montelukast Sodium (Singulair) 10 Mg Tab, 10 MG PO HS for 30 Days, #30 TAB Prov:MASHA JAMIL 03/29/24 Aspirin (Aspirin Low Dose) 81 Mg Tab, 81 MG PO DAILY for 30 Days, #30 TAB Prov:MASHA JAMIL 03/29/24 Lactulose (Lactulose) 10 Gm/15 Ml Devora, 10 GM PO DAILY PRN for 30 Days, #240 ML 5 Refills Prov:PURVI JAIN MD 08/26/23 Docusate Sodium (Colace) 100 Mg Cap, 1 CAP PO BID, #30 CAP Prov:PAU OLEARY MD 03/31/23 Reported Medications Potassium Chloride (Klor-Con 8) 8 Meq Tab, 8 MEQ PO DAILY WITH FOOD, TAB 07/14/24 Furosemide (Furosemide) 20 Mg Tab, 20 MG PO DAILY, MG 07/14/24 Clonidine Hydrochloride (Clonidine Hcl) 0.1 Mg Tab, 0.1 MG PO Q4HR PRN for SBP>150, MG 07/14/24 Valsartan (Valsartan) 80 Mg Tab, 80 MG PO DAILY, TAB 07/14/24 Iwnonblimp-Etvyykkytchyba-Zvug (Breztri Aerosphere 160-9-4.8 Mcg/Act) 1 Aer Aer, 2 PUFF INH BID for 30 Days, #10.7 05/01/24 Ipratropium-Albuterol (Ipratropium [place]/Albut) 1 Devora Devora, 1 VIAL NEB TID for 30 Days, #270 05/01/24 Nitroglycerin (NTROSTAT SUBLINGUAL) 0.4 Mg Sl, 0.4 MG SL PRN, TAB *MAY REPEAT EVERY 5 MINUTES X 3 TOTAL IF NO RELIEF, INITIATE ANALGESIC THERAPY. NOTIFY PHYSICIAN *Do not crush. 04/30/24 Hydralazine HCl (Hydralazine HCl) 25 Mg Tab, 1 TAB PO BID 07/11/23 Albuterol Sulfate (Albuterol Sulfate Hfa) 108 Mcg/Act Aer, 2 PUFF INH Q2HR PRN for SHORTNESS OF BREATH 03/31/23 Vital Signs Vital Signs Date Time Temp Pulse Resp B/P (MAP) Pulse Ox O2 Delivery O2 Flow Rate FiO2 02/21/25 09:47 98.8 80 17 170/91 98 98.8 Labs/Diagnostic Data Labs Test 02/21/25 10:29 Range/Units White Blood Count 8.4 4.4-10.8 10^3/uL Red Blood Count 4.37 L 4.5-5.90 10^6/uL Hemoglobin 15.0 13.5-17.5 g/dL Hematocrit 43.2 41.0-53.0 % Mean Corpuscular Volume 98.9 80.0-100.0 fL Mean Corpuscular Hemoglobin 34.3 H 28.0-32.0 pg Mean Corpuscular Hemoglobin Concent 34.7 32.0-36.0 g/dL Red Cell Distribution Width 13.9 11.8-14.3 % Platelet Count 210 140-450 10^3/uL Mean Platelet Volume 7.6 6.9-10.8 fL Neutrophils (%) (Auto) 79.1 37.0-80.0 % Lymphocytes (%) (Auto) 14.3 10.0-50.0 % Monocytes (%) (Auto) 5.8 0.0-12.0 % Eosinophils (%) (Auto) 0.4 0.0-7.0 % Basophils (%) (Auto) 0.4 0.0-2.0 % Neutrophils # (Auto) 6.6 1.6-8.6 10 ^3/uL Lymphocytes # (Auto) 1.2 0.4-5.4 10 ^3/uL Monocytes # (Auto) 0.5 0-1.3 10 ^3/uL Eosinophils # (Auto) 0 0-0.8 10 ^3/uL Basophils # (Auto) 0 0-0.2 10 ^3/uL Nucleated Red Blood Cells 0.0 % Assessment [id number] AFEBRILE VSS LEFT GROIN SWELLING/PAIN REDUCIBLE LIH NO INCARCERATION/STRANGULATION CONSIDER ELECTIVE LIH REPAIR INDICATED HIGH RISK FOR SURGERY Plan discussed with: Patient MARA CULLEN MD Feb 21, 2025 11:39
[2025-02-21 11:40] LABS: Blood Urea Nitrogen 10 mg/dL (9-23); Glucose 88 mg/dL (74-106); Lipase 41 U/L (12-53)
[2025-02-21 11:41] LABS: Magnesium 2.0 mg/dL (1.6-2.6)
[2025-02-21 11:42] LABS: BUN/Creatinine Ratio 18.5 (10.0-20.0)
--- NOTE | 2025-02-21 13:07 | DVH ---
XY CHEST TWO VIEWS ROUTINE CLINICAL HISTORY: CT SCAN SHOWS THE PATIENT TO HAVE PNEUMONIA AND NODULES COMPARISON: XY CHEST PORTABLE on DOS: 08/10/24, CT CT ANGIO CHEST CONTRAST on DOS: 07/13/24, XY CHEST XRAY 1 VIEW on DOS: 04/27/24, XY CHEST XRAY 1 VIEW on DOS: 03/29/24, CT CHEST WITHOUT CONTRAST on DOS: 03/28/24 TECHNIQUE: Frontal and lateral view of the chest was obtained FINDINGS: Lines and Tubes: None Lungs: No focal consolidation. Pleura: No effusion. No pneumothorax. Cardiomediastinal contours: Unremarkable Bones: No acute osseous abnormality. IMPRESSION: No acute cardiopulmonary disease.
--- NOTE | 2025-02-21 13:24 | DVH ---
CLINICAL INFORMATION: Incarcerated inguinal hernia. TECHNIQUE: Axial CT images of the abdomen and pelvis were obtained after the uneventful administrati on of 100 mL Omnipaque 300 IV contrast. Coronal and sagittal reformatted images were obtained, review ed, and stored. All CT scans at this medical facility are performed using dose modulation techniques as appropriate to a performed exam including the following: Automated exposure control was utilized; adjustment of the MA and/or KV according to patient size; and use of iterative reconstruction techniq ue. CTDIvol = 5.21 mGy DLP = 272.39 mGy-cm COMPARISON: CT CT AB PEL WO CON-NO ORAL OR IV on DOS: 05/01/24, XY CHEST PORTABLE on DOS: 01/17/24, CT CT AB PEL WO CON-NO ORAL OR IV on DOS: 07/10/23 FINDINGS: Motion artifact limits evaluation. Evaluation is also limited due to prominent beam hardeni ng artifact from overlying densities. Lung bases: Atelectasis and mild consolidation in the lower lobes bilaterally. Small to moderate lisa cardial effusion. Liver: Hepatic steatosis. Biliary: Cholecystectomy. There is pneumobilia, similar to prior exam. Spleen: Unremarkable. Pancreas: Unremarkable. No inflammatory changes, ductal dilatation, or mass identified. Adrenal glands: Unremarkable. No mass. Kidneys: No hydronephrosis. Small cyst of the midpole of the left kidney. Aorta/Vascular: Dense atherosclerotic calcification. No abdominal aortic aneurysm. 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 There is also reconstitution of flow in the right internal i liac artery, likely due to collateral areas of moderate to severe stenosis are seen in the left commo n iliac and left external and internal iliac arteries. Retroperitoneum: No mass or lymphadenopathy. Bowel/mesentery: Nonspecific mildly distended fluid-filled small bowel loops. No small bowel obstruct ion. Appendix is not visualized. Pelvic organs: Grossly unremarkable. Bladder: Moderately distended bladder. Abdominal wall: Left inguinal hernia with a loop of small bowel coursing into the hernia sac. Bones: No acute fracture or focal intraosseous lesion. IMPRESSION: 1. Examination is limited due to motion artifact and beam hardening artifact. 2. Left inguinal hernia contains a loop of small bowel without evidence for obstruction. Incarceratio n of the hernia can not be evaluated on CT. Correlate with clinical findings. 3. Nonspecific nondilated fluid-filled small bowel loops. Findings may be seen with ileus or enteriti s in the appropriate clinical setting. No small bowel obstruction. 4. Small to moderate pericardial effusion. 5. Mild atelectasis and consolidation in the lower lobes. 6. Pneumobilia, similar to prior exams. 7. Occlusion of the right common iliac artery with reconstitution of flow of the distal aspect of the right external iliac artery, with flow of contrast more distally in the common femoral and superfici al and deep femoral arteries. 8. Additional findings as described above.
--- NOTE | 2025-02-21 14:21 | DVHINCON2 ---
DATE OF CONSULTATION: 02/21/2025 HISTORY OF PRESENT ILLNESS: This patient is 84 years old with past medical history of COPD. He is on home oxygen and he was coming in with worsening pain in his left groin and no nausea or vomiting. No constipation or diarrhea. No hematuria or melena. No bleeding per rectum. PAST MEDICAL HISTORY: Please refer to records. MEDICATIONS: He is on steroids and he is on lactulose, furosemide, and please also refer to the records for all his medications. PAST SURGICAL HISTORY: Not available. PHYSICAL EXAMINATION: VITAL SIGNS: Afebrile. Stable signs. HEENT: No evidence of pallor, cyanosis, or jaundice. He is on home oxygen. CHEST AND LUNGS: Clear. HEART: Within normal limits. ABDOMEN: Soft. He has a reducible left inguinal hernia with no incarceration or strangulation clinically. NEUROLOGIC: Not assessed. EXTREMITIES: Unremarkable. CLINICAL IMPRESSION: Reducible left inguinal hernia. PLAN: Consider elective hernia surgery as indicated based upon ongoing evaluation provided he is cleared for surgery. MD SONALI Buck/MARY TID: [id number] RECEIPT: [id number] cc: Harinder Pérez MD
[2025-02-21 16:19] VITALS: BP_DIAS 91; PULSE 80; RESP 18; TEMP 98.8; O2SAT 98
[2025-02-21] MEDS: cefTRIAXone 1GM/50ML D5W 50 ML IV ONE (16:26)
--- NOTE | 2025-02-21 17:46 | DVHPNRES ---
Progress Note Date Seen: Feb 21, 2025 Resident Creating Document: DULCE HAYNES Medical Necessity Reason Pt with a Central, PICC or Fol: No Subjective Review of Systems Patient is a 84-year-old male with a past medical history of COPD, Asthma, BPH, HTN, HLD and kidney disease came to the ED with a chief complaint of elevated blood pressure level and worsening abdominal pain since 3-4 days prior to admission. Patient reports that his blood pressure was elevated this morning (180/120). Altough he took this antihypertensive medication, blood pressure did not come down, so decied to come to the hospital. Patient also reports left- sided abdominal pain for the past few days due to left inguinal hernia, which worsened yesterday. Patient reported that at home he is on 2 L oxygen. Patient denied recent flu-like illness and symptoms of cough, congestion, fever, chills chest pain, dizziness, palpitations. Past medical history: COPD, Asthma, BPH, HTN kidney disease, HLD Past surgical history: cystoscopy with thulium laser lithopexy Social history: Patient has a history of 70 pack year smoking history, claims to be off smoking since 2 years, no alcohol, no drug use. Home medications: pending PCP Dr. Meyers General Appearance: Alert, Oriented X3, Cooperative, No acute distress HEENT: Atraumatic, PERRLA, EOMI, Mucous membrane moist/pink Respiratory: Bilateral crackles Cardiovascular: Regular rate, Normal S1, Normal S2, No murmurs, no chest wall tenderness Abdominal: Bowel sounds, tenderness, No hepatospenomegaly, No masses Extremities: No clubbing, No cyanosis, No edema, Normal pulses, No tenderness/swelling Skin: No rashes, No breakdown, No significant lesion Neuro: Normal gait, Normal speech, Strength at 5/5 X4 ext, Normal tone, Sensation intact, Cranial nerves 3-12 NL, Reflexes 2+ Psych/Mental Status: Mental status NL, Mood NL Objective vital signs Vital Sign Date Time Temp Pulse Resp B/P (MAP) Pulse Ox O2 Delivery O2 Flow Rate FiO2 02/21/25 16:53 98.5 85 18 127/65 (85) 94 98.5 02/21/25 16:35 Nasal Cannula* 2 28 medications Current Medications Medications Dose Ordered Sig/Yeimy Route Start Time Stop Time Status Last Admin Dose Admin Ipratropium [place] 0.5 mg Q6HR NEB 02/21/25 18:00 Albuterol 2.5 mg Q6HPRN PRN NEB 02/21/25 16:15 Examination General Appearance: Cooperative. Well developed. Well nourished. NAD Head Exam: Normal inspection Neck Exam: Normal inspection. Non-tender. Normal alignment Pulmonary/Respiratory: Bilateral Wheezing. on home oxygen. Chest non-tender. Cardiovascular/Chest: Regular rate and rhythm. No murmurs. No JVD. Peripheral Pulses: 2+ Radial (R). 2+ Radial (L). 2+ Pedal (R). 2+ Pedal (L) Abdominal Exam: Reducible left inguinal hernia with no incarceration or strangulation clinically. Bowel sounds. Soft. normal abdomen, no visible veins, Nontender. No hepatospenomegaly. No masses Ankle Exam: Negative ankle edema Lower extremities: Negative lower extremity edema Neuro/Mental Status: A&O x4. Coherent. Thoughts/Psych: Normal thought pattern. Appropriate mood and affect. Good judgement and insight Skin Exam: Normal inspection. Normal color. Warm. Dry laboratory and microbiology Laboratory Tests 02/21/25 10:29 Test 02/21/25 10:29 Range/Units Serum Glucose 88 74-106 mg/dL Labs and/or images reviewed: Labs reviewed by me, Image(s) reviewed by me Problem List/Assessment/Plan Problem List/Assessment/Plan # Acute intractable abdominal pain likely due to left inguinal hernia # pneumobilia on CT -NPO -cardiology consult for preop evaluation -Elective hernia surgery ? -CT Abdomen/pelvic contrast- Left inguinal hernia contains a loop of small bowel without evidence for obstruction. Pneumobilia, similar to prior exams. Occlusion of the right common iliac artery with reconstitution of flow of the distal aspect of the right external iliac artery, with flow of contrast more distally in the common femoral and superficial and deep femoral arteries # [id number] pericardial effusion, likely chronic present on previous echo in July 2024 - cardiology consulted for preop evaluation - monitor # Hypertensive urgency -Continue home medicines -monitor BP # Acute on chronic hypoxic/hypercarbic respiratory failure due to COPD exacerbation on homeoxygen # COPD exacerbation # History of Asthma -Chest x-ray- No acute cardiopulmonary disease -Albuterol 2.5 mg q6hr -Ipratropium 0.5 mg q6hr -montelukast -EKG -Echocardiogram # BPH -Continue home medicines Goals of care: Full code, discussed for >16 minutes on 02/21/[address] Valencia. Plan discussed with: Patient (RN), Other DULCE HAYNES RESIDENT Feb 21, 2025 17:46 JANAK ROSA RESIDENT Feb 22, 2025 06:35
[2025-02-21 18:45] VITALS: PULSE 82; RESP 16; O2SAT 96
[2025-02-21] MEDS: ALBUTEROL SULF 2.5 MG/0.5ML(0.5%) NEB SOLN NEB PRN (18:45)
[2025-02-21] MEDS: IPRATROPIUM BROM 0.5 MG/2.5ML INH SOL NEB SCH (18:45)
[2025-02-21 18:55] VITALS: PULSE 82; RESP 16; O2SAT 98
[2025-02-21] MEDS: VALSARTAN 80 MG TAB PO SCH (21:19)
[2025-02-21] MEDS: ATORVASTATIN 20 MG TAB PO SCH (21:30)
[2025-02-22] VITALS (11 sets, daily range): BP systolic 100–131; BP diastolic 54–83; PULSE 74–97; RESP 16–18; TEMP 97.3–98.4; O2SAT 93–100
[2025-02-22 04:37] LABS: Hematocrit 41.9 % (41.0-53.0); Hemoglobin 14.7 g/dL (13.5-17.5); Mean Corpuscular Hemoglobin 34.2 pg (28.0-32.0); Mean Corpuscular Volume 97.8 fL (80.0-100.0); Nucleated Red Blood Cells % 0.1 %
[2025-02-22 04:44] LABS: Potassium 4.1 mmol/L (3.5-5.1)
[2025-02-22 04:45] LABS: Anion Gap 7 (5-15); Carbon Dioxide 26 mmol/L (20-31); Chloride 98 mmol/L (98-107); Sodium 131 mmol/L (136-145)
[2025-02-22 04:46] LABS: Calcium 9.7 mg/dL (8.7-10.4)
[2025-02-22 04:51] LABS: BUN/Creatinine Ratio 27.1 (10.0-20.0); Blood Urea Nitrogen 16 mg/dL (9-23); Glucose 79 mg/dL (74-106)
[2025-02-22] MEDS: ASPirin-EC 81 mg tab PO SCH (09:30)
[2025-02-22] MEDS ORDERED: FUROSEMIDE 20 MG TAB PO SCH (10:00)
--- NOTE | 2025-02-22 16:55 | DVHPNRES ---
Progress Note Date Seen: Feb 22, 2025 Resident Creating Document: DULCE HAYNES Medical Necessity Reason Pt with a Central, PICC or Fol: No Subjective Review of Systems Patient is a 84-year-old male with a past medical history of COPD, Asthma, BPH, HTN, HLD and kidney disease came to the ED with a chief complaint of elevated blood pressure level and worsening abdominal pain since 3-4 days prior to admission. Patient reports that his blood pressure was elevated this morning (180/120). Altough he took this antihypertensive medication, blood pressure did not come down, so decied to come to the hospital. Patient also reports left- sided abdominal pain for the past few days due to left inguinal hernia, which worsened yesterday. Patient reported that at home he is on 2 L oxygen. Patient denied recent flu-like illness and symptoms of cough, congestion, fever, chills chest pain, dizziness, palpitations. Patient was seen today for a physical exam during which showed reductable inguinal hernia was noted. Patient report that hernia reduced when lying down but protruding when standing or walking. Patient was consulted by a GI doctor and decided to proceed with the elective left inguinal hernia surgery. Past medical history: COPD, Asthma, BPH, HTN kidney disease, HLD Past surgical history: cystoscopy with thulium laser lithopexy Social history: Patient has a history of 70 pack year smoking history, claims to be off smoking since 2 years, no alcohol, no drug use. Home medications: Albuterik, Aspirin, Atorvastatin, Azithromycin, Budesonide- Glycopyroolate, Clonidine Hydrochloride, Docusate, Furosemide, Hydralazine, Ipratropium-Albuterol, Lactulose, Methylprednisolone, Montelukast, Nitroglycerin, Potassium, Prednisone, Tamsulosin, Valsartan PCP Dr. Meyers General Appearance: Alert, Oriented X3, Cooperative, No acute distress HEENT: Atraumatic, PERRLA, EOMI, Mucous membrane moist/pink Respiratory: Bilateral crackles Cardiovascular: Regular rate, Normal S1, Normal S2, No murmurs, no chest wall tenderness Abdominal: Bowel sounds, tenderness, No hepatospenomegaly, No masses Extremities: No clubbing, No cyanosis, No edema, Normal pulses, No tenderness/swelling Skin: No rashes, No breakdown, No significant lesion Neuro: Normal gait, Normal speech, Strength at 5/5 X4 ext, Normal tone, Sensation intact, Cranial nerves 3-12 NL, Reflexes 2+ Psych/Mental Status: Mental status NL, Mood NL Objective vital signs Vital Sign Date Time Temp Pulse Resp B/P (MAP) Pulse Ox O2 Delivery O2 Flow Rate FiO2 02/22/25 13:02 83 16 100 02/22/25 12:55 Nasal Cannula* 2 28 02/22/25 12:01 98.4 100/54 (69) 98.4 Total Intake and Output 02/21/25 02/21/25 02/22/25 15:00 23:00 07:00 Intake Total 50 ml 3 ml Output Total 200 ml Balance 50 ml -197 ml medications Current Medications Medications Dose Ordered Sig/Yeimy Route Start Time Stop Time Status Last Admin Dose Admin Ipratropium [place] 0.5 mg Q6HR NEB 02/21/25 18:00 02/22/25 12:55 0.5 MG Albuterol 2.5 mg Q6HPRN PRN NEB 02/21/25 16:15 02/22/25 12:55 2.5 MG Aspirin 81 mg DAILY PO 02/22/25 10:00 Atorvastatin Calcium 10 mg HS PO 02/21/25 22:00 02/21/25 21:30 10 MG Hydralazine HCl 25 mg BID PO 02/21/25 22:00 Valsartan 80 mg DAILY PO 02/21/25 18:15 02/21/25 21:19 80 MG Examination General Appearance: Cooperative. Well developed. Well nourished. NAD Head Exam: Normal inspection Neck Exam: Normal inspection. Non-tender. Normal alignment Pulmonary/Respiratory: Bilateral Wheezing. on home oxygen. Chest non-tender. Cardiovascular/Chest: Regular rate and rhythm. No murmurs. No JVD. Peripheral Pulses: 2+ Radial (R). 2+ Radial (L). 2+ Pedal (R). 2+ Pedal (L) Abdominal Exam: Reducible left inguinal hernia with no incarceration or strangulation clinically. Bowel sounds. Nontender. Soft. normal abdomen, no visible veins, No hepatospenomegaly. No masses Ankle Exam: Negative ankle edema Lower extremities: Negative lower extremity edema Neuro/Mental Status: A&O x4. Coherent. Thoughts/Psych: Normal thought pattern. Appropriate mood and affect. Good judgement and insight Skin Exam: Normal inspection. Normal color. Warm. Dry laboratory and microbiology Laboratory Tests 02/22/25 04:11 Test 02/22/25 04:11 Range/Units Serum Glucose 79 74-106 mg/dL Labs and/or images reviewed: Labs reviewed by me, Image(s) reviewed by me Problem List/Assessment/Plan Problem List/Assessment/Plan # Acute intractable abdominal pain due to left inguinal hernia -NPO -cardiology consult for preop evaluation -GI consult -Elective left inguinal hernia surgery -CT Abdomen/pelvic contrast- Left inguinal hernia contains a loop of small bowel without evidence for obstruction. Pneumobilia, similar to prior exams. Occlusion of the right common iliac artery with reconstitution of flow of the distal aspect of the right external iliac artery, with flow of contrast more distally in the common femoral and superficial and deep femoral arteries # Hypertensive urgency -Valsartan 25 mg BID PO -Hydralazine HCL 25 mg -monitor BP # Acute on chronic hypoxic/hypercarbic respiratory failure due to COPD exacerbation on homeoxygen # COPD exacerbation # History of Asthma -Chest x-ray- No acute cardiopulmonary disease -Albuterol 2.5 mg q6hr -Ipratropium 0.5 mg q6hr -montelukast -EKG -Echocardiogram # HLD -Lipitor 10 mg # BPH -Tamsulosin 0.4 mg PO Goals of care: Full code, discussed for >16 minutes on 02/22/[address] Valencia. Plan discussed with: Patient, Other (RN) Date of Service: Feb 22, 2025 Billing Provider: DANNY VALENCIA MD Common Visit Codes: 07880-[id number] INP/OBS CARE(HIGH) Secondary Visit Codes: 41066-[id number] CARE PLAN 30 MINUTES DULCE HAYNES RESIDENT Feb 22, 2025 16:55 DANNY VALENCIA MD Feb 25, 2025 21:56
--- NOTE | 2025-02-22 17:08 | DVHHPRES ---
History of Present Illness Resident Creating Document: DULCE HAYNES History of Present Illness Patient is a 84-year-old male with a past medical history of COPD, Asthma, BPH, HTN, HLD and kidney disease came to the ED with a chief complaint of elevated blood pressure level and worsening abdominal pain since 3-4 days prior to admission. Patient reports that his blood pressure was elevated this morning (180/120). Altough he took this antihypertensive medication, blood pressure did not come down, so decied to come to the hospital. Patient also reports left- sided abdominal pain for the past few days due to left inguinal hernia, which worsened yesterday. Patient reported that at home he is on 2 L oxygen. Patient denied recent flu-like illness and symptoms of cough, congestion, fever, chills chest pain, dizziness, palpitations. Past medical history: COPD, Asthma, BPH, HTN kidney disease, HLD Past surgical history: cystoscopy with thulium laser lithopexy Social history: Patient has a history of 70 pack year smoking history, claims to be off smoking since 2 years, no alcohol, no drug use. Home medications: pending PCP Dr. Meyers Lives: with Family Review of Systems Review of Systems General Appearance: Alert, Oriented X3, Cooperative, No acute distress HEENT: Atraumatic, PERRLA, EOMI, Mucous membrane moist/pink Respiratory: Bilateral crackles Cardiovascular: Regular rate, Normal S1, Normal S2, No murmurs, no chest wall tenderness Abdominal: Bowel sounds, tenderness, No hepatospenomegaly, No masses Extremities: No clubbing, No cyanosis, No edema, Normal pulses, No tenderness/swelling Skin: No rashes, No breakdown, No significant lesion Neuro: Normal gait, Normal speech, Strength at 5/5 X4 ext, Normal tone, Sensation intact, Cranial nerves 3-12 NL, Reflexes 2+ Psych/Mental Status: Mental status NL, Mood NL Allergies: Coded Allergies: NO KNOWN ALLERGIES (Unverified , 11/09/17) Medications Current Medications Medications Dose Ordered Sig/Yeimy Route Start Time Stop Time Status Last Admin Dose Admin Ipratropium [place] 0.5 mg Q6HR NEB 02/21/25 18:00 02/22/25 12:55 0.5 MG Albuterol 2.5 mg Q6HPRN PRN NEB 02/21/25 16:15 02/22/25 12:55 2.5 MG Aspirin 81 mg DAILY PO 02/22/25 10:00 Atorvastatin Calcium 10 mg HS PO 02/21/25 22:00 02/21/25 21:30 10 MG Hydralazine HCl 25 mg BID PO 02/21/25 22:00 Valsartan 80 mg DAILY PO 02/21/25 18:15 02/21/25 21:19 80 MG Exam Vital Signs Vital Signs Date Time Temp Pulse Resp B/P (MAP) Pulse Ox O2 Delivery O2 Flow Rate FiO2 02/22/25 13:02 83 16 100 02/22/25 12:55 Nasal Cannula* 2 28 02/22/25 12:01 98.4 100/54 (69) 98.4 Exam General Appearance: Cooperative. Well developed. Well nourished. NAD Head Exam: Normal inspection Neck Exam: Normal inspection. Non-tender. Normal alignment Pulmonary/Respiratory: Bilateral Wheezing. on home oxygen. Chest non-tender. Cardiovascular/Chest: Regular rate and rhythm. No murmurs. No JVD. Peripheral Pulses: 2+ Radial (R). 2+ Radial (L). 2+ Pedal (R). 2+ Pedal (L) Abdominal Exam: Reducible left inguinal hernia with no incarceration or strangulation clinically. Bowel sounds. Soft. normal abdomen, no visible veins, Nontender. No hepatospenomegaly. No masses Ankle Exam: Negative ankle edema Lower extremities: Negative lower extremity edema Neuro/Mental Status: A&O x4. Coherent. Thoughts/Psych: Normal thought pattern. Appropriate mood and affect. Good judgement and insight Skin Exam: Normal inspection. Normal color. Warm. Dry Labs/Xrays Labs Test 02/22/25 04:11 02/21/25 10:29 Range/Units White Blood Count 7.0 4.4-10.8 10^3/uL Red Blood Count 4.28 L 4.5-5.90 10^6/uL Hemoglobin 14.7 13.5-17.5 g/dL Hematocrit 41.9 41.0-53.0 % Mean Corpuscular Volume 97.8 80.0-100.0 fL Mean Corpuscular Hemoglobin 34.2 H 28.0-32.0 pg Mean Corpuscular Hemoglobin Concent 35.0 32.0-36.0 g/dL Red Cell Distribution Width 13.9 11.8-14.3 % Platelet Count 197 140-450 10^3/uL Mean Platelet Volume 7.7 6.9-10.8 fL Neutrophils (%) (Auto) 66.9 37.0-80.0 % Lymphocytes (%) (Auto) 25.0 10.0-50.0 % Monocytes (%) (Auto) 7.0 0.0-12.0 % Eosinophils (%) (Auto) 0.5 0.0-7.0 % Basophils (%) (Auto) 0.6 0.0-2.0 % Neutrophils # (Auto) 4.7 1.6-8.6 10 ^3/uL Lymphocytes # (Auto) 1.7 0.4-5.4 10 ^3/uL Monocytes # (Auto) 0.5 0-1.3 10 ^3/uL Eosinophils # (Auto) 0 0-0.8 10 ^3/uL Basophils # (Auto) 0 0-0.2 10 ^3/uL Nucleated Red Blood Cells 0.1 % Sodium Level 131 L 136-145 mmol/L Potassium Level 4.1 3.5-5.1 mmol/L Chloride Level 98 98-107 mmol/L Carbon Dioxide Level 26 20-31 mmol/L Anion Gap 7 5-15 Blood Urea Nitrogen 16 9-23 mg/dL Creatinine 0.59 L 0.700-1.30 mg/dL Glomerular Filtration Rate Calc 95 >90 mL/min BUN/Creatinine Ratio 27.1 H 10.0-20.0 Serum Glucose 79 74-106 mg/dL Calcium Level 9.7 8.7-10.4 mg/dL Prothrombin Time 10.5 9.3-11.8 sec Prothrombin Time INR 0.99 0.9-1.15 Activated Partial Thromboplast Time 26.8 24.5-34.5 SEC Magnesium Level 2.0 1.6-2.6 mg/dL B-Type Natriuretic Peptide 49.60 0-100 pg/mL Lipase 41 12-53 U/L SEPSIS Sepsis Screen Date sepsis recognized/suspect: Feb 21, 2025 Time Sepsis recognized/suspect: 2107 Recent Procedure: No On Antibiotic Therapy: No Respiratory Rate >20: Yes Heart Rate >90: No Temp<36 C (96.8 F) or >38.3 C: No SBP <90 or MAP <65 mmHG: No New Acute Mental Status Change: No Is the patient on CPAP, BIPAP,: No Physician Orders Cardiac Diet-2gna,Lofat,Lochol (02/22/25 Lunch) Vital Signs Date Time Temp Pulse Resp B/P (MAP) Pulse Ox O2 Delivery O2 Flow Rate FiO2 02/22/25 13:02 83 16 100 02/22/25 12:55 84 18 96 02/22/25 12:55 96 Nasal Cannula* 2 28 02/22/25 12:55 96 Nasal Cannula 2.0 02/22/25 12:01 98.4 97 17 100/54 (69) 97 98.4 02/22/25 10:00 96 Nasal Cannula 3.0 02/22/25 10:00 96 Nasal Cannula* 3 32 02/22/25 09:30 103/64 02/22/25 09:29 103/64 Assessment/Plan Assessment/Plan # Acute intractable abdominal pain likely due to left inguinal hernia # pneumobilia on CT -NPO -cardiology consult for preop evaluation -Elective hernia surgery ? -CT Abdomen/pelvic contrast- Left inguinal hernia contains a loop of small bowel without evidence for obstruction. Pneumobilia, similar to prior exams. Occlusion of the right common iliac artery with reconstitution of flow of the distal aspect of the right external iliac artery, with flow of contrast more distally in the common femoral and superficial and deep femoral arteries # [id number] pericardial effusion, likely chronic present on previous echo in July 2024 - cardiology consulted for preop evaluation - monitor # Hypertensive urgency -Continue home medicines -monitor BP # Acute on chronic hypoxic/hypercarbic respiratory failure due to COPD exacerbation on homeoxygen # COPD exacerbation # History of Asthma -Chest x-ray- No acute cardiopulmonary disease -Albuterol 2.5 mg q6hr -Ipratropium 0.5 mg q6hr -montelukast -EKG -Echocardiogram # BPH -Continue home medicines Goals of care: Full code, discussed for >16 minutes on 02/21/[address] Valencia. Plan discussed with: Patient, Spouse, Other (RN) Date of Service: Feb 21, 2025 Billing Provider: DANNY VALENCIA MD, YOUNGSANG RESIDENT Feb 22, 2025 17:08
[2025-02-22] MEDS ORDERED: TAMSULOSIN HYDROCHLORIDE 0.4 MG CAP PO SCH (18:00)
[2025-02-23] VITALS (13 sets, daily range): BP systolic 109–156; BP diastolic 66–77; PULSE 59–91; RESP 16–19; TEMP 97.8–98.7; O2SAT 90–100
[2025-02-23 08:08] LABS: Anion Gap 7 (5-15); Carbon Dioxide 25 mmol/L (20-31); Chloride 101 mmol/L (98-107); Potassium 4.5 mmol/L (3.5-5.1)
[2025-02-23 08:09] LABS: Calcium 8.9 mg/dL (8.7-10.4)
[2025-02-23 08:14] LABS: BUN/Creatinine Ratio 27.8 (10.0-20.0); Blood Urea Nitrogen 15 mg/dL (9-23); Glucose 84 mg/dL (74-106)
[2025-02-23 08:16] LABS: Sodium 133 mmol/L (136-145)
--- NOTE | 2025-02-23 12:17 | DVHINCON2 ---
Date Seen: Feb 23, 2025 Referring Physician MD Jett Reason for Consultation Cardiac risk stratification History of Present Illness This is an 84-year-old man who presented to the emergency room with a chief complaint of abdominal pain associated with constipation for four days prior to admission. The patient has been diagnosed with a left inguinal hernia with surgical team requesting a cardiac risk stratification prior to surgery. Patient denies any chest pain, palpitations, diaphoresis, SOB, dizziness, or syncopal events. Denies exertional angina or dyspnea on exertion. States he is able to ambulate without assistance including approximately 8 METS. A 12 lead e lectrocardiogram revealed a normal sinus rhythm with PVCs. He underwent a cardiac catheterization without catheter based intervention given mild nonobstructive coronary artery disease on 08/10/2024. Follows up with Cardiology, Dr. Obando, in the outpatient setting. 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 Past Medical History Past medical history reviewed. No other significant than mentioned above. Past Surgical History Cystoscopy with thulium laser litholapaxy Family History: Family history: Diabetes mellitus Family History Family history reviewed. Social History Denies the use of illicit drugs or alcohol. Current tobacco use including a history of 70 pack-years. Allergies: Coded Allergies: NO KNOWN ALLERGIES (Unverified , 11/09/17) Home Meds Active Scripts Azithromycin (ZITHROMAX TABLET) 250 Mg Tb, 250 MG PO DAILY, #6 TAB TAKE 2 TABLETS THE FIRST DAY, THEN 1 TABLET UNTIL FINISH Prov:PURVI JAIN MD 08/12/24 Methylprednisolone (Medrol Dosepak) 4 Mg [place], 4 MG PO UD, #21 TAB UAD Prov:PURVI JAIN MD 08/12/24 Azithromycin (Azithromycin) 500 Mg Tab, 1 TAB PO DAILY, #5 TAB Prov:ASHLIE NEWMAN MD 07/16/24 Prednisone (Prednisone) 20 Mg Tab, 40 MG PO DAILY for 5 Days, #10 MG 0 Refills Prov:ASHLIE NEWMAN MD 07/16/24 Atorvastatin Calcium (ATORVASTATIN CALCIUM) 20 Mg Tab, 1 TAB PO DAILY for 30 Days, #30 TAB 5 Refills Prov:JAN RAMACHANDRAN 04/28/24 Tamsulosin Hcl (Flomax) 0.4 Mg Cap, 0.4 MG PO QPM for 30 Days, #30 CAP Prov:MASHA JAMIL 03/29/24 Montelukast Sodium (Singulair) 10 Mg Tab, 10 MG PO HS for 30 Days, #30 TAB Prov:MASHA JAMIL RESIDENT 03/29/24 Aspirin (Aspirin Low Dose) 81 Mg Tab, 81 MG PO DAILY for 30 Days, #30 TAB Prov:MASHA JAMIL RESIDENT 03/29/24 Lactulose (Lactulose) 10 Gm/15 Ml Devora, 10 GM PO DAILY PRN for 30 Days, #240 ML 5 Refills Prov:PURVI JAIN MD 08/26/23 Docusate Sodium (Colace) 100 Mg Cap, 1 CAP PO BID, #30 CAP Prov:PAU OLEARY MD 03/31/23 Reported Medications Potassium Chloride (Klor-Con 8) 8 Meq Tab, 8 MEQ PO DAILY WITH FOOD, TAB 07/14/24 Furosemide (Furosemide) 20 Mg Tab, 20 MG PO DAILY, MG 07/14/24 Clonidine Hydrochloride (Clonidine Hcl) 0.1 Mg Tab, 0.1 MG PO Q4HR PRN for SBP>150, MG 07/14/24 Valsartan (Valsartan) 80 Mg Tab, 80 MG PO DAILY, TAB 07/14/24 Tbqitxbthl-Fgccukbefphzbv-Ltmk (Breztri Aerosphere 160-9-4.8 Mcg/Act) 1 Aer Aer, 2 PUFF INH BID for 30 Days, #10.7 05/01/24 Ipratropium-Albuterol (Ipratropium [place]/Albut) 1 Devora Devora, 1 VIAL NEB TID for 30 Days, #270 05/01/24 Nitroglycerin (NTROSTAT SUBLINGUAL) 0.4 Mg Sl, 0.4 MG SL PRN, TAB *MAY REPEAT EVERY 5 MINUTES X 3 TOTAL IF NO RELIEF, INITIATE ANALGESIC THERAPY. NOTIFY PHYSICIAN *Do not crush. 04/30/24 Hydralazine HCl (Hydralazine HCl) 25 Mg Tab, 1 TAB PO BID 07/11/23 Albuterol Sulfate (Albuterol Sulfate Hfa) 108 Mcg/Act Aer, 2 PUFF INH Q2HR PRN for SHORTNESS OF BREATH 03/31/23 Home Meds Home medications reviewed. Current Medications Current Medications Medications (Trade) Dose Ordered Sig/Yeimy Route PRN Reason Start Time Stop Time Status Last Admin Tamsulosin HCl (Flomax) 0.4 mg QPM PO 02/22/25 18:00 02/21/25 20:05 DC Review of Systems Constitutional: No symptom reported Ears, Nose, & Throat: No symptom reported Eyes: No symptom reported Neurological: No symptoms reported Pulmonary/Respiratory: No symptom reported Cardiovascular: No symptom reported Gastrointestinal: Abdominal pain, constipation Genitourinary: No symptom reported Musculoskeletal: No symptom reported Skin: No symptom reported Psychiatric: No symptom reported Endocrine: No symptom reported Hemotologic/Lymphatic: No symptom reported Vital Signs Vital Signs Date Time Temp Pulse Resp B/P (MAP) Pulse Ox O2 Delivery O2 Flow Rate FiO2 02/23/25 10:33 109/66 02/23/25 09:00 98.7 91 19 90 98.7 02/23/25 07:32 Nasal Cannula* 2 28 Physical Exam General Appearance: Cooperative. Well developed. Well nourished. In no acute distress Head Exam: Normal inspection Neck Exam: Normal inspection. Non-tender. Normal alignment Pulmonary/Respiratory: Chest non-tender. Clear bilateral breath sounds Cardiovascular/Chest: Regular rate and rhythm. S1, S2. NSR. No murmurs. No JVD. Peripheral Pulses: 2+ Radial (R). 2+ Radial (L). 2+ Pedal (R). 2+ Pedal (L) Abdominal Exam: Normal bowel sounds. Ankle Exam: Negative ankle edema Lower extremities: Negative lower extremity edema Neuro/Mental Status: A&O x4. Coherent Thoughts/Psych: Normal thought pattern. Appropriate mood and affect. Good judgement and insight Appearance: In no acute distress Skin Exam: Normal inspection. Normal color. Warm. Dry Labs/Diagnostic Data Labs Test 02/23/25 07:23 02/22/25 04:11 02/21/25 10:29 Range/Units Sodium Level 133 L 136-145 mmol/L Potassium Level 4.5 3.5-5.1 mmol/L Chloride Level 101 98-107 mmol/L Carbon Dioxide Level 25 20-31 mmol/L Anion Gap 7 5-15 Blood Urea Nitrogen 15 9-23 mg/dL Creatinine 0.54 L 0.700-1.30 mg/dL Glomerular Filtration Rate Calc 98 >90 mL/min BUN/Creatinine Ratio 27.8 H 10.0-20.0 Serum Glucose 84 74-106 mg/dL Calcium Level 8.9 8.7-10.4 mg/dL White Blood Count 7.0 4.4-10.8 10^3/uL Red Blood Count 4.28 L 4.5-5.90 10^6/uL Hemoglobin 14.7 13.5-17.5 g/dL Hematocrit 41.9 41.0-53.0 % Mean Corpuscular Volume 97.8 80.0-100.0 fL Mean Corpuscular Hemoglobin 34.2 H 28.0-32.0 pg Mean Corpuscular Hemoglobin Concent 35.0 32.0-36.0 g/dL Red Cell Distribution Width 13.9 11.8-14.3 % Platelet Count 197 140-450 10^3/uL Mean Platelet Volume 7.7 6.9-10.8 fL Neutrophils (%) (Auto) 66.9 37.0-80.0 % Lymphocytes (%) (Auto) 25.0 10.0-50.0 % Monocytes (%) (Auto) 7.0 0.0-12.0 % Eosinophils (%) (Auto) 0.5 0.0-7.0 % Basophils (%) (Auto) 0.6 0.0-2.0 % Neutrophils # (Auto) 4.7 1.6-8.6 10 ^3/uL Lymphocytes # (Auto) 1.7 0.4-5.4 10 ^3/uL Monocytes # (Auto) 0.5 0-1.3 10 ^3/uL Eosinophils # (Auto) 0 0-0.8 10 ^3/uL Basophils # (Auto) 0 0-0.2 10 ^3/uL Nucleated Red Blood Cells 0.1 % Prothrombin Time 10.5 9.3-11.8 sec Prothrombin Time INR 0.99 0.9-1.15 Activated Partial Thromboplast Time 26.8 24.5-34.5 SEC Magnesium Level 2.0 1.6-2.6 mg/dL B-Type Natriuretic Peptide 49.60 0-100 pg/mL Lipase 41 12-53 U/L Assessment Preprocedural cardiovascular examination Mild nonobstructive coronary artery disease History of pericardial effusion Hypertension Dyslipidemia 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 Davis) Preliminary echocardiogram revealed optimal LVEF with a mild perciardial effusion and no evidence of cardiac tamponade or restrictive disease. Revised cardiac risk index (Mani criteria): Class I at 3.9% risk of , PR or cardiac arrest. Patient has no underlying history of congestive heart failure, has mild non-obstructive coronary artery disease, and has an optimal functional capacity. Per Cardiology standpoint, the patient is at an acceptable- risk for moderate- risk surgery. There is no additional cardiac workup indicated prior to surgery. Thank you for allowing us to care for this patient. Please call with any questions or concerns. This medical document was created using an electronic medical record system with voice recognition software and computerized dictation system. Although this document has been carefully reviewed, there might still be some phonetic and typographical errors. Occasional wrong-word or ``sound-alike substitutions may have occurred due to the inherent limitations of voice recognition software. These areas are purely typographical due to imperfections of the software programs and do not reflect any compromise in the patient's medical care. Please read the chart carefully and recognize, using context, where these substitutions have occurred. Plan discussed with: Patient, Other NYHA Physical activity limitations: NA Date of Service: Feb 23, 2025 Billing Provider: ALTAGRACIA HWANG Cardiology Common Codes: 60588-NZYBWYT INP/OBS CARE (High) ALTAGRACIA HWANG Feb 23, 2025 12:17
--- NOTE | 2025-02-23 14:28 | DVHDSRES ---
Discharge Summary Date of Admission Resident Creating Document: DULCE HAYNES RESIDENT Feb 21, 2025 at 16:05 Date of Discharge: Feb 23, 2025 Admitting Diagnosis Acute intractable abdominal pain Labs/Diagnostic Data: Laboratory Results Test 02/23/25 07:23 02/22/25 04:11 02/21/25 10:29 Sodium Level 133 mmol/L (136-145) Potassium Level 4.5 mmol/L (3.5-5.1) Chloride Level 101 mmol/L (98-107) Carbon Dioxide Level 25 mmol/L (20-31) Anion Gap 7 (5-15) Blood Urea Nitrogen 15 mg/dL (9-23) Creatinine 0.54 mg/dL (0.700-1.30) Glomerular Filtration Rate Calc 98 mL/min (>90) BUN/Creatinine Ratio 27.8 (10.0-20.0) Serum Glucose 84 mg/dL (74-106) Calcium Level 8.9 mg/dL (8.7-10.4) White Blood Count 7.0 10^3/uL (4.4-10.8) Red Blood Count 4.28 10^6/uL (4.5-5.90) Hemoglobin 14.7 g/dL (13.5-17.5) Hematocrit 41.9 % (41.0-53.0) Mean Corpuscular Volume 97.8 fL (80.0-100.0) Mean Corpuscular Hemoglobin 34.2 pg (28.0-32.0) Mean Corpuscular Hemoglobin Concent 35.0 g/dL (32.0-36.0) Red Cell Distribution Width 13.9 % (11.8-14.3) Platelet Count 197 10^3/uL (140-450) Mean Platelet Volume 7.7 fL (6.9-10.8) Neutrophils (%) (Auto) 66.9 % (37.0-80.0) Lymphocytes (%) (Auto) 25.0 % (10.0-50.0) Monocytes (%) (Auto) 7.0 % (0.0-12.0) Eosinophils (%) (Auto) 0.5 % (0.0-7.0) Basophils (%) (Auto) 0.6 % (0.0-2.0) Neutrophils # (Auto) 4.7 10 ^3/uL (1.6-8.6) Lymphocytes # (Auto) 1.7 10 ^3/uL (0.4-5.4) Monocytes # (Auto) 0.5 10 ^3/uL (0-1.3) Eosinophils # (Auto) 0 10 ^3/uL (0-0.8) Basophils # (Auto) 0 10 ^3/uL (0-0.2) Nucleated Red Blood Cells 0.1 % Prothrombin Time 10.5 sec (9.3-11.8) Prothrombin Time INR 0.99 (0.9-1.15) Activated Partial Thromboplast Time 26.8 SEC (24.5-34.5) Magnesium Level 2.0 mg/dL (1.6-2.6) B-Type Natriuretic Peptide 49.60 pg/mL (0-100) Lipase 41 U/L (12-53) Other Laboratory Tests 02/23/25 07:23 02/22/25 04:11 Brief Hx & Hospital Course: The patient is an 84-year-old male with a past medical history of COPD, asthma, benign prostatic hyperplasia (BPH), hypertension (HTN), hyperlipidemia (HLD), and chronic kidney disease who presented to the emergency department with hypertensive urgency and worsening left-sided abdominal pain over the past 34 days. He reported a blood pressure of 180/120 at home despite taking his antihypertensive medications, prompting his decision to seek medical attention. He also noted increased discomfort from a known left inguinal hernia, which became more prominent with standing and walking but reduced when lying down. On examination, the patient was alert and oriented, in no acute distress. A reducible left inguinal hernia was noted. Cardiology consultation was obtained for preoperative evaluation and surgery consultation was obtained to evaluate for operative repair. Imaging (CT abdomen/pelvis with contrast) confirmed a left inguinal hernia containing a loop of small bowel without obstruction. Elective surgical repair was planned was planned by surgery tentatively on March 20, 2025. The patient was also treated for acute on chronic hypoxic/hypercarbic respiratory failure secondary to COPD exacerbation. He initially required increasing oxygen, however, later remained on his home oxygen (2L) and was managed with bronchodilators and corticosteroids. Chest X-ray showed no acute cardiopulmonary disease. EKG and echocardiogram were performed as part of preoperative evaluation. Hypertensive urgency was managed with oral Valsartan and Hydralazine, with close blood pressure monitoring. His other chronic conditions, including BPH and HLD, were managed with continuation of home medications. Detailed discussion was held with patient and patient's daughter at bedside where plan of care was explained, all questions were answered and concerns were addressed. General Appearance: Cooperative. Well developed. Well nourished. NAD Head Exam: Normal inspection Neck Exam: Normal inspection. Non-tender. Normal alignment Pulmonary/Respiratory:. on home oxygen. Chest non-tender. Cardiovascular/Chest: Regular rate and rhythm. No murmurs. No JVD. Peripheral Pulses: 2+ Radial (R). 2+ Radial (L). 2+ Pedal (R). 2+ Pedal (L) Abdominal Exam: Reducible left inguinal hernia with no incarceration or strangulation clinically. Bowel sounds. Nontender. Soft. normal abdomen, no visible veins, No hepatospenomegaly. No masses Ankle Exam: Negative ankle edema Lower extremities: Negative lower extremity edema Neuro/Mental Status: A&O x4. Coherent. Thoughts/Psych: Normal thought pattern. Appropriate mood and affect. Good judgement and insight Skin Exam: Normal inspection. Normal color. Warm. Dry Consults/Reason for consult Surgical consult for evaluation of inguinal hernia Cardiology consult for preoperative evaluation Operations or Procedures PROCEDURE(s): CXR2 - CHEST TWO VIEWS ROUTINE REASON: CT SCAN SHOWS THE PATIENT TO HAVE PNEUMONIA AND NODULES ORDER NUMBER(s): [id number], ACCESSION NUMBER(s): [id number] CHEST TWO VIEWS ROUTINE CLINICAL HISTORY: CT SCAN SHOWS THE PATIENT TO HAVE PNEUMONIA AND NODULES COMPARISON: XY CHEST PORTABLE on DOS: 08/10/24, CT CT ANGIO CHEST CONTRAST on DOS: 07/13/24, XY CHEST XRAY 1 VIEW on DOS: 04/27/24, XY CHEST XRAY 1 VIEW on DOS: 03/29/24, CT CHEST WITHOUT CONTRAST on DOS: 03/28/24 TECHNIQUE: Frontal and lateral view of the chest was obtained FINDINGS: Lines and Tubes: None Lungs: No focal consolidation. Pleura: No effusion. No pneumothorax. Cardiomediastinal contours: Unremarkable Bones: No acute osseous abnormality. IMPRESSION: No acute cardiopulmonary disease. - PROCEDURE(s): ABPLIV - CT AB PEL WITH IV CON ONLY REASON: Incarcerated inguinal hernia ORDER NUMBER(s): [id number], ACCESSION NUMBER(s): [id number] CLINICAL INFORMATION: Incarcerated inguinal hernia. TECHNIQUE: Axial CT images of the abdomen and pelvis were obtained after the uneventful administration of 100 mL Omnipaque 300 IV contrast. Coronal and sagittal reformatted images were obtained, reviewed, and stored. All CT scans at this medical facility are performed using dose modulation techniques as appropriate to a performed exam including the following: Automated exposure control was utilized; adjustment of the MA and/or KV according to patient size; and use of iterative reconstruction technique. CTDIvol = 5.21 mGy DLP = 272.39 mGy-cm COMPARISON: CT CT AB PEL WO CON-NO ORAL OR IV on DOS: 05/01/24, XY CHEST PORTABLE on DOS: 01/17/24, CT CT AB PEL WO CON-NO ORAL OR IV on DOS: 07/10/23 FINDINGS: Motion artifact limits evaluation. Evaluation is also limited due to prominent beam hardening artifact from overlying densities. Lung bases: Atelectasis and mild consolidation in the lower lobes bilaterally. Small to moderate pericardial effusion. Liver: Hepatic steatosis. Biliary: Cholecystectomy. There is pneumobilia, similar to prior exam. Spleen: Unremarkable. Pancreas: Unremarkable. No inflammatory changes, ductal dilatation, or mass identified. Adrenal glands: Unremarkable. No mass. Kidneys: No hydronephrosis. Small cyst of the midpole of the left kidney. Aorta/Vascular: Dense atherosclerotic calcification. No abdominal aortic aneurysm. 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 There is also reconstitution of flow in the right internal iliac artery, likely due to collateral areas of moderate to severe stenosis are seen in the left common iliac and left external and internal iliac arteries. Retroperitoneum: No mass or lymphadenopathy. Bowel/mesentery: Nonspecific mildly distended fluid-filled small bowel loops. No small bowel obstruction. Appendix is not visualized. Pelvic organs: Grossly unremarkable. Bladder: Moderately distended bladder. Abdominal wall: Left inguinal hernia with a loop of small bowel coursing into the hernia sac. Bones: No acute fracture or focal intraosseous lesion. IMPRESSION: 1. Examination is limited due to motion artifact and beam hardening artifact. 2. Left inguinal hernia contains a loop of small bowel without evidence for obstruction. Incarceration of the hernia can not be evaluated on CT. Correlate with clinical findings. 3. Nonspecific nondilated fluid-filled small bowel loops. Findings may be seen with ileus or enteritis in the appropriate clinical setting. No small bowel obstruction. 4. Small to moderate pericardial effusion. 5. Mild atelectasis and consolidation in the lower lobes. 6. Pneumobilia, similar to prior exams. 7. Occlusion of the right common iliac artery with reconstitution of flow of the distal aspect of the right external iliac artery, with flow of contrast more distally in the common femoral and superficial and deep femoral arteries. 8. Additional findings as described above. - Condition at Discharge: Stable Final Diagnosis/Problems List # Acute intractable abdominal pain due to left inguinal hernia containing loop of small bowel, non obstructed or incarcerated # Hypertensive urgency # Acute on chronic hypoxic/hypercarbic respiratory failure due to COPD exacerbation on homeoxygen # COPD exacerbation # History of Asthma # HLD # BPH Discharge Disposition: Home Discharge Instruct/Medications Diet: Cardiac 2g Na,low cholest Activity: No Restrictions, As Tolerated Follow Up/Referral: Please follow up with surgery in the outpatient clinic for elective inguinal hernia repair Please follow up with PCP in 1-2 weeks for optimization of antihypertensives Please follow-up in discharge clinic Scheduled Aspirin (Aspirin Low Dose), 81 MG PO DAILY Atorvastatin Calcium (Atorvastatin Calcium), 1 TAB PO DAILY Azithromycin (Azithromycin), 1 TAB PO DAILY Azithromycin (Zithromax Tablet), 250 MG PO DAILY Dnsrshsndp-Zxioyevfnisurl-Mxqx (Breztri Aerosphere 160-9-4.8 Mcg/Act), 2 PUFF INH BID, (Reported) Docusate Sodium (Colace), 1 CAP PO BID Furosemide (Furosemide), 20 MG PO DAILY, (Reported) Hydralazine HCl (Hydralazine HCl), 1 TAB PO BID, (Reported) Ipratropium-Albuterol (Ipratropium [place]/Albut), 1 VIAL NEB TID, (Reported) Methylprednisolone (Medrol Dosepak), 4 MG PO UD Montelukast Sodium (Singulair), 10 MG PO HS Nitroglycerin (Ntrostat Sublingual), 0.4 MG SL PRN, (Reported) Potassium Chloride (Klor-Con 8), 8 MEQ PO DAILY WITH FOOD, (Reported) Prednisone (Prednisone), 40 MG PO DAILY Tamsulosin Hcl (Flomax), 0.4 MG PO QPM Valsartan (Valsartan), 80 MG PO DAILY, (Reported) Scheduled PRN Albuterol Sulfate (Albuterol Sulfate Hfa), 2 PUFF INH Q2HR PRN for SHORTNESS OF BREATH, (Reported) Clonidine Hydrochloride (Clonidine Hcl), 0.1 MG PO Q4HR PRN for SBP>150, (Reported) Lactulose (Lactulose), 10 GM PO DAILY PRN Discharge Statement: "Patient was advised to return to the ER or call 911 if any headaches, dizziness, shortness of breath, chest pain, abdominal pain, bleeding, fevers, or worsening of medical condition. Patient was counseled about treatment plan, medications, possible side effects, patientverbalized understanding. All questions were answered to the best of my ability. This discharge took greater then 30 minutes in planning, reviewing documentation, counseling the patient, and discussing with other team members." ASSESSMENT ASSESSMENT Assessment # Acute intractable abdominal pain due to left inguinal hernia containing loop of small bowel, non obstructed or incarcerated # Hypertensive urgency # Acute on chronic hypoxic/hypercarbic respiratory failure due to COPD exacerbation on homeoxygen # COPD exacerbation # History of Asthma # HLD # BPH Date of Service: Feb 23, 2025 Billing Provider: DANNY RASMUSSEN MD Common Visit Codes: 53891-OSZ/OBS DISCH DAY >30min DULCE HAYNES RESIDENT Feb 23, 2025 14:28 DANNY RASMUSSEN MD Feb 25, 2025 21:57
--- NOTE | 2025-02-23 15:50 | DVHSR ---
APPROVED REPORT EXAM: Two-dimensional and M-mode echocardiogram with Doppler and color Doppler. Blood Pressure: 122/67 mmHg INDICATION Pre-Op RISK FACTORS Height: 5'3", Weight: 110 DIMENSIONS LVDd4.0 (3.8-5.7cm)LA (2D)3.2 (1.9-4.0cm)Aortic Root3.3 (2.0-3.7cm) LVDs2.5 (2.5-4.0cm)LA (MM) (1.9-4.0cm)Aortic Cusp Exc1.6 (1.5-2.0cm) EF (%) 67.0 (55-70%)Rt. Atrium3.7 (1.9-4.0cm)Asc. Aorta cm IVSd0.7 (0.7-1.1cm)RV (D) (1.8-2.4cm) PWd0.9 (0.7-1.1cm) Mitral Valve MitralMitral Stenosis E/A ratio0.02D MVAcm2 Aortic Valve Aortic ValveAortic Stenosis LVOT Diameter2.2 (1.8-2.4cm)Doppler AVAcm2 2D AVA2.04cm2 Pulmonic Valve V20.75m/s Tricuspid Valve TR Velocity2.47m/s [id number] Other Information Quality : Technically LimitedRhythm : Technically limited study due to body habitus. Conclusion lvef 55% normal rv fucntion no severe valve abnormaliteis noted mild circumferential pericardial effusion noted, no HD compromise mild tricuspid regurg
--- NOTE | 2025-02-26 11:17 | ECG ---
[facility] Test Date: 2025-02-23 Test Time: 12:22:17 Pat Name: CARMEN MORALES Department: Room: 0292 B Gender: M [employer] Operator: [id number] : 1940 Requested By: ALTAGRACIA HWANG Order Number: [id number] Reading MD: Carlito Obando Measurements Intervals Jadwin Rate: 70 P: 86 NH: 154 QRS: 75 QRSD: 87 T: 59 QT: 386 QTc: 417 Interpretive Statements Sinus rhythm Ventricular premature complex Borderline low voltage, extremity leads Electronically Signed On 02-26-2025 18:42:41 PDT by Carlito Obando Please click the below link to view image of tracing.
== END 2025-02-23 17:10 | disposition home or self-care (01) | DRG 393 ==
LOC: ER 08:11 → EDBD 08:11 → OVERFLOW 16:05 → WEST WING 02-22 16:36
PROVIDERS: ADMIT Internal Medicine Geriatric Medicine; ATTEND Internal Medicine Geriatric Medicine
DX: K40.90 Unilateral inguinal hernia, without obstruction or gangrene, not specified as recurrent (principal); J96.21 Acute and chronic respiratory failure with hypoxia; J96.22 Acute and chronic respiratory failure with hypercapnia; J44.1 Chronic obstructive pulmonary disease with (acute) exacerbation; I31.39 Other pericardial effusion (noninflammatory); J44.0 Chronic obstructive pulmonary disease with (acute) lower respiratory infection; I16.0 Hypertensive urgency; N40.0 Benign prostatic hyperplasia without lower urinary tract symptoms; K59.00 Constipation, unspecified; I25.10 Atherosclerotic heart disease of native coronary artery without angina pectoris; I10 Essential (primary) hypertension; F17.210 Nicotine dependence, cigarettes, uncomplicated; I71.43 Infrarenal abdominal aortic aneurysm, without rupture; E78.5 Hyperlipidemia, unspecified; Z79.2 Long term (current) use of antibiotics; Z79.82 Long term (current) use of aspirin; Z79.899 Other long term (current) drug therapy; Z83.3 Family history of diabetes mellitus; Z99.81 Dependence on supplemental oxygen; Z87.442 Personal history of urinary calculi
CPT/HCPCS: 36415; 71046; 74177; 80048; 83690; 83735; 83880; 85025; 85610; 85730; 93005; 93306; 94640; 96365; G0378

== ENCOUNTER 2025-02-26 07:08 | Outpatient (CLI) | payer MEDICARE ==
[2025-02-26 08:05] LABS: Alanine Aminotransferase 20 U/L (7-40); Alkaline Phosphatase 65 U/L (46-116); Anion Gap 7 (5-15); BUN/Creatinine Ratio 13.1 (10.0-20.0); Calcium 9.0 mg/dL (8.7-10.4); Carbon Dioxide 27 mmol/L (20-31); Chloride 102 mmol/L (98-107); Glucose 98 mg/dL (74-106); Potassium 4.6 mmol/L (3.5-5.1); Total Protein 6.1 g/dL (5.7-8.2)
[2025-02-26 08:06] LABS: Albumin 3.6 g/dL (3.2-4.8); Bilirubin, Total 0.5 mg/dL (0.2-1.0)
[2025-02-26 08:08] LABS: Blood Urea Nitrogen 8 mg/dL (9-23); Sodium 136 mmol/L (136-145)
== END 2025-02-26 17:00 | disposition home or self-care (01) ==
LOC: LAB 07:08
PROVIDERS: ATTEND Internal Medicine
DX: R73.03 Prediabetes (principal); I47.0 Re-entry ventricular arrhythmia; J44.9 Chronic obstructive pulmonary disease, unspecified; Z79.899 Other long term (current) drug therapy
CPT/HCPCS: 36415; 80053; 83036; 84153

== ENCOUNTER 2025-03-26 06:20 | Outpatient (CLI) | payer MEDICARE | END 2025-03-26 17:00 | disposition home or self-care (01) | LOC: LAB 06:20 | PROVIDERS: ATTEND Internal Medicine | DX: R94.2 Abnormal results of pulmonary function studies (principal); R91.8 Other nonspecific abnormal finding of lung field; R73.03 Prediabetes; J44.9 Chronic obstructive pulmonary disease, unspecified; K11.8 Other diseases of salivary glands | CPT/HCPCS: 82105; 82378 ==

== ENCOUNTER 2025-03-30 10:41 | Outpatient (CLI) | payer MEDICARE ==
--- NOTE | 2025-03-30 12:55 | DVH ---
PROCEDURE: ULTRASOUND GUIDED BIOPSY OF left parotid mass HISTORY: NODULE DOCUMENTATION: Informed consent was obtained and a procedural time out was performed. TECHNIQUE: The skin over the left partoid region was sterilely prepped, draped, and infiltrated with 1% lidocaine. Ultrasound images of the left parotid mass were obtained with images archived in the PACS. Using real-time ultrasound guidance, a 17-gauge coaxial needle was directed into left parotid m ass . The 18-gauge TEMNO biopsy needle was inserted coaxially and 3 core biopsy specimens were obtain ed and sent to pathology. The coaxial needle was then removed and hemostasis was achieved with manual compression. Sterile dressings were applied. FINDINGS: Limited ultrasound imaging demonstrates left parotid mass . Imaging confirms the needle tip within left parotid mass . Post-biopsy ultrasound imaging showed no apparent complication. IMPRESSION: SUCCESSFUL ULTRASOUND GUIDED BIOPSY OF left parotid mass. PLEASE FOLLOW UP WITH PATHOLOGY FOR FINAL R ESULTS. procedure by Dr. Ellison
== END 2025-03-30 17:00 | disposition home or self-care (01) ==
LOC: US 10:41
PROVIDERS: ATTEND Internal Medicine
DX: K11.8 Other diseases of salivary glands (principal); D11.0 Benign neoplasm of parotid gland; I50.9 Heart failure, unspecified; J44.9 Chronic obstructive pulmonary disease, unspecified; F41.9 Anxiety disorder, unspecified; Z79.82 Long term (current) use of aspirin; Z79.899 Other long term (current) drug therapy; Z85.46 Personal history of malignant neoplasm of prostate; Z87.891 Personal history of nicotine dependence; Z83.3 Family history of diabetes mellitus
CPT/HCPCS: 42400; 76536; 76942

== ENCOUNTER 2025-06-11 08:30 | Inpatient (IN) | payer MEDICARE ==
[~2025-06-11] VITALS: Ht 160 cm; Wt 44.9 kg
--- NOTE | 2025-06-11 09:25 | ED.PDOC ---
GI ASSESSMENT HPI Comments 85 year old male with PMhx asthma, CAD, COPD, HTN presents to the ED with a chief complaint of constipation. Patient is a poor historian. Patient states he has been experiencing constipation, last bowel movement was yesterday. This morning patient used a plastic spoon to help with disimpaction, broke inside rectum, states he has plastic in his rectum. Denies rectal bleeding, abdominal pain, melena, nausea, vomiting, diarrhea, headache, dizziness. NO other symptoms or modifying factors present at this time. Chief Complaint: Constipation Time Seen by MD: 09:15 Primary Care Provider: RAMÓN Reviewed Notes: Medications, Allergies Allergies: Coded Allergies: NO KNOWN ALLERGIES (Unverified , 11/09/17) Home Meds Active Scripts Azithromycin (ZITHROMAX TABLET) 250 Mg Tb, 250 MG PO DAILY, #6 TAB TAKE 2 TABLETS THE FIRST DAY, THEN 1 TABLET UNTIL FINISH Prov:PURVI JAIN MD 08/12/24 Methylprednisolone (Medrol Dosepak) 4 Mg [place], 4 MG PO UD, #21 TAB UAD Prov:PURVI JAIN MD 08/12/24 Azithromycin (Azithromycin) 500 Mg Tab, 1 TAB PO DAILY, #5 TAB Prov:ASHLIE NEWMAN MD 07/16/24 Prednisone (Prednisone) 20 Mg Tab, 40 MG PO DAILY for 5 Days, #10 MG 0 Refills Prov:ASHLIE NEWMAN MD 07/16/24 Atorvastatin Calcium (ATORVASTATIN CALCIUM) 20 Mg Tab, 1 TAB PO DAILY for 30 Days, #30 TAB 5 Refills Prov:JAN RAMACHANDRAN RESIDENT 04/28/24 Tamsulosin Hcl (Flomax) 0.4 Mg Cap, 0.4 MG PO QPM for 30 Days, #30 CAP Prov:MASHA JAMIL RESIDENT 03/29/24 Montelukast Sodium (Singulair) 10 Mg Tab, 10 MG PO HS for 30 Days, #30 TAB Prov:MASHA JAMIL RESIDENT 03/29/24 Aspirin (Aspirin Low Dose) 81 Mg Tab, 81 MG PO DAILY for 30 Days, #30 TAB Prov:MASHA JAMIL RESIDENT 03/29/24 Lactulose (Lactulose) 10 Gm/15 Ml Devora, 10 GM PO DAILY PRN for 30 Days, #240 ML 5 Refills Prov:PURVI JAIN MD 08/26/23 Docusate Sodium (Colace) 100 Mg Cap, 1 CAP PO BID, #30 CAP Prov:PAU OLEARY MD 03/31/23 Reported Medications Potassium Chloride (Klor-Con 8) 8 Meq Tab, 8 MEQ PO DAILY WITH FOOD, TAB 07/14/24 Furosemide (Furosemide) 20 Mg Tab, 20 MG PO DAILY, MG 07/14/24 Clonidine Hydrochloride (Clonidine Hcl) 0.1 Mg Tab, 0.1 MG PO Q4HR PRN for SBP>150, MG 07/14/24 Valsartan (Valsartan) 80 Mg Tab, 80 MG PO DAILY, TAB 07/14/24 Fuclbqadva-Ynoinpjnmmcefi-Ifem (Breztri Aerosphere 160-9-4.8 Mcg/Act) 1 Aer Aer, 2 PUFF INH BID for 30 Days, #10.7 05/01/24 Ipratropium-Albuterol (Ipratropium Gilbert/Albut) 1 Devora Devora, 1 VIAL NEB TID for 30 Days, #270 05/01/24 Nitroglycerin (NTROSTAT SUBLINGUAL) 0.4 Mg Sl, 0.4 MG SL PRN, TAB *MAY REPEAT EVERY 5 MINUTES X 3 TOTAL IF NO RELIEF, INITIATE ANALGESIC THERAPY. NOTIFY PHYSICIAN *Do not crush. 04/30/24 Hydralazine HCl (Hydralazine HCl) 25 Mg Tab, 1 TAB PO BID 07/11/23 Albuterol Sulfate (Albuterol Sulfate Hfa) 108 Mcg/Act Aer, 2 PUFF INH Q2HR PRN for SHORTNESS OF BREATH 03/31/23 Information Source: Patient Mode of Arrival: Ambulatory Timing: Hours Duration: Since onset Prehospital treatment: None Vomitus: None Severity: Moderate Recent: None Recent Hx of: None Associated sign and symptoms: Constipation Past Medical History PAST MEDICAL HISTORY: Asthma, CAD, COPD, Gallstones, HTN, Kidney Stones Surgical History: Hernia Repair, PTCA Family History Family History: Reviewed,noncontributory to illness Social History Smoker: Cigarettes, Less Than 1 Pack/Day Alcohol: Rarely Drugs: Denies Drug Use Lives In: Home Constitutional: denies: chills, diaphoresis, fatigue, fever, malaise, sweats, weakness, others EENTM: denies: blurred vision, double vision, ear bleeding, ear discharge, ear drainage, ear pain, ear ringing, eye pain, eye redness, hearing loss, mouth pain, mouth swelling, nasal discharge, nose bleeding, nose congestion, nose pain, photophobia, tearing, throat pain, throat swelling, voice changes, others Respiratory: denies: cough, hemoptysis, orthopnea, SOB at rest, shortness of breath, SOB with excertion, stridor, wheezing, others Cardiovascular: denies: chest pain, dizzy spells, diaphoresis, Dyspnea on exertion, edema, irregular heart beat, left arm pain, lightheadedness, palpitations, PND, syncope, others Gastrointestinal: reports: constipated, others (foreign object in rectum); denies: abdomen distended, abdominal pain, blood streaked bowels, diarrhea, dysphagia, difficulty swallowing, hematemesis, melena, nausea, poor appetite, poor fluid intake, rectal bleeding, rectal pain, vomiting Genitourinary: denies: burning, dysuria, flank pain, frequency, hematuria, incontinence, penile discharge, penile sore, pain, testicle pain, testicle swelling, urgency, others Neurological: denies: dizziness, fainting, headache, left sided numbness, left sided weakness, numbness, paresthesia, pre-existing deficit, right sided numbness, right sided weakness, seizure, speech problems, tingling, tremors, weakness, others Musculoskeletal: denies: back pain, gout, joint pain, joint swelling, muscle pain, muscle stiffness, neck pain, others Integumetry: denies: bruises, change in color, change in hair/nails, dryness, laceration, lesions, lumps, rash, wounds, others Allergic/Immunocompromised: denies: Difficulty Healing, Frequent Infections, Hives, Itching, others Hematologic/Lymphatic: denies: anemia, blood clots, easy bleeding, easy bruising, swollen glands, others Endocrine: denies: excessive hunger, excessive sweating, excessive thirst, excessive urination, flushing, intolerance to cold, intolerance to heat, unexplained weight gain, unexplained weight loss, others Psychiatric: denies: anxiety, bipolar disorder, depression, hopeless, panic disorder, schizophrenia, sleepless, suicidal, others All Other Systems: Reviewed and Negative Physical Exam General Appearance: Normal HEENT: Normal ENT Inspection, Pharynx Normal, TMs Normal Neck: Full Range of Motion, Non-Tender, Normal, Normal Inspection Respiratory: Chest Non-Tender, Lungs Clear, No Accessory Muscle Use, No Respiratory Distress, Normal Breath Sounds Cardiovascular: No Edema, No JVD, No Murmur, No Gallop, Normal Peripheral Pulses, Regular Rate/Rhythm Breast Exam: Deferred Gastrointestinal: No Organomegaly, Non Tender, No Pulsatile Mass, Normal Bowel Sounds, Soft Genitalia: Deferred Pelvic: Deferred Rectal: Deferred Extremities: No calf tenderness, Normal capillary refill, Normal inspection, Normal range of motion, Non-tender, No pedal edema Musculoskeletal : Apperance: Normal Neurologic: Alert, wheel cleaner II-XII nml as Tested, No Motor Deficits, Normal Affect, Normal Mood, No Sensory Deficits Cerebellar Function: Normal Reflexes: Normal Skin: Dry, Normal Color, Warm Lymphatic: No Adenopathy Was a procedure done? Was a procedure done?: No GI differential Dx Differential Diagnosis: Other Other Differential Diagnosis rectal injury, constipation, colitis, incarcerated hernia, rectal FB, sbo, ileus X-Ray, Labs, Meds, VS Vital Signs Date Time Temp Pulse Resp B/P (MAP) Pulse Ox O2 Delivery O2 Flow Rate FiO2 06/11/25 09:43 91 16 97 Room Air* 0 21 06/11/25 09:41 97.5 91 18 174/88 (116) 97 97.5 06/11/25 08:34 97.8 100 18 161/106 98 97.8 Lab Test 06/11/25 09:32 Range/Units White Blood Count 5.6 4.4-10.8 10^3/uL Red Blood Count 4.60 4.5-5.90 10^6/uL Hemoglobin 15.5 13.5-17.5 g/dL Hematocrit 45.3 41.0-53.0 % Mean Corpuscular Volume 98.4 80.0-100.0 fL Mean Corpuscular Hemoglobin 33.8 H 28.0-32.0 pg Mean Corpuscular Hemoglobin Concent 34.3 32.0-36.0 g/dL Red Cell Distribution Width 13.8 11.8-14.3 % Platelet Count 222 140-450 10^3/uL Mean Platelet Volume 7.2 6.9-10.8 fL Neutrophils (%) (Auto) 74.5 37.0-80.0 % Lymphocytes (%) (Auto) 17.0 10.0-50.0 % Monocytes (%) (Auto) 7.6 0.0-12.0 % Eosinophils (%) (Auto) 0.4 0.0-7.0 % Basophils (%) (Auto) 0.5 0.0-2.0 % Neutrophils # (Auto) 4.1 1.6-8.6 10 ^3/uL Lymphocytes # (Auto) 0.9 0.4-5.4 10 ^3/uL Monocytes # (Auto) 0.4 0-1.3 10 ^3/uL Eosinophils # (Auto) 0 0-0.8 10 ^3/uL Basophils # (Auto) 0 0-0.2 10 ^3/uL Nucleated Red Blood Cells 0.1 % Sodium Level 137 136-145 mmol/L Potassium Level 4.6 3.5-5.1 mmol/L Chloride Level 100 98-107 mmol/L Carbon Dioxide Level 30 20-31 mmol/L Anion Gap 7 5-15 Blood Urea Nitrogen 12 9-23 mg/dL Creatinine 0.70 0.700-1.30 mg/dL Glomerular Filtration Rate Calc 90 >90 mL/min BUN/Creatinine Ratio 17.1 10.0-20.0 Serum Glucose 113 H 74-106 mg/dL Calcium Level 9.4 8.7-10.4 mg/dL [place] [address] Ph: [phone] DIAGNOSTIC IMAGING Diagnostic Imaging Report : [id number] Signed PATIENT: CARMEN MORALES ACCT: [id number] UNIT: [id number] : 1940 LOC: ER ROOM / BED: / AGE / SEX: 85 / M ADM STATUS: REG ER SERVICE [id number] ORDERING PHYSICIAN: IVÁN ZARAGOZA MD PROCEDURE(s): ABPL - CT AB PEL WO CON-NO ORAL OR IV REASON: FB ORDER NUMBER(s): [id number], ACCESSION NUMBER(s): [id number] CLINICAL HISTORY: FB TECHNIQUE: CT of the abdomen and pelvis was performed without IV contrast. This exam was performed according to our departmental dose optimization program. Up-to-date CT equipment and radiation dose reduction techniques are utilized as appropriate. CTDI 5 DLP 249 COMPARISON: CT CT AB PEL WO CON-NO ORAL OR IV on DOS: 05/01/24, CT CT AB PEL WO CON-NO ORAL OR IV on DOS: 04/26/24, CT CT AB PEL WO CON-NO ORAL OR IV on DOS: 07/10/23, CT CT AB PEL WO CON-NO ORAL OR IV on DOS: 03/29/23, [facility] on DOS: 04/20/22 FINDINGS: Abdomen/Pelvis: Evaluation is limited due to significant image degradation from patient motion. The kidneys, adrenal glands, spleen, and pancreas are grossly unremarkable. There is a small amount of pneumobilia. The gallbladder is absent. There is no focal liver lesion. The abdominal aorta is normal in course and caliber. There are moderate to advanced atherosclerotic calcifications. There is no free intraperitoneal air or fluid. There is no enlarged abdominal pelvic lymph node. There is no bowel wall thickening or dilatation. There is a moderate left inguinal hernia containing fat and loop of nonobstructed sigmoid colon. There has been previous bowel surgery right lower quadrant, favoring small-bowel resection. Other: The imaged lower thorax demonstrates a trace pericardial effusion, centrilobular emphysema, and mild linear atelectasis and/or scar. There is a small hiatal hernia. No acute osseous abnormality is evident. Impression: o acute noncontrast CTLimited exam with no abnormality in the abdomen/pelvis. Moderate left inguinal hernia containing fat and loop of nonobstructed sigmoid colon. Cholecystectomy. Sphincterectomy. Right lower quadrant bowel resection with reanastomosis. ATED BY: KASSIDY BURRIS MD DICTATED DATE/TIME: 06/11/25 1035 SIGNED BY: KASSIDY BURRIS MD SIGNED DATE/TIME: 06/11/25 1035 CC: Time of 1ST Reevaluation: 09:45 Reevaluation 1ST: Unchanged Patient Education/Counseling: Diagnosis, Treatment, Prognosis, Need For Follow Up Family Education/Counseling: No Family Present Comments this is a pt who believes that a part of a plastic spoon broke off and is in his rectum. however, CT does not obviously show any FB. pt still is symptomatic. he will be admitted for GI evaluation SEPSIS Sepsis Screen Date sepsis recognized/suspect: Jun 11, 2025 Time Sepsis recognized/suspect: 0843 Recent Procedure: No On Antibiotic Therapy: No Respiratory Rate >20: No Heart Rate >90: Yes Temp<36 C (96.8 F) or >38.3 C: No SBP <90 or MAP <65 mmHG: No New Acute Mental Status Change: No Is the patient on CPAP, BIPAP,: No Physician Orders Ct Ab Pel Wo Con-No Oral Or Iv (06/11/25 09:24) Vital Signs Date Time Temp Pulse Resp B/P (MAP) Pulse Ox O2 Delivery O2 Flow Rate FiO2 06/11/25 09:43 91 16 97 Room Air* 0 21 06/11/25 09:41 97.5 91 18 174/88 (116) 97 97.5 06/11/25 08:34 97.8 100 18 161/106 98 97.8 Laboratory Tests Test 06/11/25 09:32 White Blood Count 5.6 10^3/uL (4.4-10.8) Departure 1 Departure Time of Disposition: 11:32 Impression: Primary Impression: Abdominal pain Additional Impression: Rectal pain Disposition: ADMITTED INPATIENT Admit to: Med Surg Condition: Stable Discharged With: Self Critical Care Note Critical Care Time?: No Stability Stability form required: No Heart Score Heart Score: Heart Score Response (Comments) Value History N/A 0 EKG N/A 0 Age N/A 0 Risk Factors N/A 0 Troponin N/A 0 Total 0 I personally scribed for IVÁN ZARAGOZA MD ([email or web address]) on 06/11/25 at 09:25. Electronically submitted by Yari Jackson ([email or web address]). I personally scribed for IVÁN ZARAGOZA MD ([email or web address]) on 06/11/25 at 10:48. Electronically submitted by Yari Jackson ([email or web address]). IVÁN ZARAGOZA MD Jun 11, 2025 09:25
[2025-06-11 09:43] VITALS: PULSE 91; RESP 16; O2SAT 97
[2025-06-11 09:43] LABS: Hematocrit 45.3 % (41.0-53.0); Hemoglobin 15.5 g/dL (13.5-17.5); Mean Corpuscular Hemoglobin 33.8 pg (28.0-32.0); Mean Corpuscular Volume 98.4 fL (80.0-100.0); Nucleated Red Blood Cells % 0.1 %
[2025-06-11 09:56] LABS: Chloride 100 mmol/L (98-107); Potassium 4.6 mmol/L (3.5-5.1); Sodium 137 mmol/L (136-145)
[2025-06-11 09:57] LABS: Anion Gap 7 (5-15); Calcium 9.4 mg/dL (8.7-10.4); Carbon Dioxide 30 mmol/L (20-31)
[2025-06-11 10:02] LABS: BUN/Creatinine Ratio 17.1 (10.0-20.0); Blood Urea Nitrogen 12 mg/dL (9-23)
[2025-06-11 10:08] LABS: Glucose 113 mg/dL (74-106)
--- NOTE | 2025-06-11 10:38 | DVH ---
CLINICAL HISTORY: FB TECHNIQUE: CT of the abdomen and pelvis was performed without IV contrast. This exam was performed according to our departmental dose optimization program. Up-to-date CT equipment and radiation dose reduction techniques are utilized as appropriate. CTDI 5 DLP 249 COMPARISON: CT CT AB PEL WO CON-NO ORAL OR IV on DOS: 05/01/24, CT CT AB PEL WO CON-NO ORAL OR IV on DOS: 04/26/24, CT CT AB PEL WO CON-NO ORAL OR IV on DOS: 07/10/23, CT CT AB PEL WO CON-NO ORAL OR IV on DOS: 03/29/23, [facility] on DOS: 04/20/22 FINDINGS: Abdomen/Pelvis: Evaluation is limited due to significant image degradation from patient motion. The kidneys, adrenal glands, spleen, and pancreas are grossly unremarkable. There is a small amount of pneumobilia. The gallbladder is absent. There is no focal liver lesion. The abdominal aorta is normal in course and caliber. There are moderate to advanced atherosclerotic calcifications. There is no free intraperitoneal air or fluid. There is no enlarged abdominal pelvic lymph node. There is no bowel wall thickening or dilatation. There is a moderate left inguinal hernia containing fat and loop of nonobstructed sigmoid colon. There has been previous bowel surgery right lower quadrant, favoring small-bowel resection. Other: The imaged lower thorax demonstrates a trace pericardial effusion, centrilobular emphysema, and mild linear atelectasis and/or scar. There is a small hiatal hernia. No acute osseous abnormality is evident. Impression: o acute noncontrast CTLimited exam with no abnormality in the abdomen/pelvis. Moderate left inguinal hernia containing fat and loop of nonobstructed sigmoid colon. Cholecystectomy. Sphincterectomy. Right lower quadrant bowel resection with reanastomosis.
[2025-06-11 12:00] VITALS: PULSE 85; O2SAT 97
[2025-06-11] MEDS ORDERED: ACETAMINOPHEN 325 MG TAB PO PRN (13:00)
[2025-06-11] MEDS ORDERED: ONDANSETRON HCL 4 MG/2 ML VIAL IV PRN (13:00)
[2025-06-11] MEDS: SODIUM CHLORIDE 0.9% 1,000 ML IV SCH (13:40)
[2025-06-11] MEDS ORDERED: ROSU5TAB24 PO (13:40)
[2025-06-11] MEDS: DOCUSATE SOD 100 MG CAP PO PRN (13:40)
[2025-06-11] MEDS: HYDROcodone-ACET 5/325MG TAB PO PRN (13:41)
--- NOTE | 2025-06-11 14:40 | DVHHP2 ---
History of Present Illness Reason for Visit: Constipation History of Present Illness Chalino Ames is an 85-year-old male with past medical history of asthma, COPD, hypertension, and hyperlipidemia, who came to the hospital due to breaking a plastic fork in his rectum. Patient states he has been constipated so he used the handle side of a plastic fork to try and disimpact himself. The handle broke off in his rectum and he was unable to get it out. He states it is about the length of his ring finger. Denies any rectal pain or pressure. Only complains of pain to left lower abdomen due to a hernia. He has scheduled hernia surgery with Dr. Horan on 07/04/2025. Cardiovascular: CAD, HTN, hyperipidemia Pulmonary: Asthma, COPD Past Surgical History: Cholecystectomy, Other (bowel resection) Smoke: Quit (5 years ago) ALCOHOL: none Drugs: None Lives: with Family Domestic Violence: Neg Review of Systems Constitutional: No: Fever, Chills, Sweats, Weakness, Malaise, Other Eyes: No: Pain, Vision change, Conjunctivae inflammation, Eyelid inflammation, Other, Redness ENT: No: Ear pain, Ear discharge, Nose pain, Nose discharge, Nose congestion, Mouth pain, Mouth swelling, Throat pain, Throat swelling, Other Respiratory: No: Cough, Dry, Shortness of breath, SOB with excertion, Wheezing, Hemoptysis, Pleuritic Pain, Sputum, Wheezing, Other Cardiovascular: No: Chest Pain, Palpitations, Orthopnea, Paroxysmal Noc. Dyspnea, Edema, Lt Headedness, Other Gastrointestinal: Constipation; No: Nausea, Vomiting, Abdominal Pain, Diarrhea, Melena, Hematochezia, Other Genitourinary: No Dysuria, No Frequency, No Incontinence, No Hematuria, No Retention, No Other Musculoskeletal: No: other, neck pain, shoulder pain, arm pain, back pain, hand pain, leg pain, foot pain Skin: No: Rash, Lesions, Jaundice, Bruising, Other Neurological: No: Weakness, Numbness, Incoordination, Change in speech, Confusion, Seizures, Other Allergies: Coded Allergies: NO KNOWN ALLERGIES (Unverified , 11/09/17) Exam Vital Signs Vital Signs Date Time Temp Pulse Resp B/P (MAP) Pulse Ox O2 Delivery O2 Flow Rate FiO2 06/11/25 09:43 91 16 97 Room Air* 0 21 06/11/25 09:41 97.5 174/88 (116) 97.5 General Appearance: Alert, Oriented X3, Cooperative, No acute distress HEENT: Atraumatic, PERRLA, EOMI, Mucous membr. moist/pink Respiratory: Clear to auscultation, Normal air movement Cardiovascular: Regular rate, Normal S1, Normal S2, No murmurs Abdominal: Normal bowel sounds, Soft, No tenderness, Other (Pain to lower abdomen where hernia is. Denies any rectal pain or pressure) Extremities: No clubbing, No cyanosis, No edema, Normal pulses, No tende rness/swelling Skin: No rashes, No breakdown, No significant lesion Neuro: Normal gait, Normal speech, Strength at 5/5 X4 ext, Normal tone, Sensation intact Psych/Mental Status: Mental status NL, Mood NL Labs/Xrays Labs Test 06/11/25 09:32 Range/Units White Blood Count 5.6 4.4-10.8 10^3/uL Red Blood Count 4.60 4.5-5.90 10^6/uL Hemoglobin 15.5 13.5-17.5 g/dL Hematocrit 45.3 41.0-53.0 % Mean Corpuscular Volume 98.4 80.0-100.0 fL Mean Corpuscular Hemoglobin 33.8 H 28.0-32.0 pg Mean Corpuscular Hemoglobin Concent 34.3 32.0-36.0 g/dL Red Cell Distribution Width 13.8 11.8-14.3 % Platelet Count 222 140-450 10^3/uL Mean Platelet Volume 7.2 6.9-10.8 fL Neutrophils (%) (Auto) 74.5 37.0-80.0 % Lymphocytes (%) (Auto) 17.0 10.0-50.0 % Monocytes (%) (Auto) 7.6 0.0-12.0 % Eosinophils (%) (Auto) 0.4 0.0-7.0 % Basophils (%) (Auto) 0.5 0.0-2.0 % Neutrophils # (Auto) 4.1 1.6-8.6 10 ^3/uL Lymphocytes # (Auto) 0.9 0.4-5.4 10 ^3/uL Monocytes # (Auto) 0.4 0-1.3 10 ^3/uL Eosinophils # (Auto) 0 0-0.8 10 ^3/uL Basophils # (Auto) 0 0-0.2 10 ^3/uL Nucleated Red Blood Cells 0.1 % Sodium Level 137 136-145 mmol/L Potassium Level 4.6 3.5-5.1 mmol/L Chloride Level 100 98-107 mmol/L Carbon Dioxide Level 30 20-31 mmol/L Anion Gap 7 5-15 Blood Urea Nitrogen 12 9-23 mg/dL Creatinine 0.70 0.700-1.30 mg/dL Glomerular Filtration Rate Calc 90 >90 mL/min BUN/Creatinine Ratio 17.1 10.0-20.0 Serum Glucose 113 H 74-106 mg/dL Calcium Level 9.4 8.7-10.4 mg/dL TECHNIQUE: CT of the abdomen and pelvis was performed without IV contrast. FINDINGS: Abdomen/Pelvis: Evaluation is limited due to significant image degradation from patient motion. The kidneys, adrenal glands, spleen, and pancreas are grossly unremarkable. There is a small amount of pneumobilia. The gallbladder is absent. There is no focal liver lesion. The abdominal aorta is normal in course and caliber. There are moderate to advanced atherosclerotic calcifications. There is no free intraperitoneal air or fluid. There is no enlarged abdominal pelvic lymph node. There is no bowel wall thickening or dilatation. There is a moderate left inguinal hernia containing fat and loop of nonobstructed sigmoid colon. There has been previous bowel surgery right lower quadrant, favoring small-bowel resection. Other: The imaged lower thorax demonstrates a trace pericardial effusion, centrilobular emphysema, and mild linear atelectasis and/or scar. There is a small hiatal hernia. No acute osseous abnormality is evident. Impression: No acute noncontrast CT Limited exam with no abnormality in the abdomen/pelvis. Moderate left inguinal hernia containing fat and loop of non-obstructed sigmoid colon. Cholecystectomy. Sphincterectomy. Right lower quadrant bowel resection with reanastomosis. SEPSIS Sepsis Screen Date sepsis recognized/suspect: Jun 11, 2025 Time Sepsis recognized/suspect: 0843 Recent Procedure: No On Antibiotic Therapy: No Respiratory Rate >20: No Heart Rate >90: Yes Temp<36 C (96.8 F) or >38.3 C: No SBP <90 or MAP <65 mmHG: No New Acute Mental Status Change: No Is the patient on CPAP, BIPAP,: No Physician Orders Ct Ab Pel Wo Con-No Oral Or Iv (06/11/25 09:24) Admit (06/11/25 12:50) Code Status (06/11/25 12:50) 0.9% Ns 1000 Ml (06/11/25 13:00) Hydrocodone-Acet 5/325mg Tab ([place] 5/32 (06/11/25 13:00) Ondansetron Hcl (Zofran) (06/11/25 13:00) Docusate Sodium Capsule (Colace Capsule) (06/11/25 13:00) Complete Blood Count (06/12/25 04:00) Comprehensive Metabolic Panel (06/12/25 04:00) Npo (Nothing By Mouth) Diet (06/11/25 Lunch) Condition: Serious (06/11/25 12:50) Acetaminophen Tablet (Tylenol Tablet) (06/11/25 13:00) * [employer] (06/11/25 12:50) Vital Signs Date Time Temp Pulse Resp B/P (MAP) Pulse Ox O2 Delivery O2 Flow Rate FiO2 06/11/25 09:43 91 16 97 Room Air* 0 21 06/11/25 09:41 97.5 91 18 174/88 (116) 97 97.5 06/11/25 08:34 97.8 100 18 161/106 98 97.8 Laboratory Tests Test 06/11/25 09:32 White Blood Count 5.6 10^3/uL (4.4-10.8) Assessment/Plan Assessment/Plan Assessment: Foreign body of rectum, Constipation, Hernia, COPD, Hypertension, Hyperlipidemia, Plan: Admit to Med-Surg, GI consult, NPO, IV hydration, Pain management, Home medications reconciled, Plan discussed with: Patient, Daughter My Orders Orders - DADA MARTINEZ [employer]AYER Procedure Category Date Status Time Admit ADMIT 06/11/25 Verified 12:50 Code Status CODE 06/11/25 Verified 12:50 0.9% Ns 1000 Ml PHA 06/11/25 Verified 13:00 Hydrocodone-Acet PHA 06/11/25 Verified 5/325mg Tab ([place] 13:00 Ondansetron Hcl PHA 06/11/25 Verified (Zofran) 13:00 Docusate Sodium PHA 06/11/25 Verified Capsule (Colace 13:00 Complete Blood Count LAB 06/12/25 Verified 04:00 Comprehensive LAB 06/12/25 Verified Metabolic Panel 04:00 Npo (Nothing By DIET 06/11/25 Verified Mouth) Diet Lunch Condition: Serious NUPUR 06/11/25 Verified 12:50 Acetaminophen Tablet PHA 06/11/25 Verified (Tylenol Tablet) 13:00 * [employer] CONS 06/11/25 Verified 12:50 Date of Service: Jun 11, 2025 Billing Provider: DADA MARTINEZ Common Visit Codes: [id number] INP/OBS CARE (HIGH) DADA MARTINEZ Jun 11, 2025 14:40
--- NOTE | 2025-06-11 16:44 | DVHCONRES ---
Date Seen: Jun 11, 2025 Resident Creating Document: NICOLETTE GARDNER RESIDENT Referring Physician Michele HUNG History of Present Illness Chalino Ames is an 85-year-old male with past medical history of asthma, COPD, hypertension, and hyperlipidemia, who came to the hospital due to breaking a plastic fork in his rectum. Patient states he has been constipated so he used the handle side of a plastic fork to try and disimpact himself. The handle broke off in his rectum and he was unable to get it out. He states it is about the length of his ring finger. Denies any rectal pain or pressure. Only complains of pain to left lower abdomen due to a hernia. He has scheduled hernia surgery with Dr. Horan on 07/04/2025. Patient seen and examined. Abdomen soft nontender. Family History: Family history: Diabetes mellitus Allergies: Coded Allergies: NO KNOWN ALLERGIES (Unverified , 11/09/17) Home Meds Active Scripts Tamsulosin Hcl (Flomax) 0.4 Mg Cap, 0.4 MG PO QPM for 30 Days, #30 CAP Prov:MASHA JAMIL 03/29/24 Montelukast Sodium (Singulair) 10 Mg Tab, 10 MG PO HS for 30 Days, #30 TAB Prov:MASHA JAMIL 03/29/24 Aspirin (Aspirin Low Dose) 81 Mg Tab, 81 MG PO DAILY for 30 Days, #30 TAB Prov:MASHA JAMIL RESIDENT 03/29/24 Lactulose (Lactulose) 10 Gm/15 Ml Devora, 10 GM PO DAILY PRN for 30 Days, #240 ML 5 Refills Prov:PURVI JAIN MD 08/26/23 Docusate Sodium (Colace) 100 Mg Cap, 1 CAP PO BID, #30 CAP Prov:PAU OLEARY MD 03/31/23 Reported Medications Rosuvastatin Calcium (Rosuvastatin Calcium) 5 Mg Tab, 1 TAB PO HS 06/11/25 Potassium Chloride (Klor-Con 8) 8 Meq Tab, 8 MEQ PO DAILY WITH FOOD, TAB 07/14/24 Furosemide (Furosemide) 20 Mg Tab, 20 MG PO DAILY, MG 07/14/24 Clonidine Hydrochloride (Clonidine Hcl) 0.1 Mg Tab, 0.1 MG PO Q4HR PRN for SBP>150, MG 07/14/24 Valsartan (Valsartan) 80 Mg Tab, 80 MG PO DAILY, TAB 07/14/24 Yfuqeubuqi-Prwbjocubroavm-Ghid (Breztri Aerosphere 160-9-4.8 Mcg/Act) 1 Aer Aer, 2 PUFF INH BID for 30 Days, #10.7 05/01/24 Ipratropium-Albuterol (Ipratropium Bradley/Albut) 1 Devora Devora, 1 VIAL NEB TID for 30 Days, #270 05/01/24 Nitroglycerin (NTROSTAT SUBLINGUAL) 0.4 Mg Sl, 0.4 MG SL PRN, TAB *MAY REPEAT EVERY 5 MINUTES X 3 TOTAL IF NO RELIEF, INITIATE ANALGESIC THERAPY. NOTIFY PHYSICIAN *Do not crush. 04/30/24 Hydralazine HCl (Hydralazine HCl) 25 Mg Tab, 1 TAB PO BID 07/11/23 Albuterol Sulfate (Albuterol Sulfate Hfa) 108 Mcg/Act Aer, 2 PUFF INH Q2HR PRN for SHORTNESS OF BREATH 03/31/23 Discontinued Scripts Azithromycin (ZITHROMAX TABLET) 250 Mg Tb, 250 MG PO DAILY, #6 TAB TAKE 2 TABLETS THE FIRST DAY, THEN 1 TABLET UNTIL FINISH Prov:PURVI JAIN MD 08/12/24 Methylprednisolone (Medrol Dosepak) 4 Mg Kendell, 4 MG PO UD, #21 TAB UAD Prov:PURVI JAIN MD 08/12/24 Azithromycin (Azithromycin) 500 Mg Tab, 1 TAB PO DAILY, #5 TAB Prov:ASHLIE NEWMAN MD 07/16/24 Prednisone (Prednisone) 20 Mg Tab, 40 MG PO DAILY for 5 Days, #10 MG 0 Refills Prov:ASHLIE NEWMAN MD 07/16/24 Atorvastatin Calcium (ATORVASTATIN CALCIUM) 20 Mg Tab, 1 TAB PO DAILY for 30 Days, #30 TAB 5 Refills Prov:JAN RAMACHANDRAN 04/28/24 Current Medications Current Medications Medications (Trade) Dose Ordered Sig/Yeimy Route PRN Reason Start Time Stop Time Status Last Admin Sodium Chloride 1,000 ml @ 80 mls/hr [id number] IV 06/11/25 13:00 06/11/25 13:40 Acetaminophen/ Hydrocodone Bitart ([place]lock 5/325MG Tab) 1 tab Q4HP PRN PO MODERATE PAIN (4-6 PAIN SCALE) 06/11/25 13:00 06/11/25 13:41 Ondansetron HCl (Zofran) 4 mg Q4HP PRN IV NAUSEA / VOMITING 06/11/25 13:00 Docusate Sodium (Colace Capsule) 100 mg BIDPRN PRN PO FOR CONSTIPATION 06/11/25 13:00 06/11/25 13:40 Acetaminophen (Tylenol Tablet) 650 mg Q6HP PRN PO PAIN SCALE 1-3 OR TEMP>100.4 06/11/25 13:00 Clonidine HCl (Catapres Tablet) 0.1 mg Q4HR PRN PO SBP>150 06/11/25 13:45 Furosemide (Lasix Tablet) 20 mg DAILY PO 06/12/25 10:00 Hydralazine HCl (Apresoline Tablet) 25 mg BID PO 06/11/25 22:00 Valsartan (Diovan) 80 mg DAILY PO 06/12/25 10:00 Patient Own Medication 2 puff BID PO 06/11/25 22:00 Vital Signs Vital Signs Date Time Temp Pulse Resp B/P (MAP) Pulse Ox O2 Delivery O2 Flow Rate FiO2 06/11/25 14:11 79 06/11/25 14:00 16 149/83 (105) 95 06/11/25 12:00 97.6 97.6 06/11/25 12:00 Nasal Cannula* 2 28 Physical Exam Patient lying in bed, in no acute distress General: Thin, afebrile, palor, mucosae are moist Cardiovascular: Regular S1 and S2. No murmurs, gallops or rubs. No JVD elevation. No pedal edema Respiratory: Normal B/L air entry on room air. Clear lung sounds on auscultation Abdomen: Soft, nontender, nondistended, normoactive bowel sounds, no rebound tenderness, no organomegaly, no masses Genitourinary: Deferred MSK/skin: Mobilizes 4 limbs. Skin is dry and warm Neurological: No motor, no sensitive deficits, normal speech. Pupils are isocoric and reactive. Psych/Mental Status: A/Ox3 Labs/Diagnostic Data Labs Test 06/11/25 09:32 Range/Units White Blood Count 5.6 4.4-10.8 10^3/uL Red Blood Count 4.60 4.5-5.90 10^6/uL Hemoglobin 15.5 13.5-17.5 g/dL Hematocrit 45.3 41.0-53.0 % Mean Corpuscular Volume 98.4 80.0-100.0 fL Mean Corpuscular Hemoglobin 33.8 H 28.0-32.0 pg Mean Corpuscular Hemoglobin Concent 34.3 32.0-36.0 g/dL Red Cell Distribution Width 13.8 11.8-14.3 % Platelet Count 222 140-450 10^3/uL Mean Platelet Volume 7.2 6.9-10.8 fL Neutrophils (%) (Auto) 74.5 37.0-80.0 % Lymphocytes (%) (Auto) 17.0 10.0-50.0 % Monocytes (%) (Auto) 7.6 0.0-12.0 % Eosinophils (%) (Auto) 0.4 0.0-7.0 % Basophils (%) (Auto) 0.5 0.0-2.0 % Neutrophils # (Auto) 4.1 1.6-8.6 10 ^3/uL Lymphocytes # (Auto) 0.9 0.4-5.4 10 ^3/uL Monocytes # (Auto) 0.4 0-1.3 10 ^3/uL Eosinophils # (Auto) 0 0-0.8 10 ^3/uL Basophils # (Auto) 0 0-0.2 10 ^3/uL Nucleated Red Blood Cells 0.1 % Sodium Level 137 136-145 mmol/L Potassium Level 4.6 3.5-5.1 mmol/L Chloride Level 100 98-107 mmol/L Carbon Dioxide Level 30 20-31 mmol/L Anion Gap 7 5-15 Blood Urea Nitrogen 12 9-23 mg/dL Creatinine 0.70 0.700-1.30 mg/dL Glomerular Filtration Rate Calc 90 >90 mL/min BUN/Creatinine Ratio 17.1 10.0-20.0 Serum Glucose 113 H 74-106 mg/dL Calcium Level 9.4 8.7-10.4 mg/dL Assessment Foreign body of rectum Left inguinal hernia containing fat and nonobstructed sigmoid colon Constipation Hypertension Dyslipidemia History of COPD History of cholecystectomy ? Sleeve/gastric bypass Plan: Recommendation: Patient will be scheduled for sigmoidoscopy/colonoscopy tomorrow 06/12. Clear liquid diet for now. GoLYTELY bowel prep ordered. Follow up with GI as outpatient within the next 2-4 weeks Follow up with PT/INR, hepatic panel, ESR and CRP Rest of management per primary Thank you for consulting GI Plan discussed with patient in which all questions have been answered Case discussed Dr. Sanchez Plan discussed with: Patient NICOLETTE GARDNER RESIDENT Jun 11, 2025 16:44
[2025-06-11 16:50] VITALS: PULSE 80; RESP 17; O2SAT 96
[2025-06-11 17:00] VITALS: BP 131/86; PULSE 80; RESP 17; TEMP 97.8; O2SAT 96
[2025-06-11 21:00] VITALS: BP 158/97; PULSE 81; RESP 18; TEMP 97.8; O2SAT 98
[2025-06-11] MEDS: GOLYTELY 4L KIT PO ONE (21:10)
[2025-06-12] VITALS (9 sets, daily range): BP systolic 123–165; BP diastolic 76–90; PULSE 80–99; RESP 16–18; TEMP 97.4–98.4; O2SAT 95–98
[2025-06-12] MEDS: GOLYTELY 4L KIT PO ONE (06:15)
[2025-06-12 07:47] LABS: Hemoglobin 15.6 g/dL (13.5-17.5)
[2025-06-12 07:50] LABS: Hematocrit 44.8 % (41.0-53.0); Mean Corpuscular Hemoglobin 34.0 pg (28.0-32.0); Mean Corpuscular Volume 97.5 fL (80.0-100.0); Nucleated Red Blood Cells % 0.0 %
[2025-06-12 07:57] LABS: Alanine Aminotransferase 47 U/L (7-40); Albumin 3.9 g/dL (3.2-4.8); Alkaline Phosphatase 110 U/L (46-116); Anion Gap 9 (5-15); BUN/Creatinine Ratio 15.5 (10.0-20.0); Blood Urea Nitrogen 9 mg/dL (9-23); Calcium 9.2 mg/dL (8.7-10.4); Carbon Dioxide 28 mmol/L (20-31); Chloride 103 mmol/L (98-107); Glucose 64 mg/dL (74-106); Magnesium 2.1 mg/dL (1.6-2.6); Potassium 4.2 mmol/L (3.5-5.1); Sodium 140 mmol/L (136-145); Total Protein 6.8 g/dL (5.7-8.2)
[2025-06-12 07:58] LABS: Bilirubin, Total 1.5 mg/dL (0.2-1.0)
[2025-06-12 08:07] LABS: INR 1.03 (0.9-1.15); Partial Thromboplastin Time 26.2 SEC (24.5-34.5); Prothrombin Time 10.9 sec (9.3-11.8)
[2025-06-12] MEDS: FUROSEMIDE 20 MG TAB PO SCH (10:05)
[2025-06-12] MEDS: VALSARTAN 80 MG TAB PO SCH (10:06)
--- NOTE | 2025-06-12 10:51 | DVH ---
Technique: Real-time ultrasound imaging of the abdomen was performed with grayscale and color Doppler. Indication: trasnamnitis Comparison: US ABDOMEN LIMITED on DOS: 03/30/23 Findings: Liver measures 11.2 cm. It is unremarkable in echogenicity and echotexture without focal mass. Portal vein is normal in caliber and demonstrates normal hepatopetal flow. Gallbladder is removed. The common bile duct measures 7 mm. No intrahepatic biliary ductal dilatation. The right kidney measures 9 cm. Left kidney measures 9.2 cm. No hydronephrosis or sonographic evidence of nephrolithiasis. Right renal cyst measuring 1.7 cm. The visualized portion of the pancreas is unremarkable. The visualized portion of the IVC is unremarkable. Impression: Cholecystectomy. Right renal cyst measuring 1.7 cm with simple features.
--- NOTE | 2025-06-12 10:58 | ECG ---
[facility] Test Date: 2025-06-12 Test Time: 10:09:20 Pat Name: CARMEN MORALES Department: Room: 0296T Gender: M Coremaker Machine: ZENAIDA : [id number] Requested By: DADA MARTINEZ Order Number: [id number] Reading MD: Carlito Obando Measurements Intervals Sinclair Rate: 85 P: 71 AL: 159 QRS: 69 QRSD: 80 T: 57 QT: 387 QTc: 461 Interpretive Statements Sinus rhythm Multiple ventricular premature complexes Low voltage, extremity leads Baseline wander in lead(s) V1 Electronically Signed On 06-13-2025 17:37:54 PST by Carlito Obando Please click the below link to view image of tracing.
--- NOTE | 2025-06-12 11:04 | DVH ---
XY CHEST PORTABLE, HISTORY: PREOP COMPARISON: XY CHEST TWO VIEWS ROUTINE on DOS: 04/06/25, XY CHEST TWO VIEWS ROUTINE on DOS: 02/21/25, XY CHEST PORTABLE on DOS: 08/10/24 XY CHEST TWO VIEWS ROUTINE on DOS: 04/06/25, XY CHEST TWO VIEWS ROUTINE on DOS: 02/21/25, XY CHEST PORTABLE on DOS: 08/10/24 TECHNICAL DATA: 1 view of the chest was obtained. FINDINGS: Lines and tubes: None Cardiomediastinal silhouette: normal Pulmonary vasculature: normal Lung expansion: normal Lung airspace: Mild left basilar airspace opacity. Lung interstitium: normal Pleura: normal Pneumothorax: no Bones: Unremarkable Other: no IMPRESSION: Mild left basilar airspace opacity. Similar lung aeration to prior.
--- NOTE | 2025-06-12 11:45 | DVHPN2 ---
Progress Note Date Seen: Jun 12, 2025 Medical Necessity Reason Pt with a Central, PICC or Fol: No Subjective Patient reports: No new complaints Review of Systems: HEENT:Normal, CVS:Normal, RESPIRATORY:Normal, GI:Normal, :Normal, MSK:Normal, NEURO:Normal Objective vital signs Vital Sign Date Time Temp Pulse Resp B/P (MAP) Pulse Ox O2 Delivery O2 Flow Rate FiO2 06/12/25 10:06 148/80 06/12/25 09:00 98.4 88 16 98 98.4 06/12/25 08:00 Nasal Cannula* 3 32 Total Intake and Output 06/11/25 06/11/25 06/12/25 15:00 23:00 07:00 Intake Total 80 ml 0 ml 0 ml Balance 80 ml 0 ml 0 ml medications Current Medications Medications Dose Ordered Sig/Yeimy Route Start Time Stop Time Status Last Admin Dose Admin Sodium Chloride 1,000 ml @ 80 mls/hr [id number] IV 06/11/25 13:00 06/12/25 10:06 80 MLS/HR Acetaminophen/ Hydrocodone Bitart 1 tab Q4HP PRN PO 06/11/25 13:00 06/11/25 13:41 1 TAB Ondansetron HCl 4 mg Q4HP PRN IV 06/11/25 13:00 Docusate Sodium 100 mg BIDPRN PRN PO 06/11/25 13:00 06/11/25 13:40 100 MG Acetaminophen 650 mg Q6HP PRN PO 06/11/25 13:00 Clonidine HCl 0.1 mg Q4HR PRN PO 06/11/25 13:45 Furosemide 20 mg DAILY PO 06/12/25 10:00 06/12/25 10:05 20 MG Hydralazine HCl 25 mg BID PO 06/11/25 22:00 06/12/25 10:05 25 MG Valsartan 80 mg DAILY PO 06/12/25 10:00 06/12/25 10:06 80 MG Patient Own Medication 2 puff BID PO 06/11/25 22:00 Examination: GENERAL:Normal, HEENT:Normal, NECK:Normal, LUNGS:Normal, CVS:Normal, ABDOMEN:Normal, MSK:Normal, SKIN:Normal, NEURO:Normal, :Normal laboratory and microbiology Laboratory Tests 06/12/25 06:53 Test 06/12/25 06:53 Range/Units Serum Glucose 64 L 74-106 mg/dL Problem List/Assessment/Plan Problem List/Assessment/Plan #1 foreign body in rectum: sigmoidoscopy today #2 htn #3 copd #4 transaminitis advance care planning- full code- time spent 18 mins Plan discussed with: Patient Date of Service: Jun 12, 2025 Billing Provider: SUKHJINDER SHAH MD Common Visit Codes: [id number] INP/OBS CARE(HIGH) Secondary Visit Codes: [id number] CARE PLAN 30 MINUTES SUKHJINDER SHAH MD Jun 12, 2025 11:45
[2025-06-12] MEDS ORDERED: MIDAZOLAM HCL 2MG/2ML 2ml VIAL (1mg/ml) ONE (14:56)
[2025-06-12] MEDS ORDERED: fentaNYL CITRATE 100 MCG/2 ML VL ONE (14:56)
[2025-06-12] MEDS ORDERED: PROPOFOL 10 MG/ML 20 ML IV ONE (15:03)
--- NOTE | 2025-06-12 15:22 | DVHOP2 ---
Operative Report DATE OF OPERATION: 06/12/25 PROCEDURE: Incomplete Colonoscopy/ flexible sigmoidoscopy PREOPERATIVE INDICATION: The patient is a 85 -year-old male undergoing colonoscopy for suspected foreign body in the rectum POSTOPERATIVE DIAGNOSES: 1. Patient had essentially a normal examination up to the proximal sigmoid colon beyond which the colonoscope could not be advanced as the loop of the sigmoid colon was twisted within a inguinal hernia sac 2. There was no foreign body identified within the rectosigmoid up to the extent of the examination 3. Trace to 1+ internal hemorrhoid PROCEDURE PERFORMED BY: Sony Sanchez M.D. SCOPE: Olympus videocolonoscope. ASA CLASS: 3 PREOPERATIVE MEDICATIONS: Mac sedation, Dr. Ludwig PROCEDURE IN DETAIL: After obtaining an informed consent, the patient was placed on left lateral decubitus position. He was then sedated with the above medications. A rectal examination was performed that was normal. The colonoscope was then passed through the anus into the rectosigmoid to 45 cm above the anal verge The colonoscope was then twisting within a apparent loop of sigmoid colon that was looped inside inguinal hernia sac I was not able to pass the colonoscope safely beyond this area at this time.The rectosigmoid area was carefully evaluated There was no evidence of foreign body in the rectosigmoid preop to the extent of the examination On retroflexion the patient had trace to 1+ internal hemorrhoid The patient tolerated the procedure well without difficulty. WITHDRAWAL TIME: Not applicable QUALITY OF THE PREP: [place] Bowel Prep score: Fair prep of the rectosigmoid area COMPLICATIONS : None SPECIMENS: None DISPOSITION: Transfer back to the floor PLAN: 1. Resume soft mechanical diet; patient is stable for discharge from GI point of 2. Proceed with inguinal hernia surgery as scheduled in June 20. Outpatient follow up with me in 6-8 weeks to discuss for repeat colonoscopy if required and for observation SONY SANCHEZ MD Jun 12, 2025 15:22
[2025-06-13 01:00] VITALS: BP 102/79; PULSE 83; RESP 18; TEMP 97.5; O2SAT 95
[2025-06-13 05:00] VITALS: BP 149/82; PULSE 83; RESP 17; TEMP 97.6; O2SAT 96
[2025-06-13 07:24] LABS: Hematocrit 41.7 % (41.0-53.0); Hemoglobin 14.5 g/dL (13.5-17.5); Mean Corpuscular Hemoglobin 33.8 pg (28.0-32.0); Mean Corpuscular Volume 97.3 fL (80.0-100.0); Nucleated Red Blood Cells % 0.0 %
[2025-06-13 07:57] LABS: Alanine Aminotransferase 38 U/L (7-40); Albumin 3.6 g/dL (3.2-4.8); Alkaline Phosphatase 95 U/L (46-116); BUN/Creatinine Ratio 18.9 (10.0-20.0); Blood Urea Nitrogen 10 mg/dL (9-23); Calcium 8.9 mg/dL (8.7-10.4); Carbon Dioxide 21 mmol/L (20-31); Total Protein 6.4 g/dL (5.7-8.2)
[2025-06-13 07:58] LABS: Bilirubin, Total 1.1 mg/dL (0.2-1.0)
[2025-06-13 08:00] VITALS: PULSE 79
[2025-06-13 08:19] LABS: Glucose 129 mg/dL (74-106)
[2025-06-13 08:32] LABS: Anion Gap 14 (5-15); Chloride 104 mmol/L (98-107); Potassium 4.0 mmol/L (3.5-5.1); Sodium 139 mmol/L (136-145)
[2025-06-13 09:00] VITALS: BP 129/84; PULSE 82; RESP 16; TEMP 97.8; O2SAT 92
--- NOTE | 2025-06-13 11:18 | DVHDS2 ---
Discharge Summary Date of Admission Jun 11, 2025 at 12:50 Date of Discharge: Jun 13, 2025 Labs/Diagnostic Data: Laboratory Results Test 06/13/25 06:42 06/12/25 06:53 White Blood Count 6.5 10^3/uL (4.4-10.8) Red Blood Count 4.28 10^6/uL (4.5-5.90) Hemoglobin 14.5 g/dL (13.5-17.5) Hematocrit 41.7 % (41.0-53.0) Mean Corpuscular Volume 97.3 fL (80.0-100.0) Mean Corpuscular Hemoglobin 33.8 pg (28.0-32.0) Mean Corpuscular Hemoglobin Concent 34.8 g/dL (32.0-36.0) Red Cell Distribution Width 13.7 % (11.8-14.3) Platelet Count 216 10^3/uL (140-450) Mean Platelet Volume 7.4 fL (6.9-10.8) Neutrophils (%) (Auto) 81.3 % (37.0-80.0) Lymphocytes (%) (Auto) 15.9 % (10.0-50.0) Monocytes (%) (Auto) 2.6 % (0.0-12.0) Eosinophils (%) (Auto) 0.0 % (0.0-7.0) Basophils (%) (Auto) 0.2 % (0.0-2.0) Neutrophils # (Auto) 5.3 10 ^3/uL (1.6-8.6) Lymphocytes # (Auto) 1.0 10 ^3/uL (0.4-5.4) Monocytes # (Auto) 0.2 10 ^3/uL (0-1.3) Eosinophils # (Auto) 0 10 ^3/uL (0-0.8) Basophils # (Auto) 0 10 ^3/uL (0-0.2) Nucleated Red Blood Cells 0.0 % Sodium Level 139 mmol/L (136-145) Potassium Level 4.0 mmol/L (3.5-5.1) Chloride Level 104 mmol/L (98-107) Carbon Dioxide Level 21 mmol/L (20-31) Anion Gap 14 (5-15) Blood Urea Nitrogen 10 mg/dL (9-23) Creatinine 0.53 mg/dL (0.700-1.30) Glomerular Filtration Rate Calc 98 mL/min (>90) BUN/Creatinine Ratio 18.9 (10.0-20.0) Serum Glucose 129 mg/dL (74-106) Calcium Level 8.9 mg/dL (8.7-10.4) Total Bilirubin 1.1 mg/dL (0.2-1.0) Aspartate Amino Transferase (AST) 45 U/L (13-40) Alanine Aminotransferase (ALT) 38 U/L (7-40) Alkaline Phosphatase 95 U/L (46-116) Total Protein 6.4 g/dL (5.7-8.2) Albumin 3.6 g/dL (3.2-4.8) Prothrombin Time 10.9 sec (9.3-11.8) Prothrombin Time INR 1.03 (0.9-1.15) Activated Partial Thromboplast Time 26.2 SEC (24.5-34.5) Magnesium Level 2.1 mg/dL (1.6-2.6) Thyroid Stimulating Hormone (TSH) 1.77 uIU/mL (0.55-4.78) Other Laboratory Tests 06/13/25 06:42 Brief Hx & Hospital Course: see dictated note Condition at Discharge: Fair Final Diagnosis/Problems List abd pain Discharge Disposition: Home Discharge Instruct/Medications Diet: Cardiac 2g Na,low cholest Activity: No Restrictions, As Tolerated Follow Up/Referral: fu with pcp/surgery Medications: resume home meds Scheduled Aspirin (Aspirin Low Dose), 81 MG PO DAILY Nmbwquljmj-Zqqcqkjjbilezq-Zjmj ([facility] Aerosphere 160-9-4.8 Mcg/Act), 2 PUFF INH BID, (Reported) Docusate Sodium (Colace), 1 CAP PO BID Furosemide (Furosemide), 20 MG PO DAILY, (Reported) Hydralazine HCl (Hydralazine HCl), 1 TAB PO BID, (Reported) Ipratropium-Albuterol (Ipratropium [place]/Albut), 1 VIAL NEB TID, (Reported) Montelukast Sodium (Singulair), 10 MG PO HS Nitroglycerin (Ntrostat Sublingual), 0.4 MG SL PRN, (Reported) Potassium Chloride (Klor-Con 8), 8 MEQ PO DAILY WITH FOOD, (Reported) Rosuvastatin Calcium (Rosuvastatin Calcium), 1 TAB PO HS, (Reported) Tamsulosin Hcl (Flomax), 0.4 MG PO QPM Valsartan (Valsartan), 80 MG PO DAILY, (Reported) Scheduled PRN Albuterol Sulfate (Albuterol Sulfate Hfa), 2 PUFF INH Q2HR PRN for SHORTNESS OF BREATH, (Reported) Clonidine Hydrochloride (Clonidine Hcl), 0.1 MG PO Q4HR PRN for SBP>150, (Reported) Lactulose (Lactulose), 10 GM PO DAILY PRN Discontinued Medications Atorvastatin Calcium (Atorvastatin Calcium), 1 TAB PO DAILY Azithromycin (Azithromycin), 1 TAB PO DAILY Azithromycin (Zithromax Tablet), 250 MG PO DAILY Methylprednisolone (Medrol Dosepak), 4 MG PO UD Prednisone (Prednisone), 40 MG PO DAILY Discharge Statement: "Patient was advised to return to the ER or call 911 if any headaches, dizziness, shortness of breath, chest pain, abdominal pain, bleeding, fevers, or worsening of medical condition. Patient was counseled about treatment plan, medications, possible side effects, patientverbalized understanding. All questions were answered to the best of my ability. This discharge took greater then 30 minutes in planning, reviewing documentation, counseling the patient, and discussing with other team members." ASSESSMENT ASSESSMENT Assessment abd pain Date of Service: Jun 13, 2025 Billing Provider: SUKHJINDER SHAH MD Common Visit Codes: [id number]-OKB/OBS DISCH DAY >30min SUKHJINDER SHAH MD Jun 13, 2025 11:18
--- NOTE | 2025-06-13 12:10 | DVHDS ---
DATE OF DISCHARGE: 06/13/2025 HISTORY OF PRESENT ILLNESS: The patient is an 85-year-old gentleman who was admitted after he had foreign body in the rectum as he was trying to disimpact himself. He has a history of COPD, hypertension, and hyperlipidemia. HOSPITAL COURSE: The patient had a CT of abdomen and pelvis that showed moderate left inguinal hernia. The patient had a liver ultrasound that showed previous cholecystectomy and a right renal cyst. The patient was seen in GI consult by Dr. Sanchez. The patient underwent a flexible sigmoidoscopy that showed no foreign body with trace internal hemorrhoid. The patient will now be discharged home to resume his home medications and follow up with Dr. Horan for inguinal hernia surgery, which is scheduled in June. I have also discussed his plan of care with his daughter, Kassi. FINAL DIAGNOSES: * Rectal foreign body status post sigmoidoscopy. * Hypertension. * Left inguinal hernia. * COPD. * Transaminitis. Time spent in discharge planning and review of plan with the patient, family and nursing was 38 minutes. MD FABRICIO Gaytan/POONAM TID: [id number] RECEIPT: [id number]
[2025-06-13 13:00] VITALS: BP 142/76; PULSE 91; RESP 18; TEMP 97.9; O2SAT 93
--- NOTE | 2025-06-13 17:33 | DVHPN2 ---
Progress Note Date Seen: Jun 13, 2025 Resident Creating Document: NICOLETTE GARDNER RESIDENT Medical Necessity Reason Pt with a Central, PICC or Fol: No Subjective Patient reports: No new complaints, Feels better Objective vital signs Vital Sign Date Time Temp Pulse Resp B/P (MAP) Pulse Ox O2 Delivery O2 Flow Rate FiO2 06/13/25 13:00 97.9 91 18 142/76 (98) 93 97.9 06/13/25 08:00 Nasal Cannula* 3 32 Total Intake and Output 06/12/25 06/12/25 06/13/25 15:00 23:00 07:00 Intake Total 600 ml 400 ml Output Total 50 ml Balance 550 ml 400 ml Examination Patient lying in bed, in no acute distress General: Thin, afebrile, palor, mucosae are moist Cardiovascular: Regular S1 and S2. No murmurs, gallops or rubs. No JVD elevation. No pedal edema Respiratory: Normal B/L air entry on room air. Clear lung sounds on auscultation Abdomen: Soft, nontender, nondistended, normoactive bowel sounds, no rebound tenderness, no organomegaly, no masses Genitourinary: Deferred MSK/skin: Mobilizes 4 limbs. Skin is dry and warm Neurological: No motor, no sensitive deficits, normal speech. Pupils are isocoric and reactive. Psych/Mental Status: A/Ox3 laboratory and microbiology Laboratory Tests 06/13/25 06:42 Test 06/13/25 06:42 Range/Units Serum Glucose 129 H 74-106 mg/dL Labs and/or images reviewed: Labs reviewed by me, Image(s) reviewed by me Problem List/Assessment/Plan Problem List/Assessment/Plan Foreign body of rectum Left inguinal hernia containing fat and nonobstructed sigmoid colon 1+ internal hemorrhoids Constipation Hypertension Dyslipidemia History of COPD History of cholecystectomy ? Sleeve/gastric bypass POSTOPERATIVE DIAGNOSES: 1. Patient had essentially a normal examination up to the proximal sigmoid colon beyond which the colonoscope could not be advanced as the loop of the sigmoid colon was twisted within a inguinal hernia sac 2. There was no foreign body identified within the rectosigmoid up to the extent of the examination 3. Trace to 1+ internal hemorrhoid Plan: Recommendation: Patient underwent sigmoidoscopy 06/12 which was unremarkable. Follow up with GI as outpatient within the next 2-4 weeks Rest of management per primary Recommend fiber diet, Metamucil daily Thank you for consulting GI Plan discussed with patient in which all questions have been answered Case discussed Dr. Sanchez Plan discussed with: Patient NICOLETTE GARDNER RESIDENT Jun 13, 2025 17:33
[2025-06-14] MEDS ORDERED: LISI20TA56 PO (19:59)
[2025-06-14] MEDS ORDERED: ATOR20TA50 PO (19:59)
[2025-06-16] MEDS ORDERED: PRED20TA2 PO (12:52)
== END 2025-06-13 14:50 | disposition home or self-care (01) | DRG 395 ==
LOC: ER 08:30 → OVERFLOW 12:50 → WEST WING 15:20 → TELE-WESTW 06-12 16:33
PROVIDERS: ADMIT Internal Medicine; ATTEND Internal Medicine
PROC: 0DJD8ZZ Inspection of Lower Intestinal Tract, Via Natural or Artificial Opening Endoscopic (ICD-10-PCS; principal; 2025-06-12 14:51)
DX: T18.5XXA Foreign body in anus and rectum, initial encounter (principal); E78.5 Hyperlipidemia, unspecified; I10 Essential (primary) hypertension; J44.89 Other specified chronic obstructive pulmonary disease; K59.00 Constipation, unspecified; K40.90 Unilateral inguinal hernia, without obstruction or gangrene, not specified as recurrent; K64.8 Other hemorrhoids; F17.210 Nicotine dependence, cigarettes, uncomplicated; R74.01 Elevation of levels of liver transaminase levels; I25.10 Atherosclerotic heart disease of native coronary artery without angina pectoris; Z79.2 Long term (current) use of antibiotics; Z79.899 Other long term (current) drug therapy; Z90.49 Acquired absence of other specified parts of digestive tract; Z87.442 Personal history of urinary calculi; W44.8XXA Other foreign body entering into or through a natural orifice, initial encounter; Y93.89 Activity, other specified; Y92.89 Other specified places as the place of occurrence of the external cause; Y99.8 Other external cause status
CPT/HCPCS: 36415; 45330; 71045; 74176; 76705; 80048; 80053; 83735; 84443; 85025; 85610; 85730; 93005; 96360; G0378; J1100; J2250; J2704

== ENCOUNTER 2025-06-14 13:29 | Inpatient (IN) | payer MEDICARE ==
[~2025-06-14] VITALS: Ht 157.5 cm; Wt 50.6 kg
[~2025-06-14 13:29] MED LIST changes: -ATOR20TA50 PO; -AZIT-185 PO; -AZIT500T66 PO; -METH4PAK PO; -PRED20TA2 PO; +ROSU5TAB24 PO
--- NOTE | 2025-06-14 13:56 | ED.PDOC ---
History of Present Illness HPI Comments 85-year-old male came to the ER stating that he has been having high blood pressure for the past two days. He does have a history of high blood pressure for which he has been taking his medication. Apart from his blood pressure he is complaining of headache. Family states that his blood pressure has not been under control for the past few days going from 160s 180 systolic. His blood pressure on arrival was 155/103. Apart from hypertension he has got a history of COPD for which he is on oxygen. Denies any other symptoms. Chief Complaint: High Blood Pressure Time Seen by MD: 13:50 Primary Care Provider: RAMÓN Reviewed Notes: Nurses Notes, Medications, Allergies Allergies: Coded Allergies: NO KNOWN ALLERGIES (Unverified , 11/09/17) Home Meds Active Scripts Tamsulosin Hcl (Flomax) 0.4 Mg Cap, 0.4 MG PO QPM for 30 Days, #30 CAP Prov:MASHA JAMIL RESIDENT 03/29/24 Montelukast Sodium (Singulair) 10 Mg Tab, 10 MG PO HS for 30 Days, #30 TAB Prov:MASHA JAMIL RESIDENT 03/29/24 Aspirin (Aspirin Low Dose) 81 Mg Tab, 81 MG PO DAILY for 30 Days, #30 TAB Prov:MASHA JAMIL RESIDENT 03/29/24 Lactulose (Lactulose) 10 Gm/15 Ml Devora, 10 GM PO DAILY PRN for 30 Days, #240 ML 5 Refills Prov:PURVI JAIN MD 08/26/23 Docusate Sodium (Colace) 100 Mg Cap, 1 CAP PO BID, #30 CAP Prov:PAU OLEARY MD 03/31/23 Reported Medications Rosuvastatin Calcium (Rosuvastatin Calcium) 5 Mg Tab, 1 TAB PO HS 06/11/25 Potassium Chloride (Klor-Con 8) 8 Meq Tab, 8 MEQ PO DAILY WITH FOOD, TAB 07/14/24 Furosemide (Furosemide) 20 Mg Tab, 20 MG PO DAILY, MG 07/14/24 Clonidine Hydrochloride (Clonidine Hcl) 0.1 Mg Tab, 0.1 MG PO Q4HR PRN for SBP>150, MG 07/14/24 Valsartan (Valsartan) 80 Mg Tab, 80 MG PO DAILY, TAB 07/14/24 Gvdhumrrxw-Lvhkwbzlidztrq-Gfkw (Breztri Aerosphere 160-9-4.8 Mcg/Act) 1 Aer Aer, 2 PUFF INH BID for 30 Days, #10.7 05/01/24 Ipratropium-Albuterol (Ipratropium Anderson/Albut) 1 Devora Devora, 1 VIAL NEB TID for 30 Days, #270 05/01/24 Nitroglycerin (NTROSTAT SUBLINGUAL) 0.4 Mg Sl, 0.4 MG SL PRN, TAB *MAY REPEAT EVERY 5 MINUTES X 3 TOTAL IF NO RELIEF, INITIATE ANALGESIC THERAPY. NOTIFY PHYSICIAN *Do not crush. 04/30/24 Hydralazine HCl (Hydralazine HCl) 25 Mg Tab, 1 TAB PO BID 07/11/23 Albuterol Sulfate (Albuterol Sulfate Hfa) 108 Mcg/Act Aer, 2 PUFF INH Q2HR PRN for SHORTNESS OF BREATH 03/31/23 Discontinued Scripts Azithromycin (ZITHROMAX TABLET) 250 Mg Tb, 250 MG PO DAILY, #6 TAB TAKE 2 TABLETS THE FIRST DAY, THEN 1 TABLET UNTIL FINISH Prov:PURVI JAIN MD 08/12/24 Methylprednisolone (Medrol Dosepak) 4 Mg Kendell, 4 MG PO UD, #21 TAB UAD Prov:PURVI JAIN MD 08/12/24 Azithromycin (Azithromycin) 500 Mg Tab, 1 TAB PO DAILY, #5 TAB Prov:ASHLIE NEWMAN MD 07/16/24 Prednisone (Prednisone) 20 Mg Tab, 40 MG PO DAILY for 5 Days, #10 MG 0 Refills Prov:ASHLIE NEWMAN MD 07/16/24 Atorvastatin Calcium (ATORVASTATIN CALCIUM) 20 Mg Tab, 1 TAB PO DAILY for 30 Days, #30 TAB 5 Refills Prov:JAN RAMACHANDRAN 04/28/24 Information Source: Patient Mode of Arrival: Ambulatory Severity: Moderate Timing: Days Duration: Since onset Past Medical History PAST MEDICAL HISTORY: Asthma, CAD, COPD, Gallstones, HTN, Kidney Stones Surgical History: Hernia Repair, PTCA Family History Family History: Reviewed,noncontributory to illness Social History Smoker: Cigarettes, Less Than 1 Pack/Day Alcohol: Rarely Drugs: Denies Drug Use Lives In: Home Constitutional: denies: chills, diaphoresis, fatigue, fever, malaise, sweats, weakness, others EENTM: denies: blurred vision, double vision, ear bleeding, ear discharge, ear drainage, ear pain, ear ringing, eye pain, eye redness, hearing loss, mouth p ain, mouth swelling, nasal discharge, nose bleeding, nose congestion, nose pain, photophobia, tearing, throat pain, throat swelling, voice changes, others Respiratory: denies: cough, hemoptysis, orthopnea, SOB at rest, shortness of br eath, SOB with excertion, stridor, wheezing, others Cardiovascular: denies: chest pain, dizzy spells, diaphoresis, Dyspnea on exertion, edema, irregular heart beat, left arm pain, lightheadedness, palpitations, PND, syncope, others Gastrointestinal: denies: abdomen distended, abdominal pain, blood streaked bowels, constipated, diarrhea, dysphagia, difficulty swallowing, hematemesis, melena, nausea, poor appetite, poor fluid intake, rectal bleeding, rectal pain, vomiting, others Genitourinary: denies: burning, dysuria, flank pain, frequency, hematuria, incontinence, penile discharge, penile sore, pain, testicle pain, testicle swelling, urgency, others Neurological: reports: headache; denies: dizziness, fainting, left sided numbness, left sided weakness, numbness, paresthesia, pre-existing deficit, right sided numbness, right sided weakness, seizure, speech problems, tingling, tremors, weakness, others Musculoskeletal: denies: back pain, gout, joint pain, joint swelling, muscle pain, muscle stiffness, neck pain, others Integumetry: denies: bruises, change in color, change in hair/nails, dryness, laceration, lesions, lumps, rash, wounds, others Allergic/Immunocompromised: denies: Difficulty Healing, Frequent Infections, Hives, Itching, others Hematologic/Lymphatic: denies: anemia, blood clots, easy bleeding, easy bruisin g, swollen glands, others Endocrine: denies: excessive hunger, excessive sweating, excessive thirst, excessive urination, flushing, intolerance to cold, intolerance to heat, unexplained weight gain, unexplained weight loss, others Psychiatric: denies: anxiety, bipolar disorder, depression, hopeless, panic disorder, schizophrenia, sleepless, suicidal, others Physical Exam General Appearance: Moderate Distress HEENT: Normal ENT Inspection, Pharynx Normal, TMs Normal Neck: Full Range of Motion, Non-Tender, Normal, Normal Inspection Respiratory: Other (Coarse breath sounds) Cardiovascular: No Edema, No JVD, No Murmur, No Gallop, Normal Peripheral Pulses, Regular Rate/Rhythm Breast Exam: Deferred Gastrointestinal: No Organomegaly, Non Tender, No Pulsatile Mass, Normal Bowel Sounds, Soft Genitalia: Deferred Pelvic: Deferred Rectal: Deferred Extremities: No calf tenderness, Normal capillary refill, Normal inspection, Normal range of motion, Non-tender, No pedal edema Musculoskeletal : Apperance: Normal Neurologic: Alert, elementary science teacher II-XII nml as Tested, No Motor Deficits, Normal Affect, Normal Mood, No Sensory Deficits Cerebellar Function: NOT DONE Reflexes: NOT DONE Skin: Dry, Normal Color, Warm Peripheral Pulses: 3+ Radial (R), 3+ Radial (L) Lymphatic: No Adenopathy Was a procedure done? Was a procedure done?: No EKG EKG : Pulse Rate (adult): 95 Cardiac Rhythm: NSR Differential Dx Considerations may include: Hypertension Electrolyte imbalance X-Ray, Labs, Meds, VS Vital Signs Date Time Temp Pulse Resp B/P (MAP) Pulse Ox O2 Delivery O2 Flow Rate FiO2 06/14/25 14:14 16 95 Nasal Cannula* 2 28 06/14/25 14:11 155/107 06/14/25 13:57 Nasal Cannula* 2 28 06/14/25 13:57 98.2 100 12 155/107 (123) 95 98.2 06/14/25 13:56 95 06/14/25 13:44 96 06/14/25 13:33 98.2 100 12 155/107 95 98.2 Lab Test 06/14/25 15:13 06/14/25 14:26 Range/Units Sodium Level 136 136-145 mmol/L Potassium Level 3.7 3.5-5.1 mmol/L Chloride Level 100 98-107 mmol/L Carbon Dioxide Level 26 20-31 mmol/L Anion Gap 10 5-15 Blood Urea Nitrogen 17 9-23 mg/dL Creatinine 0.58 L 0.700-1.30 mg/dL Glomerular Filtration Rate Calc 95 >90 mL/min BUN/Creatinine Ratio 29.3 H 10.0-20.0 Serum Glucose 116 H 74-106 mg/dL Calcium Level 9.0 8.7-10.4 mg/dL Troponin I High Sensitivity 18 17 </=54 ng/L White Blood Count 6.8 4.4-10.8 10^3/uL Red Blood Count 4.02 L 4.5-5.90 10^6/uL Hemoglobin 13.6 13.5-17.5 g/dL Hematocrit 40.5 L 41.0-53.0 % Mean Corpuscular Volume 100.6 H 80.0-100.0 fL Mean Corpuscular Hemoglobin 33.9 H 28.0-32.0 pg Mean Corpuscular Hemoglobin Concent 33.7 32.0-36.0 g/dL Red Cell Distribution Width 14.6 H 11.8-14.3 % Platelet Count 191 140-450 10^3/uL Mean Platelet Volume 7.4 6.9-10.8 fL Neutrophils (%) (Auto) 73.4 37.0-80.0 % Lymphocytes (%) (Auto) 18.4 10.0-50.0 % Monocytes (%) (Auto) 7.7 0.0-12.0 % Eosinophils (%) (Auto) 0.2 0.0-7.0 % Basophils (%) (Auto) 0.3 0.0-2.0 % Neutrophils # (Auto) 5.0 1.6-8.6 10 ^3/uL Lymphocytes # (Auto) 1.3 0.4-5.4 10 ^3/uL Monocytes # (Auto) 0.5 0-1.3 10 ^3/uL Eosinophils # (Auto) 0 0-0.8 10 ^3/uL Basophils # (Auto) 0 0-0.2 10 ^3/uL Nucleated Red Blood Cells 0.1 % Current Medications Medications (Trade) Dose Ordered Sig/Yeimy Route Start Time Stop Time Status Last Admin Methylprednisolone Sodium Succinate (Solu Medrol) 125 mg ONCE ONCE IV 06/14/25 14:00 06/14/25 14:01 DC 06/14/25 14:11 Clonidine HCl (Catapres Tablet) 0.2 mg ONCE ONCE PO 06/14/25 14:00 06/14/25 14:01 DC 06/14/25 14:11 Albuterol (Ventolin Medneb) 5 mg ONCE ONCE NEB 06/14/25 14:00 06/14/25 14:01 DC 06/14/25 14:14 Ipratropium Anderson (Atrovent Medneb) 0.5 mg ONCE ONCE NEB 06/14/25 14:00 06/14/25 14:01 DC 06/14/25 14:14 Patient alert pain Complaining of headache high blood pressure. Vitals stable. Answering questions. Was given clonidine. Continue to be on oxygen. Was given steroid. Was given breathing treatment. Explained to the family. Time of 1ST Reevaluation: 13:54 Reevaluation 1ST: Unchanged Patient Education/Counseling: Diagnosis, Treatment, Prognosis Family Education/Counseling: Diagnosis, Treatment, Prognosis SEPSIS Sepsis Screen Date sepsis recognized/suspect: Jun 14, 2025 Time Sepsis recognized/suspect: 1332 Recent Procedure: No On Antibiotic Therapy: No Respiratory Rate >20: No Heart Rate >90: Yes Temp<36 C (96.8 F) or >38.3 C: No SBP <90 or MAP <65 mmHG: No New Acute Mental Status Change: No Is the patient on CPAP, BIPAP,: No Physician Orders Electrocardigram (06/14/25 13:36) Chest Portable (06/14/25 13:56) Urinalysis (06/14/25 13:56) Troponin-I Hs (06/14/25 16:56) Vital Signs Date Time Temp Pulse Resp B/P (MAP) Pulse Ox O2 Delivery O2 Flow Rate FiO2 06/14/25 14:14 16 95 Nasal Cannula* 2 28 06/14/25 14:11 155/107 06/14/25 13:57 Nasal Cannula* 2 28 06/14/25 13:57 98.2 100 12 155/107 (123) 95 98.2 06/14/25 13:56 95 06/14/25 13:44 96 06/14/25 13:33 98.2 100 12 155/107 95 98.2 Laboratory Tests Test 06/14/25 14:26 White Blood Count 6.8 10^3/uL (4.4-10.8) Medications Medications Dose Ordered Sig/Yeimy Route Start Time Stop Time Status Last Admin Dose Admin Albuterol 5 mg ONCE ONCE NEB 06/14/25 14:00 06/14/25 14:01 DC 06/14/25 14:14 Clonidine HCl 0.2 mg ONCE ONCE PO 06/14/25 14:00 06/14/25 14:01 DC 06/14/25 14:11 Ipratropium Anderson 0.5 mg ONCE ONCE NEB 06/14/25 14:00 06/14/25 14:01 DC 06/14/25 14:14 Methylprednisolone Sodium Succinate 125 mg ONCE ONCE IV 06/14/25 14:00 06/14/25 14:01 DC 06/14/25 14:11 Departure 1 Departure Time of Disposition: 13:54 Impression: Primary Impression: COPD with acute exacerbation Additional Impression: Hypertensive emergency Disposition: ADMITTED INPATIENT Admit to: Med Surg Condition: Guarded Critical Care Note Critical Care Time?: Yes (90 min-critical care time only) Stability Stability form required: No Heart Score Heart Score: Heart Score Response (Comments) Value History Slightly Suspicious 0 EKG Normal 0 Age >65 2 Risk Factors >3 or Hx ASHD 2 Troponin Normal limit 0 Total 4 FANNY BONILLA MD Jun 14, 2025 13:56
[2025-06-14] MEDS: methylPREDNISolone SOD SUCC 125 MG/2 ML VL IV ONE (14:11)
[2025-06-14] MEDS: IPRATROPIUM BROM 0.5 MG/2.5ML INH SOL NEB ONE (14:14)
[2025-06-14] MEDS: ALBUTEROL SULF 2.5 MG/0.5ML(0.5%) NEB SOLN NEB ONE (14:14)
--- NOTE | 2025-06-14 14:31 | DVH ---
INDICATION: sob TECHNIQUE: Frontal view of the chest. COMPARISON: XY CHEST PORTABLE on DOS: 06/12/25, XY CHEST TWO VIEWS ROUTINE on DOS: 04/06/25, XY CHEST TWO VIEWS ROUTINE on DOS: 02/21/25, XY CHEST PORTABLE on DOS: 08/10/24, XY CHEST PORTABLE on DOS: 07/13/24 FINDINGS: . The heart and mediastinal contours are grossly unremarkable. There is no evidence of pleural disease. The lungs are clear. The bony structures of the chest are intact without fracture. IMPRESSION: 1. No evidence of acute disease.
[2025-06-14 14:44] LABS: Hematocrit 40.5 % (41.0-53.0); Hemoglobin 13.6 g/dL (13.5-17.5); Mean Corpuscular Hemoglobin 33.9 pg (28.0-32.0); Mean Corpuscular Volume 100.6 fL (80.0-100.0); Nucleated Red Blood Cells % 0.1 %
[2025-06-14 15:31] LABS: Chloride 100 mmol/L (98-107); Potassium 3.7 mmol/L (3.5-5.1); Sodium 136 mmol/L (136-145)
[2025-06-14 15:32] LABS: Anion Gap 10 (5-15); Calcium 9.0 mg/dL (8.7-10.4); Carbon Dioxide 26 mmol/L (20-31)
[2025-06-14 15:37] LABS: BUN/Creatinine Ratio 29.3 (10.0-20.0); Blood Urea Nitrogen 17 mg/dL (9-23)
[2025-06-14 15:39] LABS: Glucose 116 mg/dL (74-106)
[2025-06-14] MEDS: SODIUM CHLORIDE 0.9% 500 ML IV ONE (17:00)
[2025-06-14] MEDS ORDERED: ONDANSETRON HCL 4 MG/2 ML VIAL IV PRN (17:45)
[2025-06-14] MEDS ORDERED: MORPHINE SULFATE INJ 2 MG/ml SYRG IV PRN ×2 (17:45)
[2025-06-14] MEDS ORDERED: NITROGLYCERIN 0.4 MG SL TAB SL PRN (17:45)
--- NOTE | 2025-06-14 17:52 | DVHHPRES ---
History of Present Illness Resident Creating Document: MASHA JAMIL RESIDENT History of Present Illness Chalino Ames is a 85-year-old male patient who presents to the ED with chief complaint of headache and of hypertension. Patient is speaks Japanese, translated with daughter. Patient denies any other associated symptoms. Past medical history: Hypertension, dyslipidemia, COPD: Asthma with home oxygen requirement (2 L/min), patient's last exacerbation was on April 2025 were his silk spooler indicated p.o. steroids, left inguinal hernia planning on completing surgery on June 2025 (obtaining clearance from pulmonology and Cardiology), BPH, recent admission due to foreign body in rectum status post sigmoidoscopy (patient was trying to disimpact himself due to constipation). Surgical history: Cholecystectomy Family history: Noncontributory Social history: Lives in [place] with (next of kin). Ex tobacco abuse (105 pack-year history of smoking) quit five years ago. Denies current tobacco, alcohol and other drug abuse Allergies: Denies Home medication: Nor patient or daughter recalls. Per med rec albuterol, Breztic, atorvastatin 20 mg p.o. daily, hydralazine 25 mg p.o. b.i.d., i pratropium/albuterol, lisinopril 20 mg p.o. daily, nitroglycerin 0.4 mg PRN. Patient seen and examined at bedside. Currently has no new complaints. Admitted for further evaluation Past Medical History Per HPI Past Surgical History Per HPI Family History Per HPI Past Social History Per HPI Review of Systems Review of Systems Per HPI Allergies: Coded Allergies: NO KNOWN ALLERGIES (Unverified , 11/09/17) Medications Current Medications Medications Dose Ordered Sig/Yeimy Route Start Time Stop Time Status Last Admin Dose Admin Acetaminophen 325 mg Q4HP PRN PO 06/14/25 17:45 UNV Ondansetron HCl 4 mg Q4HP PRN IV 06/14/25 17:45 UNV Morphine Sulfate 2 mg Q4HPRN PRN IV 06/14/25 17:45 UNV Enoxaparin Sodium 40 mg DAILY SC 06/15/25 10:00 UNV Nitroglycerin 0.4 mg Q5MINP PRN SL 06/14/25 17:45 UNV Morphine Sulfate 2 mg Q30M PRN IV 06/14/25 17:45 UNV Ipratropium [place] 0.5 mg Q6HWA [facility] 06/14/25 18:00 UNV Levalbuterol HCl 0.625 mg Q6HR NEB 06/14/25 18:00 UNV Azithromycin 250 ml @ 125 mls/hr DAILY IV 06/15/25 10:00 UNV Exam Vital Signs Vital Signs Date Time Temp Pulse Resp B/P (MAP) Pulse Ox O2 Delivery O2 Flow Rate FiO2 06/14/25 14:14 16 95 Nasal Cannula* 2 28 06/14/25 14:11 155/107 06/14/25 13:57 98.2 100 98.2 Exam Patient lying in bed, in no acute distress General: Lucid, afebrile, mucosae are moist Cardiovascular: Normal S1 and S2. No murmurs, gallops or rubs Respiratory: Normal ventilation mechanics. Diffuse bilateral wheezing. On nasal cannula 2 L/min Abdomen: Soft, nontender, no organomegaly, normal bowel sounds, reducible left inguinal hernia MSK/skin: Mobilizes 4 limbs. Skin is dry and warm Neurological: Oriented in 3 spheres. No motor no sensitive deficits. Pupils are isocoric and reactive Labs/Xrays Labs Test 06/14/25 17:36 06/14/25 15:13 06/14/25 14:26 Range/Units Sodium Level 136 136-145 mmol/L Potassium Level 3.7 3.5-5.1 mmol/L Chloride Level 100 98-107 mmol/L Carbon Dioxide Level 26 20-31 mmol/L Anion Gap 10 5-15 Blood Urea Nitrogen 17 9-23 mg/dL Creatinine 0.58 L 0.700-1.30 mg/dL Glomerular Filtration Rate Calc 95 >90 mL/min BUN/Creatinine Ratio 29.3 H 10.0-20.0 Serum Glucose 116 H 74-106 mg/dL Calcium Level 9.0 8.7-10.4 mg/dL White Blood Count 6.8 4.4-10.8 10^3/uL Red Blood Count 4.02 L 4.5-5.90 10^6/uL Hemoglobin 13.6 13.5-17.5 g/dL Hematocrit 40.5 L 41.0-53.0 % Mean Corpuscular Volume 100.6 H 80.0-100.0 fL Mean Corpuscular Hemoglobin 33.9 H 28.0-32.0 pg Mean Corpuscular Hemoglobin Concent 33.7 32.0-36.0 g/dL Red Cell Distribution Width 14.6 H 11.8-14.3 % Platelet Count 191 140-450 10^3/uL Mean Platelet Volume 7.4 6.9-10.8 fL Neutrophils (%) (Auto) 73.4 37.0-80.0 % Lymphocytes (%) (Auto) 18.4 10.0-50.0 % Monocytes (%) (Auto) 7.7 0.0-12.0 % Eosinophils (%) (Auto) 0.2 0.0-7.0 % Basophils (%) (Auto) 0.3 0.0-2.0 % Neutrophils # (Auto) 5.0 1.6-8.6 10 ^3/uL Lymphocytes # (Auto) 1.3 0.4-5.4 10 ^3/uL Monocytes # (Auto) 0.5 0-1.3 10 ^3/uL Eosinophils # (Auto) 0 0-0.8 10 ^3/uL Basophils # (Auto) 0 0-0.2 10 ^3/uL Nucleated Red Blood Cells 0.1 % SEPSIS Sepsis Screen Date sepsis recognized/suspect: Jun 14, 2025 Time Sepsis recognized/suspect: 1333 Recent Procedure: No On Antibiotic Therapy: No Respiratory Rate >20: No Heart Rate >90: Yes Temp<36 C (96.8 F) or >38.3 C: No SBP <90 or MAP <65 mmHG: No New Acute Mental Status Change: No Is the patient on CPAP, BIPAP,: No Physician Orders Electrocardigram (06/14/25 13:36) Chest Portable (06/14/25 13:56) Urinalysis (06/14/25 13:56) Troponin-I Hs (06/14/25 16:56) Head Without Contrast (06/14/25 17:18) Admit (06/14/25 17:37) Code Status (06/14/25 17:37) Acetaminophen Tablet (Tylenol Tablet) (06/14/25 17:45) Ondansetron Hcl (Zofran) (06/14/25 17:45) Complete Blood Count (06/15/25 04:00) Comprehensive Metabolic Panel (06/15/25 04:00) Cardiac Diet-2gna,Lofat,Lochol (06/14/25 Dinner) Morphine Sulfate Injection (06/14/25 17:45) Enoxaparin Sodium (Lovenox) (06/15/25 10:00) Nitroglycerin Sublingual (Ntrostat Subli (06/14/25 17:45) Morphine Sulfate Injection (06/14/25 17:45) Oxygen By Nasal Cannula (06/14/25 17:37) Stat Ekg For Chest Pain (06/14/25 17:37) Notify Of Changes From Base (06/14/25 17:37) Plant Tour Guide For 24 Hours (06/14/25 17:37) Emergency Dysrhythmia Protocol (06/14/25 17:37) Rhythm Strips Once Every Shift (06/14/25 17:37) Vitamin D, 25-Hydroxy (06/14/25 17:37) Vitamin B12 (06/14/25 17:37) Urinalysis (06/14/25 17:37) Thyroid Stimulating Hormone (06/14/25 17:37) PTPTT (06/14/25 17:37) Phosphorus (06/14/25 17:37) Magnesium (06/14/25 17:37) Lipid Panel (06/14/25 17:37) Lipase (06/14/25 17:37) Lactic Acid W/ Reflex Order (06/14/25 17:37) Hemoglobin A1c (06/14/25 17:37) Drug Screen (06/14/25 17:37) Ipratropium Medneb (Atrovent Medneb) (06/14/25 18:00) Levalbuterol Hcl (Xopenex Medneb) (06/14/25 18:00) Azithromycin 500mg/250ml (Zithromax 500m (06/15/25 10:00) Azithromycin 500mg/250ml (Zithromax 500m (06/14/25 17:45) Vital Signs Date Time Temp Pulse Resp B/P (MAP) Pulse Ox O2 Delivery O2 Flow Rate FiO2 06/14/25 14:14 16 95 Nasal Cannula* 2 28 06/14/25 14:11 155/107 06/14/25 13:57 Nasal Cannula* 2 28 06/14/25 13:57 98.2 100 12 155/107 (123) 95 98.2 06/14/25 13:56 95 06/14/25 13:44 96 06/14/25 13:33 98.2 100 12 155/107 95 98.2 Laboratory Tests Test 06/14/25 14:26 White Blood Count 6.8 10^3/uL (4.4-10.8) Medications Medications Dose Ordered Sig/Yeimy Route Start Time Stop Time Status Last Admin Dose Admin Albuterol 5 mg ONCE ONCE NEB 06/14/25 14:00 06/14/25 14:01 DC 06/14/25 14:14 5 MG Clonidine HCl 0.2 mg ONCE ONCE PO 06/14/25 14:00 06/14/25 14:01 DC 06/14/25 14:11 0.2 MG Ipratropium [place] 0.5 mg ONCE ONCE NEB 06/14/25 14:00 06/14/25 14:01 DC 06/14/25 14:14 0.5 MG Methylprednisolone Sodium Succinate 125 mg ONCE ONCE IV 06/14/25 14:00 06/14/25 14:01 DC 06/14/25 14:11 125 MG Assessment/Plan Assessment/Plan ASSESSMENT Acute on chronic hypoxic respiratory failure COPD exacerbation Rule out CVA Hypertension Dyslipidemia Left inguinal hernia Macrocytosis PLAN Patient admitted to telemetry Currently with oxygen therapy at 2 L/min, on bronchodilators, empiric IV antibiotics (azithromycin) and IV steroids Ordered sputum culture, MRSA and influenza/COVID swab (negative COVID and influenza) Patient's last exacerbation on April 2025 Patient presented hypertension and dizziness. Ordered head CT and carotid duplex. Unlikely CVA, has no motor or sensory deficits. Pain left inguinal hernia repair on June 2025, pending clearance from pulmonology and Cardiology. Goals of care discussed with patient for over 18 minutes: Full code status Discussed plan with Dr. Rasumssen, patient and nurses: Currently in telemetry status. Continue with oxygen therapy, bronchodilators, empiric IV antibiotics and IV steroids. Patient has poor prognosis. Plan discussed with: Patient, Daughter, Other (Nurses) My Orders Orders - MASHA JAMIL RESIDENT Procedure Category Date Status Time Admit ADMIT 06/14/25 Transmitted 17:37 Code Status CODE 06/14/25 Transmitted 17:37 Acetaminophen Tablet PHA 06/14/25 Logged (Tylenol Tablet) 17:45 Ondansetron Hcl PHA 06/14/25 Logged (Zofran) 17:45 Complete Blood Count LAB 06/15/25 Verified 04:00 Comprehensive LAB 06/15/25 Verified Metabolic Panel 04:00 Cardiac DIET 06/14/25 Transmitted Diet-2gna,Lofat,Lochol Dinner Morphine Sulfate PHA 06/14/25 Logged Injection 17:45 Enoxaparin Sodium PHA 06/15/25 Logged (Lovenox) 10:00 Nitroglycerin PHA 06/14/25 Logged Sublingual (Ntrostat 17:45 Morphine Sulfate PHA 06/14/25 Logged Injection 17:45 Oxygen By Nasal RT 06/14/25 Transmitted Cannula 17:37 Stat Ekg For Chest NUPUR 06/14/25 In Process Pain 17:37 Notify Of Changes [facility] 06/14/25 In Process From Base 17:37 Plant Tour Guide For [facility] 06/14/25 In Process 24 Hours 17:37 Emergency Dysrhythmia [facility] 06/14/25 In Process Protocol 17:37 Rhythm Strips Once [facility] 06/14/25 In Process Every Shift 17:37 Vitamin D, 25-Hydroxy LAB 06/14/25 In Process 17:37 Vitamin B12 LAB 06/14/25 In Process 17:37 Urinalysis LAB 06/14/25 Logged 17:37 Thyroid Stimulating LAB 06/14/25 In Process Hormone 17:37 PTPTT LAB 06/14/25 In Process 17:37 Phosphorus LAB 06/14/25 In Process 17:37 Magnesium LAB 06/14/25 In Process 17:37 Lipid Panel LAB 06/14/25 In Process 17:37 Lipase LAB 06/14/25 In Process 17:37 Lactic Acid W/ Reflex LAB 06/14/25 Logged Order 17:37 Hemoglobin A1c LAB 06/14/25 In Process 17:37 Drug Screen LAB 06/14/25 Logged 17:37 Ipratropium Medneb PHA 06/14/25 Logged (Atrovent Medneb) 18:00 Levalbuterol Hcl PHA 06/14/25 Logged (Xopenex Medneb) 18:00 Azithromycin PHA 06/15/25 Logged 500mg/250ml 10:00 Azithromycin PHA 06/14/25 Logged 500mg/250ml 17:45 Date of Service: Jun 14, 2025 Billing Provider: DANNY RASMUSSEN MD Common Visit Codes: [id number] INP/OBS CARE (HIGH) Secondary Visit Codes: [id number] CARE PLAN 30 MINUTES MASHA JAMIL RESIDENT Jun 14, 2025 17:52
[2025-06-14 18:05] LABS: Triglycerides 53.0 mg/dL (< 150)
[2025-06-14 18:06] LABS: Magnesium 1.9 mg/dL (1.6-2.6)
[2025-06-14 18:07] LABS: Cholesterol 111.0 mg/dL (< 200); HDL Cholesterol 43.0 mg/dL (40-59); INR 1.03 (0.9-1.15); Partial Thromboplastin Time 24.8 SEC (24.5-34.5); Prothrombin Time 10.9 sec (9.3-11.8)
[2025-06-14 18:18] LABS: Lipase 41.0 U/L (12-53)
[2025-06-14 18:28] VITALS: PULSE 91; RESP 16; O2SAT 99
[2025-06-14] MEDS: LEVALBUTEROL HCL 1.25 MG/3 ML NEB NEB SCH (18:28)
[2025-06-14] MEDS: IPRATROPIUM BROM 0.5 MG/2.5ML INH SOL NEB SCH (18:28)
[2025-06-14 18:34] VITALS: PULSE 86; RESP 16; O2SAT 100
[2025-06-14 19:02] VITALS: PULSE 85; RESP 16; RESP 18; O2SAT 91; O2SAT 98
[2025-06-14 19:19] VITALS: BP 93/54; PULSE 91; RESP 16; TEMP 97.7; O2SAT 99
[2025-06-14] MEDS: AZITHROMYCIN 500MG/250ML 250 ML IV ONE (19:43)
[2025-06-14] MEDS ORDERED: ATOR20TA50 PO (19:59)
[2025-06-14] MEDS ORDERED: LISI20TA56 PO (19:59)
[2025-06-14 20:00] VITALS: PULSE 93; RESP 18; O2SAT 98
[2025-06-14 21:55] VITALS: BP 99/60; PULSE 82; RESP 17; TEMP 98.6; O2SAT 95
[2025-06-14 22:25] LABS: Phencyclidine Screen, Urine Neg (NEGATIVE)
[2025-06-14 22:29] LABS: Urine Protein, UAD Negative (Negative)
[2025-06-14 22:31] LABS: Amphetamine Screen, Urine Neg (NEGATIVE); Barbiturate Scree,Urine Neg (NEGATIVE); Benzodiazephine Screen, Urine Neg (NEGATIVE); Cannabinoid Screen, Urine Neg (NEGATIVE); Cocaine Screen, Urine Neg (NEGATIVE); Opiate Scree,Urine Neg (NEGATIVE)
[2025-06-14 23:02] LABS: COVID19 ANTIGEN SOFIA FIA NEGATIVE (NEGATIVE)
[2025-06-15] VITALS (17 sets, daily range): BP systolic 105–134; BP diastolic 64–76; PULSE 63–89; RESP 15–18; TEMP 98–99; O2SAT 90–100
[2025-06-15 07:01] LABS: Hematocrit 36.2 % (41.0-53.0); Hemoglobin 12.5 g/dL (13.5-17.5); Mean Corpuscular Hemoglobin 33.7 pg (28.0-32.0); Mean Corpuscular Volume 97.9 fL (80.0-100.0); Nucleated Red Blood Cells % 0.0 %
[2025-06-15 07:27] LABS: Alkaline Phosphatase 72 U/L (46-116); Anion Gap 7 (5-15); BUN/Creatinine Ratio 28.6 (10.0-20.0); Blood Urea Nitrogen 14 mg/dL (9-23); Carbon Dioxide 28 mmol/L (20-31); Chloride 101 mmol/L (98-107); Potassium 4.3 mmol/L (3.5-5.1)
[2025-06-15 07:28] LABS: Bilirubin, Total 0.8 mg/dL (0.2-1.0)
[2025-06-15 07:29] LABS: Alanine Aminotransferase 45 U/L (7-40); Albumin 3.2 g/dL (3.2-4.8); Calcium 8.6 mg/dL (8.7-10.4); Glucose 119 mg/dL (74-106); Sodium 136 mmol/L (136-145); Total Protein 5.4 g/dL (5.7-8.2)
--- NOTE | 2025-06-15 08:34 | DVH ---
EXAM: CT HEAD WITHOUT CONTRAST INDICATION: Rule out CVA TECHNIQUE: CT of the head without intravenous contrast. Radiation Dose : 1. Head: CT Dose: CTDI volume is 52.12 mGy. Dose-length product is 1.71 mGy*cm The dose indicators for CT are the volume Computed Tomography (CT) Dose Index (CTDIvol) and the Dose Length Product (DLP), and are measured in units of mGy and mGy-cm, respectively. These indicators are not patient dose, but values generated from the CT scanner acquisition factors. The report includes radiation exposure data for exposures received during this examination. COMPARISON: CT HEAD WITHOUT CONTRAST on DOS: 07/30/23, HEAD WITHOUT CONTRAST on DOS: 01/21/20 FINDINGS: There is no evidence of acute intracranial hemorrhage, extra-axial collection, mass effect, midline shift, herniation or hydrocephalus. The ventricles, sulci and cisterns are age appropriate. The queen-white differentiation is intact. Patchy periventricular and subcortical white matter hypoattenuation is nonspecific but may be related to small vessel ischemic disease. The visualized paranasal sinuses and mastoid air cells are clear. The surrounding soft tissues and osseous structures are unremarkable. IMPRESSION: No acute intracranial abnormality. Radiation optimization: All CT scans at this facility use at least one of these dose optimization techniques: automated exposure control mA and/or kV adjustment per patient size (includes targeted exams where dose is matched to clinical indication) or iterative reconstruction.
[2025-06-15] MEDS: ENOXAPARIN SOD 30 MG/0.3 ML SYRINGE SC SCH (09:25)
[2025-06-15 10:52] LABS: Base Excess 1.3 mmol/L (-2.0-3.0)
--- NOTE | 2025-06-15 12:00 | DVHPNRES ---
Progress Note Date Seen: Jun 15, 2025 Resident Creating Document: DULCE HAYNES Medical Necessity Reason Pt with a Central, PICC or Fol: No Subjective Review of Systems Patient is a 84-year-old Urdu speaking male with a past medical history of COPD, Asthma, BPH, HTN, HLD and kidney disease came to the ED with a chief complaint of elevated blood pressure level. Patient reports that his blood pressure was elevated yesterday morning 170/100 mmHg. Associated with dizziness and headache. Although he took this antihypertensive medication, blood pressure did not come down, so decied to come to the hospital. Patient also reports left- sided abdominal pain for the past few days due to left inguinal hernia, which scheduled to get surgery on 07/04/25. Patient reported that at home he is on 2 L oxygen. Patient denied recent flu-like illness and symptoms of cough, congestion, fever, chills chest pain, dizziness, palpitations. Past medical history: COPD, Asthma, BPH, HTN kidney disease, HLD Past surgical history: cystoscopy with thulium laser lithopexy Social history: Patient has a history of 70 pack year smoking history, claims to be off smoking since 2 years, no alcohol, no drug use. Home medications: pending PCP Dr. Meyers Patient seen and examined at bedside. Patient is alert and oriented to time, place person and responding to all questions. Eyes: No Pain, No Vision change, No Conjunctivae inflammation, No Eyelid inflammation, No Other, No Redness ENT: No Ear pain, No Ear discharge, No Nose pain, No Nose discharge, No Nose congestion, No Mouth pain, No Mouth swelling, No Throat pain, No Throat swelling, No Other Cardiovascular: No Chest Pain, No Palpitations, No Orthopnea, No Paroxysmal No Dyspnea, No Edema, No Lt Headedness, No Other Respiratory: No Cough, No Dry, Shortness of breath, SOB with exertion, Wheezing, No Hemoptysis, No Pleuritic Pain, No Sputum, No Other Gastrointestinal: No Nausea, No Vomiting, No Abdominal Pain, No Diarrhea, No Constipation, No Melena, No Hematochezia, No Other Genitourinary: No Dysuria, No Frequency, No Incontinence, No Hematuria, No Retention, No Other Musculoskeletal: No other, No neck pain, No shoulder pain, No arm pain, No back pain, No hand pain, No leg pain, No foot pain Skin: No Rash, No Lesions, No Jaundice, No Bruising, No Other Objective vital signs Vital Sign Date Time Temp Pulse Resp B/P (MAP) Pulse Ox O2 Delivery O2 Flow Rate FiO2 06/15/25 10:00 90 Nasal Cannula 2.0 06/15/25 10:00 28 06/15/25 08:54 98.1 89 18 105/67 (80) 98.1 Total Intake and Output 06/14/25 06/14/25 06/15/25 15:00 23:00 07:00 Intake Total 500 ml 320 ml Balance 500 ml 320 ml medications Current Medications Medications Dose Ordered Sig/Yeimy Route Start Time Stop Time Status Last Admin Dose Admin Acetaminophen 325 mg Q4HP PRN PO 06/14/25 17:45 Ondansetron HCl 4 mg Q4HP PRN IV 06/14/25 17:45 Morphine Sulfate 2 mg Q4HPRN PRN IV 06/14/25 17:45 Enoxaparin Sodium 30 mg DAILY SC 06/15/25 10:00 06/15/25 09:25 30 MG Nitroglycerin 0.4 mg Q5MINP PRN SL 06/14/25 17:45 Morphine Sulfate 2 mg Q30M PRN IV 06/14/25 17:45 Ipratropium [place] 0.5 mg Q6HWA [facility] 06/14/25 18:00 06/15/25 01:07 0.5 MG Levalbuterol HCl 0.625 mg Q6HR NEB 06/14/25 18:00 06/15/25 01:06 0.625 MG Azithromycin 250 ml @ 125 mls/hr DAILY@1800 IV 06/15/25 18:00 Examination General Appearance: Cooperative. Well developed. Well nourished. NAD Head Exam: Normal inspection Neck Exam: Normal inspection. Non-tender. Normal alignment Pulmonary/Respiratory: Diffuse bilateral wheezing. On nasal cannula 2 L/min. Chest non-tender. Clear bilateral breath sounds, no crackles Cardiovascular/Chest: Regular rate and rhythm. No murmurs. No JVD. Peripheral Pulses: 2+ Radial (R). 2+ Radial (L). 2+ Pedal (R). 2+ Pedal (L) Abdominal Exam: Normal bowel sounds. Soft. normal abdomen, no visible veins, Nontender. No hepatospenomegaly. No masses Ankle Exam: Negative ankle edema Lower extremities: Negative lower extremity edema Neuro/Mental Status: A&O x4. Coherent. Thoughts/Psych: Normal thought pattern. Appropriate mood and affect. Good judgement and insight Skin Exam: Normal inspection. Normal color. Warm. Dry laboratory and microbiology Laboratory Tests 06/15/25 06:20 Test 06/15/25 06:20 Range/Units Serum Glucose 119 H 74-106 mg/dL Labs and/or images reviewed: Labs reviewed by me, Image(s) reviewed by me Problem List/Assessment/Plan Problem List/Assessment/Plan Acute on chronic hypoxic respiratory failure Acute COPD exacerbation Ruled out CVA Head CT: No acute intracranial abnormality. Carotid Doppler Study: No hemodynamically significant stenosis noted in the left/right carotid system. Chest X-ray: No evidence of acute disease. pain management with Tylenol and Morphine Zofran 4 MG IV q4h Azithromycin 500MG/250ML Lovenox 30 MG SC daily Levalbuterol 0.625 MG NEB q6h Ipratropium 0.5 MG EB q6h ABG EKG Sputum culture Essential Hypertension Lisinopril 10 G PO daily Hydralazine 25 NG PO daily Dyslipidemia Atorvastatin Left inguinal hernia Scheduled with hernia repair on 07/04/25 Macrocytic anemia Monitor Vitamin B12 1247 Hemoglobin 12.5 Diet: Cadiac Goals of care: Full code, discussed for >30 minutes on 06/15/25 Plan discussed with patient Plan discussed with Dr. Valencia Plan discussed with: Patient Date of Service: Jun 15, 2025 Billing Provider: DANNY VALENCIA MD Common Visit Codes: [id number] INP/OBS CARE(HIGH) DULCE HAYNES RESIDENT Jun 15, 2025 11:59
[2025-06-15] MEDS: LISINOPRIL 5 MG TAB PO SCH (12:15)
--- NOTE | 2025-06-15 12:41 | DVH ---
Carotid Duplex Date: 06/15/2025 11:33 AM Clinical History: R/o carotid disease Comparison: None Technique: Duplex Doppler evaluation of the extracranial carotid and vertebral arteries including color Doppler and spectral/pulsed waveform analysis was performed. Findings: RIGHT SIDE: The peak systolic velocities are 87 cm/s in the distal CCA and 89.5 cm/s in the proximal ICA.The ICA/CCA ratio is less than 2. The external carotid artery is patent with peak systolic velocity of 80.1 cm/s proximally. There is appropriate antegrade flow in the right vertebral artery. LEFT SIDE: The peak systolic velocities are 73 cm/s in the distal CCA and 84 cm/s in the proximal ICA.. The ICA/CCA ratio is less than 2. The external carotid artery is patent with peak systolic velocity of 94 cm/s proximally. There is appropriate antegrade flow in the left vertebral artery. IMPRESSION: 1. No hemodynamically significant stenosis noted in the right carotid system. 2. No hemodynamically significant stenosis noted in the left carotid system. 3. Reference: Radiology 2003; 229:340-346
[2025-06-15] MEDS: AZITHROMYCIN 500MG/250ML 250 ML IV SCH (18:11)
[2025-06-16] VITALS (9 sets, daily range): BP systolic 140–164; BP diastolic 74–78; PULSE 72–110; RESP 16–18; TEMP 36.3; O2SAT 93–98
[2025-06-16] MEDS: hydrALAZINE HCL 20 MG/ML VL IV ONE (05:17)
[2025-06-16 06:46] LABS: Hematocrit 42.5 % (41.0-53.0); Hemoglobin 14.8 g/dL (13.5-17.5); Mean Corpuscular Hemoglobin 34.0 pg (28.0-32.0); Mean Corpuscular Volume 97.2 fL (80.0-100.0); Nucleated Red Blood Cells % 0.1 %
[2025-06-16 07:08] LABS: Albumin 3.6 g/dL (3.2-4.8); Alkaline Phosphatase 86 U/L (46-116); Anion Gap 8 (5-15); BUN/Creatinine Ratio 25.5 (10.0-20.0); Blood Urea Nitrogen 13 mg/dL (9-23); Carbon Dioxide 27 mmol/L (20-31); Chloride 100 mmol/L (98-107); Glucose 79 mg/dL (74-106); Potassium 4.0 mmol/L (3.5-5.1); Total Protein 6.1 g/dL (5.7-8.2)
[2025-06-16 07:12] LABS: Sodium 135 mmol/L (136-145)
[2025-06-16 07:13] LABS: Alanine Aminotransferase 59 U/L (7-40); Bilirubin, Total 1.4 mg/dL (0.2-1.0); Calcium 8.5 mg/dL (8.7-10.4)
[2025-06-16] MEDS: ACETAMINOPHEN 325 MG TAB PO PRN (11:32)
--- NOTE | 2025-06-16 11:54 | DVHDSRES ---
Discharge Summary Date of Admission Resident Creating Document: DULEC HAYNES RESIDENT Jun 14, 2025 at 17:37 Date of Discharge: Jun 16, 2025 Admitting Diagnosis Acute exacerbation of COPD Hypertension with elevated blood pressure Labs/Diagnostic Data: Laboratory Results Test 06/16/25 06:20 06/15/25 10:45 06/14/25 22:00 06/14/25 18:00 White Blood Count 5.5 10^3/uL (4.4-10.8) Red Blood Count 4.37 10^6/uL (4.5-5.90) Hemoglobin 14.8 g/dL (13.5-17.5) Hematocrit 42.5 % (41.0-53.0) Mean Corpuscular Volume 97.2 fL (80.0-100.0) Mean Corpuscular Hemoglobin 34.0 pg (28.0-32.0) Mean Corpuscular Hemoglobin Concent 34.9 g/dL (32.0-36.0) Red Cell Distribution Width 14.0 % (11.8-14.3) Platelet Count 196 10^3/uL (140-450) Mean Platelet Volume 7.6 fL (6.9-10.8) Neutrophils (%) (Auto) 59.5 % (37.0-80.0) Lymphocytes (%) (Auto) 30.9 % (10.0-50.0) Monocytes (%) (Auto) 9.3 % (0.0-12.0) Eosinophils (%) (Auto) 0.0 % (0.0-7.0) Basophils (%) (Auto) 0.3 % (0.0-2.0) Neutrophils # (Auto) 3.3 10 ^3/uL (1.6-8.6) Lymphocytes # (Auto) 1.7 10 ^3/uL (0.4-5.4) Monocytes # (Auto) 0.5 10 ^3/uL (0-1.3) Eosinophils # (Auto) 0 10 ^3/uL (0-0.8) Basophils # (Auto) 0 10 ^3/uL (0-0.2) Nucleated Red Blood Cells 0.1 % Sodium Level 135 mmol/L (136-145) Potassium Level 4.0 mmol/L (3.5-5.1) Chloride Level 100 mmol/L (98-107) Carbon Dioxide Level 27 mmol/L (20-31) Anion Gap 8 (5-15) Blood Urea Nitrogen 13 mg/dL (9-23) Creatinine 0.51 mg/dL (0.700-1.30) Glomerular Filtration Rate Calc 99 mL/min (>90) BUN/Creatinine Ratio 25.5 (10.0-20.0) Serum Glucose 79 mg/dL (74-106) Calcium Level 8.5 mg/dL (8.7-10.4) Total Bilirubin 1.4 mg/dL (0.2-1.0) Aspartate Amino Transferase (AST) 61 U/L (13-40) Alanine Aminotransferase (ALT) 59 U/L (7-40) Alkaline Phosphatase 86 U/L (46-116) Total Protein 6.1 g/dL (5.7-8.2) Albumin 3.6 g/dL (3.2-4.8) Blood Gas Specimen Type Arterial Blood Gas Sample Site Right radial Blood Gas Patient Temperature 37.0 Arterial Blood Date Drawn [id number] Arterial Blood pH 7.469 (7.350-7.450) Arterial Blood Partial Pressure CO2 34.7 mmHg (35.0-48.0) Arterial Blood Partial Pressure O2 137.0 mmHg (83.0-108.0) Arterial Blood HCO3 24.6 mmol/L (21.0-28.0) Arterial Blood Oxygen Saturation 98.3 % (94.0-98.0) Arterial Blood Base Excess 1.3 mmol/L (-2.0-3.0) Arterial Blood Oxyhemoglobin 97.3 % (94.0-98.0) Arterial Blood Carboxyhemoglobin 0.6 % (0.5-1.5) Arterial Blood Methemoglobin 0.4 % (0.0-1.5) Arterial Blood Deoxyhemoglobin 1.7 % (0.0-5.0) Russel Test Yes Blood Gas Total Hemoglobin 12.80 g/dL (13.5-17.5) Blood Gas Liter Flow 2.00 Blood Gas Modality Nasal cannula FiO2 % 28.0 Urine Opiates Screen Neg (NEGATIVE) Urine Fentanyl Screen Neg (NEGATIVE) Urine Barbiturates Screen Neg (NEGATIVE) Urine Phencyclidine Screen Neg (NEGATIVE) Urine Amphetamines Screen Neg (NEGATIVE) Urine Benzodiazepines Screen Neg (NEGATIVE) Urine Cocaine Screen Neg (NEGATIVE) Urine Cannabinoids Screen Neg (NEGATIVE) Lactic Acid Level 1.1 mmol/L (0.4-2.0) Test 06/14/25 17:49 06/14/25 17:36 06/14/25 15:13 06/14/25 13:56 Influenza Type A Antigen Negative (Negative) Influenza Type B Antigen Negative (Negative) SARS-CoV-2 Antigen (Rapid) Negative (NEGATIVE) Troponin I High Sensitivity 18 ng/L (</=54) Prothrombin Time 10.9 sec (9.3-11.8) Prothrombin Time INR 1.03 (0.9-1.15) Activated Partial Thromboplast Time 24.8 SEC (24.5-34.5) Hemoglobin A1c 5.7 % A1C (<5.7) Phosphorus Level 3.7 mg/dL (2.4-5.1) Magnesium Level 1.9 mg/dL (1.6-2.6) Triglycerides Level 53 mg/dL (< 150) Cholesterol Level 111 mg/dL (< 200) LDL Cholesterol 56 mg/dL (< 100) HDL Cholesterol 43 mg/dL (40-59) Lipase 41 U/L (12-53) Vitamin B12 Level 1247 pg/mL (211-911) Vitamin D 25-Hydroxy 81.1 ng/mL (30.0-100) Thyroid Stimulating Hormone (TSH) 1.18 uIU/mL (0.55-4.78) Urine Color Yellow (Yellow) Urine Clarity Clear (Clear) Urine pH 6.0 (5.0-9.0) Urine Specific [place] 1.016 (1.001-1.035) Urine Protein Negative (Negative) Urine Ketones Negative (Negative) Urine Blood Negative /uL (Negative) Urine Nitrite Negative (Negative) Urine Bilirubin Negative (Negative) Urine Urobilinogen Normal mg/dL (Negative) Urine Leukocyte Esterase Negative /uL (Negative) Urine RBC None seen /hpf (0 - 3) Urine Microscopic WBC 1 /HPF (0-3) Urine Squamous Epithelial Cells None seen /hpf (<5) Urine Bacteria None seen /hpf (None Seen) Urine Glucose 3+ mg/dL (Normal) Other Laboratory Tests 06/16/25 06:20 Brief Hx & Hospital Course: Patient is a 84-year-old Thai speaking male with a past medical history of COPD, Asthma, BPH, HTN, HLD and kidney disease came to the ED with a chief complaint of elevated blood pressure level. Patient reports that his blood pressure was elevated yesterday morning 170/100 mmHg. Associated with dizziness and headache. Although he took this antihypertensive medication, blood pressure did not come down, so decied to come to the hospital. Patient also reports left- sided abdominal pain for the past few days due to left inguinal hernia, which scheduled to get surgery on 07/04/25. Patient reported that at home he is on 2 L oxygen. Patient denied recent flu-like illness and symptoms of cough, congestion, fever, chills chest pain, dizziness, palpitations. Patient was treated conservatively during hospital course. Patient's symptoms improved, ruled out stroke, CT head was negative for acute intracranial abnormality. Carotid Doppler no significant stenosis. Patient was discharged home in hemodynamically stable condition. Prescribed prednisone 20 mg p.o. daily for 5 days. Patient was advised to follow up at discharge clinic and also follow up with the PCP. General Appearance: Cooperative. Well developed. Well nourished. NAD Head Exam: Normal inspection Neck Exam: Normal inspection. Non-tender. Normal alignment Pulmonary/Respiratory: Diffuse bilateral wheezing. On nasal cannula 2 L/min. Chest non-tender. Clear bilateral breath sounds, no crackles Cardiovascular/Chest: Regular rate and rhythm. No murmurs. No JVD. Peripheral Pulses: 2+ Radial (R). 2+ Radial (L). 2+ Pedal (R). 2+ Pedal (L) Abdominal Exam: Normal bowel sounds. Soft. normal abdomen, no visible veins, Nontender. No hepatospenomegaly. No masses Ankle Exam: Negative ankle edema Lower extremities: Negative lower extremity edema Neuro/Mental Status: A&O x4. Coherent. Thoughts/Psych: Normal thought pattern. Appropriate mood and affect. Good judgement and insight Skin Exam: Normal inspection. Normal color. Warm. Dry Of care discussed with Dr. Valencia Condition at Discharge: Stable Final Diagnosis/Problems List Problem List/Assessment/Plan Acute on chronic hypoxic respiratory failure Acute COPD exacerbation Ruled out CVA Essential Hypertension with elevated blood pressure Dyslipidemia Left inguinal hernia Macrocytic anemia Transaminitis Discharge Disposition: Home Discharge Instruct/Medications Diet: Cardiac 2g Na,low cholest Follow Up/Referral: Discharge clinic PCP Medications: See prescription Scheduled Atorvastatin Calcium (Atorvastatin Calcium), 20 MG PO DAILY, (Reported) Zeemkwefen-Pkmlblhhzpucel-Oxub (Breztri Aerosphere 160-9-4.8 Mcg/Act), 2 PUFF INH BID, (Reported) Hydralazine HCl (Hydralazine HCl), 1 TAB PO BID, (Reported) Ipratropium-Albuterol (Ipratropium Dexter/Albut), 1 VIAL NEB TID, (Reported) Lisinopril (Lisinopril), 10 MG PO DAILY, (Reported) Nitroglycerin (Ntrostat Sublingual), 0.4 MG SL PRN, (Reported) Scheduled PRN Albuterol Sulfate (Albuterol Sulfate Hfa), 2 PUFF INH Q2HR PRN for SHORTNESS OF BREATH, (Reported) Discontinued Medications Atorvastatin Calcium (Atorvastatin Calcium), 1 TAB PO DAILY Azithromycin (Azithromycin), 1 TAB PO DAILY Azithromycin (Zithromax Tablet), 250 MG PO DAILY Methylprednisolone (Medrol Dosepak), 4 MG PO UD Prednisone (Prednisone), 40 MG PO DAILY Discharge Statement: "Patient was advised to return to the ER or call 911 if any headaches, dizziness, shortness of breath, chest pain, abdominal pain, bleeding, fevers, or worsening of medical condition. Patient was counseled about treatment plan, medications, possible side effects, patientverbalized understanding. All questions were answered to the best of my ability. This discharge took greater then 30 minutes in planning, reviewing documentation, counseling the patient, and discussing with other team members." ASSESSMENT ASSESSMENT Assessment Date of Service: Jun 16, 2025 Billing Provider: DANNY VALENCIA MD Common Visit Codes: [id number]/OBS DISCH DAY >30min DAISY GUEVARA RESIDENT Jun 16, 2025 11:54
[2025-06-16] MEDS ORDERED: PRED20TA2 PO ×2 (12:52→12:53)
[2025-06-16] MEDS ORDERED: FOLI-119 PO (12:52)
[2025-06-16] MEDS ORDERED: THIA100T13 PO (12:52)
--- NOTE | 2025-06-18 07:26 | ECG ---
[facility] Test Date: 2025-06-14 Test Time: 13:44:37 Pat Name: CARMEN MORALES Department: [facility] ED Patient ID: [id number] Room: 0298T A Gender: M Machine Fancy Stitcher: tami : 1940 Requested By: FANNY BONILLA Order Number: [id number] Reading MD: Carlito Obando Measurements Intervals [place] Rate: 96 P: 78 RI: 137 QRS: 93 QRSD: 86 T: 52 QT: 350 QTc: 443 Interpretive Statements Sinus rhythm Ventricular premature complex Right axis deviation Probable anteroseptal infarct, old Electronically Signed On 06-19-2025 14:48:51 PST by Carlito Obando Please click the below link to view image of tracing.
== END 2025-06-16 13:37 | disposition home or self-care (01) | DRG 189 ==
LOC: ER 13:29 → OVERFLOW 17:37 → TELE-WESTW 18:44
PROVIDERS: ADMIT Student in an Organized Health Care Education/Training Program; ATTEND Emergency Medicine
DX: J96.21 Acute and chronic respiratory failure with hypoxia (principal); J44.1 Chronic obstructive pulmonary disease with (acute) exacerbation; D53.9 Nutritional anemia, unspecified; I10 Essential (primary) hypertension; I25.10 Atherosclerotic heart disease of native coronary artery without angina pectoris; F17.210 Nicotine dependence, cigarettes, uncomplicated; E78.5 Hyperlipidemia, unspecified; K40.90 Unilateral inguinal hernia, without obstruction or gangrene, not specified as recurrent; D75.89 Other specified diseases of blood and blood-forming organs; N40.0 Benign prostatic hyperplasia without lower urinary tract symptoms; R74.01 Elevation of levels of liver transaminase levels; Z79.82 Long term (current) use of aspirin; Z79.899 Other long term (current) drug therapy; Z79.2 Long term (current) use of antibiotics; Z90.49 Acquired absence of other specified parts of digestive tract; Z87.442 Personal history of urinary calculi
CPT/HCPCS: 36415; 36600; 70450; 71045; 80048; 80053; 80061; 80307; 81001; 82306; 82607; 82805; 83036; 83605; 83690; 83735; 84100; 84443; 84484; 85025; 85610; 85730; 87081; 87426; 87804; 93005; 93886; 94640; 96361; 96374; 99291; 99292; G0378

== ENCOUNTER 2025-07-04 07:31 | Day surgery (SDC) | payer MEDICARE ==
[2025-07-02 06:39] LABS: Hematocrit 42.3 % (41.0-53.0); Hemoglobin 14.5 g/dL (13.5-17.5); Mean Corpuscular Hemoglobin 33.7 pg (28.0-32.0); Mean Corpuscular Volume 98.0 fL (80.0-100.0); Nucleated Red Blood Cells % 0.0 %
[2025-07-02 06:49] LABS: Urine Budding Yeast OCCASIONAL /hpf (None Seen); Urine Protein, UAD Negative (Negative)
[2025-07-02 06:54] LABS: INR 0.95 (0.9-1.15); Partial Thromboplastin Time 25.1 SEC (24.5-34.5); Prothrombin Time 10.1 sec (9.3-11.8)
[2025-07-02 08:09] LABS: Albumin 4.0 g/dL (3.2-4.8); Alkaline Phosphatase 90 U/L (46-116); Anion Gap 9 (5-15); BUN/Creatinine Ratio 14.3 (10.0-20.0); Bilirubin, Total 0.9 mg/dL (0.2-1.0); Blood Urea Nitrogen 9 mg/dL (9-23); Calcium 9.5 mg/dL (8.7-10.4); Carbon Dioxide 29 mmol/L (20-31); Chloride 99 mmol/L (98-107); Glucose 90 mg/dL (74-106); Potassium 4.8 mmol/L (3.5-5.1); Sodium 137 mmol/L (136-145); Total Protein 7.0 g/dL (5.7-8.2)
[2025-07-02 08:10] LABS: Alanine Aminotransferase 44 U/L (7-40)
[~2025-07-04] VITALS: Ht 144.8 cm; Wt 44.0 kg
[2025-07-04] VITALS (12 sets, daily range): BP systolic 159; BP diastolic 77; PULSE 70–82; RESP 12–17; TEMP 97.8; O2SAT 95
[~2025-07-04 07:31] MED LIST changes: -ASPI-325 PO; -CLON0.1T PO; -DOCU-94 PO; -FURO20TA3 PO; -LACT10SO3 PO; -MONT10TA23 PO; -NITR0.4S29 SL; -POTA8TAB38 PO; -ROSU5TAB24 PO; -TAMS-35 PO; -VALS1TAB57 PO
[2025-07-04] MEDS ORDERED: ceFAZolin 2 GM/D5W50ml 50 ML IV ONE (07:47)
[2025-07-04] MEDS ORDERED: MORPHINE SULFATE INJ 2 MG/ml SYRG IV PRN (09:00)
[2025-07-04] MEDS ORDERED: METOCLOPRAMIDE HCL 5MG/ml INJ 2ml VIAL IV PRN (09:00)
[2025-07-04] MEDS ORDERED: HYDROmorphone HCL 2 MG/ML VL/or syr IV PRN ×2 (09:00)
[2025-07-04] MEDS ORDERED: MORPHINE SULFATE 4 MG/ML SYR/VIAL IV PRN (09:00)
[2025-07-04] MEDS ORDERED: KETOROLAC TROMETH 30 MG/ML 1ML VIAL IV ONE (09:00)
[2025-07-04] MEDS ORDERED: SODIUM CHLORIDE LOCK 10 ML ONE (09:12)
[2025-07-04] MEDS ORDERED: MIDAZOLAM HCL 2MG/2ML 2ml VIAL (1mg/ml) ONE (09:12)
[2025-07-04] MEDS ORDERED: fentaNYL CITRATE 100 MCG/2 ML VL ONE (09:12)
[2025-07-04] MEDS ORDERED: PROPOFOL 10 MG/ML 20 ML IV ONE (09:12)
[2025-07-04] MEDS ORDERED: ONDANSETRON HCL 4 MG/2 ML VIAL ONE (09:12)
[2025-07-04] MEDS: LIDOCAINE 1% INJ PF 5ML AMP ONE (10:00)
[2025-07-04] MEDS: BUPIVACAINE 0.5% INJ 50ML VIAL IJ ONE (10:00)
--- NOTE | 2025-07-04 10:24 | DVHOP ---
DATE OF SURGERY: 07/04/2025 DATE OF SURGERY: 07/04/2025 PREOPERATIVE DIAGNOSIS: Left inguinal hernia. POSTOPERATIVE DIAGNOSIS: Direct inguinal hernia. SURGEON: Ricky Horan MD ASSISTANT PLANT CONTROL OPERATOR: Isrrael Perez NP ANESTHESIA: Spinal. ANESTHESIOLOGIST: Dr. James. PROCEDURE: Repair of left direct inguinal hernia. DESCRIPTION OF PROCEDURE: Under anesthesia with the patient's skin prepped and draped, an incision was made, carried through adipose tissue onto the Trip's fascia, which was divided, and subsequently, the fibers of the external oblique aponeurosis were identified. The external inguinal ring was palpated. There was a large direct herniation, which was reduced and held back with a baby [place]. The cord structures and ilioinguinal nerve were identified. The nerve was protected. The cord structures were retracted circumferentially, encircled and protected. The herniation was then repaired utilizing a repair in a fashion with conjoint tendon, sutured to the Jamir's ligament and subsequently to the reflecting portion of Poupart's ligament. The repair was carried out to the lateral extent of the reconstructed inguinal ring which then accommodated the cord structures without any undue compression. The wound was irrigated. The cord structures and the ilioinguinal nerve returned into the normal anatomical position as was the testicle. Subcutaneous tissues and skin approximated using Monocryl sutures, Dermabond glue and Steri-Strips. The patient remained stable throughout the procedure, left the operating room following an accurate needle and sponge counts. Ricky Horan MD PF/SHILA TID: [id number] RECEIPT: [id number]
[2025-07-04] MEDS ORDERED: ACE3T PO (10:26)
== END 2025-07-04 15:18 | disposition home or self-care (01) ==
LOC: SUR 07:31
PROVIDERS: ATTEND Surgery
DX: K40.90 Unilateral inguinal hernia, without obstruction or gangrene, not specified as recurrent (principal); I10 Essential (primary) hypertension; N40.0 Benign prostatic hyperplasia without lower urinary tract symptoms; J44.9 Chronic obstructive pulmonary disease, unspecified; F03.90 Unspecified dementia, unspecified severity, without behavioral disturbance, psychotic disturbance, mood disturbance, and anxiety; Z79.899 Other long term (current) drug therapy; Z90.89 Acquired absence of other organs; Z98.890 Other specified postprocedural states
CPT/HCPCS: 36415; 49505; 80053; 81001; 85025; 85610; 85730; 86850; 86900; 86901; J0690; J2250; J2405; J2704; J3010; J3490